=== PATIENT | female | born 1960 | race Caucasian/White ===

== ENCOUNTER 2016-05-23 21:53 | Observation (INO) | payer OTHER ==
[2016-05-23 22:28] LABS: Glucose,Whole Blood 540 mg/dL (75-99)
[2016-05-23 22:44] LABS: Appearance,Urine Clear (Clear); Bilirubin,Urine Negative (Negative); Glucose,Urine (UA) 4+ (Negative); Ketones,Urine Trace (Negative); Leukocyte Esterase,Urine Moderate (Negative); Nitrite,Urine Negative (Negative); Particle Count 2170; Protein,Urine Negative (Negative); RBC,Urine 7 /hpf (0-5); Specific Gravity,Urine 1.026 (1.001-1.035); Squamous Epithelial Cell,Urine 2 /hpf (0-4); UA Billing (MACRO vs. MICRO) MICRO; Urobilinogen,Urine <2.0 mg/dL (<2.0); WBC,Urine 10 /hpf (0-5)
[2016-05-23] MEDS ORDERED: RX INFO: IV CONTRAST WAS GIVEN 1 EACH MISC MISCELLANE PRN (22:46)
[2016-05-23] MEDS ORDERED: PANTOPRAZOLE 40 MG/10 ML VIAL IVP STA (22:46)
[2016-05-23] MEDS ORDERED: SODIUM CHLORIDE 0.9% 1,000 ML IV STA (22:46)
--- NOTE | 2016-05-23 22:54 | ED ---
GI Bleed HPI - General Chief complaint: GI Bleed Stated complaint: Abdominal Pain/Rectal Bleeding Time Seen by Provider: 05/23/16 21:58 Source: patient, RN notes reviewed Mode of arrival: EMS Limitations: no limitations - History of Present Illness Initial comments: This patient is a 56-year-old woman who complains of having melanotic stool since about 5 PM. The patient had a bowel movement at that time and noticed some dark stool which seemed to be leaching blood into the water of the commode. The patient had another bowel movement this evening noticing dark stool and there was an appearance of liver. The patient states she has been having some diffuse abdominal pain that she describes as moderate, constant, "like a hot nail", without any worsening or relieving factors. MD complaint: melena -: hour(s) Quality: other ("Like a hot nail") Consistency: constant Improves with: none Worsens with: none Associated Symptoms: abdominal pain - Related Data Home Medications Medication Instructions Recorded Confirmed Albuterol Inhaler [Ventolin Hfa 1 - 2 puff INHALATION RT-Q6H 08/27/15 10/14/15 Inhaler] Glimepiride [Amaryl] 1 mg PO DAILY 08/27/15 10/14/15 Omeprazole 40 mg PO AC-BRKFST 10/14/15 10/14/15 Previous Rx's Medication Instructions Recorded HYDROcodone/APAP 5-325MG [[place] 1 each PO Q4HR PRN #30 tab 09/02/15 5-325] Vancomycin 1,250 mg IVPB Q12H #42 bag 09/02/15 metFORMIN HCL [Glucophage] 1,000 mg PO BID-W/MEALS #60 tab 09/02/15 Allergies Allergy/AdvReac Type Severity Reaction Status Date / Time feathers Allergy Dyspnea Verified 10/14/15 11:30 Fish Containing Products Allergy Anaphylaxis Verified 10/14/15 11:30 kiwi Allergy Anaphylaxis Verified 10/14/15 11:30 latex Allergy Anaphylaxis Verified 10/14/15 11:30 Sulfa (Sulfonamide Allergy Anaphylaxis Verified 10/14/15 11:30 Antibiotics) codeine AdvReac Nausea & Verified 10/14/15 11:30 Vomiting & Diarrhea tetracycline [Tetracycline] AdvReac Nausea & Verified 10/14/15 11:30 Vomiting & Diarrhea all artificial sweetners Allergy Anaphylaxis Uncoded 10/14/15 11:30 mohawk peanuts Allergy Anaphylaxis Uncoded 10/14/15 11:30 Review of Systems ROS Statement: Those systems with pertinent positive or pertinent negative responses have been documented in the HPI. ROS Other: All systems not noted in ROS Statement are negative. Constitutional: Denies: fever, chills, weakness Respiratory: Denies: cough, dyspnea Cardiovascular: Denies: chest pain, palpitations, edema, syncope Endocrine: Reports: polyuria Gastrointestinal: Reports: as per HPI, abdominal pain, melena. Denies: nausea, vomiting, diarrhea, constipation, hematemesis Genitourinary: Denies: dysuria, frequency, hematuria Musculoskeletal: Denies: back pain Skin: Denies: rash Neurological: Denies: headache, weakness, numbness Psychiatric: Denies: depression Past Medical History Past Medical History: Asthma, Diabetes Mellitus, Hyperlipidemia, Hypertension Additional Past Medical History / Comment(s): heart murmur, kidney stones, nodules on thyroid, arthritis, Degenerative disc disease History of Any Multi-Drug Resistant Organisms: MRSA Date of last positivie culture/infection: 09/01/15, 08/30/15 MDRO Source:: , right, foot, serous fluid Past Surgical History: Section, Cholecystectomy, Orthopedic Surgery Additional Past Surgical History / Comment(s): Right middle finger extensor tendon repair, back injections both it was MRSA in her and by Dr. Bowser Past Anesthesia/Blood Transfusion Reactions: No Reported Reaction Past Psychological History: No Psychological Hx Reported Smoking Status: Never smoker Past Alcohol Use History: Rare Additional Past Alcohol Use History / Comment(s): Patient is a lifelong nonsmoker. She denies any medical marijuana, marijuana, street drug or alcohol use. She lives at home with her boyfriend. There are no pets in the home and no recent travel. She is not currently employed [employer] but previously worked at [employer] in the [facility]. Past Drug Use History: None Reported - Past Family History Mother Family Medical History: Coronary Artery Disease (CAD), Diabetes Mellitus, Renal Disease Brother(s) Family Medical History: Diabetes Mellitus Father Family Medical History: Cancer Additional Family Medical History / Comment(s): LUNG CANCER General Exam Limitations: no limitations General appearance: alert Head exam: Present: atraumatic, normocephalic Eye exam: Present: normal appearance. Absent: scleral icterus, conjunctival injection ENT exam: Present: normal oropharynx Neck exam: Present: normal inspection Respiratory exam: Present: normal lung sounds bilaterally. Absent: respiratory distress, wheezes, rales, rhonchi, stridor Cardiovascular Exam: Present: regular rate, normal rhythm, normal heart sounds. Absent: systolic murmur, diastolic murmur, rubs, gallop GI/Abdominal exam: Present: soft, normal bowel sounds, hernia (Patient has a small umbilical hernia which was easily reduced and is nontender.). Absent: distended, tenderness, guarding, rebound, mass, pulsatile mass Rectal exam: Present: normal inspection, normal rectal tone, other (No stool present). Absent: mass, tenderness Extremities exam: Present: normal inspection, normal capillary refill. Absent: pedal edema, calf tenderness Back exam: Present: normal inspection. Absent: CVA tenderness (R), CVA tenderness (L) Skin exam: Present: warm, dry, intact, normal color. Absent: rash, cyanosis, diaphoretic, erythema, petechiae, pallor, mottled Course Vital Signs 05/23/16 05/23/16 05/24/16 22:11 23:20 02:35 Temperature 98.2 F 98.1 F 98.2 F Pulse Rate 92 82 89 Respiratory 20 20 18 Rate Blood Pressure 207/104 172/90 209/112 O2 Sat by Pulse 98 98 98 Oximetry 05/24/16 05/24/16 04:26 05:58 Temperature Pulse Rate 91 68 Respiratory 16 18 Rate Blood Pressure 136/66 136/66 O2 Sat by Pulse 98 98 Oximetry Medical Decision Making - Lab Data Result diagrams: 05/23/16 23:15 05/23/16 23:15 Lab Results 05/23/16 05/23/16 05/23/16 Range/Units 22:00 22:24 23:15 WBC 6.9 (3.8-10.6) k/uL RBC 5.70 H (3.80-5.40) m/uL Hgb 16.1 H (11.4-16.0) gm/dL Hct 46.3 H (34.0-46.0) % MCV 81.2 (80.0-100.0) fL MCH 28.2 (25.0-35.0) pg MCHC 34.7 (31.0-37.0) g/dL RDW 12.8 (11.5-15.5) % Plt Count 189 (150-450) k/uL Neutrophils % 57 % Lymphocytes % 33 % Monocytes % 4 % Eosinophils % 3 % Basophils % 1 % Neutrophils # 4.0 (1.3-7.7) k/uL Lymphocytes # 2.3 (1.0-4.8) k/uL Monocytes # 0.3 (0-1.0) k/uL Eosinophils # 0.2 (0-0.7) k/uL Basophils # 0.1 (0-0.2) k/uL Sodium (137-145) mmol/L Potassium (3.5-5.1) mmol/L Chloride (98-107) mmol/L Carbon Dioxide (22-30) mmol/L Anion Gap mmol/L BUN (7-17) mg/dL Creatinine (0.52-1.04) mg/dL Est GFR (MDRD) Af Amer (>60 ml/min/1.73 sqM) Est GFR (MDRD) Non-Af (>60 ml/min/1.73 sqM) Glucose (74-99) mg/dL POC Glucose (mg/dL) 540 H (75-99) mg/dL POC Glu Dehydrogenation Operator Head ID Clarice Silva A Plasma Lactic Acid Damien (0.7-2.0) mmol/L Calcium (8.4-10.2) mg/dL Total Bilirubin (0.2-1.3) mg/dL AST (14-36) U/L ALT (9-52) U/L Alkaline Phosphatase (38-126) U/L Troponin I (0.000-0.034) ng/mL Total Protein (6.3-8.2) g/dL Albumin (3.5-5.0) g/dL Urine Color Colorless Urine Appearance Clear (Clear) Urine pH 5.0 (5.0-8.0) Ur Specific [place] 1.026 (1.001-1.035) Urine Protein Negative (Negative) Urine Glucose (UA) 4+ H (Negative) Urine Ketones Trace H (Negative) Urine Blood Negative (Negative) Urine Nitrate Negative (Negative) Urine Bilirubin Negative (Negative) Urine Urobilinogen <2.0 (<2.0) mg/dL Ur Leukocyte Esterase Moderate H (Negative) Urine RBC 7 H (0-5) /hpf Urine WBC 10 H (0-5) /hpf Ur Squamous Epith Cells 2 (0-4) /hpf Stool Occult Blood (Negative) Acetone, Qual (Negative) Blood Type Blood Type Confirm Blood Type Recheck Antibody Screen Spec Expiration Date 05/23/16 05/23/16 05/23/16 Range/Units 23:15 23:15 23:15 WBC (3.8-10.6) k/uL RBC (3.80-5.40) m/uL Hgb (11.4-16.0) gm/dL Hct (34.0-46.0) % MCV (80.0-100.0) fL MCH (25.0-35.0) pg MCHC (31.0-37.0) g/dL RDW (11.5-15.5) % Plt Count (150-450) k/uL Neutrophils % % Lymphocytes % % Monocytes % % Eosinophils % % Basophils % % Neutrophils # (1.3-7.7) k/uL Lymphocytes # (1.0-4.8) k/uL Monocytes # (0-1.0) k/uL Eosinophils # (0-0.7) k/uL Basophils # (0-0.2) k/uL Sodium 137 (137-145) mmol/L Potassium 4.2 (3.5-5.1) mmol/L Chloride 100 (98-107) mmol/L Carbon Dioxide 26 (22-30) mmol/L Anion Gap 11 mmol/L BUN 15 (7-17) mg/dL Creatinine 0.60 (0.52-1.04) mg/dL Est GFR (MDRD) Af Amer >60 (>60 ml/min/1.73 sqM) Est GFR (MDRD) Non-Af >60 (>60 ml/min/1.73 sqM) Glucose 521 H* (74-99) mg/dL POC Glucose (mg/dL) (75-99) mg/dL POC Glu Dehydrogenation Operator Head ID Plasma Lactic Acid Damien 2.3 H* (0.7-2.0) mmol/L Calcium 9.1 (8.4-10.2) mg/dL Total Bilirubin 0.7 (0.2-1.3) mg/dL AST 20 (14-36) U/L ALT 40 (9-52) U/L Alkaline Phosphatase 76 (38-126) U/L Troponin I (0.000-0.034) ng/mL Total Protein 6.5 (6.3-8.2) g/dL Albumin 3.9 (3.5-5.0) g/dL Urine Color Urine Appearance (Clear) Urine pH (5.0-8.0) Ur Specific [place] (1.001-1.035) Urine Protein (Negative) Urine Glucose (UA) (Negative) Urine Ketones (Negative) Urine Blood (Negative) Urine Nitrate (Negative) Urine Bilirubin (Negative) Urine Urobilinogen (<2.0) mg/dL Ur Leukocyte Esterase (Negative) Urine RBC (0-5) /hpf Urine WBC (0-5) /hpf Ur Squamous Epith Cells (0-4) /hpf Stool Occult Blood Negative (Negative) Acetone, Qual (Negative) Blood Type Blood Type Confirm Blood Type Recheck Antibody Screen Spec Expiration Date 05/23/16 05/23/16 05/23/16 Range/Units 23:15 23:15 23:15 WBC (3.8-10.6) k/uL RBC (3.80-5.40) m/uL Hgb (11.4-16.0) gm/dL Hct (34.0-46.0) % MCV (80.0-100.0) fL MCH (25.0-35.0) pg MCHC (31.0-37.0) g/dL RDW (11.5-15.5) % Plt Count (150-450) k/uL Neutrophils % % Lymphocytes % % Monocytes % % Eosinophils % % Basophils % % Neutrophils # (1.3-7.7) k/uL Lymphocytes # (1.0-4.8) k/uL Monocytes # (0-1.0) k/uL Eosinophils # (0-0.7) k/uL Basophils # (0-0.2) k/uL Sodium (137-145) mmol/L Potassium (3.5-5.1) mmol/L Chloride (98-107) mmol/L Carbon Dioxide (22-30) mmol/L Anion Gap mmol/L BUN (7-17) mg/dL Creatinine (0.52-1.04) mg/dL Est GFR (MDRD) Af Amer (>60 ml/min/1.73 sqM) Est GFR (MDRD) Non-Af (>60 ml/min/1.73 sqM) Glucose (74-99) mg/dL POC Glucose (mg/dL) (75-99) mg/dL POC Glu Dehydrogenation Operator Head ID Plasma Lactic Acid Damien (0.7-2.0) mmol/L Calcium (8.4-10.2) mg/dL Total Bilirubin (0.2-1.3) mg/dL AST (14-36) U/L ALT (9-52) U/L Alkaline Phosphatase (38-126) U/L Troponin I <0.012 (0.000-0.034) ng/mL Total Protein (6.3-8.2) g/dL Albumin (3.5-5.0) g/dL Urine Color Urine Appearance (Clear) Urine pH (5.0-8.0) Ur Specific [place] (1.001-1.035) Urine Protein (Negative) Urine Glucose (UA) (Negative) Urine Ketones (Negative) Urine Blood (Negative) Urine Nitrate (Negative) Urine Bilirubin (Negative) Urine Urobilinogen (<2.0) mg/dL Ur Leukocyte Esterase (Negative) Urine RBC (0-5) /hpf Urine WBC (0-5) /hpf Ur Squamous Epith Cells (0-4) /hpf Stool Occult Blood (Negative) Acetone, Qual Negative (Negative) Blood Type A Positive Blood Type Confirm Blood Type Recheck CABO Indicated Antibody Screen NEGATIVE Spec Expiration Date 05/26/2016 - 231405/24/16 05/24/16 Range/Units 00:35 04:06 WBC (3.8-10.6) k/uL RBC (3.80-5.40) m/uL Hgb (11.4-16.0) gm/dL Hct (34.0-46.0) % MCV (80.0-100.0) fL MCH (25.0-35.0) pg MCHC (31.0-37.0) g/dL RDW (11.5-15.5) % Plt Count (150-450) k/uL Neutrophils % % Lymphocytes % % Monocytes % % Eosinophils % % Basophils % % Neutrophils # (1.3-7.7) k/uL Lymphocytes # (1.0-4.8) k/uL Monocytes # (0-1.0) k/uL Eosinophils # (0-0.7) k/uL Basophils # (0-0.2) k/uL Sodium (137-145) mmol/L Potassium (3.5-5.1) mmol/L Chloride (98-107) mmol/L Carbon Dioxide (22-30) mmol/L Anion Gap mmol/L BUN (7-17) mg/dL Creatinine (0.52-1.04) mg/dL Est GFR (MDRD) Af Amer (>60 ml/min/1.73 sqM) Est GFR (MDRD) Non-Af (>60 ml/min/1.73 sqM) Glucose (74-99) mg/dL POC Glucose (mg/dL) 263 H (75-99) mg/dL POC Glu Dehydrogenation Operator Head ID Clarice Silva A Plasma Lactic Acid Damien (0.7-2.0) mmol/L Calcium (8.4-10.2) mg/dL Total Bilirubin (0.2-1.3) mg/dL AST (14-36) U/L ALT (9-52) U/L Alkaline Phosphatase (38-126) U/L Troponin I (0.000-0.034) ng/mL Total Protein (6.3-8.2) g/dL Albumin (3.5-5.0) g/dL Urine Color Urine Appearance (Clear) Urine pH (5.0-8.0) Ur Specific [place] (1.001-1.035) Urine Protein (Negative) Urine Glucose (UA) (Negative) Urine Ketones (Negative) Urine Blood (Negative) Urine Nitrate (Negative) Urine Bilirubin (Negative) Urine Urobilinogen (<2.0) mg/dL Ur Leukocyte Esterase (Negative) Urine RBC (0-5) /hpf Urine WBC (0-5) /hpf Ur Squamous Epith Cells (0-4) /hpf Stool Occult Blood (Negative) Acetone, Qual (Negative) Blood Type Blood Type Confirm A Positive Blood Type Recheck Antibody Screen Spec Expiration Date Disposition Clinical Impression: Diabetes, History of gastrointestinal bleeding, Acidosis, lactic, Hyperglycemia Disposition: ADMITTED IP TO THIS [facility] Condition: Fair
[2016-05-23 23:25] LABS: Basophils # (A) 0.1 k/uL (0-0.2); Basophils % (A) 1 %; CH 29.1; Eosinophils # (A) 0.2 k/uL (0-0.7); Eosinophils % (A) 3 %; HCT 46.3 % (34.0-46.0); HDW 3.13; HGB 16.1 gm/dL (11.4-16.0); Luc % (Auto) 2; Lymphocytes # (A) 2.3 k/uL (1.0-4.8); Lymphocytes % (A) 33 %; MCH 28.2 pg (25.0-35.0); MCHC 34.7 g/dL (31.0-37.0); MCV 81.2 fL (80.0-100.0); Mean Platelet Volume 8.2; Monocytes # (A) 0.3 k/uL (0-1.0); Monocytes % (A) 4 %; Neutrophils % (A) 57 %; RDW 12.8 % (11.5-15.5); WBC 6.9 k/uL (3.8-10.6); WBC (Perox) 6.78
[2016-05-23 23:36] LABS: ALT 40 U/L (9-52); AST 20 U/L (14-36); Alkaline Phosphatase 76 U/L (38-126); Anion Gap 11 mmol/L; Blood Urea Nitrogen 15 mg/dL (7-17); Calcium 9.1 mg/dL (8.4-10.2); Carbon Dioxide 26 mmol/L (22-30); Chloride 100 mmol/L (98-107); Non-African American GFR(MDRD) >60 (>60 ml/min/1.73 sqM); Potassium 4.2 mmol/L (3.5-5.1); Sodium 137 mmol/L (137-145); Total Bilirubin 0.7 mg/dL (0.2-1.3); Total Protein 6.5 g/dL (6.3-8.2)
[2016-05-23 23:43] LABS: Glucose 521 mg/dL (74-99)
[2016-05-23] MEDS ORDERED: INSULIN REGULAR 100 UNIT/ML VIAL IV STA (23:58)
[2016-05-23] MEDS ORDERED: SODIUM CHLORIDE 0.9% 2,000 ML IV ONE (23:58)
[2016-05-24] MEDS ORDERED: methylPREDNISolone SOD SUCCI 125 MG/2 ML VIAL IV STA (02:27)
[2016-05-24] MEDS ORDERED: diphenhydrAMINE 50 MG/ML 1 ML VIAL IVP STA (02:28)
[2016-05-24] MEDS ORDERED: FAMOTIDINE 20 MG/2 ML VIAL IV STA (02:28)
--- NOTE | 2016-05-24 03:30 | CT ---
EXAMINATION TYPE: CT abdomen pelvis w con DATE OF EXAM: 05/24/2016 2:50 AM COMPARISON: 06/17/2014. HISTORY: bilat flank pain/rectal bleeding CT DLP: 855.00 mGycm Automated exposure control for dose reduction was used. TECHNIQUE: Helical acquisition of images was performed from the lung bases through the pelvis. CONTRAST: Performed without Oral Contrast and with IV Contrast, patient injected with 100 mL of Omnipaque 300. FINDINGS: LUNG BASES: No significant abnormality is appreciated. LIVER/GB: Mild to moderate fatty infiltration of liver is noted. Cholecystectomy changes are present. PANCREAS: No significant abnormality is seen. SPLEEN: No significant abnormality is seen. ADRENALS: No significant abnormality is seen. KIDNEYS: No hydronephrosis is noted bilaterally. Tiny nonobstructing stones are noted in the left kid lee. Benign-appearing small cysts are noted in the left kidney. RETROPERITONEAL ADENOPATHY: None visualized REPRODUCTIVE ORGANS: No significant abnormality is seen URINARY BLADDER: No significant abnormality is seen. PELVIC ADENOPATHY: None visualized. OSSEOUS STRUCTURES: Multilevel mild degenerative changes are suggested in the thoracolumbar spine. T here is severe spinal canal stenosis at the level of L4-L5. BOWEL: Mild to moderate gas and fecal distention of colonic bowel loops is noted. Visualized appendi x appears unremarkable in the axial image 65. Mild colonic diverticulosis is noted. Small hiatal hernia is noted. OTHER: Small fat-containing umbilical hernia is noted. IMPRESSION: 1. [id number] GASEOUS AND FECAL MATERIAL IS NOTED IN THE COLON WITHOUT SIGNIFICANT OBSTRUCTION. THERE IS MILD COLONIC DIVERTICULOSIS. 2. CHOLECYSTECTOMY AND FATTY INFILTRATION OF LIVER. 3. SMALL HIATAL HERNIA. 4. Severe spinal canal stenosis at L4-L5.
[2016-05-24 04:09] LABS: Glucose,Whole Blood 263 mg/dL (75-99)
[2016-05-24] MEDS ORDERED: NALOXONE 0.4 MG/ML 1 ML VIAL IV PRN (06:00)
[2016-05-24] MEDS ORDERED: MORPHINE SULFATE 4 MG/ML SYRINGE IV PRN (06:00)
[2016-05-24] MEDS ORDERED: ONDANSETRON 4 MG/2 ML VIAL IVP PRN (06:00)
[2016-05-24] MEDS ORDERED: metFORMIN 500 MG TAB PO SCH (07:30)
[2016-05-24 08:00] LABS: Glucose,Whole Blood 409 mg/dL (75-99)
[2016-05-24] MEDS: INSULIN LISPRO (humaLOG) 300 UNIT/3 ML VIAL SQ SCH ×3 (08:12→17:35)
[2016-05-24] MEDS ORDERED: GLIMEPIRIDE 1 MG TAB PO SCH (09:00)
[2016-05-24 09:16] VITALS: BMI 33.3
[2016-05-24] MEDS: SODIUM CHLORIDE 0.9% 1,000 ML IV SCH ×2 (09:28→19:32)
[2016-05-24 12:22] LABS: Glucose,Whole Blood 314 mg/dL (75-99)
[2016-05-24] MEDS: ALBUTEROL NEBULIZED 2.5 MG/3 ML INHALATION SCH ×3 (12:32→19:06)
[2016-05-24] MEDS: PANTOPRAZOLE 40 MG/10 ML VIAL IV SCH (15:10)
--- NOTE | 2016-05-24 16:10 | HP ---
DATE OF ADMISSION: 05/24/2016 PRESENTING COMPLAINT: Blood in the stool. HISTORY OF PRESENTING COMPLAINT: This is a 56-year-old patient of Dr. Acosta whose chronic stable medical conditions include asthma, hypertension, hypercholesterolemia, osteoarthritis. Patient states she has been having lower abdominal pain for about a month and has a bowel movement that has formed every other day. Has had a colonoscopy that was negative 3 years ago. Also some right lower abdominal pain she has had for 2 or 3 days. Patient noticed about a 1/4 cup of blood in the stool yesterday and dark-colored stools and she was admitted, feeling weak and tired. No nausea, vomiting, no fever. REVIEW OF SYSTEMS: CONSTITUTIONAL: Tired. HEENT: None. RESPIRATORY: None. CARDIOVASCULAR: None. GASTROINTESTINAL: As above. GENITOURINARY: None. MUSCULOSKELETAL: Aches and pains in the joints. DERMATOLOGICAL: None. HEMATOLOGICAL: None. LYMPHATIC: None. PSYCHIATRY: None. NEUROLOGICAL: None. Past history of diabetes mellitus type 2, asthma, hypertension, hypercholesterolemia, osteoarthritis, kidney stones, thyroid nodules, diabetic ulcer on the bottom of the right foot. PAST SURGICAL HISTORY: , cholecystectomy, right middle finger extension, tendon repair, back injection. SOCIAL HISTORY: Lives with her boyfriend, nonsmoker. No pets. Used to work previously at [employer] in the [facility] [employer]. Family history of coronary artery disease, diabetes, kidney disease, lung cancer. HOME MEDICATIONS: 1. Metformin 1000 mg p.o. b.i.d. 2. Amaryl 2 mg p.o. b.i.d. 3. Ventolin 1 to 2 puffs q.6 p.r.n. Allergies to FEATHERS, FISH, KIWI, LATEX, SULFA, CODEINE, MILK, TETRACYCLINE, ARTIFICIAL SWEETENERS, KYRGYZ PEANUTS. On examination, vital signs on presentation: Temperature 98.2, pulse 92, respirations 20, blood pressure 207/104, pulse ox 98% on room air. Repeat blood pressure down to 136/66, pulse ox 98% on room air. GENERAL APPEARANCE: Well built, BMI of 33.3, sitting up, not in distress. EYES: Pupils equal. Conjunctivae normal. HEENT: External appearance of nose and ears normal. Oral cavity normal. NECK: JVD not raised. Mass not palpable. Respiratory effort normal. Lungs are clear. CARDIOVASCULAR: First and second sounds normal. No edema. ABDOMEN: Lower abdominal tenderness. No guarding or rigidity. Liver and spleen not palpable. LYMPHATIC: No lymph node enlargement in neck or axillae. PSYCHIATRY: Alert and oriented x3. Mood and affect normal. NEUROLOGICAL: Pupils equal. Cranial nerves grossly intact. Power and sensation grossly intact. INVESTIGATIONS: White count 6.9, hemoglobin 16.1, potassium 4.2, BUN and creatinine are normal. Sugar on admission, blood glucose was 521, repeat went down her to 263, plasma lactic acid was 2.3. Troponin negative. Fecal for occult stool was negative. Serum acetone was negative. CT scan of the abdomen and pelvis, some fecal material in the colon, some colonic diverticulosis, mild, fatty liver, spinal canal stenosis at L4 and L5. ASSESSMENT: 1. This is a patient who is having lower abdominal pain for about a month, tenderness on examination and bloody stools. Patient may have a low-grade colitis, even though it may not be evident on the CAT scan, clinical history with the same. 2. Severe spinal stenosis at L4, L5. 3. Fatty infiltration of the liver, chronic. 4. Nonketotic hyperosmolar hyperglycemia for diabetes type 2, present on admission. 5. Intermittent asthma, stable. 6. Essential hypertension, uncontrolled on presentation. 7. Hypercholesterolemia. 8. Primary osteoarthritis in multiple joints, including hands and knees. PLAN: Will put the patient on clear liquids, and put the patient on insulin drip. Will also put the patient on IV ceftriaxone, subQ heparin, IV fluids. Care was discussed with the patient. GI consult was placed. Follow electrolytes closely. Also put the patient on NEFTALY inhibitor and Lipitor for being a diabetic.
[2016-05-24] MEDS: INSULIN REGULAR 100 UNIT in SODIUM CHLORIDE 0.9% 100 ML IV SCH ×2 (16:25→23:05)
[2016-05-24 16:38] LABS: Glucose,Whole Blood 291 mg/dL (75-99)
[2016-05-24 17:32] LABS: Glucose,Whole Blood 267 mg/dL (75-99)
[2016-05-24 19:34] LABS: Glucose,Whole Blood 357 mg/dL (75-99)
[2016-05-24] MEDS: LISINOPRIL-HCTZ 10-12.5 MG 1 EACH TAB PO SCH (19:55)
[2016-05-24] MEDS: ATORVASTATIN 20 MG TAB PO SCH (19:56)
[2016-05-24 21:10] LABS: Glucose,Whole Blood 271 mg/dL (75-99)
[2016-05-24 23:14] LABS: Glucose,Whole Blood 177 mg/dL (75-99)
[2016-05-25 01:13] LABS: Glucose,Whole Blood 123 mg/dL (75-99)
[2016-05-25 02:02] LABS: Glucose,Whole Blood 134 mg/dL (75-99)
[2016-05-25] MEDS: ALBUTEROL NEBULIZED 2.5 MG/3 ML INHALATION SCH ×4 (03:10→19:22)
[2016-05-25 03:13] LABS: Glucose,Whole Blood 169 mg/dL (75-99)
[2016-05-25] MEDS: SODIUM CHLORIDE 0.9% 1,000 ML IV SCH ×2 (05:05→18:02)
[2016-05-25 05:09] LABS: Glucose,Whole Blood 145 mg/dL (75-99)
[2016-05-25] MEDS: INSULIN LISPRO (humaLOG) 300 UNIT/3 ML VIAL SQ SCH ×3 (07:52→17:29)
[2016-05-25] MEDS: PANTOPRAZOLE 40 MG/10 ML VIAL IV SCH (07:52)
[2016-05-25] MEDS: LISINOPRIL-HCTZ 10-12.5 MG 1 EACH TAB PO SCH ×2 (08:00→20:33)
[2016-05-25 08:15] LABS: Glucose,Whole Blood 149 mg/dL (75-99)
[2016-05-25 08:27] LABS: Basophils # (A) 0.1 k/uL (0-0.2); Basophils % (A) 1 %; CH 28.9; CHCM 35.3; Eosinophils # (A) 0.1 k/uL (0-0.7); Eosinophils % (A) 1 %; HCT 39.5 % (34.0-46.0); HDW 3.14; HGB 13.5 gm/dL (11.4-16.0); Luc # (Auto) 0.07; Luc % (Auto) 1; Lymphocytes # (A) 2.3 k/uL (1.0-4.8); Lymphocytes % (A) 21 %; MCH 28.2 pg (25.0-35.0); MCHC 34.3 g/dL (31.0-37.0); MCV 82.3 fL (80.0-100.0); Mean Platelet Volume 8.6; Monocytes # (A) 0.4 k/uL (0-1.0); Monocytes % (A) 3 %; Neutrophils % (A) 73 %; RDW 13.1 % (11.5-15.5); WBC 10.9 k/uL (3.8-10.6); WBC (Perox) 11.49
[2016-05-25 08:50] LABS: Anion Gap 9 mmol/L; Blood Urea Nitrogen 8 mg/dL (7-17); Calcium 7.7 mg/dL (8.4-10.2); Carbon Dioxide 23 mmol/L (22-30); Chloride 110 mmol/L (98-107); Cholesterol 168 mg/dL (<200); Glucose 153 mg/dL (74-99); HDL Cholesterol 32 mg/dL (40-60); Non-African American GFR(MDRD) >60 (>60 ml/min/1.73 sqM); Potassium 3.2 mmol/L (3.5-5.1); Sodium 142 mmol/L (137-145); Triglycerides 188 mg/dL (<150)
[2016-05-25 09:34] LABS: Glucose,Whole Blood 259 mg/dL (75-99)
[2016-05-25] MEDS: HYDROcodone/APAP 5-325MG 1 EACH TAB PO PRN (09:40)
[2016-05-25 11:00] LABS: Glucose,Whole Blood 208 mg/dL (75-99)
[2016-05-25 12:23] LABS: Hemoglobin A1C 12.9 % (4.2-6.1)
[2016-05-25 13:26] LABS: Glucose,Whole Blood 187 mg/dL (75-99)
[2016-05-25 15:06] LABS: Glucose,Whole Blood 253 mg/dL (75-99)
[2016-05-25] MEDS: INSULIN REGULAR 100 UNIT in SODIUM CHLORIDE 0.9% 100 ML IV SCH (16:09)
[2016-05-25 17:32] LABS: Glucose,Whole Blood 136 mg/dL (75-99)
[2016-05-25] MEDS: metFORMIN 500 MG TAB PO SCH (17:39)
[2016-05-25] MEDS: GLIMEPIRIDE 2 MG TAB PO SCH (17:39)
[2016-05-25 19:21] LABS: Glucose,Whole Blood 171 mg/dL (75-99)
[2016-05-25] MEDS: ATORVASTATIN 20 MG TAB PO SCH (20:33)
[2016-05-25 20:47] LABS: Glucose,Whole Blood 182 mg/dL (75-99)
--- NOTE | 2016-05-25 22:18 | PN ---
DATE OF SERVICE: 05/25/2016 PRESENTING COMPLAINT: Blood in the stools. INTERVAL HISTORY: This is a patient who is suspected to have low-grade colitis. Abdominal pain is better. Did tolerate some clear liquids. Sugar is running high. She has had no further bowel movement. Keen to advance diet. No nausea or vomiting. Review of systems done for constitutional, cardiovascular, GI, pulmonary; relevant findings as above. Current medications are reviewed, including insulin drip. On examination, temperature 98, pulse 99, respiration 16, blood pressure 123/78, pulse ox 98% on room air. GENERAL APPEARANCE: Sitting up, not in distress. EYES: Pupils equal. Conjunctivae normal. NECK: JVD not raised. Mass not palpable. RESPIRATORY: Effort normal. Lungs are clear. CARDIOVASCULAR: First and second sounds normal. No edema. ABDOMEN: Minimal lower abdominal tenderness. No guarding or rigidity. PSYCHIATRY: Alert and oriented x3. Mood and affect normal. INVESTIGATIONS: White count 10.9, hemoglobin 13.5. BUN and creatinine are normal. ( ) are better. Urine culture negative. ASSESSMENT: 1. Possible low-grade colitis with clinical improvement. 2. Severe spinal stenosis at L4-L5. 3. Fatty infiltration of the liver, chronic. 4. Non-ketotic hyperosmolar hyperglycemia for diabetes mellitus, type 2, present on admission. 5. Intermittent asthma, stable. 6. Essential hypertension, uncontrolled on presentation. 7. Hypercholesterolemia. 8. Primary osteoarthritis of multiple joints, including hands and knees. PLAN: Continue current medication and treatment plan. Advance diet. Care was discussed with the patient.
[2016-05-26] MEDS: SODIUM CHLORIDE 0.9% 1,000 ML IV SCH ×2 (00:39→07:59)
[2016-05-26] MEDS: ALBUTEROL NEBULIZED 2.5 MG/3 ML INHALATION SCH ×2 (01:31→13:38)
[2016-05-26] MEDS: HYDROcodone/APAP 5-325MG 1 EACH TAB PO PRN (03:30)
[2016-05-26 07:29] LABS: Glucose,Whole Blood 267 mg/dL (75-99)
[2016-05-26 07:53] VITALS: RESP 18; TEMP 98.2
[2016-05-26] MEDS: metFORMIN 500 MG TAB PO SCH (07:58)
[2016-05-26] MEDS: LISINOPRIL-HCTZ 10-12.5 MG 1 EACH TAB PO SCH (07:59)
[2016-05-26] MEDS: PANTOPRAZOLE 40 MG/10 ML VIAL IV SCH (07:59)
[2016-05-26] MEDS: GLIMEPIRIDE 2 MG TAB PO SCH (07:59)
[2016-05-26] MEDS: INSULIN LISPRO (humaLOG) 300 UNIT/3 ML VIAL SQ SCH ×3 (08:05→12:48)
[2016-05-26 08:37] LABS: Basophils # (A) 0.1 k/uL (0-0.2); Basophils % (A) 1 %; CH 28.9; Eosinophils # (A) 0.1 k/uL (0-0.7); Eosinophils % (A) 2 %; HCT 41.5 % (34.0-46.0); HDW 3.14; HGB 14.1 gm/dL (11.4-16.0); Luc # (Auto) 0.05; Luc % (Auto) 1; Lymphocytes # (A) 1.7 k/uL (1.0-4.8); Lymphocytes % (A) 28 %; MCH 28.2 pg (25.0-35.0); MCHC 34.1 g/dL (31.0-37.0); MCV 82.9 fL (80.0-100.0); Mean Platelet Volume 8.1; Monocytes # (A) 0.2 k/uL (0-1.0); Monocytes % (A) 4 %; Neutrophils % (A) 65 %; RBC 5.01 m/uL (3.80-5.40); WBC 6.1 k/uL (3.8-10.6); WBC (Perox) 6.36
[2016-05-26 08:55] LABS: Anion Gap 11 mmol/L; Blood Urea Nitrogen 8 mg/dL (7-17); Carbon Dioxide 24 mmol/L (22-30); Chloride 105 mmol/L (98-107); Glucose 250 mg/dL (74-99); Non-African American GFR(MDRD) >60 (>60 ml/min/1.73 sqM); Potassium 3.4 mmol/L (3.5-5.1); Sodium 140 mmol/L (137-145)
[2016-05-26 10:14] VITALS: BP 152/80
[2016-05-26 11:33] LABS: Glucose,Whole Blood 215 mg/dL (75-99)
[2016-05-26 13:41] VITALS: PULSE 76
--- NOTE | 2016-05-27 13:29 | DS ---
DATE OF ADMISSION: 05/24/2016 DATE OF DISCHARGE: 05/26/2016 FINAL DIAGNOSES: 1. Acute low-grade colitis, present on admission. 2. Severe spinal stenosis L4-L5. 3. Fatty infiltration of the liver, chronic. 4. Nonketotic hyperosmolar, hyperglycemia for diabetes mellitus, type 2. 5. Intermittent asthma, stable. 6. Essential hypertension, uncontrolled on presentation. 7. Hypercholesterolemia. 8. Primary osteoarthritis, multiple joints, including hands and knees. CONSULTATIONS: Dr. Sarabia from GI. HOSPITAL COURSE: This patient presented with lower abdominal pain, some blood in the stool. Sugars were running high. It was felt that patient may have colitis, given antibiotics, ( ) resolved. Seen by Dr. Sarabia from GI. I do not have his formal consult dictated currently. Patient keen to go home. Clinically doing better, afebrile. Normal white count. ON EXAMINATION: ABDOMEN: Soft, nontender. DISCHARGE MEDICATIONS: 1. Ventolin 1 to 2 puffs q.6 p.r.n. 2. Glucophage 1000 mg p.o. b.i.d. 3. Amaryl 2 mg p.o. b.i.d. 4. Augmentin 875 one tablet p.o. q.12, fourteen tablets. 5. Lipitor 20 mg q.h.s. 6. Zestoretic 02/11.5 one tablet p.o. b.i.d. Follow up with Dr. Sarabia on 06/08/16. Follow up with Dr. Acosta on 05/28/16. LABS: CBC, BMP in 3 days. DIET: Soft, bland.
== END 2016-05-26 16:15 | disposition home or self-care (01) ==
LOC: EC 21:53 → 5MS5E 05-24 06:01
PROVIDERS: ADMIT Hospitalist; ATTEND Hospitalist
DX: K52.9 Noninfective gastroenteritis and colitis, unspecified (principal); M48.06 Spinal stenosis, lumbar region; K76.0 Fatty (change of) liver, not elsewhere classified; E11.65 Type 2 diabetes mellitus with hyperglycemia; E87.0 Hyperosmolality and hypernatremia; J45.20 Mild intermittent asthma, uncomplicated; I10 Essential (primary) hypertension; E78.00 Pure hypercholesterolemia, unspecified; M19.91 Primary osteoarthritis, unspecified site; E78.5 Hyperlipidemia, unspecified; K42.9 Umbilical hernia without obstruction or gangrene; K57.30 Diverticulosis of large intestine without perforation or abscess without bleeding; K44.9 Diaphragmatic hernia without obstruction or gangrene; Z79.84 Long term (current) use of oral hypoglycemic drugs; Z79.899 Other long term (current) drug therapy; Z91.040 Latex allergy status; Z88.2 Allergy status to sulfonamides; Z86.14 Personal history of Methicillin resistant Staphylococcus aureus infection; Z82.49 Family history of ischemic heart disease and other diseases of the circulatory system; Z83.3 Family history of diabetes mellitus; Z80.1 Family history of malignant neoplasm of trachea, bronchus and lung
CPT/HCPCS: 36415 ×2; 94640 ×4; 86900; 86901; 80061; 80053; 80048 ×2; 83036; 82009; 83605 ×2; 84484; 85025 ×3; 86850; 82272; 81001; 87086; 74177; 99285; 96375 ×4; 96376; 96361 ×16; G0378 ×3; J1200; J2930; J2405; J0696 ×3; Q9967; C9113 ×4; 96365; 96366; 96367; 96368

== ENCOUNTER 2016-06-15 08:08 | Day surgery (SDC) | payer OTHER ==
[2016-06-11 10:37] VITALS: BMI 31.8
[~2016-06-15 08:08] MED LIST: LACTATED RINGERS 1,000 ML IV SCH
[2016-06-15 08:35] VITALS: RESP 16; TEMP 97
[2016-06-15] MEDS ORDERED: LIDOCAINE 1% INJ 10MG/ML (20 ML MDV) ONE (08:38)
[2016-06-15] MEDS ORDERED: PROPOFOL 10 MG/ML 20 ML VIAL IV ONE (08:38)
[2016-06-15 08:40] LABS: Glucose,Whole Blood 272 mg/dL (75-99)
--- NOTE | 2016-06-15 09:02 | P.PCN ---
Date of Procedure: 06/15/16 Procedure(s) Performed: Procedure: Esophagogastroduodenoscopy and biopsy. Preoperative diagnosis: Reflux symptoms and nocturnal regurgitation. Postoperative diagnosis: 1. Sliding hiatal hernia with no definite esophagitis or complicated reflux disease. 2. Mild antral gastritis. 3. Multiple biopsies obtained from the duodenum, antrum and esophagus. Preparation and sedation: Was provided by anesthesia Brief clinical history: The patient is a 56-year-old female who was evaluated in the office for symptoms of heartburn and nocturnal regurgitation that she has been experiencing for the last several weeks. No dysphagia or other alarm symptoms. This evaluation was scheduled to assess for esophagitis, complicated reflux disease or other pathology. Procedure: With the patient on her left lateral decubitus position and after informed consent and adequate sedation, I passed the Olympus-GIF 160 video upper endoscope through the cricopharyngeus down the esophagus. GE junction was around 34 cm from the incisors and there was a small sliding hiatal hernia. The esophagus did not show any definite evidence of esophagitis. No obvious erosions or ulcers. No strictures or Hidalgo's esophagus. The endoscope was then passed into the stomach which was insufflated with air and inspected in detail including the retroflex view in the cardia. There was some mottling and erythema in the antrum consistent with mild gastritis but no ulcers or erosions. Pyloric channel, duodenal bulb, post bulbar area and descending duodenum appeared within normal limits. I obtained multiple biopsies from the duodenum, antrum and esophagus then the endoscope was withdrawn. The patient tolerated the procedure well. Plan: The patient was reassured. Will await biopsy results and make further plans based on his course and biopsy results. Would keep you updated on her progress. She will follow-up with you as planned.
[2016-06-15 09:11] LABS: Glucose,Whole Blood 280 mg/dL (75-99)
[2016-06-15 09:34] VITALS: BP 109/71; PULSE 79
== END 2016-06-15 09:56 | disposition home or self-care (01) ==
LOC: ORWHC2ENDO 08:08
DX: K29.50 Unspecified chronic gastritis without bleeding (principal); K44.9 Diaphragmatic hernia without obstruction or gangrene; K20.9 Esophagitis, unspecified; E11.9 Type 2 diabetes mellitus without complications; I10 Essential (primary) hypertension; J45.909 Unspecified asthma, uncomplicated; E78.5 Hyperlipidemia, unspecified; Z86.73 Personal history of transient ischemic attack (TIA), and cerebral infarction without residual deficits; Z79.84 Long term (current) use of oral hypoglycemic drugs; Z79.899 Other long term (current) drug therapy; Z88.5 Allergy status to narcotic agent; Z88.2 Allergy status to sulfonamides; Z88.1 Allergy status to other antibiotic agents; Z91.040 Latex allergy status
CPT/HCPCS: 88305; 88342; 43239; J2001; J2704; 99153

== ENCOUNTER → 2018-01-20 | Outpatient (CLI) | payer OTHER ==
[2018-01-20 12:15] LABS: Basophils # (A) 0.1 k/uL (0-0.2); Basophils % (A) 1 %; Eosinophils # (A) 0.2 k/uL (0-0.7); Eosinophils % (A) 3 %; HCT 39.9 % (34.0-46.0); Lymphocytes # (A) 1.7 k/uL (1.0-4.8); Lymphocytes % (A) 27 %; MCH 28.6 pg (25.0-35.0); MCHC 32.5 g/dL (31.0-37.0); Mean Platelet Volume 7.4; Monocytes # (A) 0.3 k/uL (0-1.0); Monocytes % (A) 4 %; Neutrophils # (A) 3.9 k/uL (1.3-7.7); Neutrophils % (A) 64 %; Platelet Count 178 k/uL (150-450); RBC 4.54 m/uL (3.80-5.40); RDW 13.4 % (11.5-15.5); WBC 6.1 k/uL (3.8-10.6)
--- NOTE | 2018-01-20 12:19 | US ---
EXAMINATION TYPE: US kidneys/renal and bladder DATE OF EXAM: 01/20/2018 COMPARISON: CT abdomen and pelvis 2017 CLINICAL HISTORY: R94.4 Decreased calculated GFR. EXAM MEASUREMENTS: Right Kidney: 10.8 x 3.9 x 4.1 cm Left Kidney: 10.4 x 4.9 x 4.2 cm Post Void Residual Volume: 0.3 mL Right Kidney: No hydronephrosis or masses seen , hyperechoic foci Left Kidney: No hydronephrosis or masses seen hyperechoic foci Bladder: wnl Bilateral Jets seen: Yes Normal Post Void Residual: Yes There is no evidence for hydronephrosis at this point in time. No masses are identified on images s aved. The urinary bladder is not greatly distended and thus suboptimally evaluated. Bilateral urete ral jets are seen. IMPRESSION: Small nonobstructing calculi on CT less well seen on ultrasound likely correspond to the nonshadowing hyperechoic foci marked by technologist. No hydronephrosis is noted bilaterally.
[2018-01-20 12:34] LABS: Albumin 3.8 g/dL (3.5-5.0); Phosphorus 3.9 mg/dL (2.5-4.5); Potassium 4.1 mmol/L (3.5-5.1); Total Bilirubin 0.7 mg/dL (0.2-1.3); Total Protein 6.3 g/dL (6.3-8.2)
== END ==
LOC: RADUSWWP 11:12
PROVIDERS: ATTEND Family Medicine
DX: N20.0 Calculus of kidney (principal); R94.4 Abnormal results of kidney function studies
CPT/HCPCS: 36415; 76770; 80053; 84100; 85025

== ENCOUNTER 2018-10-01 06:14 | Inpatient (IN) | payer OTHER ==
[2018-10-01 06:47] LABS: Glucose,Whole Blood >600 mg/dL (75-99)
[2018-10-01 06:53] LABS: Basophils % (A) 0 %; Eosinophils # (A) 0.1 k/uL (0-0.7); Eosinophils % (A) 0 %; HCT 37.5 % (34.0-46.0); HGB 12.5 gm/dL (11.4-16.0); Lymphocytes # (A) 1.4 k/uL (1.0-4.8); Lymphocytes % (A) 8 %; MCH 28.5 pg (25.0-35.0); MCHC 33.3 g/dL (31.0-37.0); MCV 85.8 fL (80.0-100.0); Mean Platelet Volume 8.2; Monocytes # (A) 0.8 k/uL (0-1.0); Monocytes % (A) 5 %; Neutrophils # (A) 15.1 k/uL (1.3-7.7); Neutrophils % (A) 86 %; Platelet Count 235 k/uL (150-450); RBC 4.36 m/uL (3.80-5.40); RDW 14.1 % (11.5-15.5); WBC 17.5 k/uL (3.8-10.6)
[2018-10-01] MEDS ORDERED: SODIUM CHLORIDE 0.9% 1,000 ML IV ONE (06:55)
--- NOTE | 2018-10-01 07:01 | ED ---
Syncope HPI - General Chief Complaint: Recheck/Abnormal Lab/Rx Stated Complaint: Sepsis Time Seen by Provider: 10/01/18 06:42 Source: patient, EMS Mode of arrival: EMS Limitations: no limitations - History of Present Illness Initial Comments: This patient is a 58-year-old woman transferred here from [facility] for suspected sepsis. The patient states that she had gone there in the evening after she had 2 episodes of passing out. Patient states that she had been in [place] most of the day and was celebrating a graduation. She states that then she was feeling lightheaded and weak and passed out. After second similar episode she went to the hospital there where they felt she may be septic and transferred her here. From the transfer paperwork, the patient is found to have a leukocytosis of 20,000 without a definite source. She had a lactic acid level of 9.7. when I interview the patient, she states that she has been having a cou gh since the first week of August. She had seen her physician on Mother's Day and had been given a course of azithromycin which she completed without much change. She then was placed on doxycycline for a few days and then this was subsequently stopped due to concerns about possibility of ALLERGY. She states she has known ALLERGY to tetracycline. She states that she does continue to have nonproductive cough. No fever. No urinary symptoms. No change in bowel movements. MD Complaint: loss of consciousness -: hour(s) Prodromal Symptoms: lightheaded Injuries Sustained Associated with Event: None Current Symptoms: back to baseline Context: standing up Treatments Prior to Arrival: IV fluids, other - Related Data Home Medications Medication Instructions Recorded Confirmed Atorvastatin [Lipitor] 20 mg PO DAILY 05/10/18 10/01/18 Cholecalciferol (Vitamin D3) 2,000 unit PO DAILY 05/10/18 10/01/18 [Vitamin D3] Citalopram Hydrobromide [CeleXA] 40 mg PO HS 05/10/18 10/01/18 Gabapentin [Neurontin] 100 mg PO BID 05/10/18 10/01/18 metFORMIN HCL 1,000 mg PO BID 05/10/18 10/01/18 ARIPiprazole [Abilify] 2 mg PO DAILY 10/01/18 10/01/18 Clotrimazole [Clotrimazole AF] 1 applic TOPICAL BID 10/01/18 10/01/18 Magnesium 500mg 500 mg PO TID 10/01/18 10/01/18 Omeprazole 40 mg PO DAILY 10/01/18 10/01/18 traZODone HCL 200 mg PO HS PRN 10/01/18 10/01/18 Previous Rx's Medication Instructions Recorded Insulin Aspart [NovoLOG] 12 units SQ AC-TID #1 ml 10/03/18 Insulin Glargine,Hum.rec.anlog 60 unit SQ DAILY #0 10/03/18 [Basaglar Kwikpen U-100] Allergies Allergy/AdvReac Type Severity Reaction Status Date / Time doxycycline Allergy Anaphylaxis Verified 10/01/18 07:57 Fish Containing Products Allergy Anaphylaxis Verified 10/01/18 07:57 [Fish] latex Allergy Rash/Hives Verified 10/01/18 07:57 rosuvastatin [From Crestor] Allergy Unknown Verified 10/01/18 07:57 Sulfa (Sulfonamide Allergy Unknown Verified 10/01/18 07:57 Antibiotics) aspartame AdvReac Unknown Verified 10/02/18 08:48 [From Konsyl Sugar-Free (aspartame)] codeine AdvReac Unknown Verified 10/01/18 07:57 kiwi AdvReac Nausea & Verified 10/01/18 07:57 Vomiting & Diarrhea psyllium AdvReac Unknown Verified 10/02/18 08:48 [From Konsyl Sugar-Free (aspartame)] Tetracyclines AdvReac Unknown Verified 10/01/18 07:57 Review of Systems ROS Statement: Those systems with pertinent positive or pertinent negative responses have been documented in the HPI. ROS Other: All systems not noted in ROS Statement are negative. Constitutional: Reports: weakness (Generalized). Denies: fever, chills Eyes: Denies: vision change Respiratory: Reports: cough. Denies: dyspnea, wheezes, hemoptysis Cardiovascular: Reports: syncope. Denies: chest pain, palpitations, orthopnea, edema Endocrine: Reports: fatigue, polydipsia, polyuria Gastrointestinal: Denies: abdominal pain, nausea, vomiting, diarrhea Genitourinary: Denies: dysuria, hematuria Musculoskeletal: Denies: back pain Skin: Denies: rash Neurological: Denies: headache, weakness, numbness Past Medical History Past Medical History: Asthma, Diabetes Mellitus, Hypertension History of Any Multi-Drug Resistant Organisms: MRSA Date of last positivie culture/infection: 2015 MDRO Source:: R foot Past Surgical History: Section, Cholecystectomy, Orthopedic Surgery Additional Past Surgical History / Comment(s): R hand sx Past Psychological History: Depression Smoking Status: Former smoker Past Alcohol Use History: Occasional Past Drug Use History: None Reported - Past Family History Mother Family Medical History: Diabetes Mellitus Additional Family Medical History / Comment(s): Triple bipass, from kidney failure General Exam Limitations: no limitations General appearance: alert, in no apparent distress Head exam: Present: atraumatic, normocephalic Eye exam: Present: normal appearance. Absent: scleral icterus, conjunctival injection ENT exam: Present: mucous membranes dry Neck exam: Present: normal inspection, full ROM Respiratory exam: Present: normal lung sounds bilaterally. Absent: respiratory distress, wheezes, rales, rhonchi, stridor Cardiovascular Exam: Present: regular rate, normal rhythm, normal heart sounds. Absent: systolic murmur, diastolic murmur, rubs, gallop GI/Abdominal exam: Present: soft. Absent: distended, tenderness, guarding, rebound, rigid, mass Extremities exam: Present: normal inspection, normal capillary refill. Absent: pedal edema, calf tenderness Back exam: Present: normal inspection. Absent: CVA tenderness (R), CVA tenderness (L) Neurological exam: Present: alert Skin exam: Present: warm, dry, intact, normal color. Absent: rash Course Vital Signs 10/01/18 10/01/18 10/01/18 06:21 07:02 07:58 Temperature 98.5 F 98.1 F Pulse Rate 102 H 90 95 Respiratory 16 15 18 Rate Blood Pressure 146/93 136/79 151/89 O2 Sat by Pulse 100 100 98 Oximetry 10/01/18 11:20 Temperature Pulse Rate 92 Respiratory 16 Rate Blood Pressure 127/73 O2 Sat by Pulse 99 Oximetry EKG Findings - EKG Results: EKG: interpreted by IRWIN WILKINS, sinus rhythm (Rate 95 bpm), normal axis, normal QRS, normal ST/T Medical Decision Making - Lab Data Result diagrams: 10/01/18 06:24 10/03/18 09:15 Lab Results 10/01/18 10/01/18 10/01/18 Range/Units 06:24 06:24 06:24 WBC 17.5 H (3.8-10.6) k/uL RBC 4.36 (3.80-5.40) m/uL Hgb 12.5 (11.4-16.0) gm/dL Hct 37.5 (34.0-46.0) % MCV 85.8 (80.0-100.0) fL MCH 28.5 (25.0-35.0) pg MCHC 33.3 (31.0-37.0) g/dL RDW 14.1 (11.5-15.5) % Plt Count 235 (150-450) k/uL Neutrophils % 86 % Lymphocytes % 8 % Monocytes % 5 % Eosinophils % 0 % Basophils % 0 % Neutrophils # 15.1 H (1.3-7.7) k/uL Lymphocytes # 1.4 (1.0-4.8) k/uL Monocytes # 0.8 (0-1.0) k/uL Eosinophils # 0.1 (0-0.7) k/uL Basophils # 0.0 (0-0.2) k/uL PT (9.0-12.0) sec INR (<1.2) APTT (22.0-30.0) sec Sodium 130 L (137-145) mmol/L Potassium 4.7 (3.5-5.1) mmol/L Chloride 100 (98-107) mmol/L Carbon Dioxide 18 L (22-30) mmol/L Anion Gap 12 mmol/L BUN 23 H (7-17) mg/dL Creatinine 1.24 H (0.52-1.04) mg/dL Est GFR (CKD-EPI)AfAm 55 (>60 ml/min/1.73 sqM) Est GFR (CKD-EPI)NonAf 48 (>60 ml/min/1.73 sqM) Glucose 663 H* (74-99) mg/dL POC Glucose (mg/dL) (75-99) mg/dL POC Glu Fire Tower Keeper ID Plasma Lactic Acid Dmaien (0.7-2.0) mmol/L Calcium 9.5 (8.4-10.2) mg/dL Total Bilirubin 0.5 (0.2-1.3) mg/dL AST 16 (14-36) U/L ALT 23 (9-52) U/L Alkaline Phosphatase 78 (38-126) U/L CK-MB (CK-2) 2.3 (0.0-2.4) ng/mL Troponin I <0.012 (0.000-0.034) ng/mL Total Protein 6.1 L (6.3-8.2) g/dL Albumin 3.7 (3.5-5.0) g/dL 10/01/18 10/01/18 10/01/18 Range/Units 06:24 06:24 06:32 WBC (3.8-10.6) k/uL RBC (3.80-5.40) m/uL Hgb (11.4-16.0) gm/dL Hct (34.0-46.0) % MCV (80.0-100.0) fL MCH (25.0-35.0) pg MCHC (31.0-37.0) g/dL RDW (11.5-15.5) % Plt Count (150-450) k/uL Neutrophils % % Lymphocytes % % Monocytes % % Eosinophils % % Basophils % % Neutrophils # (1.3-7.7) k/uL Lymphocytes # (1.0-4.8) k/uL Monocytes # (0-1.0) k/uL Eosinophils # (0-0.7) k/uL Basophils # (0-0.2) k/uL PT 9.6 (9.0-12.0) sec INR 0.9 (<1.2) APTT 17.8 L (22.0-30.0) sec Sodium (137-145) mmol/L Potassium (3.5-5.1) mmol/L Chloride (98-107) mmol/L Carbon Dioxide (22-30) mmol/L Anion Gap mmol/L BUN (7-17) mg/dL Creatinine (0.52-1.04) mg/dL Est GFR (CKD-EPI)AfAm (>60 ml/min/1.73 sqM) Est GFR (CKD-EPI)NonAf (>60 ml/min/1.73 sqM) Glucose (74-99) mg/dL POC Glucose (mg/dL) >600 H (75-99) mg/dL POC Glu Fire Tower Keeper ID Irish Morgan Plasma Lactic Acid Damien 5.1 H* (0.7-2.0) mmol/L Calcium (8.4-10.2) mg/dL Total Bilirubin (0.2-1.3) mg/dL AST (14-36) U/L ALT (9-52) U/L Alkaline Phosphatase (38-126) U/L CK-MB (CK-2) (0.0-2.4) ng/mL Troponin I (0.000-0.034) ng/mL Total Protein (6.3-8.2) g/dL Albumin (3.5-5.0) g/dL Disposition Clinical Impression: Hyperosmolar syndrome, Lactic acidosis Disposition: ADMITTED IP TO THIS [facility] Condition: Serious Is patient prescribed a controlled substance at d/c from ED?: No
[2018-10-01] MEDS ORDERED: NALOXONE 0.4 MG/ML 1 ML VIAL IV PRN (07:08)
[2018-10-01] MEDS ORDERED: ACETAMINOPHEN TAB 325 MG TAB PO PRN (07:08)
[2018-10-01] MEDS ORDERED: ONDANSETRON ODT 4 MG TAB PO PRN (07:10)
[2018-10-01] MEDS ORDERED: ALBUTEROL NEBULIZED 2.5 MG/3 ML INHALATION PRN (07:10)
[2018-10-01 07:13] LABS: INR 0.9 (<1.2); Prothrombin Time 9.6 sec (9.0-12.0)
[2018-10-01 07:25] LABS: Albumin 3.7 g/dL (3.5-5.0); Calcium 9.5 mg/dL (8.4-10.2); Potassium 4.7 mmol/L (3.5-5.1); Total Bilirubin 0.5 mg/dL (0.2-1.3); Total Protein 6.1 g/dL (6.3-8.2)
[2018-10-01 07:36] LABS: Partial Thromboplastin Time 17.8 sec (22.0-30.0)
[2018-10-01 07:45] LABS: Creatine Kinase MB 2.3 ng/mL (0.0-2.4); Troponin I <0.012 ng/mL (0.000-0.034)
--- NOTE | 2018-10-01 08:07 | XR ---
EXAMINATION TYPE: XR chest 2V DATE OF EXAM: 10/01/2018 HISTORY: cough. REFERENCE: Previous study dated 08/04/2014 and the gas study from 10/01/2018. FINDINGS: The lungs appear clear. Pleural spaces are clear. The heart is not enlarged. IMPRESSION: NO ACTIVE INTRATHORACIC DISEASE.
[2018-10-01] MEDS ORDERED: SYMBICORT 160-4.5 MCG INHALER INHALATION SCH (09:00)
[2018-10-01] MEDS ORDERED: HYDROCHLOROTHIAZIDE 25 MG TAB PO SCH (09:00)
[2018-10-01] MEDS ORDERED: metFORMIN 500 MG TAB PO SCH (09:00)
[2018-10-01] MEDS ORDERED: INSULIN DETEMIR (LEVEMIR) 100 UNIT/ML SYR SQ SCH (09:00)
[2018-10-01] MEDS ORDERED: traZODone HCL 100 MG TAB PO PRN (11:43)
[2018-10-01] MEDS ORDERED: GLIMEPIRIDE 2 MG TAB PO SCH (11:45)
[2018-10-01] MEDS: PIPERACILLIN-TAZOBACTAM 3.375 GM in SODIUM CHLORIDE 0.9% 100 ML IVPB SCH ×2 (12:17→16:18)
[2018-10-01] MEDS: SODIUM CHLORIDE 0.9% 1,000 ML IV SCH ×3 (12:17→20:07)
[2018-10-01] MEDS: GABAPENTIN 100 MG CAP PO SCH (12:28)
[2018-10-01] MEDS: ARIPiprazole 2 MG TAB PO SCH (12:28)
[2018-10-01] MEDS: ATORVASTATIN 20 MG TAB PO SCH (12:28)
[2018-10-01] MEDS: PANTOPRAZOLE 40 MG TABLET PO SCH (12:28)
[2018-10-01] MEDS: MAGNESIUM OXIDE 400 MG TAB PO SCH (12:28)
[2018-10-01 12:34] LABS: Glucose,Whole Blood 423 mg/dL (75-99)
[2018-10-01] MEDS: CLOTRIMAZOLE 1% CREAM 15 GM TUBE TOPICAL SCH (14:01)
[2018-10-01 16:43] LABS: Glucose,Whole Blood 452 mg/dL (75-99)
[2018-10-01 18:33] LABS: Appearance,Urine Clear (Clear); Bilirubin,Urine Negative (Negative); Blood,Urine Negative (Negative); Budding Yeast,Urine Occasional /hpf; Color,Urine Light Yellow; Glucose,Urine (UA) 4+ (Negative); Ketones,Urine Negative (Negative); Leukocyte Esterase,Urine Small (Negative); Mucus,Urine Rare /hpf; Nitrite,Urine Negative (Negative); Protein,Urine Trace (Negative); RBC,Urine 2 /hpf (0-5); Specific Gravity,Urine 1.041 (1.001-1.035); Squamous Epithelial Cell,Urine <1 /hpf (0-4); Urobilinogen,Urine <2.0 mg/dL (<2.0); WBC,Urine 6 /hpf (0-5)
[2018-10-01] MEDS ORDERED: INSULIN REGULAR 100 UNIT in SODIUM CHLORIDE 0.9% 100 ML IV SCH (19:00)
[2018-10-01 19:02] LABS: Glucose,Whole Blood 420 mg/dL (75-99)
[2018-10-01 19:31] LABS: Glucose,Whole Blood 405 mg/dL (75-99)
[2018-10-01 20:31] LABS: Glucose,Whole Blood 354 mg/dL (75-99)
[2018-10-01 21:13] LABS: Glucose,Whole Blood 297 mg/dL (75-99)
[2018-10-01 22:04] LABS: Glucose,Whole Blood 154 mg/dL (75-99)
--- NOTE | 2018-10-01 23:16 | HP ---
HISTORY AND PHYSICAL DATE OF ADMISSION: 10/01/2018. PRESENTING COMPLAINT: Passed out. HISTORY OF PRESENTING COMPLAINT: This is a very pleasant 58-year-old patient of Dr. Mckeon. Chronic stable medical conditions include COPD, hypertension, depression, peripheral neuropathy. The patient was sent to the ER from [facility]. There was a question of sepsis. The patient had 2 episodes of passing out. She had been reported on most of the day celebrating a graduation. She was feeling lightheaded and then passed out. She was sent to [facility] and patient had leukocytosis of 20,000. Also had a lactic acid of 9.7. The patient's blood sugar here was over 600. When she came to the floor sugars were still running around 400. I started the patient on insulin drip. The patient has a slight cough. The patient has had a cough for most of the last month. She was treated with azithromycin and then doxycycline. Does feel tired and run down. REVIEW OF SYSTEMS: CONSTITUTIONAL: Weak and tired. No obvious fever. HEENT: None. RESPIRATORY: Occasional cough. CARDIOVASCULAR: None. GASTROINTESTINAL: None. GENITOURINARY: None. MUSCULOSKELETAL: None. DERMATOLOGICAL, HEMATOLOGIC, LYMPHATIC: None. PSYCHIATRY: None. NEUROLOGIC: No focal weakness. No headache. No change in vision. PAST MEDICAL HISTORY: COPD, diabetes, hypertension, peripheral neuropathy, arthritis. PAST SURGICAL HISTORY: , cholecystectomy, right hand surgery. PSYCH HISTORY: History of depression. SOCIAL HISTORY: Smoked in the past. Alcohol occasionally. FAMILY HISTORY: Coronary artery disease and diabetes. HOME MEDICATIONS: 1. Trazodone 200 mg at bedtime p.r.n. 2. Metformin 1000 mg b.i.d. 3. Omeprazole 40 mg p.o. daily. 4. Magnesium. 5. Lantus 50 units subcu daily. 6. Hydrochlorothiazide 25 mg p.o. daily. 7. Amaryl 2 mg a.c. b.i.d. 8. Neurontin 100 mg p.o. b.i.d. 9. Clotrimazole 1 application topical b.i.d. 10.Celexa 40 mg at bedtime. 11.Lipitor 20 mg p.o. daily. 12.Abilify 2 mg p.o. daily. ALLERGIES: DOXYCYCLINE, FISH, LATEX, CRESTOR, SULFA, CODEINE, KIWI, TETRACYCLINE. PHYSICAL EXAMINATION: Temperature 98.5, pulse 102, respirations 16, blood pressure 146/93, pulse ox 100 percent on room air. GENERAL APPEARANCE: Well built. BMI 32.9. Lying in bed, tired-appearing. EYES: Pupils are equal. Conjunctivae normal. HEENT: External appearance of nose and ears normal. Oral cavity dry. NECK: JVD not raised. Mass not palpable. Respiratory effort normal. LUNGS: Fair air entry. CARDIOVASCULAR: 1st and 2nd sounds. No edema. ABDOMEN: Soft, nontender. Liver and spleen not palpable. LYMPHATIC: No lymph nodes palpable in the neck or axilla. PSYCHIATRY: Alert and oriented x3. Mood and affect tired-appearing. NEUROLOGICAL: Pupils equal. Cranial nerves grossly intact. Power and sensation grossly intact. INVESTIGATIONS: White count 17.5, hemoglobin 12.5, potassium 4.7, sodium 130, BUN 23, creatinine 1.24, blood glucose was 663. Lactic acid was 5.1. ASSESSMENT: 1. Acute nonketotic severe hyperglycemia. The patient's anion gap is normal. 2. Metabolic acidosis. 3. Probably pseudo hyponatremia from hyperglycemia. 4. Probable acute renal failure from severe dehydration. 5. Chronic obstructive pulmonary disease in an ex-smoker. 6. Depression not otherwise specified. 7. Hyperlipidemia. PLAN: Patient is started on insulin drip. The patient empirically was put on Zosyn in the ER. There has been no obvious source of infection. We will hold off antibiotics for right now. The patient will be aggressively hydrated. I do expect patient to turn around by tomorrow. Will give Lovenox for DVT prophylaxis. Care was discussed with the patient. Questions were answered. MMODL / IJN: [id number] /
[2018-10-01 23:52] LABS: Glucose,Whole Blood 128 mg/dL (75-99)
[2018-10-01] MEDS: traZODone HCL 50 MG TAB PO SCH (23:54)
[2018-10-01] MEDS: CITALOPRAM HYDROBROMIDE 20 MG TAB PO SCH (23:54)
[2018-10-02] MEDS: ENOXAPARIN 40 MG/0.4 ML SYRINGE SQ SCH ×2 (00:23→19:35)
[2018-10-02] MEDS: CLOTRIMAZOLE 1% CREAM 15 GM TUBE TOPICAL SCH ×3 (00:23→19:59)
[2018-10-02] MEDS: traZODone HCL 50 MG TAB PO SCH ×2 (00:29→19:35)
[2018-10-02] MEDS: CITALOPRAM HYDROBROMIDE 20 MG TAB PO SCH ×2 (00:29→19:35)
[2018-10-02 01:20] LABS: Glucose,Whole Blood 141 mg/dL (75-99)
[2018-10-02 03:29] LABS: Glucose,Whole Blood 156 mg/dL (75-99)
[2018-10-02 05:02] LABS: Glucose,Whole Blood 143 mg/dL (75-99)
[2018-10-02] MEDS: SODIUM CHLORIDE 0.9% 1,000 ML IV SCH ×4 (05:06→19:39)
[2018-10-02] MEDS: PANTOPRAZOLE 40 MG TABLET PO SCH (06:30)
[2018-10-02 07:06] LABS: Glucose,Whole Blood 150 mg/dL (75-99)
[2018-10-02 07:40] LABS: Calcium 7.4 mg/dL (8.4-10.2); Potassium 3.5 mmol/L (3.5-5.1)
[2018-10-02] MEDS: ATORVASTATIN 20 MG TAB PO SCH (08:34)
[2018-10-02] MEDS: MAGNESIUM OXIDE 400 MG TAB PO SCH (08:34)
[2018-10-02] MEDS: GABAPENTIN 100 MG CAP PO SCH (08:34)
[2018-10-02] MEDS: ARIPiprazole 2 MG TAB PO SCH (08:34)
[2018-10-02] MEDS: INSULIN ASPART (NovoLOG) 100 UNIT/ML VIAL SQ SCH ×3 (08:37→17:42)
[2018-10-02 08:57] LABS: Glucose,Whole Blood 148 mg/dL (75-99)
[2018-10-02] MEDS: INSULIN DETEMIR (LEVEMIR) 100 UNIT/ML SYR SQ SCH (09:39)
[2018-10-02 11:34] LABS: Glucose,Whole Blood 264 mg/dL (75-99)
--- NOTE | 2018-10-02 12:08 | CONS ---
CONSULTATION DATE OF DICTATION: October 02, 2018. REQUESTING PHYSICIAN: Dr. Terry. REASON FOR CONSULTATION: Dysphagia. Patient is a 58-year-old pleasant white female was transferred from [facility] because of syncope at home. She was subsequently noted to have severe hyperglycemia and was transferred from [facility] for further management. The patient complains of dysphagia for the last 2 weeks duration. She feels that she is not able to eat solid food, but no problems with liquids or soft diet. She has been having trouble swallowing, especially with meat and bread, mostly in the midsternal area. She has longstanding history of GERD, has been on Prilosec 20 mg daily and lately has been having worsening heartburn. She reports no nausea, vomiting. No abdominal pain. PAST MEDICAL HISTORY: Significant for diabetes mellitus, hypertension, hyperlipidemia, gastroesophageal reflux disease, anxiety, depression. PAST SURGICAL HISTORY: , cholecystectomy, right hand surgery, EGD about 2 years ago. MEDICATIONS: At home include trazodone, metformin, omeprazole, magnesium, Lantus, hydrochlorothiazide, Amaryl, Neurontin, Celexa, Lipitor and Abilify. ALLERGIES: TO DOXYCYCLINE, LATEX, CRESTOR, SULFA, CODEINE, AND TETRACYCLINE. SOCIAL HISTORY: Chronic smoker. No alcohol use. FAMILY HISTORY: Mom has diabetes mellitus and dad has coronary artery disease. REVIEW OF SYSTEMS: CARDIOPULMONARY: No chest pain, shortness of breath. GENITOURINARY: No hematuria or dysuria. MUSCULOSKELETAL: Unremarkable. SKIN unremarkable. ENDOCRINE unremarkable. PSYCHIATRIC unremarkable. NEUROLOGY unremarkable. ENT vision unremarkable. CONSTITUTIONAL: No recent weight loss. No fever, chills, night sweats. PHYSICAL EXAMINATION: Blood pressure 114/56, pulse rate 76, temperature 96.2. HEENT examination unremarkable. Conjunctivae pink. Sclerae anicteric. Oral cavity no lesions. NECK: No JVD or lymph node enlargement. CHEST: Clear to auscultation. HEART: Regular rate and rhythm. ABDOMEN: Soft. Bowel sounds are positive. No organomegaly. EXTREMITIES: No pedal edema. SKIN no rashes. NEUROLOGIC: Alert and oriented x3. No focal deficits. LABS: From yesterday, WBC 17.5, hemoglobin 12.5, platelets are normal. INR is 0.9. Blood sugars were 663 yesterday, today is 136, BUN 23, creatinine 1.25. Rest of the basic metabolic panel is within normal limits. IMPRESSION: 1. Severe hyperglycemia. 2. Progressive dysphagia to solids for the last 2 weeks duration. 3. Longstanding history of gastroesophageal reflux disease, on Prilosec 20 mg daily. 4. History of diabetes mellitus and hypertension. RECOMMENDATIONS: 1. Continue with Protonix 40 mg daily. 2. We will proceed with an upper endoscopy tomorrow to investigate the dysphagia. I discussed with her the risks, benefits, and complications of the procedure and she is agreeable to it. Thank you for this consultation. MMODL / IJN: [id number] /
[2018-10-02 15:32] VITALS: BMI 33.1
[2018-10-02 16:01] LABS: Glucose,Whole Blood 278 mg/dL (75-99)
[2018-10-02 20:18] LABS: Glucose,Whole Blood 240 mg/dL (75-99)
--- NOTE | 2018-10-02 23:39 | PN ---
PROGRESS NOTE DATE OF SERVICE: October 02, 2018. PRESENTING COMPLAINT: This patient presented with diabetic ketoacidosis, which is now corrected, also has been having dysphagia for solids. GI is planning to do EGD. REVIEW OF SYSTEMS: Done for constitutional, cardiovascular, GI, pulmonary and relevant findings as above. CURRENT MEDICATIONS: Reviewed. PHYSICAL EXAMINATION: VITAL SIGNS: Temperature 98.7, pulse 85, respirations 16, blood pressure 137/60, pulse 97% on room air. GENERAL APPEARANCE: Lying in bed, awake. EYES: Pupils equal. Conjunctivae normal. NECK: JVD not raised. Mass not palpable. RESPIRATORY: Effort normal. LUNGS are clear. CARDIOVASCULAR: First and second sounds normal. No edema. ABDOMEN: Soft, nontender. Liver and spleen not palpable. PSYCHIATRY: Alert and oriented x3. Mood and affect normal. INVESTIGATIONS: Potassium 3.5, BUN 20, creatinine 1.01. Accu-Cheks noted. ASSESSMENT: 1. Acute nonketotic severe hypoglycemia. Sugars are somewhat better. 2. Metabolic acidosis. 3. Pseudohyponatremia from severe hyperglycemia on presentation. 4. Acute renal failure from severe dehydration. 5. Chronic obstructive pulmonary disease in an ex-smoker. 6. Depression, not otherwise specified. 7. Hyperlipidemia. 8. Dysphagia to solids, recent onset. PLAN: Care was discussed with the patient. We will adjust patient's insulin dose based on the sugars in next 24 hours. Patient will be getting an EGD tomorrow. Follow. MMODL / IJN: [id number] /
[2018-10-03] MEDS: SODIUM CHLORIDE 0.9% 1,000 ML IV SCH ×2 (04:31→12:34)
[2018-10-03 07:42] LABS: Glucose,Whole Blood 242 mg/dL (75-99)
[2018-10-03] MEDS: INSULIN ASPART (NovoLOG) 100 UNIT/ML VIAL SQ SCH ×3 (07:44→17:00)
[2018-10-03] MEDS: MAGNESIUM OXIDE 400 MG TAB PO SCH (07:47)
[2018-10-03] MEDS: ATORVASTATIN 20 MG TAB PO SCH (07:47)
[2018-10-03] MEDS: GABAPENTIN 100 MG CAP PO SCH (07:47)
[2018-10-03] MEDS: PANTOPRAZOLE 40 MG TABLET PO SCH (07:47)
[2018-10-03] MEDS: ARIPiprazole 2 MG TAB PO SCH (07:48)
[2018-10-03] MEDS: CLOTRIMAZOLE 1% CREAM 15 GM TUBE TOPICAL SCH (07:50)
[2018-10-03] MEDS: INSULIN DETEMIR (LEVEMIR) 100 UNIT/ML SYR SQ SCH (09:57)
[2018-10-03 10:00] LABS: Calcium 7.9 mg/dL (8.4-10.2); Potassium 4.3 mmol/L (3.5-5.1)
[2018-10-03 11:59] LABS: Glucose,Whole Blood 241 mg/dL (75-99)
[2018-10-03] MEDS ORDERED: PROPOFOL 10 MG/ML 20 ML VIAL IV ONE (13:14)
[2018-10-03] MEDS ORDERED: IV FLUID CONTINUATION 900 ML IV ONE (13:14)
--- NOTE | 2018-10-03 13:30 | P.PCN ---
Date of Procedure: 10/03/18 Procedure(s) Performed: BRIEF HISTORY: Patient is a 58-year-old, pleasant, white female, admitted hospital with hypoglycemia. She has been complaining of dysphagia to solids for the last 2 weeks' duration. Has worsening history of GERD and presently on Prevacid 20 mg daily. Because of the dysphagia she is scheduled for an upper endoscopy with possible dilation.. PROCEDURE PERFORMED: Esophagogastroduodenoscopy with biopsy. PREOPERATIVE DIAGNOSIS: Long segment history of GERD/dysphagia. IV sedation per anesthesia. PROCEDURE: After informed consent was obtained, the patient was brought into the endoscopy unit. IV sedation was administered by Anesthesia under continuous monitoring. Initially the Olympus GIF-140 video endoscope was inserted into the mouth. Esophagus intubated without any difficulty. It was gradually advanced into the stomach and duodenum and carefully examined. The bulb and the second part of the duodenum appeared normal. The scope at this time was withdrawn to the stomach, adequately insufflated with air, and upon careful examination, mucosa of the antrum, body, cardia and the fundus appeared normal. The scope was then withdrawn into the esophagus. The GE junction was located at 35 cm from the incisors. There was early distal esophageal stricture noted in the distal esophagus and there was circumferential erosions or ulcerations consistent with LA grade a reflux esophagitis. Small hiatal hernia noted. Dilation was not performed because of severe reflux ulcerative esophagitis. The rest of the esophagus appeared normal and the patient tolerated the procedure well. IMPRESSION: 1. Early distal esophageal stricture with severe ulcerative esophagitis cons istent with LA grade B reflux esophagitis. 2. Small hiatal hernia. 3. Antral erosive gastritis and small antral ulcer. RECOMMENDATIONS: The findings of this examination were discussed with the danielle ent as well as a family. She will continue with Prilosec 20 mg twice daily half hour before breakfast and dinner and follow antireflux measures. She was advised to follow up in office in 2-3 weeks from discharge from the hospital..
[2018-10-03 14:48] VITALS: BP 113/77; PULSE 85; RESP 16; TEMP 98.3
[2018-10-03 17:12] LABS: Glucose,Whole Blood 318 mg/dL (75-99)
--- NOTE | 2018-10-04 10:14 | DS ---
DISCHARGE SUMMARY DATE OF ADMISSION: 10/01/2018 DATE OF DISCHARGE: 10/03/2018 FINAL DIAGNOSES: 1. Acute nonketotic severe hyperglycemia. 2. Metabolic acidosis. 3. Pseudohyponatremia from severe hyperglycemia. 4. Acute renal failure prerenal from dehydration. 5. Chronic obstructive pulmonary disease in an ex-smoker. 6. Depression, not otherwise specified. 7. Hyperlipidemia. 8. Dysphagia to solids from early distal esophageal stricture. 9. Severe ulcerative esophagitis consistent with LA grade B reflux esophagitis. 10.Antral erosive gastritis and small antral ulcer. HOSPITAL COURSE: This patient presented with diabetic ketoacidosis, responded well to insulin drip, fluids. Also been having trouble swallowing with solid food getting stuck. Did undergo EGD with above findings by Dr. Carlso Rubio. On examination, temperature 98.3 pulse 85, respiration 16, blood pressure 113/77, pulse ox 98% on room air. LUNGS: Are clear. CARDIOVASCULAR: First and second sounds normal. INVESTIGATIONS: BUN 18, creatinine 0.89. DISCHARGE MEDICATIONS: 1. Lipitor 20 mg p.o. daily. 2. Vitamin D3, 2000 units p.o. daily. 3. Celexa 40 mg q.h.s. 4. Neurontin 100 mg b.i.d. 5. Metformin 1000 mg b.i.d. 6. Abilify 2 mg p.o. daily. 7. Clotrimazole application topical b.i.d. 8. Magnesium 500 mg t.i.d. 9. Omeprazole 40 mg daily. 10.Trazodone 200 mg q.h.s. p.r.n. 11.Insulin Lantus 60 units subcu daily. Patient told to take her omeprazole 20 mg twice a day. Follow up with Dr. Mckeon on 10/06/2018. Follow up with Dr. Carlos Rubio on 10/20/2018. MMODL / IJN: [id number] /
--- NOTE | 2018-10-05 12:16 | CDI ---
Documentation Clarification Form Date: 10/05/18 From: Mariana Qiu Phone: If you have a question regarding this query, please contact Marge Davis at [phone] between 8am and 5pm. Admit Date: 10/01/2018 7:08:00 AM Patient Name: Melody Erickson Visit Number: [id number] Discharge Date: 10/03/2018 6:14:00 PM ATTENTION: The Clinical Documentation Specialists (CDI) and [facility] Coding Staff appreciate your assistance in clarifying documentation. Please respond to the clarification below the line at the bottom and electronically sign. The CDI & [facility] Coding staff will review the response and follow-up if needed. Please note: Queries are made part of the Legal Health Record. If you have any questions, please contact the author of this message via ITS. Dr. Antelmo Terry Conflicting documentation has been found in the medical record: In your 10/02 progress note and in the discharge summary, diagnosis #1 states acute nonketotic severe hyperglycemia. In the hospital course, diabetic ketoacidosis is documented. History/Risk Factors: Type II diabetes mellitus, dehydration, metabolic acidosis, pseudohyponatremia, RON Clinical Indicators: Light headed and passed out prior to admission, elevated glucose. Denied nausea, vomiting and diarrhea. No abdominal pain. No urinary symptoms. Lab: Glucose 663, Anion gap 12, Ketones negative, sodium 130, potassium 4.7, creatinine 1.24 Treatment: Insulin drip. In your opinion, what is the most clinically appropriate diagnosis for this patient? Diabetic ketoacidosis Acute nonketotic severe hyperglycemia Other explanation of clinical findings Unable to determine (no explanation for clinical findings) see discharge summary MTDD
== END 2018-10-03 18:14 | disposition home or self-care (01) | DRG 638 ==
LOC: EC 06:14 → MERGE 07:08 → 3SCARD 07:08 → 4MS4W 10-02 16:23
PROVIDERS: ADMIT Hospitalist; ATTEND Hospitalist
PROC: 0DB78ZX Excision of Stomach, Pylorus, Via Natural or Artificial Opening Endoscopic, Diagnostic (ICD-10-PCS; principal; 2018-10-03 07:55)
DX: E11.65 Type 2 diabetes mellitus with hyperglycemia (principal); E87.1 Hypo-osmolality and hyponatremia; N17.9 Acute kidney failure, unspecified; E87.2 Acidosis; K22.2 Esophageal obstruction; E11.42 Type 2 diabetes mellitus with diabetic polyneuropathy; E78.5 Hyperlipidemia, unspecified; E86.0 Dehydration; F17.200 Nicotine dependence, unspecified, uncomplicated; F32.9 Major depressive disorder, single episode, unspecified; I10 Essential (primary) hypertension; J44.9 Chronic obstructive pulmonary disease, unspecified; K21.0 Gastro-esophageal reflux disease with esophagitis; K25.9 Gastric ulcer, unspecified as acute or chronic, without hemorrhage or perforation; K29.60 Other gastritis without bleeding; K44.9 Diaphragmatic hernia without obstruction or gangrene; F41.9 Anxiety disorder, unspecified; M19.90 Unspecified osteoarthritis, unspecified site; Z88.1 Allergy status to other antibiotic agents; Z91.040 Latex allergy status; Z88.5 Allergy status to narcotic agent; Z88.2 Allergy status to sulfonamides; Z88.8 Allergy status to other drugs, medicaments and biological substances; Z91.018 Allergy to other foods; Z90.49 Acquired absence of other specified parts of digestive tract; Z79.4 Long term (current) use of insulin; Z79.899 Other long term (current) drug therapy; Z86.14 Personal history of Methicillin resistant Staphylococcus aureus infection; Z83.3 Family history of diabetes mellitus; Z82.49 Family history of ischemic heart disease and other diseases of the circulatory system
CPT/HCPCS: 36415; 43239; 71046; 80048; 80053; 81001; 82009; 82553; 83605; 84484; 85025; 85610; 85730; 87040; 87086; 88305; 93005; 94760; 96361; 96365; 96366; 99285

== ENCOUNTER 2019-02-10 07:19 | Day surgery (SDC) | payer OTHER ==
[2019-02-09 14:26] VITALS: BMI 34.3
[~2019-02-10 07:19] MED LIST changes: +LIDOCAINE 1% 20 ML VIAL (10MG/ML) FOR IV START INTRADERMA PRN
[2019-02-10 07:38] VITALS: RESP 16; TEMP 97.4
[2019-02-10 07:50] LABS: Glucose,Whole Blood 208 mg/dL (75-99)
[2019-02-10] MEDS ORDERED: PROPOFOL 10 MG/ML 20 ML VIAL IV ONE (07:56)
[2019-02-10] MEDS ORDERED: LIDOCAINE 1% INJ 10MG/ML (20 ML MDV) ONE (07:56)
--- NOTE | 2019-02-10 08:10 | P.PCN ---
Date of Procedure: 02/10/19 Procedure(s) Performed: BRIEF HISTORY: Patient is a 59-year-old, pleasant, white female, scheduled for an upper endoscopy as a part of evaluation of progressive dysphagia to liquids and solids for the last several months duration. She had an upper endoscopy in October 2018 that showed an early distal esophageal stricture but severe reflux esophagitis. Since then has been on omeprazole 40 mg daily. Because of the worsening symptoms in the last few months she is scheduled for repeat upper endoscopy with dilation today.. PROCEDURE PERFORMED: Esophagogastroduodenoscopy with biopsy and dilation. PREOPERATIVE DIAGNOSIS: Progressive dysphagia to liquids and solids of 3 months duration. IV sedation per anesthesia. PROCEDURE: After informed consent was obtained, the patient was brought into the endoscopy unit. IV sedation was administered by Anesthesia under continuous monitoring. Initially the Olympus GIF-140 video endoscope was inserted into the mouth. Esophagus intubated without any difficulty. It was gradually advanced into the stomach and duodenum and carefully examined. The bulb and the second part of the duodenum appeared normal. The scope at this time was withdrawn to the stomach, adequately insufflated with air, and upon careful examination, mucosa of the antrum, body, cardia and the fundus appeared normal. The scope was then withdrawn into the esophagus. The GE junction was located at 35 cm from the incisors. Small sliding type hiatal hernia noted. There was an early distal esophageal stricture identified it was dilated using 15-18 mm balloon in a sequential fashion for 90 seconds. There was a pleasure erythema the GE junction consistent with LA grade a reflux esophagitis. The rest of the esophagus esophagus appeared normal. Biopsies were done from the distal esophagus. There were no erosions or ulcerations seen and the patient tolerated the procedure well. IMPRESSION: 1. Early distal esophageal stricture status post balloon dilation using 15 mm TTS balloon as described above. 2. Small sliding Hiatal hernia 3. Circumferential erythema the GE junction consistent with LA grade a reflux esophagitis. RECOMMENDATIONS: The findings of this examination were discussed with patient as well as a family. She was advised to follow with the biopsy results.. She will continue with omeprazole 40 mg daily for an follow reflux measures. She will be seen in the office in 6 weeks
[2019-02-10 08:39] VITALS: BP 118/76; PULSE 81
== END 2019-02-10 08:50 | disposition home or self-care (01) ==
LOC: ORWHC2ENDO 07:19
PROVIDERS: ATTEND Internal Medicine Gastroenterology
DX: K22.2 Esophageal obstruction (principal); K21.0 Gastro-esophageal reflux disease with esophagitis; K44.9 Diaphragmatic hernia without obstruction or gangrene; I10 Essential (primary) hypertension; J44.9 Chronic obstructive pulmonary disease, unspecified; E11.9 Type 2 diabetes mellitus without complications; F39 Unspecified mood [affective] disorder; Z79.899 Other long term (current) drug therapy; Z79.4 Long term (current) use of insulin; Z88.1 Allergy status to other antibiotic agents; Z91.040 Latex allergy status; Z91.09 Other allergy status, other than to drugs and biological substances; Z88.5 Allergy status to narcotic agent; Z88.2 Allergy status to sulfonamides; Z86.73 Personal history of transient ischemic attack (TIA), and cerebral infarction without residual deficits
CPT/HCPCS: 88305; 43239; 43249; J2001; J2704; C1726; 43266

== ENCOUNTER → 2019-03-10 | Day surgery (SDC) | payer OTHER ==
[2019-03-10 11:09] VITALS: BP 138/77; PULSE 98; RESP 16; TEMP 97.5
== END ==
LOC: ORWHC2ENDO 10:54
PROVIDERS: ATTEND Internal Medicine Gastroenterology
DX: R13.10 Dysphagia, unspecified (principal)
CPT/HCPCS: 91010; 91037

== ENCOUNTER 2019-12-05 23:12 | Observation (INO) | payer OTHER ==
[2019-12-05] MEDS ORDERED: MORPHINE SULFATE 4 MG/ML SYRINGE IM STA (23:28)
--- NOTE | 2019-12-05 23:33 | ED ---
Fall HPI - General Chief Complaint: Fall Stated Complaint: fall Time Seen by Provider: 12/05/19 23:16 Source: patient, EMS Mode of arrival: EMS - History of Present Illness Initial Comments: This patient's 59-year-old woman presenting to be evaluated for left hip pain. She states that sometime between 9 and 9:30 she was walking to her room and then she states that her left hip buckled and she fell to the couch. She experienced sharp left hip pain and then was not able to get any weight on her left hip. When the symptoms did not resolve she called EMS and they brought her here. Patient denies previous injury or surgery to the left hip or leg. MD Complaint: fall Onset/Timin -: hour(s) Fall From: standing When Fall Occurred: 1-[address] [address] Fall Occurred: home Loss of Consciousness: none Prolonged Down Time?: no Symptoms Prior to Fall: none Severity: severe Quality: aching Context: tripped/slipped Associated Symptoms: denies - Related Data Home Medications Medication Instructions Recorded Confirmed Albuterol Inhaler (Mhu) [Ventolin 1 - 2 puff INHALATION RT-QID 08/27/15 12/06/19 Hfa Inhaler (Mhu)] Citalopram Hydrobromide [CeleXA] 40 mg PO HS 05/10/18 12/06/19 Insulin Glargine,Hum.rec.anlog 15 unit SQ BID 02/09/19 12/06/19 [Basaglar Kwikpen U-100] Insulin Lispro [Admelog] See Protocol SQ TID-W/MEALS 02/09/19 12/06/19 ARIPiprazole [Abilify] 10 mg PO HS 12/06/19 12/06/19 Albuterol Nebulized [Ventolin 2.5 mg INHALATION RT-TID 12/06/19 12/06/19 Nebulized] Atorvastatin [Lipitor] 40 mg PO DAILY 12/06/19 12/06/19 Ipratropium-Albuterol Nebulize 3 ml INHALATION RT-TID 12/06/19 12/06/19 [Duoneb 0.5 mg-3 mg/3 ml Soln] Pioglitazone [Actos] 30 mg PO DAILY 12/06/19 12/06/19 metFORMIN HCL [Glucophage] 500 mg PO BID 12/06/19 12/06/19 Allergies Allergy/AdvReac Type Severity Reaction Status Date / Time doxycycline Allergy Anaphylaxis Verified 12/06/19 08:34 feathers Allergy Dyspnea Verified 12/06/19 08:34 Fish Containing Products Allergy Anaphylaxis Verified 12/06/19 08:34 Iodinated Contrast Media Allergy Unknown Verified 12/06/19 08:34 kiwi Allergy Anaphylaxis Verified 12/06/19 08:34 latex Allergy Anaphylaxis Verified 12/06/19 08:34 rosuvastatin [From Crestor] Allergy Unknown Verified 12/06/19 08:34 shellfish derived [Shellfish] Allergy Unknown Verified 12/06/19 08:34 Sulfa (Sulfonamide Allergy Anaphylaxis Verified 12/06/19 08:34 Antibiotics) aspartame AdvReac Unknown Verified 12/06/19 08:34 [From Konsyl Sugar-Free (aspartame)] codeine AdvReac Nausea & Verified 12/06/19 08:34 Vomiting & Diarrhea milk AdvReac Unknown Verified 12/06/19 08:34 psyllium AdvReac Unknown Verified 12/06/19 08:34 [From Konsyl Sugar-Free (aspartame)] tetracycline [Tetracycline] AdvReac Nausea & Verified 12/06/19 08:34 Vomiting & Diarrhea Tetracyclines AdvReac Unknown Verified 12/06/19 08:34 all artificial sweetners Allergy Anaphylaxis Uncoded 02/10/19 07:30 divehi peanuts Allergy Anaphylaxis Uncoded 02/10/19 07:30 Review of Systems ROS Statement: Those systems with pertinent positive or pertinent negative responses have been documented in the HPI. ROS Other: All systems not noted in ROS Statement are negative. 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, heart murmur, kidney stones, nodules on thyroid, Degenerative disc disease, hiatal hernia, past hx of seizure while sleeping last one age 10 History of Any Multi-Drug Resistant Organisms: MRSA Date of last positivie culture/infection: 2015 MDRO Source:: R foot Past Surgical History: Section, Cholecystectomy, Orthopedic Surgery Additional Past Surgical History / Comment(s): R hand sx, EGD, colonoscopy Past Anesthesia/Blood Transfusion Reactions: No Reported Reaction Past Psychological History: Depression Smoking Status: Former smoker Past Alcohol Use History: Rare Past Drug Use History: None Reported - Past Family History Mother Family Medical History: Coronary Artery Disease (CAD), Diabetes Mellitus, Renal Disease Brother(s) Family Medical History: Diabetes Mellitus Father Family Medical History: Cancer General Exam Limitations: no limitations General appearance: alert, in no apparent distress Head exam: Present: atraumatic, normocephalic Neck exam: Present: normal inspection, full ROM. Absent: tenderness Respiratory exam: Present: normal lung sounds bilaterally. Absent: respiratory distress, wheezes, rales, rhonchi, stridor Cardiovascular Exam: Present: regular rate, normal rhythm, normal heart sounds. Absent: systolic murmur, diastolic murmur, rubs, gallop GI/Abdominal exam: Present: soft. Absent: distended, tenderness, guarding, rebound, rigid, mass Extremities exam: Present: tenderness, normal capillary refill. Absent: full ROM, pedal edema Left Hip exam: Present: tenderness. Absent: full ROM, swelling Upper Leg exam: Present: tenderness. Absent: swelling, abrasion, laceration, ecchymosis, deformity, crepitus Knee exam: Present: full ROM. Absent: tenderness, swelling, abrasion, laceration, ecchymosis, deformity Lower Leg exam: Present: normal inspection, full ROM. Absent: tenderness, swelling, abrasion, laceration, ecchymosis, deformity Ankle exam: Present: normal inspection, full ROM. Absent: tenderness, swelling, abrasion, laceration, ecchymosis, deformity Foot/Toe exam: Present: normal inspection, full ROM. Absent: tenderness, swelling, abrasion, laceration, ecchymosis, deformity, dislocation Neurovascular tendon exam: Present: no vascular compromise. Absent: motor deficit, sensory deficit, extremity cold to touch Back exam: Present: normal inspection. Absent: paraspinal tenderness, vertebral tenderness Neurological exam: Present: alert. Absent: motor sensory deficit Skin exam: Present: warm, dry, intact, normal color. Absent: rash Course Vital Signs 12/05/19 12/06/19 12/06/19 23:13 02:48 04:40 Temperature 98.4 F Pulse Rate 90 95 93 Respiratory 17 16 16 Rate Blood Pressure 150/83 114/88 154/74 O2 Sat by Pulse 98 97 95 Oximetry Medical Decision Making - Medical Decision Making This patient's 59-year-old woman presenting with left hip pain after fall. The plain films did not reveal fracture but patient still not able to ambulate so sent for computed tomography scan which also does not reveal fracture. We did attempt to have patient up and ambulating following analgesia and she is not able to bear any weight at all. Given this and the fact that there is no one at home, patient admitted overnight for orthopedic consult and then also for possible rehab placement Disposition Clinical Impression: Fall, Left hip pain, Inability to ambulate due to hip Disposition: ADMITTED IP TO THIS HOSP Condition: Fair
--- NOTE | 2019-12-06 00:06 | XR ---
EXAM: XR Left Hip With Pelvis When Performed, 2 or 3 Views CLINICAL HISTORY: History of fall. Left hip pain. TECHNIQUE: Two or three views of the left hip with pelvis when performed. COMPARISON: None. FINDINGS: Bones/joints: Mild to moderate osteoarthritic changes about the left hip joint. Mild to moderate osteoarthritic changes about the sacroiliac joints. Dextroscoliosis of the lower lumbar spine. No acute fracture. No dislocation. Soft tissues: Unremarkable. Vasculature: Pelvic phlebolith are noted. IMPRESSION: 1. Mild to moderate osteoarthritic changes about the left hip joint. 2. No acute fracture or dislocation. 3. Mild to moderate osteoarthritic changes about the sacroiliac joints.
--- NOTE | 2019-12-06 02:02 | CT ---
EXAM: CT Left Lower Extremity Without Intravenous Contrast, Hip CLINICAL HISTORY: ITS.REASON CT Reason: fall. cannot bear weight TECHNIQUE: Axial computed tomography images of the left hip without intravenous contrast. CTDI is 20.1 mGy and DLP is 631.5 mGy-cm. This CT exam was performed using one or more of the following dose reduction techniques: automated exposure control, adjustment of the mA and/or kV according to patient size, and/or use of iterative reconstruction technique. COMPARISON: Left hip radiograph, 12/05/19 FINDINGS: Bones/joints: The left hip joint is congruent. There is no acute fracture or dislocation. There is very mild osteoarthritis of the left hip joint. The left sacroiliac joint and the pubic symphysis are normally aligned. There is mild enthesopathy at the left greater trochanter. There is no evidence of significant joint effusion or periarticular bursal fluid collection. Soft tissues: No soft tissue swelling. IMPRESSION: No acute osseous findings.
[2019-12-06] MEDS ORDERED: ONDANSETRON ODT 4 MG TAB PO STA (02:44)
[2019-12-06] MEDS ORDERED: NALOXONE 0.4 MG/ML 1 ML VIAL IV PRN (03:29)
[2019-12-06] MEDS ORDERED: ONDANSETRON 4 MG/2 ML VIAL IVP PRN ×2 (03:29→14:23)
[2019-12-06] MEDS ORDERED: HYDROcodone/APAP 5-325MG 1 EACH TAB PO PRN (03:29)
[2019-12-06] MEDS ORDERED: MAG HYDROX/AL HYDROX/SIMETH 30 ML CUP PO PRN (03:29)
[2019-12-06] MEDS ORDERED: MORPHINE SULFATE 4 MG/ML SYRINGE IV PRN (03:29)
[2019-12-06] MEDS: SODIUM CHLORIDE 0.9% 1,000 ML IV SCH (04:55)
[2019-12-06 06:57] LABS: Glucose,Whole Blood 432 mg/dL (75-99)
[2019-12-06] MEDS: ALBUTEROL NEBULIZED 2.5 MG/3 ML INHALATION SCH ×3 (07:33→19:43)
[2019-12-06] MEDS: GABAPENTIN 100 MG CAP PO SCH ×2 (08:09→21:52)
[2019-12-06] MEDS: hydroCHLOROthiazide 12.5 MG CAP PO SCH (08:09)
[2019-12-06] MEDS: ARIPiprazole 5 MG TAB PO SCH (08:09)
[2019-12-06] MEDS: PANTOPRAZOLE 40 MG TABLET PO SCH (08:09)
[2019-12-06] MEDS: metFORMIN 500 MG TAB PO SCH ×2 (08:09→21:52)
[2019-12-06] MEDS: INSULIN DETEMIR (LEVEMIR) 100 UNIT/ML SYR SQ SCH (08:09)
[2019-12-06] MEDS: MAGNESIUM OXIDE 400 MG TAB PO SCH ×2 (08:09→21:52)
[2019-12-06] MEDS: CHOLECALCIFEROL 1,000 UNIT TAB PO SCH (08:22)
[2019-12-06] MEDS ORDERED: DOCUSATE 100 MG CAP PO PRN (09:00)
[2019-12-06] MEDS ORDERED: FAMOTIDINE 20 MG TAB PO SCH (09:00)
[2019-12-06 11:06] LABS: Glucose,Whole Blood 408 mg/dL (75-99)
[2019-12-06] MEDS: PIOGLITAZONE 30 MG TAB PO SCH (12:37)
[2019-12-06] MEDS: INSULIN ASPART (NovoLOG) 100 UNIT/ML VIAL SQ SCH ×3 (12:37→21:52)
[2019-12-06] MEDS: ATORVASTATIN 40 MG TAB PO SCH (12:37)
[2019-12-06] MEDS ORDERED: INSULIN ASPART (NovoLOG) 100 UNIT/ML VIAL SQ ONE (13:15)
[2019-12-06] MEDS ORDERED: INSULIN REGULAR 100 UNIT/ML VIAL SQ ONE (13:15)
[2019-12-06] MEDS ORDERED: MAGNESIUM HYDROXIDE 2,400 MG/10 ML CUP PO PRN (13:18)
[2019-12-06] MEDS ORDERED: ACETAMINOPHEN TAB 325 MG TAB PO PRN (13:18)
[2019-12-06] MEDS ORDERED: MELATONIN 3 MG TABLET PO PRN (13:18)
[2019-12-06] MEDS ORDERED: LACTULOSE 20 GM/30 ML CUP PO PRN (13:18)
[2019-12-06] MEDS ORDERED: NAPROXEN 250 MG TAB PO STA (13:20)
--- NOTE | 2019-12-06 13:47 | P.CNOR ---
History of Present Illness - [facility] Consult date: 12/06/19 Consult reason: joint pain (left hip pain) History of present illness: This patient is a 59-year-old woman presenting to be evaluated for left hip pain. She states that sometime between 9 and 9:30 she was walking to her room and then she states that she tripped and fell landing on her right hip. She states that all of the pain is currently in her left hip. She states that she caught the left foot on the floor causing her to trip and she had sharp pain in her left hip at that time. She was not able to get any weight on her left hip. When the symptoms did not resolve she called EMS and they brought her here. Patient denies previous injury or surgery to the left hip or leg.she denies numbness or tingling to the left lower extremity other than her normal neuropathy. There is no pain in the buttock or groin. She points to the greater trochanter as the main source of pain. 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, heart murmur, kidney stones, nodules on thyroid, Degenerative disc disease, hiatal hernia, past hx of seizure while sleeping last one age 10 History of Any Multi-Drug Resistant Organisms: MRSA Year Discovered:: 2015 MDRO Source:: R foot Past Surgical History: Section, Cholecystectomy, Orthopedic Surgery Additional Past Surgical History / Comment(s): R hand sx, EGD, colonoscopy, picc line, mrsa to left foot from dm ulcer Past Anesthesia/Blood Transfusion Reactions: No Reported Reaction Past Psychological History: Depression Smoking Status: Former smoker Past Alcohol Use History: Rare Past Drug Use History: None Reported - Past Family History Mother Family Medical History: Coronary Artery Disease (CAD), Diabetes Mellitus, Renal Disease Brother(s) Family Medical History: Diabetes Mellitus Father Family Medical History: Cancer Medications and Allergies Home Medications Medication Instructions Recorded Confirmed Type Albuterol Inhaler (Mhu) [Ventolin 1 - 2 puff INHALATION RT-QID 08/26/12/06/19 History Hfa Inhaler (Mhu)] Citalopram Hydrobromide [CeleXA] 40 mg PO HS 05/10/18 12/06/19 History Insulin Glargine,Hum.rec.anlog 15 unit SQ BID 02/09/19 12/06/19 History [Basaglar Kwikpen U-100] Insulin Lispro [Admelog] See Protocol SQ TID-W/MEALS 02/09/19 12/06/19 History ARIPiprazole [Abilify] 10 mg PO HS 12/06/19 12/06/19 History Albuterol Nebulized [Ventolin 2.5 mg INHALATION RT-TID 12/06/19 12/06/19 History Nebulized] Atorvastatin [Lipitor] 40 mg PO DAILY 12/06/19 12/06/19 History Ipratropium-Albuterol Nebulize 3 ml INHALATION RT-TID 12/06/19 12/06/19 History [Duoneb 0.5 mg-3 mg/3 ml Soln] Pioglitazone [Actos] 30 mg PO DAILY 12/06/19 12/06/19 History metFORMIN HCL [Glucophage] 500 mg PO BID 12/06/19 12/06/19 History Allergies Allergy/AdvReac Type Severity Reaction Status Date / Time doxycycline Allergy Anaphylaxis Verified 12/06/19 08:34 feathers Allergy Dyspnea Verified 12/06/19 08:34 Fish Containing Products Allergy Anaphylaxis Verified 12/06/19 08:34 Iodinated Contrast Media Allergy Unknown Verified 12/06/19 08:34 kiwi Allergy Anaphylaxis Verified 12/06/19 08:34 latex Allergy Anaphylaxis Verified 12/06/19 08:34 rosuvastatin [From Crestor] Allergy Unknown Verified 12/06/19 08:34 shellfish derived [Shellfish] Allergy Unknown Verified 12/06/19 08:34 Sulfa (Sulfonamide Allergy Anaphylaxis Verified 12/06/19 08:34 Antibiotics) aspartame AdvReac Unknown Verified 12/06/19 08:34 [From Konsyl Sugar-Free (aspartame)] codeine AdvReac Nausea & Verified 12/06/19 08:34 Vomiting & Diarrhea milk AdvReac Unknown Verified 12/06/19 08:34 psyllium AdvReac Unknown Verified 12/06/19 08:34 [From Konsyl Sugar-Free (aspartame)] tetracycline [Tetracycline] AdvReac Nausea & Verified 12/06/19 08:34 Vomiting & Diarrhea Tetracyclines AdvReac Unknown Verified 12/06/19 08:34 all artificial sweetners Allergy Anaphylaxis Uncoded 02/10/19 07:30 sammarinese peanuts Allergy Anaphylaxis Uncoded 02/10/19 07:30 Physical Examination this is a pleasant 59-year-old female in no acute distress. She is alert and oriented 3. Exam of the pelvis and lower extremities reveals no obvious deformity. There is no shortening or external rotation noted. Exam of the left hip reveals no erythema or ecchymosis. She is distinctly tender directly over the greater trochanter. She is able to lift the leg off the bed independently. She has full flexion and extension of the knee. Full flexion of the hip. There is no pain with external rotation. There is no pain with palpation about the SI joint or the posterior hip. She has full foot and ankle motion bilaterally. Neurovascular status to the lower extremity is intact. Results x-ray and computed tomography scan of the left hip reveal no bony abnormality. There is mild arthritis noted. There is some calcification over the greater trochanter consistent with chronic bursitis/tendinitis. - Labs Labs: Abnormal Lab Results - Last 24 Hours (Table) 12/06/19 12/06/19 Range/Units 06:43 11:01 POC Glucose (mg/dL) 432 H 408 H (75-99) mg/dL Assessment and Plan (1) Contusion of left hip Current Visit: Yes Status: Acute Code(s): S70.02XA - CONTUSION OF LEFT HIP, INITIAL ENCOUNTER SNOMED Code(s): 42255891 (2) Trochanteric bursitis, left hip Current Visit: Yes Status: Acute Code(s): M70.62 - TROCHANTERIC BURSITIS, LEFT HIP SNOMED Code(s): 8064459 (3) Diabetes Current Visit: No Status: Acute Code(s): E11.9 - TYPE 2 DIABETES MELLITUS WITHOUT COMPLICATIONS SNOMED Code(s): 40989562 (4) Hyperglycemia Current Visit: No Status: Acute Code(s): R73.9 - HYPERGLYCEMIA, UNSPECIFIED SNOMED Code(s): 44705859 (5) Unsteady gait Current Visit: No Status: Acute Code(s): R26.81 - UNSTEADINESS ON FEET SNOMED Code(s): 00158350 Plan: The clinical and x-ray findings are discussed with the patient. Treatment option s are discussed including physical therapy, cortisone injections and anti- inflammatory medications. With her hyperglycemia, it is not recommended that she have a cortisone injection at this time. I would recommend oral anti- inflammatories if okay with internal medicine. Recommend ice to the left hip. I will consult physical therapy to evaluate and treat for her left hip pain. She may bear weight as tolerated with walker. She is to follow up in our office in 2 weeks for reevaluation.
[2019-12-06 14:21] LABS: Glucose,Whole Blood 341 mg/dL (75-99)
[2019-12-06] MEDS ORDERED: LACTATED RINGERS 250 ML IV ONE (14:30)
[2019-12-06] MEDS: ENOXAPARIN 40 MG/0.4 ML SYRINGE SQ SCH (15:10)
[2019-12-06] MEDS: ACETAMINOPHEN TAB 325 MG TAB PO SCH ×3 (15:11→23:49)
[2019-12-06] MEDS: LACTATED RINGERS 1,000 ML IV SCH (15:13)
[2019-12-06 17:09] LABS: Glucose,Whole Blood 220 mg/dL (75-99)
[2019-12-06] MEDS: NAPROXEN 250 MG TAB PO SCH (17:42)
[2019-12-06 19:57] LABS: Glucose,Whole Blood 222 mg/dL (75-99)
[2019-12-06] MEDS ORDERED: CITALOPRAM HYDROBROMIDE 20 MG TAB PO SCH (21:00)
[2019-12-06] MEDS ORDERED: ARIPiprazole 10 MG TAB PO SCH (21:00)
--- NOTE | 2019-12-06 21:52 | P.HPIM ---
History of Present Illness H&P Date: 12/06/19 Chief Complaint: Left hip pain History of presenting complaint: This is a pleasant [address] Mckeon. Chronic stable medical conditions include COPD, hypertension, depression, peripheral neuropathy. Patient was at home walking and she tripped with a rocking chair the part of the foot just sticks out and FOLLOWING OF THE GROUND SHE TRIED TO CATCH HERSELF AND FELL ON THE COUCH ON THE LEFT. IN THE PROCESS SHE DID TWIST HER LEFT HIP. SUBSEQUENTLY SHE DOESN'T UP SEVERE PAIN IN THE LEFT HIP. SOME LIMITATION OF MOVEMENT. CHECKS X-RAYS COMPUTED TOMOGRAPHY SCAN OF ER DIDN'T RULE OUT ANY FRACTURE. Often times patient admits insulin at home. For example she didn't take it yesterday morning. Sugar was in 400s this morning. This is somewhat related to her the schedule of her daughters work. Review of systems: GEN.: Tired EYES: None HEENT: None NECK: None RESPIRATORY: Occasional wheezing CARDIOVASCULAR: None GASTROINTESTINAL: None GENITOURINARY: None MUSCULOSKELETAL: Joint pains LYMPHATICS: None HEMATOLOGICAL: None PSYCHIATRY: None NEUROLOGICAL: None Past medical history to include: COPD, depression, diabetes, hyperlipidemia, dysphagia to solids from early distal esophageal stricture, severe ulcerative esophagitis consistent with LA grade B reflux esophagitis, antral erosive gastritis and small antral ulcer. Social history: This smoke in the past. Alcohol occasionally. Physical examination: VITAL SIGNS: 98.4, 90, 17, 150/83, 98% room air upon presentation GENERAL: BMI 34.1, laying in bed, awake. EYES: Pupils equal. Conjunctiva normal. HEENT: External appearance of nose and ears normal, oral cavity grossly normal. NECK: JVD not raised; masses not palpable. HEART: First and second heart sounds are normal; no edema. LUNGS:[ Respiratory rate increased, decreased breath sounds and wheezing. ABDOMEN: Soft, nontender, liver spleen not palpable, no masses palpable. PSYCH: Alert and oriented x3; mood and affect slightly anxiousl. MUSCULAR skeletal: Some tenderness over the left lateral hip. NEUROLOGICAL: Cranial nerves grossly intact; no facial asymmetry, power and sensation grossly intact. LYMPHATICS: No lymph nodes palpable in the axilla and neck INVESTIGATIONS, reviewed in the clinical context: Hip x-ray and computed tomography scan of the hip-no fracture Accu-Cheks 432, 408, 341 Assessment: -This is a patient who tripped and twisted and fell on the so far. Did not fall to the floor. No fracture on x-ray. Most likely patient had a muscle injury or a tendon injury. We'll get orthopedic opinion -COPD in the next smoker -Diabetes mellitus type 2 chronically on insulin -Depression -Hyperlipidemia -Distal a surgical stricture causing dysphagia -Severe ulcerative esophagitis, with reflux esophagitis -Antral erosive gastritis and small antral ulcer Plan: Care was discussed with the patient. Questions answered. Patient started NSAIDs. Was also given ice pack and heating pad. Orthopedic consultation. Home medications and resume. Patient was started on Lantus this morning. Also given extra dose of regular insulin and NovoLog. Hold for sugars to come down by this this evening. 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, heart murmur, kidney stones, nodules on thyroid, Degenerative disc disease, hiatal hernia, past hx of seizure while sleeping last one age 10 History of Any Multi-Drug Resistant Organisms: MRSA Date of last positivie culture/infection: 2015 MDRO Source:: R foot Past Surgical History: Section, Cholecystectomy, Orthopedic Surgery Additional Past Surgical History / Comment(s): R hand sx, EGD, colonoscopy, picc line, mrsa to left foot from dm ulcer Past Anesthesia/Blood Transfusion Reactions: No Reported Reaction Past Psychological History: Depression Smoking Status: Former smoker Past Alcohol Use History: Rare Past Drug Use History: None Reported - Past Family History Mother Family Medical History: Coronary Artery Disease (CAD), Diabetes Mellitus, Renal Disease Brother(s) Family Medical History: Diabetes Mellitus Father Family Medical History: Cancer Medications and Allergies Home Medications Medication Instructions Recorded Confirmed Type Albuterol Inhaler (Mhu) [Ventolin 1 - 2 puff INHALATION RT-QID 08/27/15 12/06/19 History Hfa Inhaler (Mhu)] Citalopram Hydrobromide [CeleXA] 40 mg PO HS 05/10/18 12/06/19 History Insulin Glargine,Hum.rec.anlog 15 unit SQ BID 02/09/19 12/06/19 History [Basaglar Jemmapen U-100] Insulin Lispro [Admelog] See Protocol SQ TID-W/MEALS 02/09/19 12/06/19 History ARIPiprazole [Abilify] 10 mg PO HS 12/06/19 12/06/19 History Albuterol Nebulized [Ventolin 2.5 mg INHALATION RT-TID 12/06/19 12/06/19 History Nebulized] Atorvastatin [Lipitor] 40 mg PO DAILY 12/06/19 12/06/19 History Ipratropium-Albuterol Nebulize 3 ml INHALATION RT-TID 12/06/19 12/06/19 History [Duoneb 0.5 mg-3 mg/3 ml Soln] Pioglitazone [Actos] 30 mg PO DAILY 12/06/19 12/06/19 History metFORMIN HCL [Glucophage] 500 mg PO BID 12/06/19 12/06/19 History Allergies Allergy/AdvReac Type Severity Reaction Status Date / Time doxycycline Allergy Anaphylaxis Verified 12/06/19 08:34 feathers Allergy Dyspnea Verified 12/06/19 08:34 Fish Containing Products Allergy Anaphylaxis Verified 12/06/19 08:34 Iodinated Contrast Media Allergy Unknown Verified 12/06/19 08:34 kiwi Allergy Anaphylaxis Verified 12/06/19 08:34 latex Allergy Anaphylaxis Verified 12/06/19 08:34 rosuvastatin [From Crestor] Allergy Unknown Verified 12/06/19 08:34 shellfish derived [Shellfish] Allergy Unknown Verified 12/06/19 08:34 Sulfa (Sulfonamide Allergy Anaphylaxis Verified 12/06/19 08:34 Antibiotics) aspartame AdvReac Unknown Verified 12/06/19 08:34 [From Konsyl Sugar-Free (aspartame)] codeine AdvReac Nausea & Verified 12/06/19 08:34 Vomiting & Diarrhea milk AdvReac Unknown Verified 12/06/19 08:34 psyllium AdvReac Unknown Verified 12/06/19 08:34 [From Konsyl Sugar-Free (aspartame)] tetracycline [Tetracycline] AdvReac Nausea & Verified 12/06/19 08:34 Vomiting & Diarrhea Tetracyclines AdvReac Unknown Verified 12/06/19 08:34 all artificial sweetners Allergy Anaphylaxis Uncoded 02/10/19 07:30 tunisian peanuts Allergy Anaphylaxis Uncoded 02/10/19 07:30 Physical Exam Vitals: Vital Signs Temp Pulse Pulse Resp BP BP Pulse Ox 12/06/19 07:43 80 12/06/19 07:33 82 12/06/19 05:30 97.9 F 84 18 127/77 98 12/06/19 04:40 93 16 154/74 95 12/06/19 02:48 95 16 114/88 97 12/05/19 23:13 98.4 F 90 17 150/83 98 Intake and Output 12/05/19 12/06/19 12/06/19 22:59 06:59 14:59 Other: Voiding Method Bedside Commode Weight 76.657 kg Results Labs: Abnormal Lab Results - Last 24 Hours (Table) 12/06/19 Range/Units 06:43 POC Glucose (mg/dL) 432 H (75-99) mg/dL Thrombosis Risk Factor Assmnt - Choose All That Apply Any of the Below Risk Factors Present?: Yes Each Factor Represents 1 point: Age 41-60 years, Obesity (BMI >25) Other Risk Factors: No Other congenital or acquired thrombophilia - If yes, enter type in comment: No Thrombosis Risk Factor Assessment Total Risk Factor Score: 2 Thrombosis Risk Factor Assessment Level: Low Risk
[2019-12-07] MEDS: LACTATED RINGERS 1,000 ML IV SCH ×2 (01:09→07:57)
[2019-12-07] MEDS: ALBUTEROL NEBULIZED 2.5 MG/3 ML INHALATION SCH ×3 (02:06→13:31)
[2019-12-07] MEDS: SODIUM CHLORIDE 0.9% 1,000 ML IV SCH (03:43)
[2019-12-07] MEDS: ACETAMINOPHEN TAB 325 MG TAB PO SCH ×2 (05:49→13:11)
[2019-12-07 07:21] LABS: Glucose,Whole Blood 294 mg/dL (75-99)
[2019-12-07] MEDS: INSULIN ASPART (NovoLOG) 100 UNIT/ML VIAL SQ SCH ×2 (07:58→13:12)
[2019-12-07] MEDS: ENOXAPARIN 40 MG/0.4 ML SYRINGE SQ SCH (07:58)
[2019-12-07] MEDS: PIOGLITAZONE 30 MG TAB PO SCH (07:59)
[2019-12-07] MEDS: GABAPENTIN 100 MG CAP PO SCH (07:59)
[2019-12-07] MEDS: metFORMIN 500 MG TAB PO SCH (07:59)
[2019-12-07] MEDS: INSULIN DETEMIR (LEVEMIR) 100 UNIT/ML SYR SQ SCH (07:59)
[2019-12-07] MEDS: ATORVASTATIN 40 MG TAB PO SCH (08:00)
[2019-12-07] MEDS: PANTOPRAZOLE 40 MG TABLET PO SCH (08:00)
[2019-12-07] MEDS: hydroCHLOROthiazide 12.5 MG CAP PO SCH (08:00)
[2019-12-07] MEDS: NAPROXEN 250 MG TAB PO SCH ×2 (08:00→13:10)
[2019-12-07] MEDS: ARIPiprazole 5 MG TAB PO SCH (08:00)
[2019-12-07] MEDS: MAGNESIUM OXIDE 400 MG TAB PO SCH (08:02)
[2019-12-07] MEDS: CHOLECALCIFEROL 1,000 UNIT TAB PO SCH (09:08)
[2019-12-07 11:30] LABS: Glucose,Whole Blood 232 mg/dL (75-99)
[2019-12-07 12:05] VITALS: BP 111/64; RESP 17; TEMP 98.4
[2019-12-07 13:41] VITALS: PULSE 76
--- NOTE | 2019-12-07 20:37 | P.DS ---
Providers Date of admission: 12/06/19 03:29 Expected date of discharge: 12/07/19 Attending physician: Antelmo Terry Consults: 12/06/19 12:09 Consult Physician Routine Consulting Provider: Lawson Mcfarland Consult Reason/Comments: Left hip pain Do you want consulting provider notified?: Yes Primary care physician: [facility] Course: Chief Complaint: Left hip pain History of presenting complaint: This is a pleasant [address] Mckeon. Chronic stable medical conditions include COPD, hypertension, depression, peripheral neuropathy. Patient was at home walking and she tripped with a rocking chair the part of the foot just sticks out and FOLLOWING OF THE GROUND SHE TRIED TO CATCH HERSELF AND FELL ON THE COUCH ON THE LEFT. IN THE PROCESS SHE DID TWIST HER LEFT HIP. SUBSEQUENTLY SHE DOESN'T UP SEVERE PAIN IN THE LEFT HIP. SOME LIMITATION OF MOVEMENT. CHECKS X-RAYS COMPUTED TOMOGRAPHY SCAN OF ER DIDN'T RULE OUT ANY FRACTURE. O ften times patient admits insulin at home. For example she didn't take it yesterday morning. Sugar was in 400s this morning. This is somewhat related to her the schedule of her daughters work. Admitted with acute left hip bursitis again to fall causing difficulty walking. Responded well to NSAIDs and local heat treatment. Doing better but the time of discharge. Using a walker. Sugars were uncontrolled and 400s. Doing better with her diet discharge. Care was discussed with the patient. Consultation: Dr. Mcfarland from orthopedics Physical examination: VITAL SIGNS: 98.4, 87, 17, 111/64, 95% room air GENERAL: Sitting up in bed, comfortable EYES: Pupils equal. Conjunctiva normal. HEENT: External appearance of nose and ears normal, oral cavity grossly normal. NECK: JVD not raised; masses not palpable. HEART: First and second heart sounds are normal; no edema. LUNGS:[ Respiratory rate increased, decreased breath sounds and wheezing. ABDOMEN: Soft, nontender, liver spleen not palpable, no masses palpable. PSYCH: Alert and oriented x3; mood and affect slightly anxiousl. MUSCULAR skeletal: Some point tenderness over the left lateral hip. INVESTIGATIONS, reviewed in the clinical context: Accu-Cheks 294, 232 Previous testing Hip x-ray and computed tomography scan of the hip-no fracture Accu-Cheks 432, 408, 341 Assessment: -Acute left hip bursitis tendinitis secondary to fall. -COPD in the next smoker -Diabetes mellitus type 2 chronically on insulin -Depression -Hyperlipidemia -Distal a surgical stricture causing dysphagia -Severe ulcerative esophagitis, with reflux esophagitis -Antral erosive gastritis and small antral ulcer Disposition: Home Patient Condition at Discharge: Stable Plan - Discharge Summary New Discharge Prescriptions: New ARIPiprazole [Abilify] 5 mg PO DAILY tab Naproxen [Naprosyn] 250 mg PO TID-W/MEALS #15 tab Cholecalciferol [Vitamin D3 (25 Mcg = 1000 Iu)] 2,000 unit PO DAILY tab Continue Albuterol Inhaler (Mhu) [Ventolin Hfa Inhaler (Mhu)] 1 - 2 puff INHALATION RT-QID Citalopram Hydrobromide [CeleXA] 40 mg PO HS Insulin Glargine,Hum.rec.anlog [Basaglar Kwikpen U-100] 15 unit SQ BID Insulin Lispro [Admelog] 12 unit SQ TID-W/MEALS metFORMIN HCL [Glucophage] 500 mg PO BID Atorvastatin [Lipitor] 40 mg PO DAILY ARIPiprazole [Abilify] 10 mg PO HS Ipratropium-Albuterol Nebulize [Duoneb 0.5 mg-3 mg/3 ml Soln] 3 ml INHALATION RT-TID Albuterol Nebulized [Ventolin Nebulized] 2.5 mg INHALATION RT-TID Pioglitazone [Actos] 30 mg PO DAILY Discharge Medication List Albuterol Inhaler (Mhu) [Ventolin Hfa Inhaler (Mhu)] 1 - 2 puff INHALATION RT- QID 08/27/15 [History] Citalopram Hydrobromide [CeleXA] 40 mg PO HS 05/10/18 [History] Insulin Glargine,Hum.rec.anlog [Basaglar Kwikpen U-100] 15 unit SQ BID 02/09/19 [History] Insulin Lispro [Admelog] 12 unit SQ TID-W/MEALS 02/09/19 [History] ARIPiprazole [Abilify] 10 mg PO HS 12/06/19 [History] Albuterol Nebulized [Ventolin Nebulized] 2.5 mg INHALATION RT-TID 12/06/19 [History] Atorvastatin [Lipitor] 40 mg PO DAILY 12/06/19 [History] Ipratropium-Albuterol Nebulize [Duoneb 0.5 mg-3 mg/3 ml Soln] 3 ml INHALATION RT-TID 12/06/19 [History] Pioglitazone [Actos] 30 mg PO DAILY 12/06/19 [History] metFORMIN HCL [Glucophage] 500 mg PO BID 12/06/19 [History] ARIPiprazole [Abilify] 5 mg PO DAILY tab 12/07/19 [Rx] Cholecalciferol [Vitamin D3 (25 Mcg = 1000 Iu)] 2,000 unit PO DAILY tab 12/07/19 [Rx] Naproxen [Naprosyn] 250 mg PO TID-W/MEALS #15 tab 12/07/19 [Rx] Follow up Appointment(s)/Referral(s): Radu Mckeon MD [Primary Care Provider] - 12/11/19 7:30 am Ravin Vazquez MD [STAFF PHYSICIAN] - 12/22/19 10:00 am Ambulatory/Diagnostic Orders: Stu [DME.AMB1] Location: None Selected Patient Instructions/Handouts: Naproxen (By mouth), Hip Bursitis (GEN) Discharge Disposition: HOME SELF-CARE
[2019-12-08] MEDS ORDERED: INSULIN DETEMIR (LEVEMIR) 100 UNIT/ML SYR SQ SCH (07:00)
== END 2019-12-07 16:15 | disposition home or self-care (01) ==
LOC: EC 23:12 → 5NMEDONC 12-06 03:29
PROVIDERS: ADMIT Hospitalist; ATTEND Hospitalist
DX: M70.72 Other bursitis of hip, left hip (principal); M77.9 Enthesopathy, unspecified; W01.0XXA Fall on same level from slipping, tripping and stumbling without subsequent striking against object, initial encounter; Y93.01 Activity, walking, marching and hiking; J45.909 Unspecified asthma, uncomplicated; K21.9 Gastro-esophageal reflux disease without esophagitis; I10 Essential (primary) hypertension; M19.90 Unspecified osteoarthritis, unspecified site; G40.909 Epilepsy, unspecified, not intractable, without status epilepticus; F32.9 Major depressive disorder, single episode, unspecified; R01.1 Cardiac murmur, unspecified; E04.1 Nontoxic single thyroid nodule; J44.9 Chronic obstructive pulmonary disease, unspecified; E11.42 Type 2 diabetes mellitus with diabetic polyneuropathy; Y92.009 Unspecified place in unspecified non-institutional (private) residence as the place of occurrence of the external cause; E78.5 Hyperlipidemia, unspecified; K21.0 Gastro-esophageal reflux disease with esophagitis; K29.60 Other gastritis without bleeding; K25.9 Gastric ulcer, unspecified as acute or chronic, without hemorrhage or perforation; K22.10 Ulcer of esophagus without bleeding; E66.9 Obesity, unspecified; Z68.34 Body mass index [BMI] 34.0-34.9, adult; M70.62 Trochanteric bursitis, left hip; S70.02XA Contusion of left hip, initial encounter; E11.65 Type 2 diabetes mellitus with hyperglycemia; E11.622 Type 2 diabetes mellitus with other skin ulcer; G62.9 Polyneuropathy, unspecified; Z11.59 Encounter for screening for other viral diseases; Z79.899 Other long term (current) drug therapy; Z79.4 Long term (current) use of insulin; Z88.1 Allergy status to other antibiotic agents; Z91.041 Radiographic dye allergy status; Z91.040 Latex allergy status; Z91.011 Allergy to milk products; Z88.5 Allergy status to narcotic agent; Z91.010 Allergy to peanuts; Z91.013 Allergy to seafood; Z88.2 Allergy status to sulfonamides; Z88.8 Allergy status to other drugs, medicaments and biological substances; Z91.018 Allergy to other foods; Z91.048 Other nonmedicinal substance allergy status; Z86.73 Personal history of transient ischemic attack (TIA), and cerebral infarction without residual deficits; Z90.49 Acquired absence of other specified parts of digestive tract; Z87.891 Personal history of nicotine dependence; Z87.442 Personal history of urinary calculi; Z86.14 Personal history of Methicillin resistant Staphylococcus aureus infection; Z83.3 Family history of diabetes mellitus; Z82.49 Family history of ischemic heart disease and other diseases of the circulatory system; Z80.9 Family history of malignant neoplasm, unspecified; Z84.1 Family history of disorders of kidney and ureter
CPT/HCPCS: 96372 ×3; 96374; 99285; 94640 ×4; 93005; 97162; 73502; 73700; G0378 ×2; U0003; J2270; J2405; J1650 ×2

== ENCOUNTER → 2020-01-18 | Outpatient (CLI) | payer OTHER ==
--- NOTE | 2020-01-19 01:02 | MR ---
EXAMINATION TYPE: MR hip LT wo/w con DATE OF EXAM: 01/18/2020 COMPARISON: None HISTORY: Palpable mass left lateral/anterior hip. CONTRAST: Standard multiplanar, multisequence MRI departmental protocol utilizing 7 mL intravenous Gadavist david olinium contrast. The proximal femurs have normal signal pattern. There is no evidence of avascular necrosis. The aceta bula appear intact. There is no free fluid in the pelvis. There is no evidence of a pelvic mass. Bony pelvis is intact. There is mild subcutaneous edema around the lateral aspect of both hip joints. I s ee no bony destructive process. There is no evidence of a soft tissue mass. On the STIR images there is evidence of increased fluid signal around the greater trochanter of the left femur extending super iorly. This measures up to 1 cm in thickness. There is no fracture line. The contrast images show azael e linear soft tissue enhancement around the greater trochanter of the left femur. IMPRESSION: Soft tissue enhancement around the greater trochanter of the left femur that is most likely related t o trochanteric bursitis. No fracture. I do not suspect a neoplastic process.
== END | disposition home or self-care (01) ==
LOC: RADMRIMAIN 12:44
PROVIDERS: ATTEND Orthopaedic Surgery
DX: M79.89 Other specified soft tissue disorders (principal)
CPT/HCPCS: 73723; A9585

== ENCOUNTER → 2021-08-14 | Outpatient (CLI) | payer OTHER ==
--- NOTE | 2021-08-14 14:18 | CT ---
EXAMINATION TYPE: CT angio chest DATE OF EXAM: 08/14/2021 COMPARISON: CT dated 09/30/2018 HISTORY: SOB and chest tightness. Elevated d-dimer CT DLP: 270.20 mGy.cm. Automated Exposure Control for Dose Reduction was Utilized. TECHNIQUE AND CONTRAST: CTA scan of the thorax is performed with IV Contrast, patient injected with 61ml mL of Isovue 370, pu lmonary angiogram protocol. MIP Images are created on an independent workstation and reviewed. FINDINGS: No definite filling defect within the pulmonary trunk, main pulmonary arteries, lobar, segmental and proximal subsegmental branches to suggest pulmonary embolism. Distal subsegmental branches are subopt imally assessed. The pulmonary trunk measures 2.5 cm. Left ventricular hypertrophy and coronary and a rterial atherosclerotic calcifications. No pericardial effusion. No pathologically enlarged lymph nod es in the chest. Stable 3 mm nodule in the left lung base. Diffuse bronchial thickening, nonspecific. Grossly unremark able lungs otherwise. Patent central airways. No pleural effusion. Previous cholecystectomy. Enlarged liver with suspected hepatic steatosis. Bulky spleen. Sizable hiatal hernia containing the gastric f undus. Degenerative changes of the thoracic spine. Osteopenia. IMPRESSION: No evidence of pulmonary embolism. No definite acute pulmonary abnormality identified. Incidental fin dings as described above.
== END | disposition home or self-care (01) ==
LOC: RADCTMAIN 12:22
PROVIDERS: ATTEND Family Medicine
DX: R79.89 Other specified abnormal findings of blood chemistry (principal); R07.89 Other chest pain; R06.02 Shortness of breath
CPT/HCPCS: 71275; Q9967

== ENCOUNTER 2023-06-28 20:02 | Observation (INO) | payer OTHER ==
[2023-06-28 20:54] LABS: Glucose,Whole Blood 166 mg/dL (70-110)
--- NOTE | 2023-06-28 21:11 | ED ---
General Adult HPI - General Chief complaint: Neuro Symptoms/Deficit Stated complaint: Neck Pain,Slurred Speech Time Seen by Provider: 06/28/23 21:00 Source: patient, RN notes reviewed, old records reviewed Limitations: no limitations - History of Present Illness Initial comments: 63-year-old female presenting with an episode of slurred speech which began at approximately 1130 this morning. She denied facial droop. Denied headache but states she had some neck pain at this time. Symptoms had resolved throughout the day. She states that at 1 point she did have a slight headache but this is also resolved. She denies any limb weakness. She states she has a previous history of TIA and CVA. She denies current blood thinners. No chest pain. - Related Data Home Medications Medication Instructions Recorded Confirmed Albuterol Inhaler [Ventolin Hfa 1 - 2 puff INHALATION RT-QID 08/27/15 12/06/19 Inhaler] Citalopram Hydrobromide [CeleXA] 40 mg PO HS 05/10/18 12/06/19 Insulin Glargine,Hum.rec.anlog 15 unit SQ BID 02/09/19 12/06/19 [Basaglar Kwikpen U-100] Insulin Lispro [Admelog] 12 unit SQ TID-W/MEALS 02/09/19 12/07/19 ARIPiprazole [Abilify] 10 mg PO HS 12/06/19 12/06/19 Albuterol Nebulized [Ventolin 2.5 mg INHALATION RT-TID 12/06/19 12/06/19 Nebulized] Atorvastatin [Lipitor] 40 mg PO DAILY 12/06/19 12/06/19 Ipratropium-Albuterol Nebulize 3 ml INHALATION RT-TID 12/06/19 12/06/19 [Duoneb 0.5 mg-3 mg/3 ml Soln] Pioglitazone [Actos] 30 mg PO DAILY 12/06/19 12/06/19 metFORMIN HCL [Glucophage] 500 mg PO BID 12/06/19 12/06/19 Previous Rx's Medication Instructions Recorded ARIPiprazole [Abilify] 5 mg PO DAILY tab 12/07/19 Cholecalciferol [Vitamin D3 (25 2,000 unit PO DAILY tab 12/07/19 Mcg = 1000 Iu)] Naproxen [Naprosyn] 250 mg PO TID-W/MEALS #15 tab 12/07/19 Allergies Allergy/AdvReac Type Severity Reaction Status Date / Time doxycycline Allergy Anaphylaxis Verified 12/06/19 08:34 feathers Allergy Dyspnea Verified 12/06/19 08:34 Fish Containing Products Allergy Anaphylaxis Verified 12/06/19 08:34 Iodinated Contrast Media Allergy Unknown Verified 12/06/19 08:34 kiwi Allergy Anaphylaxis Verified 12/06/19 08:34 latex Allergy Anaphylaxis Verified 12/06/19 08:34 rosuvastatin [From Crestor] Allergy Unknown Verified 12/06/19 08:34 shellfish derived [Shellfish] Allergy Unknown Verified 12/06/19 08:34 Sulfa (Sulfonamide Allergy Anaphylaxis Verified 12/06/19 08:34 Antibiotics) aspartame AdvReac Unknown Verified 12/06/19 08:34 [From Konsyl Sugar-Free (aspartame)] codeine AdvReac Nausea & Verified 12/06/19 08:34 Vomiting & Diarrhea milk AdvReac Unknown Verified 12/06/19 08:34 psyllium AdvReac Unknown Verified 12/06/19 08:34 [From Konsyl Sugar-Free (aspartame)] tetracycline [Tetracycline] AdvReac Nausea & Verified 12/06/19 08:34 Vomiting & Diarrhea Tetracyclines AdvReac Unknown Verified 12/06/19 08:34 all artificial sweetners Allergy Anaphylaxis Uncoded 02/10/19 07:30 syriac peanuts Allergy Anaphylaxis Uncoded 02/10/19 07:30 Review of Systems ROS Statement: Those systems with pertinent positive or pertinent negative responses have been documented in the HPI. ROS Other: All systems not noted in ROS Statement are negative. 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, heart murmur, kidney stones, nodules on thyroid, Degenerative disc disease, hiatal hernia, past hx of seizure while sleeping last one age 10 History of Any Multi-Drug Resistant Organisms: MRSA Date of last positivie culture/infection: 2015 MDRO Source:: R foot Past Surgical History: Section, Cholecystectomy, Orthopedic Surgery Additional Past Surgical History / Comment(s): R hand sx, EGD, colonoscopy Past Anesthesia/Blood Transfusion Reactions: No Reported Reaction Past Psychological History: Depression Smoking Status: Former smoker Past Alcohol Use History: Rare Past Drug Use History: None Reported - Past Family History Mother Family Medical History: Coronary Artery Disease (CAD), Diabetes Mellitus, Renal Disease Brother(s) Family Medical History: Diabetes Mellitus Father Family Medical History: Cancer General Exam Limitations: no limitations General appearance: alert, in no apparent distress Head exam: Present: atraumatic, normocephalic Eye exam: Present: normal appearance, PERRL ENT exam: Present: normal exam Neck exam: Present: normal inspection. Absent: tenderness, meningismus Respiratory exam: Present: normal lung sounds bilaterally. Absent: respiratory distress, wheezes Cardiovascular Exam: Present: regular rate, normal rhythm, systolic murmur GI/Abdominal exam: Present: soft. Absent: distended, tenderness, guarding Extremities exam: Present: normal inspection, normal capillary refill Neurological exam: Present: alert, oriented X3, CN II-XII intact, other (Speech is clear, no focal numbness or weakness. NIH is 0). Absent: motor sensory deficit Skin exam: Present: warm, dry, intact Course Vital Signs 06/28/23 06/28/23 06/28/23 20:04 21:18 21:33 Temperature 98.3 F Pulse Rate 89 70 78 Respiratory 18 18 14 Rate Blood Pressure 211/123 193/103 189/92 O2 Sat by Pulse 99 97 98 Oximetry Medical Decision Making - Medical Decision Making Was pt. sent in by a medical professional or institution (, PA, HARDWARE MANAGER, urgent care, hospital, or detention...) When possible be specific @ -No Did you speak to anyone other than the patient for history (EMS, parent, family, police, friend...)? What history was obtained from this source @ -No Did you review nursing and triage notes (agree or disagree)? Why? @ -I reviewed and agree with nursing and triage notes Were old charts reviewed (outside hosp., previous admission, EMS record, old EKG, old radiological studies, urgent care reports/EKG's, detention records)? Report findings @ -No old charts were reviewed Differential Diagnosis (chest pain, altered mental status, abdominal pain women, abdominal pain men, vaginal bleeding, weakness, fever, dyspnea, syncope, headache, dizziness, GI bleed, back pain, seizure, CVA, palpatations, mental health, musculoskeletal)? @Differential CVA Ischemic stroke, hemorrhagic stroke, brain tumor, atypical migraine, Wernicke's encephalopathy, seizure, multiple sclerosis, meningitis, encephalitis, hypoglycemia, Guillain-Cline, electrolytes disturbance, myasthenia gravis.... This is not meant to be an all-inclusive list EKG interpreted by me (3pts min.). @ -Sinus rhythm rate of 75, NM interval 136, QRS duration 100, QTc [address] segment elevation. X-rays interpreted by me (1pt min.). @ -Chest x-ray negative for acute cardiopulmonary findings CT interpreted by me (1pt min.). @ -CT brain negative for intracranial hemorrhage, shows remote lacunar infarct. U/S interpreted by me (1pt. min.). @ -None done What testing was considered but not performed or refused? (CT, X-rays, U/S, labs)? Why? @ -None What meds were considered but not given or refused? Why? @ -None Did you discuss the management of the patient with other professionals (professionals i.e. , PA, HARDWARE MANAGER, lab, RT, psych nurse, social media marketing manager, card clothier, teacher, grants officer, case operator)? Give summary @ -[facility] Was smoking cessation discussed for >3mins.? @ -No Was critical care preformed (if so, how long)? @ -No Were there social determinants of health that impacted care today? How? (Homelessness, low income, unemployed, alcoholism, drug addiction, transportation, low edu. Level, literacy, decrease access to med. care, senior care, rehab)? @ -No Was there de-escalation of care discussed even if they declined (Discuss DNR or withdrawal of care, Hospice)? DNR status @ -No What co-morbidities impacted this encounter? (DM, HTN, Smoking, COPD, CAD, Cancer, CVA, ARF, Chemo, Hep., AIDS, mental health diagnosis, sleep apnea, morbid obesity)? @ -[Hypertension, COPD Was patient admitted / discharged? Hospital course, mention meds given and route, prescriptions, significant lab abnormalities, going to OR and other pertinent info. @63-year-old female presenting with an episode of slurred speech which occurred at approximately 11:30 AM and is resolved at the time of arrival. She has an NIH of 0. No limb weakness, no facial asymmetry. She is hypertensive upon arrival. She is taken for CT brain without contrast which is negative for intracranial hemorrhage, showing remote lacunar infarct. She is in sinus rhythm. She has normal CBC, CMP showing hyperglycemia with no other acute abnormalities. Patient will benefit from TIA evaluation and neurology consultation. Admitted to internal medicine. Undiagnosed new problem with uncertain prognosis? @ -No Drug Therapy requiring intensive monitoring for toxicity (Heparin, Nitro, Insulin, Cardizem)? @ -No Were any procedures done? @ -No Diagnosis/symptom? @ -[TIA Acute, or Chronic, or Acute on Chronic? @ -Acute Uncomplicated (without systemic symptoms) or Complicated (systemic symptoms)? @ -Default Side effects of treatment? @ -No Exacerbation, Progression, or Severe Exacerbation? @ -No Poses a threat to life or bodily function? How? (Chest pain, [place], [place], pneumonia, PE, COPD, DKA, ARF, appy, cholecystitis, CVA, Diverticulitis, Homicidal, Suicidal, threat to staff... and all critical care pts) @Yes, CVA - Lab Data Result diagrams: 06/28/23 21:06 06/28/23 21:06 Lab Results 06/28/23 06/28/23 06/28/23 Range/Units 20:53 21:06 21:06 WBC 8.7 (3.8-10.6) k/uL RBC 5.80 H (3.80-5.40) m/uL Hgb 16.1 H (11.4-16.0) gm/dL Hct 48.1 H (34.0-46.0) % MCV 82.8 (80.0-100.0) fL MCH 27.7 (25.0-35.0) pg MCHC 33.5 (31.0-37.0) g/dL RDW 13.2 (11.5-15.5) % Plt Count 209 (150-450) k/uL MPV 8.3 Neutrophils % 64 % Lymphocytes % 28 % Monocytes % 4 % Eosinophils % 2 % Basophils % 1 % Neutrophils # 5.5 (1.3-7.7) k/uL Lymphocytes # 2.4 (1.0-4.8) k/uL Monocytes # 0.3 (0-1.0) k/uL Eosinophils # 0.2 (0-0.7) k/uL Basophils # 0.1 (0-0.2) k/uL PT 10.2 (10.0-12.5) sec INR 0.9 (<1.2) APTT 27.7 (22.0-30.0) sec Sodium (137-145) mmol/L Potassium (3.5-5.1) mmol/L Chloride (98-107) mmol/L Carbon Dioxide (22-30) mmol/L Anion Gap mmol/L BUN (7-17) mg/dL Creatinine (0.52-1.04) mg/dL Est GFR (CKD-EPI)AfAm (>60 ml/min/1.73 sqM) Est GFR (CKD-EPI)NonAf (>60 ml/min/1.73 sqM) Glucose (74-99) mg/dL POC Glucose (mg/dL) 166 H (70-110) mg/dL POC Glu Casting Wheel Operator ID Nahid, Eun Calcium (8.4-10.2) mg/dL Total Bilirubin (0.2-1.3) mg/dL AST (14-36) U/L ALT (4-34) U/L Alkaline Phosphatase (38-126) U/L Creatine Kinase (30-135) U/L Troponin I (0.000-0.034) ng/mL Total Protein (6.3-8.2) g/dL Albumin (3.5-5.0) g/dL 06/28/23 06/28/23 Range/Units 21:06 21:06 WBC (3.8-10.6) k/uL RBC (3.80-5.40) m/uL Hgb (11.4-16.0) gm/dL Hct (34.0-46.0) % MCV (80.0-100.0) fL MCH (25.0-35.0) pg MCHC (31.0-37.0) g/dL RDW (11.5-15.5) % Plt Count (150-450) k/uL MPV Neutrophils % % Lymphocytes % % Monocytes % % Eosinophils % % Basophils % % Neutrophils # (1.3-7.7) k/uL Lymphocytes # (1.0-4.8) k/uL Monocytes # (0-1.0) k/uL Eosinophils # (0-0.7) k/uL Basophils # (0-0.2) k/uL PT (10.0-12.5) sec INR (<1.2) APTT (22.0-30.0) sec Sodium 139 (137-145) mmol/L Potassium 4.2 (3.5-5.1) mmol/L Chloride 105 (98-107) mmol/L Carbon Dioxide 26 (22-30) mmol/L Anion Gap 8 mmol/L BUN 26 H (7-17) mg/dL Creatinine 1.16 H (0.52-1.04) mg/dL Est GFR (CKD-EPI)AfAm 58 (>60 ml/min/1.73 sqM) Est GFR (CKD-EPI)NonAf 50 (>60 ml/min/1.73 sqM) Glucose 183 H (74-99) mg/dL POC Glucose (mg/dL) (70-110) mg/dL POC Glu Casting Wheel Operator ID Calcium 9.6 (8.4-10.2) mg/dL Total Bilirubin 0.7 (0.2-1.3) mg/dL AST 22 (14-36) U/L ALT 17 (4-34) U/L Alkaline Phosphatase 70 (38-126) U/L Creatine Kinase 101 (30-135) U/L Troponin I <0.012 (0.000-0.034) ng/mL Total Protein 6.8 (6.3-8.2) g/dL Albumin 4.0 (3.5-5.0) g/dL Disposition Clinical Impression: Transient cerebral ischemia, Diabetes Disposition: ADMITTED IP TO THIS HOSP Condition: Stable Is patient prescribed a controlled substance at d/c from ED?: No Referrals: Radu Mckeon MD [Primary Care Provider] - 1-2 days Time of Disposition: 22:11
[2023-06-28 21:21] LABS: Basophils # (A) 0.1 k/uL (0-0.2); Basophils % (A) 1 %; Eosinophils # (A) 0.2 k/uL (0-0.7); Eosinophils % (A) 2 %; HCT 48.1 % (34.0-46.0); HGB 16.1 gm/dL (11.4-16.0); Lymphocytes # (A) 2.4 k/uL (1.0-4.8); Lymphocytes % (A) 28 %; MCH 27.7 pg (25.0-35.0); MCHC 33.5 g/dL (31.0-37.0); MCV 82.8 fL (80.0-100.0); Mean Platelet Volume 8.3; Monocytes # (A) 0.3 k/uL (0-1.0); Monocytes % (A) 4 %; Neutrophils # (A) 5.5 k/uL (1.3-7.7); Neutrophils % (A) 64 %; Platelet Count 209 k/uL (150-450); RDW 13.2 % (11.5-15.5); WBC 8.7 k/uL (3.8-10.6)
[2023-06-28 21:28] LABS: INR 0.9 (<1.2); Partial Thromboplastin Time 27.7 sec (22.0-30.0); Prothrombin Time 10.2 sec (10.0-12.5)
[2023-06-28 21:33] LABS: ALT 17 U/L (4-34); AST 22 U/L (14-36); African American GFR (CKD) 58 (>60 ml/min/1.73 sqM); Alkaline Phosphatase 70 U/L (38-126); Anion Gap 8 mmol/L; Blood Urea Nitrogen 26 mg/dL (7-17); Calcium 9.6 mg/dL (8.4-10.2); Carbon Dioxide 26 mmol/L (22-30); Chloride 105 mmol/L (98-107); Creatine Kinase 101 U/L (30-135); Glucose 183 mg/dL (74-99); Non-African American GFR(CKD) 50 (>60 ml/min/1.73 sqM); Potassium 4.2 mmol/L (3.5-5.1); Sodium 139 mmol/L (137-145); Total Bilirubin 0.7 mg/dL (0.2-1.3); Total Protein 6.8 g/dL (6.3-8.2)
--- NOTE | 2023-06-28 21:39 | XR ---
EXAMINATION TYPE: XR chest 2V DATE OF EXAM: 06/28/2023 COMPARISON: 10/01/2018 HISTORY: Slurred speech TECHNIQUE: Frontal and lateral views of the chest are obtained. FINDINGS: There is no focal air space opacity, pleural effusion, or pneumothorax seen. The cardiac silhouette size is within normal limits. The osseous structures are intact. IMPRESSION: No acute cardiopulmonary process.
--- NOTE | 2023-06-28 22:02 | CT ---
EXAMINATION TYPE: CT brain wo con DATE OF EXAM: 06/28/2023 COMPARISON: None HISTORY: Slurred speech. Hx of stroke. CT DLP: 1050.4 mGycm Automated exposure control for dose reduction was used. FINDINGS: The ventricles, basal cisterns and sulci over convexities are within normal limits mass effect or jai ft of midline structures. 7 mm focal area of decreased density in the right parietal-occipital white matter consistent with rem ote lacunar white matter infarct. There is no mass effect or shift of midline structures. There is no acute intra or extra-axial hemorrhage. Posterior fossa is grossly normal. Intraorbital contents appear normal symmetric. There is mild chronic inflammatory change left maxillary sinus. IMPRESSION: 1. SMALL REMOTE LACUNAR WHITE MATTER INFARCT IN THE RIGHT CEREBRAL HEMISPHERE DESCRIBED ABOVE. 2. NO ACUTE BLEED OR MASS EFFECT.
[2023-06-28] MEDS: ASPIRIN 325 MG TAB PO STA (22:39)
[2023-06-28] MEDS: SODIUM CHLORIDE 0.9% 1,000 ML IV SCH (22:40)
[2023-06-28] MEDS: amLODIPine 5 MG TAB PO STA (23:55)
--- NOTE | 2023-06-29 05:48 | US ---
EXAMINATION TYPE: US carotid duplex BILAT DATE OF EXAM: 06/28/2023 COMPARISON: NONE CLINICAL INDICATION: Female, 63 years old with history of Stenosis; slurred speech today. Pt states s he had a stroke in her early 20s. Dizziness. TECHNIQUE: Carotid duplex ultrasound examination. Indirect Doppler criteria was utilized. FINDINGS: EXAM MEASUREMENTS: RIGHT: Peak Systolic Velocity (PSV) cm/sec ----- Right CCA: 68.2 ----- Right ICA: 73.5 ----- Right ECA: 83.4 ICA/CCA ratio: 1.1 RIGHT: End Diastole cm/sec ----- Right CCA: 20.2 ----- Right ICA: 15.3 ----- Right ECA: 9.8 LEFT: Peak Systolic Velocity (PSV) cm/sec ----- Left CCA: 82.0 ----- Left ICA: 55.5 ----- Left ECA: 57.2 ICA/CCA ratio: 0.7 LEFT: End Diastole cm/sec ----- Left CCA: 20.4 ----- Left ICA: 15.4 ----- Left ECA: 5.8 VERTEBRALS (direction of flow): Right Vertebral: Antegrade Left Vertebral: Antegrade Rhythm: Normal CYCLE CONSULTANT NOTES: Mild plaque seen in bilat bulbs. No elevated velocities seen IMPRESSION: No hemodynamically significant stenosis either internal carotid artery. Criteria for Assigning % of Stenosis / Diameter reduction (Estimation based on the indirect measurements of the internal carotid artery velocities (ICA PSV). 1. Normal (no stenosis)=ICA PSV < 125 cm/s: ratio < 2.0: ICA EDV<40 cm/s. 2. Less than 50% stenosis=ICA PSV < 125 cm/s: ratio < 2.0: ICA EDV<40 cm/s. 3. 50 to 69% stenosis=ICA PSV of 125 to 230 cm/s: ration 2.0 ? 4.0: ICA EDV 40-100 cm/s. 4. Greater than 70% stenosis to near occlusion= ICA PSV > 230 cm/s: ratio > 4.0: ICA EDV > 100 cm/s. 5. Near occlusion= ICA PSV velocities may be low or undetectable: variable ratio and ICA EDV. 6. Total occlusion=unable to detect flow.
[2023-06-29] MEDS ORDERED: ALBUTEROL NEBULIZED 2.5 MG/3 ML INHALATION PRN (06:48)
[2023-06-29] MEDS ORDERED: DEXTROSE 50% SYRINGE 50 ML IVP PRN ×2 (06:49)
[2023-06-29 07:48] LABS: Glucose,Whole Blood 128 mg/dL (70-110)
[2023-06-29] MEDS: INSULIN ASPART (NovoLOG) 100 UNIT/ML VIAL SQ SCH (07:49)
[2023-06-29] MEDS: SYMBICORT 160-4.5 MCG INHALER INHALATION SCH (08:22)
[2023-06-29] MEDS: FLUoxetine HCL 20 MG CAP PO SCH (08:32)
[2023-06-29] MEDS: ASPIRIN 325 MG TAB PO SCH (08:32)
[2023-06-29] MEDS: INSULIN DETEMIR (LEVEMIR) 100 UNIT/ML SYR SQ SCH (08:33)
[2023-06-29 09:05] LABS: Chol/HDL Ratio 7.58 Ratio; LDL Cholesterol,Calculated 191.2 mg/dL (0.0-131.0)
[2023-06-29 11:32] LABS: Glucose,Whole Blood 181 mg/dL (70-110)
[2023-06-29] MEDS ORDERED: NALOXONE 0.4 MG/ML 1 ML VIAL IV PRN (12:11)
[2023-06-29] MEDS ORDERED: MELATONIN 3 MG TABLET PO PRN (12:11)
[2023-06-29] MEDS ORDERED: ALPRAZolam 0.25 MG TAB PO PRN (12:11)
[2023-06-29] MEDS ORDERED: CALCIUM CARBONATE 500 MG CHEWABLE PO PRN (12:11)
[2023-06-29] MEDS ORDERED: ACETAMINOPHEN TAB 325 MG TAB PO PRN (12:11)
[2023-06-29] MEDS ORDERED: ONDANSETRON 4 MG/2 ML VIAL IVP PRN (12:11)
[2023-06-29] MEDS ORDERED: LACTULOSE 20 GM/30 ML CUP PO PRN (12:11)
[2023-06-29 12:51] LABS: Appearance,Urine Clear (Clear); Bilirubin,Urine Negative (Negative); Blood,Urine Negative (Negative); Color,Urine Light Yellow; Glucose,Urine (UA) 1+ (Negative); Ketones,Urine Negative (Negative); Leukocyte Esterase,Urine Negative (Negative); Nitrite,Urine Negative (Negative); Protein,Urine Trace (Negative); Urobilinogen,Urine <2.0 mg/dL (<2.0)
--- NOTE | 2023-06-29 12:58 | CA ---
Transthoracic Echo Report Name: Melody Erickson Age: 63 Gender: F : 1960 Exam Date: 06/29/2023 08:50 Exam Location: [facility] Ht (in): 61 Wt (lb): 147 Ordering Physician: Han Rothman MD Attending/Referring Phys: [id number], Stephan Centrifugal Extractor Operator Chris Ivey RDCS Procedure CPT: Indications: Thrombus Cardiac Hx: Technical Quality: Contrast 1: Total Dose (mL): Contrast 2: Total Dose (mL): MEASUREMENTS (Male / Female) Normal Values 2D ECHO LV Diastolic Diameter PLAX 4.6 cm 4.2 - 5.9 / 3.9 - 5.3 cm LV Systolic Diameter PLAX 2.8 cm IVS Diastolic Thickness 1.2 cm 0.6 - 1.0 / 0.6 - 0.9 cm LVPW Diastolic Thickness 1.0 cm 0.6 - 1.0 / 0.6 - 0.9 cm LV Relative Wall Thickness 0.5 LVOT Diameter 2.1 cm Aortic Root Diameter 3.3 cm LA Systolic Diameter LX 3.6 cm 3.0 - 4.0 / 2.7 - 3.8 cm DOPPLER AV Peak Velocity 219.9 cm/s AV Peak Gradient 19.3 mmHg AI Peak Velocity 411.6 cm/s AI Peak Gradient 67.8 mmHg AI Pressure Half Time 399.9 ms LVOT Peak Velocity 99.0 cm/s LVOT Peak Gradient 3.9 mmHg LVOT Velocity Time Integral 68.9 cm LVOT Stroke Volume 239.3 cm??? LVOT Stroke Volume Index 144.4 ml/m??? LVOT Cardiac Index 25767.6 cm???/min???m??? AV Area Cont Eq pk 1.6 cm??? Mitral E Point Velocity 90.7 cm/s Mitral A Point Velocity 115.0 cm/s Mitral E to A Ratio 0.8 MV Deceleration Time 277.1 ms PV Peak Velocity 102.9 cm/s PV Peak Gradient 4.2 mmHg FINDINGS Left Ventricle Left ventricular ejection fraction is estimated at 55-60 %. Mildly increased left ventricular wall thickness. Mild concentric left ventricular hypertrophy. Right Ventricle Normal right ventricular size. Right Atrium Normal right atrial size. Left Atrium Normal left atrial size. Mitral Valve Mitral valve thickened. Trace mitral regurgitation. Aortic Valve [id number] aortic regurgitation. Mild aortic stenosis with a peak gradient of 23.25 mmHg and a mean gradient of 15.63 mmHg. Tricuspid Valve Trace tricuspid regurgitation. Pulmonic Valve No pulmonic regurgitation. Pericardium No pericardial effusion. Aorta Normal size aortic root. CONCLUSIONS Normal LV systolic function Mild to moderate aortic regurgitation Mild aortic stenosis with a peak gradient of 22 mm and the mean gradient of 15 mm across the valve Previewed by: Dr. Samuel Rubio MD (Electronically Signed) Final Date: 29 June 2023 12:57
--- NOTE | 2023-06-29 13:30 | P.CNNES ---
History of Present Illness Consult date: 06/29/23 Requesting physician: Han Rothman Reason for Consult: TIA History of Present Illness: This is a 63-year-old woman who presented emergency department cause of slurring the speech and neck pain. She stated that her symptoms began yesterday at 11:20 AM. She was having slurring the speech and the it did not resolve sterile midnight yesterday. She felt the next day was and the posterior base of the neck in the middle region and the she felt was readings just slightly down into the shoulder minimally. She denies any focal weakness, numbness, visual disturbance. She feels back to baseline. She stated that she had history of TIAs at the age of 16 and 19 years old and she is not on any antiplatelet. She denies of any A. fib. Some of the workup during his hospital visit consisted of: Initial serum glucose is 183, sodium is 139 Lipid panel is a triglyceride of 255, cholesterol 279, LDLs 191 and HDL is 36.CT of the head is reported as small remote lacunar white matter infarct in the right cerebral hemisphere described above. No acute bleed or mass effect. In the body report it is reported as 7 mm focal area of decreased density in the right parieto-occipital white matter consistent with remote lacunar infarct. I personally reviewed the CT and I agree with the report. Carotid duplex was reported as no hemodynamically significant stenosis in either internal carotid artery. 2D echo was reported as normal left ventricle systolic function. Mild to moderate aortic regurgitation. Mild aortic stenosis with peak gradient of 22 mm and the mean gradient of 15 mm across the valve. EKG is reported as sinus rhythm. Septal myocardial infarction of indeterminate the age. Review of Systems Review of system: The 12 point system was reviewed and apparent positive and negative per HPI. 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, heart murmur, kidney stones, nodules on thyroid, Degenerative disc disease, hiatal hernia, past hx of seizure while sleeping last one age 10 History of Any Multi-Drug Resistant Organisms: MRSA Date of last positivie culture/infection: 2015 MDRO Source:: R foot Past Surgical History: Section, Cholecystectomy, Orthopedic Surgery Additional Past Surgical History / Comment(s): R hand sx, EGD, colonoscopy Past Anesthesia/Blood Transfusion Reactions: No Reported Reaction Past Psychological History: Depression Smoking Status: Former smoker Past Alcohol Use History: Rare Past Drug Use History: None Reported - Past Family History Mother Family Medical History: Coronary Artery Disease (CAD), Diabetes Mellitus, Renal Disease Brother(s) Family Medical History: Diabetes Mellitus Father Family Medical History: Cancer Medications and Allergies Home Medications Medication Instructions Recorded Confirmed Type Albuterol Inhaler [Ventolin Hfa 1 - 2 puff INHALATION RT-QID PRN 08/27/15 06/28/23 History Inhaler] metFORMIN HCL [Glucophage] 500 mg PO BID 12/06/19 06/28/23 History Budesonide/Formoterol Fumarate 2 puff INHALATION RT-BID 06/28/23 06/28/23 History [Symbicort 160-4.5 Mcg Inhaler] Dulaglutide [Trulicity] 3 mg SQ FR 06/28/23 06/28/23 History FLUoxetine HCL 40 mg PO DAILY 06/28/23 06/28/23 History Insulin Glargine,Hum.rec.anlog 40 units SQ DAILY 06/28/23 06/28/23 History [Lantus Solostar Pen] Insulin Lispro [humaLOG Kwikpen] 8 unit SQ HS 06/28/23 06/28/23 History Allergies Allergy/AdvReac Type Severity Reaction Status Date / Time doxycycline Allergy Anaphylaxis Verified 06/28/23 22:41 feathers Allergy Dyspnea Verified 06/28/23 22:41 Fish Containing Products Allergy Anaphylaxis Verified 06/28/23 22:41 Iodinated Contrast Media Allergy Unknown Verified 06/28/23 22:41 kiwi Allergy Anaphylaxis Verified 06/28/23 22:41 latex Allergy Anaphylaxis Verified 06/28/23 22:41 rosuvastatin [From Crestor] Allergy Unknown Verified 06/28/23 22:41 shellfish derived [Shellfish] Allergy Unknown Verified 06/28/23 22:41 Sulfa (Sulfonamide Allergy Anaphylaxis Verified 06/28/23 22:41 Antibiotics) aspartame AdvReac Unknown Verified 06/28/23 22:41 [From Konsyl Sugar-Free (aspartame)] codeine AdvReac Nausea & Verified 06/28/23 22:41 Vomiting & Diarrhea milk AdvReac Unknown Verified 06/28/23 22:41 psyllium AdvReac Unknown Verified 06/28/23 22:41 [From Konsyl Sugar-Free (aspartame)] tetracycline [Tetracycline] AdvReac Nausea & Verified 06/28/23 22:41 Vomiting & Diarrhea Tetracyclines AdvReac Unknown Verified 06/28/23 22:41 all artificial sweetners Allergy Anaphylaxis Uncoded 02/10/19 07:30 romansh peanuts Allergy Anaphylaxis Uncoded 02/10/19 07:30 Physical Examination - Vital Signs Vital Signs: Vital Signs Temp Pulse Pulse Resp BP BP Pulse Ox 06/29/23 12:00 72 15 154/98 97 06/29/23 08:40 154/104 06/29/23 08:06 76 15 140/77 98 06/29/23 06:00 82 147/87 06/29/23 05:00 73 12 145/77 98 06/29/23 04:12 71 12 160/85 98 06/29/23 04:00 97.7 F 74 12 142/79 98 06/29/23 01:25 97.9 F 78 14 185/95 98 06/29/23 01:04 170/98 06/29/23 00:30 75 13 170/92 99 06/29/23 00:00 76 12 193/100 97 06/28/23 23:54 76 19 193/100 99 06/28/23 23:43 79 12 192/100 98 06/28/23 23:30 78 12 185/103 95 06/28/23 23:00 76 12 181/86 95 06/28/23 22:48 75 16 174/92 96 06/28/23 22:30 78 16 178/96 99 06/28/23 22:15 80 14 177/92 98 06/28/23 22:00 74 12 170/96 98 06/28/23 21:45 81 14 189/92 06/28/23 21:33 78 14 189/92 98 06/28/23 21:30 75 16 193/103 06/28/23 21:18 86 12 193/103 99 06/28/23 20:04 98.3 F 89 18 211/123 99 Intake and Output 06/28/23 06/29/23 06/29/23 22:59 06:59 14:59 Other: # Voids 0 Weight 66.678 kg GENERAL: The patient is lying in bed and is not in acute distress. NEUROLOGICAL: Higher mental function: The patient is awake, alert, oriented to self, place and time. Patient is following commands. No aphasia and no neglect. Cranial nerves: The pupils are round, equal and reactive to light and accommodation. Visual gill are full to confrontation throughout. Extraocular movement is intact no nystagmus is noted. Facial sensation is normal to touch throughout. The facial strength is normal throughout. Hearing is mildly decreased bilaterally to hand rub. Tongue is midline and moved [id number] without any difficulty. No dysarthria is noted. Shoulder shrug is normal bilaterally. Motor: The strength is 5 over 5 throughout. Normal tone and bulk. Cerebellum: Normal finger to nose bilaterally. Sensation: Sensation is normal to touch throughout. Reflexes (right/left): 2+ throughout. Plantars are mute bilaterally. Results - Laboratory Findings CBC and BMP: 06/28/23 21:06 06/28/23 21:06 Abnormal Lab Findings: Abnormal Labs 06/28/23 06/28/23 06/28/23 20:53 21:06 21:06 RBC 5.80 H Hgb 16.1 H Hct 48.1 H BUN 26 H Creatinine 1.16 H Glucose 183 H POC Glucose (mg/dL) 166 H Triglycerides Cholesterol LDL Cholesterol, Calc VLDL Cholesterol, Calc HDL Cholesterol Urine Protein Urine Glucose (UA) 06/28/23 06/29/23 06/29/23 21:06 07:46 10:19 RBC Hgb Hct BUN Creatinine Glucose POC Glucose (mg/dL) 128 H Triglycerides 255.00 H Cholesterol 279.00 H LDL Cholesterol, Calc 191.2 H VLDL Cholesterol, Calc 51.00 H HDL Cholesterol 36.80 L Urine Protein Trace H Urine Glucose (UA) 1+ H 06/29/23 11:29 RBC Hgb Hct BUN Creatinine Glucose POC Glucose (mg/dL) 181 H Triglycerides Cholesterol LDL Cholesterol, Calc VLDL Cholesterol, Calc HDL Cholesterol Urine Protein Urine Glucose (UA) Assessment and Plan Assessment: This is a 63-year-old woman with a history of strokes who presented emergency department because of dysarthria and neck pain that started around 11:20 AM and resolved by midnight yesterday. She feels back to baseline. Transient dysarthria likely due to a transient ischemic attack Dyslipidemia History of strokes at the age of 16 and 19 years old according to patient and the patient is not on any antiplatelet. Plan: In the ED the patient was given aspirin 325mg once then started on daily dose. I also started the patient on Plavix 75 mg daily. The patient was on any antiplatelet. I will hold off on statin since has allery to prior satin and will defer management to primary team. MRI the brain with and without is ordered by the primary team is pending I ordered CT cervical especially with her neck pain I ordered urine drug screen and alcohol level Continue neuro checks Cardiac monitoring Consulted PT, OT and SERVICE ADMINISTRATOR Defer the rest of the medical management to primary team For DVT prophylaxis I saw the patient on does appear happened 5000 units every 12 hours Thank you for consultation Time with Patient: Greater than 30
--- NOTE | 2023-06-29 15:27 | P.HPIM ---
History of Present Illness H&P Date: 06/29/23 Chief Complaint: Slurred speech This is a pleasant [address] Mckeon. Chronic stable medical conditions include COPD, hypertension, depression, peripheral neuropathy. Around 11:30 AM patient found herself to having slurred speech. Symptoms lasted close to last night. Patient has chronic neck pain. From arthritis. Denies any change in speech headache or change in vision or any new focal weakness. Symptoms this morning better. Patient presented to the ER last night. CT scan at the ER showed a small remote lacunar white matter infarct. Patient had prior to strokes. 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 Review of systems: GEN.: Tired EYES: None HEENT: None NECK: None RESPIRATORY: None CARDIOVASCULAR: None GASTROINTESTINAL: None GENITOURINARY: None MUSCULOSKELETAL: Joint pains LYMPHATICS: None HEMATOLOGICAL: None PSYCHIATRY: None NEUROLOGICAL: As above Social history: Lives alone Physical examination: VITAL SIGNS: Afebrile, 76, 15, 140/77, 98% room air GENERAL: BMI 29.7, reclining bed awake tired EYES: Pupils equal. Conjunctiva normal. HEENT: External appearance of nose and ears normal, oral cavity grossly normal. NECK: JVD not raised; masses not palpable. HEART: First and second heart sounds are normal; no edema. LUNGS:[ Respiratory rate normal decreased breath sounds ABDOMEN: Soft, nontender, liver spleen not palpable, no masses palpable. PSYCH: Alert and oriented x3; mood and affect slightly anxiousl. MUSCULAR skeletal: Some tenderness over the left lateral hip. NEUROLOGICAL: Cranial nerves grossly intact; no facial asymmetry, power and sensation grossly intact. LYMPHATICS: No lymph nodes palpable in the axilla and neck INVESTIGATIONS, reviewed in the clinical context: June 28: White count 8.7 hemoglobin 16.1 platelets 209 sodium 139 potassium 4.2 BUN 26 creatinine 1.16 LDL 191.2 EKG tracing personally reviewed by me-normal sinus rhythm. Poor R wave progression. Nonspecific T wave changes. Chest x-ray film personally reviewed by me-unremarkable CT brain without contrast: Small remote lacunar and white matter infarct in the right cerebral hemisphere. Carotid Doppler: Unremarkable 2D echo: EF 55 to 60%. Mild to moderate aortic regurgitation. Assessment and plan: -Probable acute TIA. Dysarthria lasting several hours. Speech better this morning. Initial CT scan showing remote infarct. History of 2 prior strokes. Aspirin. Plavix. Lipitor Brain MRI with and without contrast ordered. Premedicate with iodine allergy protocol -COPD in the next smoker -Diabetes mellitus type 2 chronically on insulin Trulicity. Follow Accu-Cheks -Depression Prozac -COPD and a prior smoker Symbicort -Mild to moderate arctic regurgitation -Hyperlipidemia Allergy to statins -Diabetes mellitus type 2, chronically on insulin Lantus. Sliding scale insulin. With coverage -Chronic esophageal stricture with history of dysphagia Neurology consulted. MRI brain. Discussed with patient. 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, heart murmur, kidney stones, nodules on thyroid, Degenerative disc disease, hiatal hernia, past hx of seizure while sleeping last one age 10 History of Any Multi-Drug Resistant Organisms: MRSA Date of last positivie culture/infection: 2015 MDRO Source:: R foot Past Surgical History: Section, Cholecystectomy, Orthopedic Surgery Additional Past Surgical History / Comment(s): R hand sx, EGD, colonoscopy Past Anesthesia/Blood Transfusion Reactions: No Reported Reaction Past Psychological History: Depression Smoking Status: Former smoker Past Alcohol Use History: Rare Past Drug Use History: None Reported - Past Family History Mother Family Medical History: Coronary Artery Disease (CAD), Diabetes Mellitus, Renal Disease Brother(s) Family Medical History: Diabetes Mellitus Father Family Medical History: Cancer Medications and Allergies Home Medications Medication Instructions Recorded Confirmed Type Albuterol Inhaler [Ventolin Hfa 1 - 2 puff INHALATION RT-QID PRN 08/27/15 06/28/23 History Inhaler] metFORMIN HCL [Glucophage] 500 mg PO BID 12/06/19 06/28/23 History Budesonide/Formoterol Fumarate 2 puff INHALATION RT-BID 06/28/23 06/28/23 History [Symbicort 160-4.5 Mcg Inhaler] Dulaglutide [Trulicity] 3 mg SQ FR 06/28/23 06/28/23 History FLUoxetine HCL 40 mg PO DAILY 06/28/23 06/28/23 History Insulin Glargine,Hum.rec.anlog 40 units SQ DAILY 06/28/23 06/28/23 History [Lantus Solostar Pen] Insulin Lispro [humaLOG Kwikpen] 8 unit SQ HS 06/28/23 06/28/23 History Allergies Allergy/AdvReac Type Severity Reaction Status Date / Time doxycycline Allergy Anaphylaxis Verified 06/28/23 22:41 feathers Allergy Dyspnea Verified 06/28/23 22:41 Fish Containing Products Allergy Anaphylaxis Verified 06/28/23 22:41 Iodinated Contrast Media Allergy Unknown Verified 06/28/23 22:41 kiwi Allergy Anaphylaxis Verified 06/28/23 22:41 latex Allergy Anaphylaxis Verified 06/28/23 22:41 rosuvastatin [From Crestor] Allergy Unknown Verified 06/28/23 22:41 shellfish derived [Shellfish] Allergy Unknown Verified 06/28/23 22:41 Sulfa (Sulfonamide Allergy Anaphylaxis Verified 06/28/23 22:41 Antibiotics) aspartame AdvReac Unknown Verified 06/28/23 22:41 [From Konsyl Sugar-Free (aspartame)] codeine AdvReac Nausea & Verified 06/28/23 22:41 Vomiting & Diarrhea milk AdvReac Unknown Verified 06/28/23 22:41 psyllium AdvReac Unknown Verified 06/28/23 22:41 [From Konsyl Sugar-Free (aspartame)] tetracycline [Tetracycline] AdvReac Nausea & Verified 06/28/23 22:41 Vomiting & Diarrhea Tetracyclines AdvReac Unknown Verified 06/28/23 22:41 all artificial sweetners Allergy Anaphylaxis Uncoded 02/10/19 07:30 turkmen peanuts Allergy Anaphylaxis Uncoded 02/10/19 07:30 Physical Exam Vitals: Vital Signs Temp Pulse Pulse Resp BP BP Pulse Ox 06/29/23 08:40 154/104 06/29/23 08:06 76 15 140/77 98 06/29/23 06:00 82 147/87 06/29/23 05:00 73 12 145/77 98 06/29/23 04:12 71 12 160/85 98 06/29/23 04:00 97.7 F 74 12 142/79 98 06/29/23 01:25 97.9 F 78 14 185/95 98 06/29/23 01:04 170/98 06/29/23 00:30 75 13 170/92 99 06/29/23 00:00 76 12 193/100 97 06/28/23 23:54 76 19 193/100 99 06/28/23 23:43 79 12 192/100 98 06/28/23 23:30 78 12 185/103 95 06/28/23 23:00 76 12 181/86 95 06/28/23 22:48 75 16 174/92 96 06/28/23 22:30 78 16 178/96 99 06/28/23 22:15 80 14 177/92 98 06/28/23 22:00 74 12 170/96 98 06/28/23 21:45 81 14 189/92 06/28/23 21:33 78 14 189/92 98 06/28/23 21:30 75 16 193/103 06/28/23 21:18 86 12 193/103 99 06/28/23 20:04 98.3 F 89 18 211/123 99 Intake and Output 06/28/23 06/29/23 06/29/23 22:59 06:59 14:59 Other: # Voids 0 Weight 66.678 kg Results CBC & Chem 7: 06/28/23 21:06 06/28/23 21:06 Labs: Abnormal Lab Results - Last 24 Hours (Table) 06/28/23 06/28/23 06/28/23 Range/Units 20:53 21:06 21:06 RBC 5.80 H (3.80-5.40) m/uL Hgb 16.1 H (11.4-16.0) gm/dL Hct 48.1 H (34.0-46.0) % BUN 26 H (7-17) mg/dL Creatinine 1.16 H (0.52-1.04) mg/dL Glucose 183 H (74-99) mg/dL POC Glucose (mg/dL) 166 H (70-110) mg/dL Triglycerides (0.00-149.00) mg/dL Cholesterol (0.00-200.00) mg/dL LDL Cholesterol, Calc (0.0-131.0) mg/dL VLDL Cholesterol, Calc (5.00-40.00) mg/dL HDL Cholesterol (40.00-60.00) mg/dL 06/28/23 06/29/23 Range/Units 21:06 07:46 RBC (3.80-5.40) m/uL Hgb (11.4-16.0) gm/dL Hct (34.0-46.0) % BUN (7-17) mg/dL Creatinine (0.52-1.04) mg/dL Glucose (74-99) mg/dL POC Glucose (mg/dL) 128 H (70-110) mg/dL Triglycerides 255.00 H (0.00-149.00) mg/dL Cholesterol 279.00 H (0.00-200.00) mg/dL LDL Cholesterol, Calc 191.2 H (0.0-131.0) mg/dL VLDL Cholesterol, Calc 51.00 H (5.00-40.00) mg/dL HDL Cholesterol 36.80 L (40.00-60.00) mg/dL
[2023-06-29] MEDS: CLOPIDOGREL 75 MG TAB PO SCH (15:38)
--- NOTE | 2023-06-29 16:10 | CT ---
EXAMINATION TYPE: CT cervical spine wo con DATE OF EXAM: 06/29/2023 COMPARISON: None HISTORY: Neck pain, hx DDD CT DLP: 312.5 mGycm CONTRAST: None CT of the cervical spine is performed in the axial plane at 2 mm thick sections. Reconstructed image s in the coronal, and sagittal plane are reviewed on the computer. No acute fractures are evident. Vertebral body alignment is normal. There is loss of disc height C5-6 C6-7. Some minimal vacuum disc phenomenon is present C5-6. Vertebral body heights are preserved. Endplate spurring is present posteriorly at C5 and C6 superior endplate C7. Facet hypertrophy is present at C4-5 bilaterally. Uncovertebral joint hypertrophy is present at C4-5 mild bilateral foraminal stenosis. Uncovertebral j oint hypertrophy is present C5-6 with moderate to severe bilateral foraminal stenosis. No AP spinal c anal stenosis. Uncovertebral joint hypertrophy at C6-7 has moderate to severe left and moderate right foraminal narrowing. No AP spinal canal stenosis is present. IMPRESSION: 1. Degenerative disc change and uncovertebral joint hypertrophy greatest C5-6 C6-7 with bilateral f oraminal stenosis.
[2023-06-29 16:26] LABS: Glucose,Whole Blood 200 mg/dL (70-110)
[2023-06-29 16:30] LABS: Amphetamine Screen,Urine Not Detected (NotDetected); Barbiturate Screen,Urine Not Detected (NotDetected); Benzodiazepines Screen,Urine Not Detected (NotDetected); Cocaine Screen,Urine Not Detected (NotDetected); Methadone Screen, Urine Not Detected (NotDetected); Opiate Screen,Urine Not Detected (NotDetected); Oxycodone Screen, Urine Not Detected (NotDetected); Phencyclidine Screen,Urine Not Detected (NotDetected); Tricyclic Antidepressant,Urine Not Detected (NotDetected); Urn Cannabinoid Scrn Not Detected (NotDetected)
[2023-06-29 20:05] LABS: Glucose,Whole Blood 279 mg/dL (70-110)
[2023-06-29] MEDS ORDERED: NON FORMULARY DRUG (Insulin Lispro [Humalog Kwikpen] 100 UNIT/ML Insuln.Pen) SQ SCH (21:00)
[2023-06-29] MEDS: LOSARTAN 50 MG TAB PO SCH (21:23)
[2023-06-29] MEDS: HEPARIN SODIUM,PORCINE 5,000 UNIT/ML 1 ML VIAL SQ SCH (21:24)
[2023-06-30 05:53] LABS: Glucose,Whole Blood 150 mg/dL (70-110)
--- NOTE | 2023-06-30 11:20 | MR ---
EXAMINATION TYPE: MR brain wo/w con DATE OF EXAM: 06/30/2023 10:55 AM CLINICAL INDICATION:Female, 63 years old with history of slurred speech; PHH, Slurred speech COMPARISON: 06/28/2023 TECHNIQUE: Multi planar, multi sequence imaging was performed through the brain including: T1, T2, In version recovery, susceptibility weighted imaging and gradient echo imaging and Diffusion weighted im aging. The patient was then given intravenous contrast and multi planar, T1 fat-saturation images wer e obtained. IV Contrast: 6.5 cc Gadavist FINDINGS: Focus of restricted diffusion within the left frontal lobe as well as in the left centrum s emiovale. Matter changes with remote injury to the right parietal and right occipital lobe. Mild cere bral atrophy with proportional dilation of ventricular system. Intracranial arterial flow voids are maintained. Midline structures show no abnormality. Scattered foci of high T2 signal intensity are se en within the periventricular white matter. The susceptibility weighted images do not reveal any evid ence for micro-hemorrhage. After administration of gadolinium, no abnormal enhancement is seen. The bone marrow signal is within normal limits. Paranasal sinuses and mastoid air cells: No significant paranasal sinus disease. Visualized orbits: Bilateral aphakia IMPRESSION: 1. Acute/subacute CVA involving the left frontal lobe cortex and centrum semiovale of the left fronta l lobe. 2. Remote injuries to the right parietal and right occipital lobe. 3. No abnormal postcontrast enhancement. Nonspecific white matter changes, likely related to small ve ssel ischemic disease.
[2023-06-30 11:35] VITALS: RESP 20
[2023-06-30 11:53] LABS: Glucose,Whole Blood 175 mg/dL (70-110)
--- NOTE | 2023-06-30 14:30 | P.PN ---
Subjective Progress Note Date: 06/30/23 I am following-up with patient and denies of any new neurological issues. She states she has history of venous malformation and was following-up with Dr. Strickland (neurologist) and was notified about this about 15 years ago. Currently denies new focal deficits. Denies of headache. Objective - Vital Signs Vital signs: Vital Signs Temp 98.3 F 06/30/23 11:46 Pulse 87 06/30/23 11:46 Resp 20 06/30/23 11:46 BP 156/78 06/30/23 11:46 Pulse Ox 97 06/30/23 11:46 FiO2 Intake & Output 06/29/23 06/30/23 06/30/23 18:59 06:59 18:59 Intake Total 110 360 Balance 110 360 Weight 66.678 kg Intake: Oral 110 360 Other: Voiding Method Toilet Toilet - Exam Some of the workup during his hospital visit consisted of: Lipid panel is a triglyceride of 255, cholesterol 279, LDLs 191 and HDL is 36. CT of the head is reported as small remote lacunar white matter infarct in the right cerebral hemisphere described above. No acute bleed or mass effect. In the body report it is reported as 7 mm focal area of decreased density in the right parieto-occipital white matter consistent with remote lacunar infarct. I personally reviewed the CT and I agree with the report. UDS: is negative Alcohol <10. Carotid duplex was reported as no hemodynamically significant stenosis in either internal carotid artery. 2D echo was reported as normal left ventricle systolic function. Mild to moderate aortic regurgitation. Mild aortic stenosis with peak gradient of 22 mm and the mean gradient of 15 mm across the valve. EKG is reported as sinus rhythm. Septal myocardial infarction of indeterminate the age. CT cervical spine: Reported as degenerative disc change and uncovertebral joint hypertrophy greatest C5-C6 C6-C7 with bilateral foraminal stenosis. MRI Brain: is reported as acute/subacute CVA involving the frontal lobe cortex and centrum semiovalve of the left frontal lobe. Remote injuries to the right parietal and right occipial lobe. No abnormal postcontrast enhancement. Nonspecific white matter changes, likely related to small vessel ischemic disease. - Labs CBC & Chem 7: 06/28/23 21:06 06/28/23 21:06 Labs: Abnormal Lab Results - Last 24 Hours (Table) 06/29/23 06/29/23 06/30/23 Range/Units 16:25 20:03 05:51 POC Glucose (mg/dL) 200 H 279 H 150 H (70-110) mg/dL 06/30/23 Range/Units 11:52 POC Glucose (mg/dL) 175 H (70-110) mg/dL Assessment and Plan Assessment: This is a 63-year-old woman with a history of strokes who presented emergency department because of dysarthria and neck pain that started around 11:20 AM and resolved by midnight yesterday. She feels back to baseline. Acute/subacute ischemic stroke (left frontal lobe cortex and centrum semiovalve on MRI). Patient had transient dyarthria. No IV TNK since symptoms resolved and risk outweigh benefit. Dyslipidemia History of strokes at the age of 16 and 19 years old according to patient and the patient is not on any antiplatelet. On MRI has old right parietal/occipital injury. Plan: She is on aspirin 325mg daily and Plavix 75 mg daily. The patient was on any antiplatelet. Recommend dual antiplatelets for 21 days and after 21 days, stop Plavix but continue ASA indefinitely. I will hold off on statin since has allery to prior satin and will defer management to primary team. Recommend event monitor for 30 day. If patient continues to have neck, recommend to follow-up with Orthopedic team as outpatient. Patient has known history of venous malformation according to her about 15 years ago and followed-up with Dr. Strickland. Recommend continuing to following and continuing surviellance. Continue neuro checks Cardiac monitoring Consulted PT, OT and ELECTRODYNAMICIST Defer the rest of the medical management to primary team For DVT prophylaxis: On subq heparin 5000 units every 12 hours The plan is discussed with patient and her primary attending. Time with Patient: Less than 30
[2023-06-30] MEDS: FAMOTIDINE 20 MG/2 ML VIAL IV ONE (16:42)
[2023-06-30] MEDS: diphenhydrAMINE 50 MG/ML 1 ML VIAL IVP ONE (16:42)
[2023-06-30] MEDS: methylPREDNISolone SOD SUCCI 125 MG/2 ML VIAL IV ONE (16:42)
[2023-06-30 16:55] VITALS: PULSE 73; TEMP 98.1
[2023-06-30 17:11] LABS: Glucose,Whole Blood 128 mg/dL (70-110)
--- NOTE | 2023-06-30 17:12 | P.DS ---
Providers Date of admission: 06/28/23 22:08 Expected date of discharge: 06/30/23 Attending physician: Antelmo Terry Consults: 06/28/23 22:07 Consult Physician Routine Consulting Provider: Earle Ferrell Consult Reason/Comments: TIA Do you want consulting provider notified?: Yes Primary care physician: [facility] Course: Chief Complaint: Slurred speech This is a pleasant [address] Mckeon. Chronic stable medical conditions include COPD, hypertension, depression, peripheral neuropathy. Around 11:30 AM patient found herself to having slurred speech. Symptoms lasted close to last night. Patient has chronic neck pain. From arthritis. Denies any change in speech headache or change in vision or any new focal weakness. Symptoms this morning better. Patient presented to the ER last night. CT scan at the ER showed a small remote lacunar white matter infarct. Patient had prior to strokes. 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 June 30: Feeling well. Remains back to baseline since yesterday morning. MRI brain did show an acute/subacute CVA involving the left frontal lobe cortex and centrum semiovale on the left frontal lobe. Discussed with Dr. FERRELL from neurology. Patient to be discharged on aspirin and Plavix. Patient to follow- up with neurologist Dr. Rohit West. Discussed with the patient. Patient does get some leg cramps with statins we will try a smaller dose and she can discontinue if there is a problem. Discussion and discharge planning more than 35 minutes Social history: Lives alone Physical examination: VITAL SIGNS: 98.1, 73, 20, 156 x 78, 97% room air GENERAL: BMI 29.7, reclining bed awake comfortable EYES: Pupils equal. Conjunctiva normal. HEENT: External appearance of nose and ears normal, oral cavity grossly normal. NECK: JVD not raised; masses not palpable. HEART: First and second heart sounds are normal; no edema. LUNGS:[ Respiratory rate normal decreased breath sounds ABDOMEN: Soft, nontender, liver spleen not palpable, no masses palpable. PSYCH: Alert and oriented x3; mood and affect slightly anxiousl. MUSCULAR skeletal: Some tenderness over the left lateral hip. NEUROLOGICAL: Cranial nerves grossly intact; no facial asymmetry, power and sensation grossly intact. INVESTIGATIONS, reviewed in the clinical context: Brain MRI: Acute/subacute CVA involving the left frontal lobe cortex and centrum semiovale on the left side. Cervical spine CT: DJD changes. Including at C5-C6, C6-C7 with bilateral foraminal stenosis June 28: White count 8.7 hemoglobin 16.1 platelets 209 sodium 139 potassium 4.2 BUN 26 creatinine 1.16 LDL 191.2 EKG tracing personally reviewed by me-normal sinus rhythm. Poor R wave progression. Nonspecific T wave changes. Chest x-ray film personally reviewed by me-unremarkable CT brain without contrast: Small remote lacunar and white matter infarct in the right cerebral hemisphere. Carotid Doppler: Unremarkable 2D echo: EF 55 to 60%. Mild to moderate aortic regurgitation. Assessment and plan: -Acute stroke in the left frontal lobe cortex and centrum semiovale presenting as dysarthria. Resolved Initial CT scan showing remote infarct. History of 2 prior strokes. Aspirin. Plavix for 21 days. Lipitor Brain MRI as above. -COPD in the next smoker -Diabetes mellitus type 2 chronically on insulin Trulicity. Follow Accu-Cheks -Depression Prozac -COPD and a prior smoker Symbicort -Mild to moderate arctic regurgitation -Hyperlipidemia Allergy to statins -Diabetes mellitus type 2, chronically on insulin Lantus. Sliding scale insulin. With coverage -Chronic esophageal stricture with history of dysphagia Disposition: Home 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, heart murmur, kidney stones, nodules on thyroid, Degenerative disc disease, hiatal hernia, past hx of seizure while sleeping last one age 10 History of Any Multi-Drug Resistant Organisms: MRSA Date of last positivie culture/infection: 2015 MDRO Source:: R foot Past Surgical History: Section, Cholecystectomy, Orthopedic Surgery Additional Past Surgical History / Comment(s): R hand sx, EGD, colonoscopy Past Anesthesia/Blood Transfusion Reactions: No Reported Reaction Past Psychological History: Depression Smoking Status: Former smoker Past Alcohol Use History: Rare Past Drug Use History: None Reported Plan - Discharge Summary Discharge Rx Participant: Yes New Discharge Prescriptions: New Aspirin 81 mg PO DAILY #1 tab Losartan [Cozaar] 50 mg PO HS #30 tab Atorvastatin Calcium [Lipitor] 40 mg PO HS #30 tab Clopidogrel [Plavix] 75 mg PO DAILY #30 tab Continue Albuterol Inhaler [Ventolin Hfa Inhaler] 1 - 2 puff INHALATION RT-QID PRN PRN Reason: Shortness Of Breath metFORMIN HCL [Glucophage] 500 mg PO BID Insulin Glargine,Hum.rec.anlog [Lantus Solostar Pen] 40 units SQ DAILY FLUoxetine HCL 40 mg PO DAILY Budesonide/Formoterol Fumarate [Symbicort 160-4.5 Mcg Inhaler] 2 puff INHALATION RT-BID Insulin Lispro [humaLOG Kwikpen] 8 unit SQ HS Dulaglutide [Trulicity] 3 mg SQ FR Discharge Medication List Albuterol Inhaler [Ventolin Hfa Inhaler] 1 - 2 puff INHALATION RT-QID PRN 08/27/15 [History] metFORMIN HCL [Glucophage] 500 mg PO BID 12/06/19 [History] Budesonide/Formoterol Fumarate [Symbicort 160-4.5 Mcg Inhaler] 2 puff INHALATION RT-BID 06/28/23 [History] Dulaglutide [Trulicity] 3 mg SQ FR 06/28/23 [History] FLUoxetine HCL 40 mg PO DAILY 06/28/23 [History] Insulin Glargine,Hum.rec.anlog [Lantus Solostar Pen] 40 units SQ DAILY 06/28/23 [History] Insulin Lispro [humaLOG Kwikpen] 8 unit SQ HS 06/28/23 [History] Aspirin 81 mg PO DAILY #1 tab 06/30/23 [Rx] Atorvastatin Calcium [Lipitor] 40 mg PO HS #30 tab 06/30/23 [Rx] Clopidogrel [Plavix] 75 mg PO DAILY #30 tab 06/30/23 [Rx] Losartan [Cozaar] 50 mg PO HS #30 tab 06/30/23 [Rx] Follow up Appointment(s)/Referral(s): Radu Mckeon MD [Primary Care Provider] - 07/05/23 11:00 am (WITH TY) Evon Abbott MD [REFERRING] - 1 Week (OFFICE WILL CALL WITH APPOINTMENT FOLLOW UP DATE AND TIME) Patient Instructions/Handouts: Transient Ischemic Attack (DC)
[2023-06-30 19:48] VITALS: BP 170/92
[2023-07-02] MEDS ORDERED: PATIENT'S OWN (Dulaglutide [Trulicity] 3 MG/0.5 ML Each) SQ SCH (09:00)
== END 2023-06-30 19:42 | disposition home or self-care (01) ==
LOC: EC 20:02 → 3SCARD 22:08
PROVIDERS: ADMIT Hospitalist; ATTEND Hospitalist
DX: I63.9 Cerebral infarction, unspecified (principal); J44.9 Chronic obstructive pulmonary disease, unspecified; E11.9 Type 2 diabetes mellitus without complications; R47.81 Slurred speech; F32.A Depression, unspecified; I35.1 Nonrheumatic aortic (valve) insufficiency; E78.5 Hyperlipidemia, unspecified; K22.2 Esophageal obstruction; Z79.899 Other long term (current) drug therapy; Z79.4 Long term (current) use of insulin; Z79.84 Long term (current) use of oral hypoglycemic drugs; Z88.1 Allergy status to other antibiotic agents; Z88.8 Allergy status to other drugs, medicaments and biological substances; Z88.2 Allergy status to sulfonamides; Z88.5 Allergy status to narcotic agent; Z87.891 Personal history of nicotine dependence; Z86.73 Personal history of transient ischemic attack (TIA), and cerebral infarction without residual deficits
CPT/HCPCS: 96372 ×2; 99285; 36415; 94640 ×3; 93005; 93306; 92522; 80061; 80053; 82550; 84484; 85025; 85610; 85730; 81003; 80306; 83036; 71046; 93880; 72125; 70450; 70553; G0378 ×3; G0480; J1644 ×2; A9585; 80320

== ENCOUNTER → 2023-07-21 | Day surgery (SDC) | payer OTHER ==
[2023-07-20 11:56] VITALS: BMI 29.9
[~2023-07-21] MED LIST changes: -LACTATED RINGERS 1,000 ML IV SCH; -LIDOCAINE 1% 20 ML VIAL (10MG/ML) FOR IV START INTRADERMA PRN; +LIDOCAINE 1% INJ 10MG/ML (20 ML MDV) ONE; +PROPOFOL 10 MG/ML 20 ML VIAL IV ONE
[2023-07-21] MEDS: LACTATED RINGERS 1,000 ML IV ONE (08:34)
[2023-07-21 08:35] LABS: Glucose,Whole Blood 81 mg/dL (70-110)
[2023-07-21] MEDS: DEXTROSE 50% SYRINGE 50 ML IVP ONE (08:45)
[2023-07-21 08:55] LABS: Glucose,Whole Blood 169 mg/dL (70-110)
[2023-07-21 08:59] VITALS: RESP 16; TEMP 97.4
--- NOTE | 2023-07-21 09:21 | P.PCN ---
Date of Procedure: 07/21/23 Procedure(s) Performed: Brief history: Patient is a pleasant 63-year-old white female scheduled for an elective upper endoscopy as well as colonoscopy as a part of evaluation of History of GERD and Intermittent Dysphagia to Solids for the Last 3 Months Duration. She Is Scheduled for a Colonoscopy As a Part of Screening for Colorectal Neoplasia Procedure performed: Esophagogastroduodenoscopy with biopsy Colonoscopy with snare polypectomy Preoperative diagnosis: Anesthesia: [facility] Procedure: After informed consent was obtained from the patient was brought into the endoscopy unit and IV sedation was administered by anesthesia under continuous monitoring. Initially upper endoscopy was done. The Olympus GF 160 video endoscope was inserted inserted into the mouth and esophagus intubated without any difficulty and was gradually advanced into the stomach and duodenum and carefully examined. The bulb and second part of the duodenum appeared normal. The scope was then withdrawn into the stomach adequately insufflated with air and upon careful examination the antrum had mild antral gastritis and biopsies were done from this area. Mucosa of the body, cardia and fundus appeared normal. The scope was then withdrawn into the esophagus. Small to moderate size hiatal hernia noted. The GE junction was located at 35 cm to the incisors. It appeared regular circumferential erythema and erosions consistent with LA grade B reflux esophagitis. Rest of the esophagus appeared normal. Patient t olerated the procedure well. At this time the patient continued to remain sedation. Initial digital rectal examination was normal. Olympus CF 160 video colonoscope was then inserted into the rectum and gradually advanced to the cecum without any difficulty. Careful examination was performed as the scope was gradually being withdrawn. The prep was excellent. The cecum, ascending colon, transverse colon, descending colon, sigmoid colon and rectum appeared normal. In the rectum; a 20 cm from the anal was there was a 7 mm polyp that was removed by cold snare polypectomy. Retroflexion was performed in the rectum and no lesions were noted. Patient tolerated the procedure well. Impression: 1. Upper endoscopy revealed small hiatal hernia, LA grade B reflux esophagitis and mild antral gastritis 2. Colonoscopy revealed 7 mm rectosigmoid polyp status post polypectomy Recommendations: Findings of this examination were discussed with the patient as well as her family. She was advised to follow with the biopsy results. In the meantime recommended that she increase omeprazole 20 mg twice daily and follow antireflux measures. If the biopsy result adenoma she can have a repeat colonoscopy in 5 years.
[2023-07-21 09:34] LABS: Glucose,Whole Blood 138 mg/dL (70-110)
[2023-07-21 09:41] VITALS: BP 120/71; PULSE 85
== END ==
LOC: ORWHC2ENDO 08:05
PROVIDERS: ATTEND Internal Medicine Gastroenterology
DX: Z12.11 Encounter for screening for malignant neoplasm of colon (principal); K21.00 Gastro-esophageal reflux disease with esophagitis, without bleeding; K29.50 Unspecified chronic gastritis without bleeding; K44.9 Diaphragmatic hernia without obstruction or gangrene; D12.7 Benign neoplasm of rectosigmoid junction; I10 Essential (primary) hypertension; J45.909 Unspecified asthma, uncomplicated; E11.9 Type 2 diabetes mellitus without complications; E07.9 Disorder of thyroid, unspecified; G40.909 Epilepsy, unspecified, not intractable, without status epilepticus; K21.9 Gastro-esophageal reflux disease without esophagitis; M19.90 Unspecified osteoarthritis, unspecified site; F32.A Depression, unspecified; Z86.73 Personal history of transient ischemic attack (TIA), and cerebral infarction without residual deficits; Z79.02 Long term (current) use of antithrombotics/antiplatelets; Z79.85 Long-term (current) use of injectable non-insulin antidiabetic drugs; Z79.84 Long term (current) use of oral hypoglycemic drugs; Z79.4 Long term (current) use of insulin; Z79.899 Other long term (current) drug therapy; Z90.49 Acquired absence of other specified parts of digestive tract; Z91.040 Latex allergy status; Z88.2 Allergy status to sulfonamides; Z88.1 Allergy status to other antibiotic agents; Z88.8 Allergy status to other drugs, medicaments and biological substances
CPT/HCPCS: 88305; 45385; 43239; J2001; J2704

== ENCOUNTER 2023-09-11 10:31 | Inpatient (IN) | payer OTHER ==
[2023-09-11 11:08] LABS: Basophils % (A) 0 %; Eosinophils # (A) 0.1 k/uL (0-0.7); Eosinophils % (A) 0 %; HCT 39.8 % (34.0-46.0); HGB 13.7 gm/dL (11.4-16.0); Lymphocytes # (A) 0.4 k/uL (1.0-4.8); Lymphocytes % (A) 3 %; MCH 28.4 pg (25.0-35.0); MCHC 34.4 g/dL (31.0-37.0); MCV 82.5 fL (80.0-100.0); Mean Platelet Volume 8.6; Monocytes # (A) 0.3 k/uL (0-1.0); Monocytes % (A) 2 %; Neutrophils # (A) 14.3 k/uL (1.3-7.7); Neutrophils % (A) 94 %; Platelet Count 159 k/uL (150-450); RBC 4.82 m/uL (3.80-5.40); RDW 13.4 % (11.5-15.5); WBC 15.1 k/uL (3.8-10.6)
--- NOTE | 2023-09-11 11:12 | ED ---
General Adult HPI - General Chief complaint: Shortness of Breath Stated complaint: MANNY Time Seen by Provider: 09/11/23 10:31 Source: patient, EMS, RN notes reviewed, old records reviewed Mode of arrival: EMS - History of Present Illness Initial comments: This is a 63-year-old female who presents to the emergency department from [facility] the patient was noted to have an elevated troponin and elevated D-dimer the patient initially come in for difficulty breathing. They did not want to do the CAT scan there because she has an allergy to shellfish. Patient states she has been able to get CT scans with contrast in the past as long as they pretreat her with Benadryl and Solu-Medrol. Patient currently has no complaints. Patient according to the other facility was in sinus rhythm with an occasional elevation of heart rate to 140. - Related Data Home Medications Medication Instructions Recorded Confirmed Albuterol Inhaler [Ventolin Hfa 2 puff INHALATION RT-QID PRN 08/27/15 09/11/23 Inhaler] Budesonide/Formoterol Fumarate 2 puff INHALATION RT-BID 06/28/23 09/11/23 [Symbicort 160-4.5 Mcg Inhaler] Dulaglutide [Trulicity] 3 mg SQ GOODMAN 06/28/23 09/11/23 Insulin Glargine,Hum.rec.anlog 40 units SQ HS 06/28/23 09/11/23 [Lantus Solostar Pen] Insulin Lispro [humaLOG Kwikpen] 8 unit SQ AC-TID 06/28/23 09/11/23 Atorvastatin Calcium [Lipitor] 80 mg PO DIRECTED 09/11/23 09/11/23 Cholecalciferol [Vitamin D3 (25 25 mcg PO DIRECTED 09/11/23 09/11/23 Mcg = 1000 Iu)] Cyclobenzaprine [Flexeril] 5 mg PO BID PRN 09/11/23 09/11/23 Insulin Lispro [humaLOG Kwikpen] See Protocol SQ AC-TID 09/11/23 09/11/23 Losartan Potassium [Cozaar] 100 mg PO HS 09/11/23 09/11/23 guaiFENesin-DM 100-10MG/5ML 10 ml PO Q6H PRN 09/11/23 09/11/23 [Robitussin DM] Previous Rx's Medication Instructions Recorded Aspirin 81 mg PO DAILY #1 tab 06/30/23 Allergies Allergy/AdvReac Type Severity Reaction Status Date / Time doxycycline Allergy Anaphylaxis Verified 09/11/23 12:49 feathers Allergy Dyspnea Verified 09/11/23 12:49 Fish Containing Products Allergy Anaphylaxis Verified 09/11/23 12:49 Iodinated Contrast Media Allergy Anaphylaxis Verified 09/11/23 12:49 kiwi Allergy Anaphylaxis Verified 09/11/23 12:49 latex Allergy Anaphylaxis Verified 09/11/23 12:49 rosuvastatin [From Crestor] Allergy LEG CRAMPS Verified 09/11/23 12:49 shellfish derived [Shellfish] Allergy Anaphylaxis Verified 09/11/23 12:49 Sulfa (Sulfonamide Allergy Anaphylaxis Verified 09/11/23 12:49 Antibiotics) aspartame AdvReac MIGRAINES Verified 09/11/23 12:49 [From Konsyl Sugar-Free (aspartame)] codeine AdvReac Nausea & Verified 09/11/23 12:49 Vomiting & Diarrhea milk AdvReac MAKES PT Verified 09/11/23 12:49 SCHIZOPHRENIC psyllium AdvReac Unknown Verified 09/11/23 12:49 [From Konsyl Sugar-Free (aspartame)] tetracycline [Tetracycline] AdvReac Nausea & Verified 09/11/23 12:49 Vomiting & Diarrhea Tetracyclines AdvReac Anaphylaxis Verified 09/11/23 12:49 all artificial sweetners Allergy Anaphylaxis Uncoded 09/11/23 12:49 mohawk peanuts Allergy Anaphylaxis Uncoded 09/11/23 12:49 Review of Systems ROS Statement: Those systems with pertinent positive or pertinent negative responses have been documented in the HPI. ROS Other: All systems not noted in ROS Statement are negative. 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, heart murmur, kidney stones, nodules on thyroid, Degenerative disc disease, hiatal hernia, past hx of seizure while sleeping last one age 10, RECENT INPT FOR TIA 06/28/23-06/30/23 History of Any Multi-Drug Resistant Organisms: MRSA Date of last positivie culture/infection: 2016 MDRO Source:: R foot Past Surgical History: Section, Cholecystectomy, Orthopedic Surgery Additional Past Surgical History / Comment(s): R hand sx, EGD, colonoscopy Past Anesthesia/Blood Transfusion Reactions: No Reported Reaction Past Psychological History: Depression Smoking Status: Former smoker - Past Family History Mother Family Medical History: Coronary Artery Disease (CAD), Diabetes Mellitus, Renal Disease Brother(s) Family Medical History: Diabetes Mellitus Father Family Medical History: Cancer General Exam - General Exam Comments Initial Comments: GENERAL: Patient is well-developed and well-nourished. Patient is nontoxic and well- hydrated and is in no acute distress. ENT: Neck is soft and supple. No significant lymphadenopathy is noted. Oropharynx is clear. Moist mucous membranes. Neck has full range of motion without el iciting any pain. EYES: The sclera were anicteric and conjunctiva were pink and moist. Extraocular movements were intact and pupils were equal round and reactive to light. Eyelids were unremarkable. PULMONARY: Unlabored respirations. Good breath sounds bilaterally. No audible rales rhonchi or wheezing was noted. CARDIOVASCULAR: There is a regular rate and rhythm without any murmurs gallops or rubs. ABDOMEN: Soft and nontender with normal bowel sounds. SKIN: Skin is clear with no lesions or rashes and otherwise unremarkable. NEUROLOGIC: Patient is alert and oriented x3. Cranial nerves II through XII are grossly intact. Motor and sensory are also intact. Normal speech, volume and content. Symmetrical smile. MUSCULOSKELETAL: Normal extremities with adequate strength and full range of motion. LYMPHATICS: No significant lymphadenopathy is noted PSYCHIATRIC: Normal psychiatric evaluation. Course Vital Signs 09/11/23 09/11/23 09/11/23 10:34 11:00 11:13 Pulse Rate 97 95 Respiratory 18 18 20 Rate Blood Pressure 142/80 145/83 O2 Sat by Pulse 96 95 Oximetry 09/11/23 09/11/23 12:31 14:00 Pulse Rate 97 93 Respiratory 18 16 Rate Blood Pressure 162/95 165/91 O2 Sat by Pulse 95 94 L Oximetry Medical Decision Making - Medical Decision Making EKG is interpreted by myself but EKG shows a sinus rhythm at 93 bpm parables 148 QRS is 102 QT interval 391 QTc is 442. Patient's EKG shows no ST segment elevation or depression. Was pt. sent in by a medical professional or institution ([facility], [employer]RI[employer]ION [employer], urgent care, hospital, or senior living...) When possible be specific @ -Patient was sent to us from [facility] Did you speak to anyone other than the patient for history (EMS, parent, family, police, friend...)? What history was obtained from this source @ -I spoke with the ER doc prior to the patient's arrival about the patient's condition and the test that were ordered there Did you review nursing and triage notes (agree or disagree)? Why? @ -I reviewed and agree with nursing and triage notes Were old charts reviewed (outside hosp., previous admission, EMS record, old EKG, old radiological studies, urgent care reports/EKG's, senior living records)? Report findings @ -I reviewed the chart from [facility] I reviewed the x-ray results as well as reviewed the x-ray myself. I also reviewed all the lab work the lab work indicated elevated troponin and elevated D-dimer Differential Diagnosis (chest pain, altered mental status, abdominal pain women, abdominal pain men, vaginal bleeding, weakness, fever, dyspnea, syncope, headache, dizziness, GI bleed, back pain, seizure, CVA, palpatations, mental health, musculoskeletal)? @ -Differential Chest Pain: Stable Angina, Unstable Angina, STEMI, NSTEMI Aortic Dissection, Pneumothorax, Musculoskeletal, Esophageal Spasm GERD, Cholecystitis, Pancreatitis, Zoster, this is not meant to be an all-inclusive list. EKG interpreted by me (3pts min.). @ -As above X-rays interpreted by me (1pt min.). @ -None done CT interpreted by me (1pt min.). @ -CT of the chest showed bilateral pneumonia without any pulmonary embolism U/S interpreted by me (1pt. min.). @ -None done What testing was considered but not performed or refused? (CT, X-rays, U/S, labs)? Why? @ -None What meds were considered but not given or refused? Why? @ -None Did you discuss the management of the patient with other professionals (professionals i.e. [facility], [employer]RI[employer]ION LE[employer], lab, RT, psych nurse, social sciences department chair, tool crib attendant, teacher, banking officer, outsole caser)? Give summary @ -I spoke with Dr. Terry agreed to admit the patient admit the patient wrote admitting orders Was smoking cessation discussed for >3mins.? @ -No Was critical care preformed (if so, how long)? @ -No Were there social determinants of health that impacted care today? How? (Homelessness, low income, unemployed, alcoholism, drug addiction, transportation, low edu. Level, literacy, decrease access to med. care, care home, rehab)? @ -No Was there de-escalation of care discussed even if they declined (Discuss DNR or withdrawal of care, Hospice)? DNR status @ -No What co-morbidities impacted this encounter? (DM, HTN, Smoking, COPD, CAD, Cancer, CVA, ARF, Chemo, Hep., AIDS, mental health diagnosis, sleep apnea, morbid obesity)? @ -None Was patient admitted / discharged? Hospital course, mention meds given and route, prescriptions, significant lab abnormalities, going to OR and other pertinent info. @ -Patient had pneumonia so the patient Rocephin and Zithromax. Patient will be admitted to Dr. Terry. Patient will be admitted to admitted to a monitored bed and cardiology be consulted because of the elevated troponin. Undiagnosed new problem with uncertain prognosis? @ -No Drug Therapy requiring intensive monitoring for toxicity (Heparin, Nitro, Insulin, Cardizem)? @ -No Were any procedures done? @ -No Diagnosis/symptom? @ -Elevated troponin Acute, or Chronic, or Acute on Chronic? @ -Acute Uncomplicated (without systemic symptoms) or Complicated (systemic symptoms)? @ -Comp Side effects of treatment? @ -No Exacerbation, Progression, or Severe Exacerbation? @ -No Poses a threat to life or bodily function? How? (Chest pain, USA, DE, pneumonia, PE, COPD, DKA, ARF, appy, cholecystitis, CVA, Diverticulitis, Homicidal, Suicidal, threat to staff... and all critical care pts) @ -Yes this could lead to an DE and endorgan dysfunction Diagnosis/symptom? @ -Pneumonia Acute, or Chronic, or Acute on Chronic? @ -Acute Uncomplicated (without systemic symptoms) or Complicated (systemic symptoms)? @ -Complicated Side effects of treatment? @ -None Exacerbation, Progression, or Severe Exacerbation] @ -No Poses a threat to life or bodily function? @ -Yes this can lead to sepsis and endorgan dysfunction - Lab Data Result diagrams: 09/11/23 11:00 09/11/23 11:00 Lab Results 09/11/23 09/11/23 09/11/23 Range/Units 11:00 11:00 11:00 WBC 15.1 H (3.8-10.6) k/uL RBC 4.82 (3.80-5.40) m/uL Hgb 13.7 (11.4-16.0) gm/dL Hct 39.8 (34.0-46.0) % MCV 82.5 (80.0-100.0) fL MCH 28.4 (25.0-35.0) pg MCHC 34.4 (31.0-37.0) g/dL RDW 13.4 (11.5-15.5) % Plt Count 159 (150-450) k/uL MPV 8.6 Neutrophils % 94 % Lymphocytes % 3 % Monocytes % 2 % Eosinophils % 0 % Basophils % 0 % Neutrophils # 14.3 H (1.3-7.7) k/uL Lymphocytes # 0.4 L (1.0-4.8) k/uL Monocytes # 0.3 (0-1.0) k/uL Eosinophils # 0.1 (0-0.7) k/uL Basophils # 0.0 (0-0.2) k/uL Sodium 137 (137-145) mmol/L Potassium 3.8 (3.5-5.1) mmol/L Chloride 106 (98-107) mmol/L Carbon Dioxide 23 (22-30) mmol/L Anion Gap 8 mmol/L BUN 21 H (7-17) mg/dL Creatinine 0.82 (0.52-1.04) mg/dL Est GFR (CKD-EPI)AfAm 88 (>60 ml/min/1.73 sqM) Est GFR (CKD-EPI)NonAf 77 (>60 ml/min/1.73 sqM) Glucose 287 H (74-99) mg/dL Calcium 8.7 (8.4-10.2) mg/dL Total Bilirubin 1.0 (0.2-1.3) mg/dL AST 17 (14-36) U/L ALT 17 (4-34) U/L Alkaline Phosphatase 69 (38-126) U/L Troponin I 0.102 H* (0.000-0.034) ng/mL Total Protein 6.3 (6.3-8.2) g/dL Albumin 3.6 (3.5-5.0) g/dL Disposition Clinical Impression: Pneumonia, Elevated troponin Disposition: ADMITTED IP TO THIS HOSP Referrals: Radu Mckeon MD [Primary Care Provider] - 1-2 days Time of Disposition: 14:30
[2023-09-11 11:19] LABS: ALT 17 U/L (4-34); AST 17 U/L (14-36); African American GFR (CKD) 88 (>60 ml/min/1.73 sqM); Albumin 3.6 g/dL (3.5-5.0); Alkaline Phosphatase 69 U/L (38-126); Anion Gap 8 mmol/L; Blood Urea Nitrogen 21 mg/dL (7-17); Calcium 8.7 mg/dL (8.4-10.2); Carbon Dioxide 23 mmol/L (22-30); Chloride 106 mmol/L (98-107); Glucose 287 mg/dL (74-99); Non-African American GFR(CKD) 77 (>60 ml/min/1.73 sqM); Potassium 3.8 mmol/L (3.5-5.1); Sodium 137 mmol/L (137-145); Total Protein 6.3 g/dL (6.3-8.2)
[2023-09-11] MEDS: methylPREDNISolone SOD SUCCI 125 MG/2 ML VIAL IV STA (12:24)
[2023-09-11] MEDS: diphenhydrAMINE 50 MG/ML 1 ML VIAL IVP STA (12:25)
[2023-09-11] MEDS: FAMOTIDINE 20 MG/2 ML VIAL IV STA (12:25)
--- NOTE | 2023-09-11 13:38 | CT ---
EXAMINATION TYPE: CT chest angio for PE CT DLP: 222.1 mGycm, Automated exposure control for dose reduction was used. DATE OF EXAM: 09/11/2023 1:13 PM COMPARISON: 08/14/2021. CLINICAL INDICATION:Female, 63 years old with history of Difficulty breathing and elevated D-dimer; D IB, elevated d-dimer TECHNIQUE/CONTRAST: CTA scan of the thorax is performed with IV Contrast, patient injected with 100 mL of Isovue 370, MIP images are created and reviewed these are created on a separate workstation.. FINDINGS: Pulmonary Artery: There is no evidence for a filling defect within the pulmonary vasculature to sugge st acute pulmonary embolism. The pulmonary artery is of normal size. Lungs/Pleura: Bibasilar posterior airspace opacities. No evidence of focal consolidation, pleural eff usion or pneumothorax. Airway: Large airways are patent. Heart: Heart is within normal limits for size. Coronary artery calcifications. Aortic valve leaflet c alcifications. Vasculature: No evidence of aortic aneurysm. Mediastinum: No gross evidence of adenopathy. Moderate hiatal hernia. Musculoskeletal: Mild degenerative disc disease changes are present throughout the thoracolumbar spin e. Soft Tissues: Unremarkable. Lower neck: No significant findings. Upper Abdomen: No significant findings. IMPRESSION: 1. No evidence of pulmonary embolism. 2. Bibasilar posterior airspace opacities correlate for pneumonia. 3. Moderate hiatal hernia. 4. Mild cardiomegaly. 5. Mild aortic valve leaflet calcifications. 6. Mild coronary artery cusp patient's. 7. Follow up recommendations for incidental pulmonary nodules, if there are any, are per [employer]ischner?s [employer] or [employer]. https://radiopaedia.org/articles/cyfgpawoze-aqxaepf-hsjwyuvxp-emuoga-wvhzlynncfzuljx-9?lang=us
[2023-09-11] MEDS ORDERED: PNEUMONIA PROTOCOL UTILIZED 1 EACH MISC PO PRN (14:32)
[2023-09-11] MEDS: AZITHROMYCIN 500 MG in SODIUM CHLORIDE 0.9% 250 ML IVPB STA (15:17)
[2023-09-11] MEDS ORDERED: NALOXONE 0.4 MG/ML 1 ML VIAL IV PRN (17:10)
[2023-09-11] MEDS ORDERED: ACETAMINOPHEN TAB 325 MG TAB PO PRN (17:10)
[2023-09-11] MEDS ORDERED: LACTULOSE 20 GM/30 ML CUP PO PRN (17:10)
[2023-09-11] MEDS ORDERED: TEMAZEPAM 15 MG CAP PO PRN (17:10)
[2023-09-11] MEDS ORDERED: ONDANSETRON 4 MG/2 ML VIAL IVP PRN (17:10)
[2023-09-11] MEDS ORDERED: CALCIUM CARBONATE 500 MG CHEWABLE PO PRN (17:10)
[2023-09-11] MEDS ORDERED: CYCLOBENZAPRINE 5 MG TAB PO PRN (17:13)
[2023-09-11] MEDS ORDERED: DEXTROSE 50% SYRINGE 50 ML IVP PRN ×2 (17:14)
--- NOTE | 2023-09-11 17:16 | P.HPIM ---
History of Present Illness H&P Date: 09/11/23 Chief Complaint: Short of breath congested This is a pleasant [address] Mckeon. Chronic medical conditions include COPD, hypertension, depression, peripheral neuropathy. Stroke June 2023-no residual Patient was transferred here from [facility]. She presented there for shortness of breath congestion cough/sputum for last 3 to 4 days. No fever no chills. Feeling cold. 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 She was given bronchodilators then transferred here. They are unable to do there a CT scan because of shellfish allergy close patient has some elevated troponin and elevated D-dimer. Patient respiratory symptoms are better after presenting here. Appetite had gone down. Review of systems: GEN.: Tired EYES: None HEENT: None NECK: None RESPIRATORY: As above CARDIOVASCULAR: None GASTROINTESTINAL: None GENITOURINARY: None MUSCULOSKELETAL: Joint pains LYMPHATICS: None HEMATOLOGICAL: None PSYCHIATRY: None NEUROLOGICAL: As above Social history: Lives alone. Recovered from alcoholism. Non-smoker. Physical examination: VITAL SIGNS: 98.1, 95, 16, 156/91, 97% room air GENERAL: BMI 29.9, reclining tired EYES: Pupils equal. Conjunctiva normal. HEENT: External appearance of nose and ears normal, oral cavity grossly normal. NECK: JVD not raised; masses not palpable. HEART: First and second heart sounds are normal; no edema. LUNGS:[ Respiratory rate increased decreased breath sounds, wheezing ABDOMEN: Soft, nontender, liver spleen not palpable, no masses palpable. PSYCH: Alert and oriented x3; mood and affect slightly anxiousl. MUSCULAR skeletal: None NEUROLOGICAL: Cranial nerves grossly intact; no facial asymmetry, power and sensation grossly intact. LYMPHATICS: No lymph nodes palpable in the axilla and neck INVESTIGATIONS, reviewed in the clinical context: September 11, 2023: White count 15.1 hemoglobin 13.7 platelets 159 neutrophils 40.3 sodium 137 potassium 3.8 BUN 21 creatinine 0.82 Troponin I 0.102, 0.074 EKG tracing personally reviewed by me-normal sinus rhythm. Poor R wave progression anterior leads. Nonspecific ST-T wave changes inferolateral leads CT chest angio for PE: Negative for PE. Bibasilar posterior airspace opacities. Moderate hiatal hernia June 2023 Brain MRI: Acute/subacute CVA involving the left frontal lobe cortex and centrum semiovale on the left side. Cervical spine CT: DJD changes. Including at C5-C6, C6-C7 with bilateral foraminal stenosis LDL 191.2 CT brain without contrast: Small remote lacunar and white matter infarct in the right cerebral hemisphere. Carotid Doppler: Unremarkable 2D echo: EF 55 to 60%. Mild to moderate aortic regurgitation. Assessment and plan: -Pneumonia suspect gram-negative organism IV ceftriaxone. Zithromax. -Acute COPD exacerbation possibly precipitated by pneumonia Inequity. Nebulized Pulmicort. -June 2023: Stroke in the left frontal lobe cortex and centrum semiovale presenting as dysarthria. Resolved Initial CT scan showing remote infarct. History of 2 prior strokes. Aspirin. Lipitor -Diabetes mellitus type 2 chronically on insulin Trulicity. Levemir follow Accu-Cheks -Mild to moderate arctic regurgitation -Hyperlipidemia Better -Diabetes mellitus type 2, chronically on insulin Lantus. Accu-Cheks sliding scale insulin. With coverage -Chronic esophageal stricture with history of dysphagia -Full code Care was discussed with the patient. 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, heart murmur, kidney stones, nodules on thyroid, Degenerative disc disease, hiatal hernia, past hx of seizure while sleeping last one age 10, RECENT INPT FOR TIA 06/28/23-06/30/23 History of Any Multi-Drug Resistant Organisms: MRSA Date of last positivie culture/infection: 2015 MDRO Source:: R foot Past Surgical History: Section, Cholecystectomy, Orthopedic Surgery Additional Past Surgical History / Comment(s): R hand sx, EGD, colonoscopy Past Anesthesia/Blood Transfusion Reactions: No Reported Reaction Past Psychological History: Depression Smoking Status: Former smoker - Past Family History Mother Family Medical History: Coronary Artery Disease (CAD), Diabetes Mellitus, Renal Disease Brother(s) Family Medical History: Diabetes Mellitus Father Family Medical History: Cancer Medications and Allergies Home Medications Medication Instructions Recorded Confirmed Type Albuterol Inhaler [Ventolin Hfa 2 puff INHALATION RT-QID PRN 08/27/15 09/11/23 History Inhaler] Budesonide/Formoterol Fumarate 2 puff INHALATION RT-BID 06/28/23 09/11/23 History [Symbicort 160-4.5 Mcg Inhaler] Dulaglutide [Trulicity] 3 mg SQ GOODMAN 06/28/23 09/11/23 History Insulin Glargine,Hum.rec.anlog 40 units SQ HS 06/28/23 09/11/23 History [Lantus Solostar Pen] Insulin Lispro [humaLOG Kwikpen] 8 unit SQ AC-TID 06/28/23 09/11/23 History Aspirin 81 mg PO DAILY #1 tab 06/30/23 09/11/23 Rx Atorvastatin Calcium [Lipitor] 80 mg PO DIRECTED 09/11/23 09/11/23 History Cholecalciferol [Vitamin D3 (25 25 mcg PO DIRECTED 09/11/23 09/11/23 History Mcg = 1000 Iu)] Cyclobenzaprine [Flexeril] 5 mg PO BID PRN 09/11/23 09/11/23 History Insulin Lispro [humaLOG Kwikpen] See Protocol SQ AC-TID 09/11/23 09/11/23 History Losartan Potassium [Cozaar] 100 mg PO HS 09/11/23 09/11/23 History guaiFENesin-DM 100-10MG/5ML 10 ml PO Q6H PRN 09/11/23 09/11/23 History [Robitussin DM] Allergies Allergy/AdvReac Type Severity Reaction Status Date / Time doxycycline Allergy Anaphylaxis Verified 09/11/23 12:49 feathers Allergy Dyspnea Verified 09/11/23 12:49 Fish Containing Products Allergy Anaphylaxis Verified 09/11/23 12:49 Iodinated Contrast Media Allergy Anaphylaxis Verified 09/11/23 12:49 kiwi Allergy Anaphylaxis Verified 09/11/23 12:49 latex Allergy Anaphylaxis Verified 09/11/23 12:49 rosuvastatin [From Crestor] Allergy LEG CRAMPS Verified 09/11/23 12:49 shellfish derived [Shellfish] Allergy Anaphylaxis Verified 09/11/23 12:49 Sulfa (Sulfonamide Allergy Anaphylaxis Verified 09/11/23 12:49 Antibiotics) aspartame AdvReac MIGRAINES Verified 09/11/23 12:49 [From Konsyl Sugar-Free (aspartame)] codeine AdvReac Nausea & Verified 09/11/23 12:49 Vomiting & Diarrhea milk AdvReac MAKES PT Verified 09/11/23 12:49 SCHIZOPHRENIC psyllium AdvReac Unknown Verified 09/11/23 12:49 [From Konsyl Sugar-Free (aspartame)] tetracycline [Tetracycline] AdvReac Nausea & Verified 09/11/23 12:49 Vomiting & Diarrhea Tetracyclines AdvReac Anaphylaxis Verified 09/11/23 12:49 all artificial sweetners Allergy Anaphylaxis Uncoded 09/11/23 12:49 syrian peanuts Allergy Anaphylaxis Uncoded 09/11/23 12:49 Physical Exam Vitals: Vital Signs Temp Pulse Resp BP Pulse Ox 09/11/23 16:59 98.1 F 95 16 156/91 97 09/11/23 16:00 89 16 146/87 95 09/11/23 15:21 89 16 132/69 95 09/11/23 14:00 93 16 165/91 94 L 09/11/23 12:31 97 18 162/95 95 09/11/23 11:13 20 09/11/23 11:00 95 18 145/83 95 09/11/23 10:34 97 18 142/80 96 Intake and Output 09/11/23 09/11/23 09/11/23 06:59 14:59 22:59 Other: Weight 67.222 kg Results CBC & Chem 7: 09/11/23 11:00 09/11/23 11:00 Labs: Abnormal Lab Results - Last 24 Hours (Table) 09/11/23 09/11/23 09/11/23 Range/Units 11:00 11:00 11:00 WBC 15.1 H (3.8-10.6) k/uL Neutrophils # 14.3 H (1.3-7.7) k/uL Lymphocytes # 0.4 L (1.0-4.8) k/uL BUN 21 H (7-17) mg/dL Glucose 287 H (74-99) mg/dL Troponin I 0.102 H* (0.000-0.034) ng/mL 09/11/23 Range/Units 15:16 WBC (3.8-10.6) k/uL Neutrophils # (1.3-7.7) k/uL Lymphocytes # (1.0-4.8) k/uL BUN (7-17) mg/dL Glucose (74-99) mg/dL Troponin I 0.074 H* (0.000-0.034) ng/mL
[2023-09-11] MEDS: ENOXAPARIN 40 MG/0.4 ML SYRINGE SQ SCH (18:36)
[2023-09-11] MEDS: methylPREDNISolone SOD SUCCI 40 MG/ML 1 ML VIAL IV SCH (18:37)
[2023-09-11 18:49] LABS: Glucose,Whole Blood 333 mg/dL (70-110)
[2023-09-11] MEDS: INSULIN ASPART (NovoLOG) 100 UNIT/ML VIAL SQ SCH (18:50)
[2023-09-11] MEDS: NON FORMULARY DRUG (Insulin Lispro [Humalog Kwikpen] 100 UNIT/ML Insuln.Pen) SQ SCH (19:39)
[2023-09-11] MEDS: BUDESONIDE 1 MG/2 ML NEBU INHALATION SCH (20:45)
[2023-09-11] MEDS: IPRATROPIUM-ALBUTEROL 3 ML NEB INHALATION SCH (20:45)
[2023-09-11] MEDS: LOSARTAN 50 MG TAB PO SCH (21:02)
[2023-09-11] MEDS: INSULIN DETEMIR (LEVEMIR) 100 UNIT/ML SYR SQ SCH (21:51)
[2023-09-12 05:56] LABS: Glucose,Whole Blood 321 mg/dL (70-110)
[2023-09-12] MEDS: INSULIN ASPART (NovoLOG) 100 UNIT/ML VIAL SQ SCH (06:31)
--- NOTE | 2023-09-12 07:39 | XR ---
EXAMINATION TYPE: XR chest 2V DATE OF EXAM: 09/12/2023 COMPARISON: 09/11/2023 HISTORY: 63-year-old female pneumonia TECHNIQUE: PA and lateral views FINDINGS: Heart normal size. Aorta and pulmonary vasculature within normal limits. No progressive consolidation is seen. The groundglass infiltrate at the posterior lung bases seen on CT yesterday are not well de monstrated radiographically. Patient moderate size hiatal hernia is also not well demonstrated radiog raphically. IMPRESSION: 1. Patient's bibasilar groundglass infiltrates identified on yesterday's CT is not well seen radiogra phically. No progressive airspace disease identified. 2. The patient's known moderate-sized hilar hernia is also not well demonstrated radiographically.
[2023-09-12] MEDS: ASPIRIN 81 MG PO SCH (08:31)
[2023-09-12] MEDS: AZITHROMYCIN 500 MG TAB PO SCH (08:31)
[2023-09-12] MEDS ORDERED: NITROGLYCERIN SL TABS 0.4 MG TAB SUBLINGUAL PRN (10:59)
[2023-09-12] MEDS ORDERED: ALPRAZolam 0.5 MG TAB PO PRN (10:59)
--- NOTE | 2023-09-12 11:04 | P.CRDCN ---
History of Present Illness Consult date: 09/12/23 Reason for Consult (text): Elevated troponin History of present illness: History of present illness: This is a 63-year-old male with past medical history of diabetes mellitus type 2, hyperlipidemia, hypertension, COPD, peripheral neuropathy, acute ischemic stroke in t June 2023. Patient initially presented to [facility] for shortness of breath, congestion, cough and sputum production for 3 to 4 days along with feeling cold. She has been exposed to children that have bronchitis- like symptoms. Patient was found to have elevated troponin and elevated D- dimer. BNP was 349. She apparently had elevated heart rate of 140. Patient states that [place] was unable to do CT of the chest due to her dye allergy and she was transferred to [facility]. She states she has chest pain with deep breathing but that is better now. She also had episode of nausea which has resolved. She denies smoking and no alcohol use. She states there is strong family history of CAD on her mother's side. Patient has been started on IV antibiotics and IV steroids. Regarding allergy to statins. Patient was taken off Crestor because she was having cramping in her legs but she has tolerated a atorvastatin in the past. EKG sinus rhythm [address] changes CT a of the chest: No evidence of pulmonary embolism. Bibasilar posterior airspace opacities correlate for pneumonia. Moderate hiatal hernia. Laboratory studies: WBC 15.1. Hemoglobin 13.7. Electrolytes normal. BUN 21 creatinine 0.82. Glucose 287. Troponins 0.102, 0.072, 0.062 Home cardiac medications: Aspirin 81 mg daily, atorvastatin 80 mg-has not started but has prescription, losartan 100 mg at bedtime Echocardiogram performed 06/28/2023 revealed EF of 55-60. Mild to moderate aortic regurgitation. Mild aortic stenosis with peak gradient of 22 and mean gradient of 15. Review Of Systems: At the time of my exam: CONSTITUTIONAL: Denies fever + chills. HEENT: Denies blurred vision, vision changes, or eye pain. Denies hemoptysis CARDIOVASCULAR: Denies chest pain. Denies orthopnea. Denies PND. Denies palpitations RESPIRATORY: + shortness of breath. GASTROINTESTINAL: Denies abdominal pain. Denies nausea or vomiting. HEMATOLOGIC: Denies bleeding disorders. GENITOURINARY: Denies any blood in urine. SKIN: Denies pruitis. Denies rash. Physical examination: Gen: This is a 63-year-old female in no acute distress VS: reviewed, blood pressure 151/76, heart rate 89, pulse ox 96% on room air. HEENT: Head is atraumatic, normocephalic. Pupils equal, round. Sclerae is anicteric. NECK: Supple. No JVD. LUNGS: Clear to auscultation. No wheezes or rhonchi. No intercostal retractions. HEART: Regular rate and rhythm. + systolic murmur. ABDOMEN: Soft No tenderness. EXTREMITIES: No pedal edema. No calf tenderness. NEUROLOGICAL: Patient is awake, alert and oriented x3. Assessment: Elevated troponin, possible non-ST elevated NJ, possible type II NJ due to COPD exacerbation and pneumonia Pneumonia Acute COPD exacerbation Hiatal hernia Hypertension Hyperlipidemia Diabetes mellitus type 2 Mild aortic stenosis, mild to moderate aortic regurgitation Plan: Resume patient's home cardiac medications Start patient on very low-dose of atorvastatin 10 mg at bedtime due to previous intolerance to Crestor Obtain 2-D echocardiogram and Doppler study to assess cardiac structure and function Schedule patient for cardiac catheterization for tomorrow afternoon with Dr. Cohen. Patient may have light breakfast and n.p.o. following that. Further recommendations to follow based upon clinical course Thank you kindly for this consultation. Nurse practitioner note has been reviewed, I agree with documented findings and plan of care. Patient was seen and examined. 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, heart murmur, kidney stones, nodules on thyroid, Degenerative disc disease, hiatal hernia, past hx of seizure while sleeping last one age 10, RECENT INPT FOR TIA 06/28/23-06/30/23 History of Any Multi-Drug Resistant Organisms: MRSA Date of last positivie culture/infection: 2015 MDRO Source:: R foot Past Surgical History: Section, Cholecystectomy, Orthopedic Surgery Additional Past Surgical History / Comment(s): R hand sx, EGD, colonoscopy Past Anesthesia/Blood Transfusion Reactions: No Reported Reaction Past Psychological History: Depression Smoking Status: Former smoker Past Alcohol Use History: Rare Additional Past Alcohol Use History / Comment(s): QUIT SMOKING AGE 19-ONLY SMOKED FOR 1 YEAR. RECOVERED ALCOHOLIC Past Drug Use History: None Reported - Past Family History Mother Family Medical History: Coronary Artery Disease (CAD), Diabetes Mellitus, Renal Disease Brother(s) Family Medical History: Diabetes Mellitus Father Family Medical History: Cancer Medications and Allergies Home Medications Medication Instructions Recorded Confirmed Type Albuterol Inhaler [Ventolin Hfa 2 puff INHALATION RT-QID PRN 08/27/15 09/11/23 History Inhaler] Budesonide/Formoterol Fumarate 2 puff INHALATION RT-BID 06/28/23 09/11/23 History [Symbicort 160-4.5 Mcg Inhaler] Dulaglutide [Trulicity] 3 mg SQ GOODMAN 06/28/23 09/11/23 History Insulin Glargine,Hum.rec.anlog 40 units SQ HS 06/28/23 09/11/23 History [Lantus Solostar Pen] Insulin Lispro [humaLOG Kwikpen] 8 unit SQ AC-TID 06/28/23 09/11/23 History Aspirin 81 mg PO DAILY #1 tab 06/30/23 09/11/23 Rx Atorvastatin Calcium [Lipitor] 80 mg PO DIRECTED 09/11/23 09/11/23 History Cholecalciferol [Vitamin D3 (25 25 mcg PO DIRECTED 09/11/23 09/11/23 History Mcg = 1000 Iu)] Cyclobenzaprine [Flexeril] 5 mg PO BID PRN 09/11/23 09/11/23 History Insulin Lispro [humaLOG Kwikpen] See Protocol SQ AC-TID 09/11/23 09/11/23 History Losartan Potassium [Cozaar] 100 mg PO HS 09/11/23 09/11/23 History guaiFENesin-DM 100-10MG/5ML 10 ml PO Q6H PRN 09/11/23 09/11/23 History [Robitussin DM] Allergies Allergy/AdvReac Type Severity Reaction Status Date / Time doxycycline Allergy Anaphylaxis Verified 09/11/23 12:49 feathers Allergy Dyspnea Verified 09/11/23 12:49 Fish Containing Products Allergy Anaphylaxis Verified 09/11/23 12:49 Iodinated Contrast Media Allergy Anaphylaxis Verified 09/11/23 12:49 kiwi Allergy Anaphylaxis Verified 09/11/23 12:49 latex Allergy Anaphylaxis Verified 09/11/23 12:49 rosuvastatin [From Crestor] Allergy LEG CRAMPS Verified 09/11/23 12:49 shellfish derived [Shellfish] Allergy Anaphylaxis Verified 09/11/23 12:49 Sulfa (Sulfonamide Allergy Anaphylaxis Verified 09/11/23 12:49 Antibiotics) aspartame AdvReac MIGRAINES Verified 09/11/23 12:49 [From Konsyl Sugar-Free (aspartame)] codeine AdvReac Nausea & Verified 09/11/23 12:49 Vomiting & Diarrhea milk AdvReac MAKES PT Verified 09/11/23 12:49 SCHIZOPHRENIC psyllium AdvReac Unknown Verified 09/11/23 12:49 [From Konsyl Sugar-Free (aspartame)] tetracycline [Tetracycline] AdvReac Nausea & Verified 09/11/23 12:49 Vomiting & Diarrhea Tetracyclines AdvReac Anaphylaxis Verified 09/11/23 12:49 all artificial sweetners Allergy Anaphylaxis Uncoded 09/11/23 12:49 ghanaian peanuts Allergy Anaphylaxis Uncoded 09/11/23 12:49 Physical Exam Vitals: Vital Signs Temp Pulse Pulse Resp BP BP Pulse Ox 09/12/23 04:00 98.0 F 89 19 151/76 96 09/12/23 02:00 85 20 09/11/23 23:36 97.9 F 85 20 147/72 96 09/11/23 22:30 97.8 F 87 14 140/92 93 L 09/11/23 21:03 91 18 128/79 95 09/11/23 20:55 86 09/11/23 20:48 87 09/11/23 19:42 98.7 F 87 18 149/80 95 09/11/23 18:26 96 16 140/91 93 L 09/11/23 16:59 98.1 F 95 16 156/91 97 09/11/23 16:00 89 16 146/87 95 09/11/23 15:21 89 16 132/69 95 09/11/23 14:00 93 16 165/91 94 L 09/11/23 12:31 97 18 162/95 95 09/11/23 11:13 20 09/11/23 11:00 95 18 145/83 95 09/11/23 10:34 97 18 142/80 96 Intake and Output 09/11/23 09/12/23 09/12/23 22:59 06:59 14:59 Other: Voiding Method Toilet Weight 66.6 kg Results 09/11/23 11:00 09/11/23 11:00 Cardiac Enzymes 09/11/23 09/11/23 09/11/23 Range/Units 11:00 11:00 15:16 AST 17 (14-36) U/L Troponin I 0.102 H* 0.074 H* (0.000-0.034) ng/mL 09/11/23 Range/Units 21:02 AST (14-36) U/L Troponin I 0.062 H* (0.000-0.034) ng/mL CBC 09/11/23 Range/Units 11:00 WBC 15.1 H (3.8-10.6) k/uL RBC 4.82 (3.80-5.40) m/uL Hgb 13.7 (11.4-16.0) gm/dL Hct 39.8 (34.0-46.0) % Plt Count 159 (150-450) k/uL Comprehensive Metabolic Panel 09/11/23 Range/Units 11:00 Sodium 137 (137-145) mmol/L Potassium 3.8 (3.5-5.1) mmol/L Chloride 106 (98-107) mmol/L Carbon Dioxide 23 (22-30) mmol/L BUN 21 H (7-17) mg/dL Creatinine 0.82 (0.52-1.04) mg/dL Glucose 287 H (74-99) mg/dL Calcium 8.7 (8.4-10.2) mg/dL AST 17 (14-36) U/L ALT 17 (4-34) U/L Alkaline Phosphatase 69 (38-126) U/L Total Protein 6.3 (6.3-8.2) g/dL Albumin 3.6 (3.5-5.0) g/dL Current Medications Generic Name Dose Route Start Last Admin Trade Name Freq PRN Reason Stop Dose Admin Acetaminophen 650 mg 09/11/23 17:10 Acetaminophen Tab 325 Mg Tab PO Q6HR PRN Mild Pain or Fever > 100.5 Albuterol/Ipratropium 3 ml 09/11/23 20:00 09/11/23 20:45 Ipratropium-Albuterol 3 Ml Neb INHALATION 3 ml RT-QID BUTCH Administration Alprazolam 0.25 mg 09/11/23 17:10 Alprazolam 0.25 Mg Tab PO Q6HR PRN Anxiety Aspirin 81 mg 09/12/23 09:00 Aspirin 81 Mg PO DAILY BUTCH Azithromycin 500 mg 09/12/23 09:00 Azithromycin 500 Mg Tab PO 09/13/23 09:01 DAILY [facility] Protocol Budesonide 1 mg 09/11/23 20:00 09/11/23 20:45 Budesonide 1 Mg/2 Ml Nebu INHALATION 1 mg RT-BID BUTCH Administration Calcium Carbonate/Glycine 1,000 mg 09/11/23 17:10 Calcium Carbonate 500 Mg Chewable PO Q4HR PRN Dyspepsia Cyclobenzaprine HCl 5 mg 09/11/23 17:13 Cyclobenzaprine 5 Mg Tab PO BID PRN Muscle Spasm Dextrose/Water 25 ml 09/11/23 17:14 Dextrose 50% Syringe 50 Ml IVP PER PROTOCOL PRN Hypoglycemia Protocol Dextrose/Water 50 ml 09/11/23 17:14 Dextrose 50% Syringe 50 Ml IVP PER PROTOCOL PRN Hypoglycemia Protocol Enoxaparin Sodium 40 mg 09/11/23 17:15 09/11/23 18:36 Enoxaparin 40 Mg/0.4 Ml Syringe SQ 40 mg DAILY BUTCH Administration Ceftriaxone Sodium 2 gm/ 50 mls @ 100 mls/hr 09/12/23 09:00 Sodium Chloride IVPB 09/15/23 09:29 Q24HR [facility] Protocol Insulin Aspart 0 unit 09/11/23 17:30 09/12/23 06:34 Insulin Aspart (Novolog) 100 Unit/Ml Vial SQ 4 unit AC-TID BUTCH Administration Protocol Insulin Aspart 8 unit 09/11/23 18:41 09/12/23 06:31 Insulin Aspart (Novolog) 100 Unit/Ml Vial SQ Not Given AC-TID BUTCH Insulin Detemir 40 unit 09/11/23 21:00 09/11/23 21:51 Insulin Detemir (Levemir) 100 Unit/Ml Syr SQ 40 unit HS BUTCH Administration Lactulose 20 gm 09/11/23 17:10 Lactulose 20 Gm/30 Ml Cup PO DAILY PRN Constipation Losartan Potassium 100 mg 09/11/23 21:00 09/11/23 21:02 Losartan 50 Mg Tab PO 100 mg HS BUTCH Administration Methylprednisolone Sodium Succinate 40 mg 09/11/23 17:15 09/11/23 23:59 Methylprednisolone Sod Succi 40 Mg/Ml 1 Ml Vial IV 40 mg Q8HR BUTCH Administration Miscellaneous Information 1 each 09/11/23 14:32 Pneumonia Protocol Utilized 1 Each Misc PO ONCE PRN Per Protocol Naloxone HCl 0.2 mg 09/11/23 17:10 Naloxone 0.4 Mg/Ml 1 Ml Vial IV Q2M PRN Opioid Reversal Non-Formulary Medication 3 mg 09/12/23 17:13 Dulaglutide [Trulicity] SQ GOODMAN BUTCH Ondansetron HCl 4 mg 09/11/23 17:10 Ondansetron 4 Mg/2 Ml Vial IVP Q8HR PRN Nausea And Vomiting Temazepam 15 mg 09/11/23 17:10 Temazepam 15 Mg Cap PO HS PRN Insomnia Intake and Output 09/11/23 09/12/23 09/12/23 22:59 06:59 14:59 Other: Voiding Method Toilet Weight 66.6 kg 09/11/23 11:00 09/11/23 11:00
[2023-09-12 11:46] LABS: Glucose,Whole Blood 378 mg/dL (70-110)
--- NOTE | 2023-09-12 15:30 | P.PN ---
Progress Note - Text Progress Note Date: 09/12/23 Chief Complaint: Short of breath congested This is a pleasant [address] Mckeon. Chronic medical conditions include COPD, hypertension, depression, peripheral neuropathy. Stroke June 2023-no residual Patient was transferred here from [facility], [place]. She presented there for shortness of breath congestion cough/sputum for last 3 to 4 days. No fever no chills. Feeling cold. 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 She was given bronchodilators then transferred here. They are unable to do there a CT scan because of shellfish allergy close patient has some elevated troponin and elevated D-dimer. Patient respiratory symptoms are better after presenting here. Appetite had gone down. [Patient's home nebulizer medications have been for 2 years]. September 11: Patient respiratory symptoms much better. Duration much improved wheezing. Patient seen by cardiology. For acute non-Q wave OK plan for cardiac catheterization tomorrow. Changed to oral prednisone from IV Solu-Medrol. Will switch to Augmentin from tomorrow in place of ceftriaxone Active Medications Acetaminophen (Acetaminophen Tab 325 Mg Tab) 650 mg PO Q6HR PRN PRN Reason: Mild Pain or Fever > 100.5 Albuterol/Ipratropium (Ipratropium-Albuterol 3 Ml Neb) 3 ml INHALATION RT-QID [facility] Last Admin: 09/12/23 15:10 Dose: 3 ml Alprazolam (Alprazolam 0.25 Mg Tab) 0.25 mg PO Q6HR PRN PRN Reason: Anxiety Alprazolam (Alprazolam 0.25 Mg Tab) 0.25 mg PO Q6HR PRN PRN Reason: Mild Anxiety Alprazolam (Alprazolam 0.5 Mg Tab) 0.5 mg PO Q6HR PRN PRN Reason: Moderate Anxiety Aspirin (Aspirin 81 Mg) 81 mg PO DAILY [facility] Last Admin: 09/12/23 08:31 Dose: 81 mg Aspirin (Aspirin 325 Mg Tab) 325 mg PO ONCE ONE Stop: 09/13/23 08:01 Atorvastatin Calcium (Atorvastatin 10 Mg Tab) 10 mg PO [facility] Azithromycin (Azithromycin 500 Mg Tab) 500 mg PO DAILY [facility]; Protocol Stop: 09/13/23 09:01 Last Admin: 09/12/23 08:31 Dose: 500 mg Budesonide (Budesonide 1 Mg/2 Ml Nebu) 1 mg INHALATION RT-BID [facility] Last Admin: 09/12/23 07:59 Dose: 1 mg Calcium Carbonate/Glycine (Calcium Carbonate 500 Mg Chewable) 1,000 mg PO Q4HR PRN PRN Reason: Dyspepsia Cyclobenzaprine HCl (Cyclobenzaprine 5 Mg Tab) 5 mg PO BID PRN PRN Reason: Muscle Spasm Dextrose/Water (Dextrose 50% Syringe 50 Ml) 25 ml IVP PER PROTOCOL PRN; Protocol PRN Reason: Hypoglycemia Dextrose/Water (Dextrose 50% Syringe 50 Ml) 50 ml IVP PER PROTOCOL PRN; Protocol PRN Reason: Hypoglycemia Ceftriaxone Sodium 2 gm/ (Sodium Chloride) 50 mls @ 100 mls/hr IVPB Q24HR [facility]; Protocol Stop: 09/15/23 09:29 Last Admin: 09/12/23 08:32 Dose: 100 mls/hr Heparin Sodium (Porcine) 10, (000 unit/ Sodium Chloride) 1,001 mls @ 999 mls/hr IRRIGATION ONCE PRN PRN Reason: INTRA-OP Stop: 09/13/23 23:00 Heparin Sodium (Porcine) 2,500 (unit/ Sodium Chloride) 250.5 mls @ 250 mls/hr IRRIGATION ONCE PRN PRN Reason: INTRA-OP Stop: 09/13/23 23:00 Sodium Chloride (Saline 0.9%) 1,000 mls @ 75 mls/hr IV .[id number] [facility] Insulin Aspart (Insulin Aspart (Novolog) 100 Unit/Ml Vial) 0 unit SQ AC-TID [facility]; Protocol Last Admin: 09/12/23 12:19 Dose: 5 unit Insulin Aspart (Insulin Aspart (Novolog) 100 Unit/Ml Vial) 8 unit SQ AC-TID [facility] Last Admin: 09/12/23 12:19 Dose: 8 unit Insulin Detemir (Insulin Detemir (Levemir) 100 Unit/Ml Syr) 40 unit SQ HS [facility] Last Admin: 09/11/23 21:51 Dose: 40 unit Lactulose (Lactulose 20 Gm/30 Ml Cup) 20 gm PO DAILY PRN PRN Reason: Constipation Losartan Potassium (Losartan 50 Mg Tab) 100 mg PO HS [facility] Last Admin: 09/11/23 21:02 Dose: 100 mg Miscellaneous Information (Pneumonia Protocol Utilized 1 Each Misc) 1 each PO ONCE PRN PRN Reason: Per Protocol Naloxone HCl (Naloxone 0.4 Mg/Ml 1 Ml Vial) 0.2 mg IV Q2M PRN PRN Reason: Opioid Reversal Nitroglycerin (Nitroglycerin Sl Tabs 0.4 Mg Tab) 0.4 mg SUBLINGUAL Q5M PRN PRN Reason: Chest Pain Non-Formulary Medication (Dulaglutide [Trulicity]) 3 mg SQ [facility] Ondansetron HCl (Ondansetron 4 Mg/2 Ml Vial) 4 mg IVP Q8HR PRN PRN Reason: Nausea And Vomiting Prednisone (Prednisone 20 Mg Tab) 40 mg PO DAILY [facility] Temazepam (Temazepam 15 Mg Cap) 15 mg PO HS PRN PRN Reason: Insomnia Social history: Lives alone. Recovered from alcoholism. Non-smoker. Physical examination: VITAL SIGNS: 97.5, 95, 18, 1 4586, 98% room air GENERAL: BMI 29.9, reclining tired EYES: Pupils equal. Conjunctiva normal. HEENT: External appearance of nose and ears normal, oral cavity grossly normal. NECK: JVD not raised; masses not palpable. HEART: First and second heart sounds are normal; no edema. Systolic murmur in the aortic area LUNGS:[ Respiratory rate increased decreased breath sounds, wheezing ABDOMEN: Soft, nontender, liver spleen not palpable, no masses palpable. PSYCH: Alert and oriented x3; mood and affect slightly anxiousl. MUSCULAR skeletal: None INVESTIGATIONS, reviewed in the clinical context: Procalcitonin 0.16 HbA1c 8.5 September 11, 2023: White count 15.1 hemoglobin 13.7 platelets 159 neutrophils 40.3 sodium 137 potassium 3.8 BUN 21 creatinine 0.82 Troponin I 0.102, 0.074, 0.062 EKG tracing personally reviewed by me-normal sinus rhythm. Poor R wave progression anterior leads. Nonspecific ST-T wave changes inferolateral leads CT chest angio for PE: Negative for PE. Bibasilar posterior airspace opacities. Moderate hiatal hernia June 2023 Brain MRI: Acute/subacute CVA involving the left frontal lobe cortex and centrum semiovale on the left side. Cervical spine CT: DJD changes. Including at C5-C6, C6-C7 with bilateral foraminal stenosis LDL 191.2 CT brain without contrast: Small remote lacunar and white matter infarct in the right cerebral hemisphere. Carotid Doppler: Unremarkable 2D echo: EF 55 to 60%. Mild to moderate aortic regurgitation. Assessment and plan: -Pneumonia suspect gram-negative organism: Improving IV ceftriaxone. Zithromax. Changed to Augmentin from tomorrow -Acute COPD exacerbation possibly precipitated by pneumonia: Better DuoNeb. Nebulized Pulmicort. IV Solu-Medrol Change IV Solu-Medrol to oral prednisone. -Acute non-Q wave OK.: New diagnosis Seen by cardiology. For cardiac catheterization tomorrow. -June 2023: Stroke in the left frontal lobe cortex and centrum semiovale presenting as dysarthria. Resolved Initial CT scan showing remote infarct. History of 2 prior strokes. Aspirin. Lipitor -Probable arctic stenosis. Systolic murmur in the aortic area. 2D echo pending. -Diabetes mellitus type 2 chronically on insulin: Uncontrolled with hyperglycemia secondary to steroids Trulicity. Levemir follow Accu-Cheks -Mild to moderate arctic regurgitation -Hyperlipidemia Better -Chronic esophageal stricture with history of dysphagia -Full code Changed from IV Solu-Medrol to oral prednisone. For cardiac catheterization tomorrow. 2D echo pending. Discussed with patient. 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
[2023-09-12 16:15] LABS: Glucose,Whole Blood 352 mg/dL (70-110)
[2023-09-12] MEDS: predniSONE 20 MG TAB PO SCH (16:23)
[2023-09-12] MEDS: NON FORMULARY DRUG (Dulaglutide [Trulicity] 3 MG/0.5 ML Each) SQ SCH (16:30)
[2023-09-12 20:17] LABS: Glucose,Whole Blood 333 mg/dL (70-110)
[2023-09-12] MEDS: ATORVASTATIN 10 MG TAB PO SCH (23:50)
[2023-09-12] MEDS: ALPRAZolam 0.25 MG TAB PO PRN (23:50)
[2023-09-13] MEDS: SODIUM CHLORIDE 0.9% 1,000 ML IV SCH (00:01)
[2023-09-13 06:13] LABS: Glucose,Whole Blood 321 mg/dL (70-110)
[2023-09-13] MEDS: AMOXIC-POT CLAV 875-125MG 1 EACH TAB PO SCH (07:00)
[2023-09-13] MEDS ORDERED: HEPARIN SODIUM,PORCINE (1 ML) 2,500 UNIT in SODIUM CHLORIDE 0.9% 250 ML IRRIGATION PRN (07:00)
[2023-09-13] MEDS ORDERED: HEPARIN SODIUM,PORCINE 10,000 UNIT in SODIUM CHLORIDE 0.9% 1,000 ML IRRIGATION PRN (07:00)
[2023-09-13] MEDS: ASPIRIN 325 MG TAB PO ONE (09:17)
[2023-09-13 11:48] LABS: Glucose,Whole Blood 216 mg/dL (70-110)
[2023-09-13] MEDS: diphenhydrAMINE 50 MG/ML 1 ML VIAL IVP STA (12:12)
[2023-09-13] MEDS: FAMOTIDINE 20 MG/2 ML VIAL IV STA (12:12)
[2023-09-13] MEDS: methylPREDNISolone SOD SUCCI 125 MG/2 ML VIAL IV STA (12:12)
--- NOTE | 2023-09-13 12:53 | P.PN ---
Subjective HISTORY OF PRESENT ILLNESS: This is a 63-year-old male with past medical history of diabetes mellitus type 2, hyperlipidemia, hypertension, COPD, peripheral neuropathy, acute ischemic stroke in t June 2023. Patient initially presented to [facility], [place] for shortness of breath, congestion, cough and sputum production for 3 to 4 days along with feeling cold. She has been exposed to children that have bronchitis- like symptoms. Patient was found to have elevated troponin and elevated D- dimer. BNP was 349. She apparently had elevated heart rate of 140. Patient states that [place] [facility] was unable to do CT of the chest due to her dye allergy and she was transferred to [facility]. She states she has chest pain with deep breathing but that is better now. She also had episode of nausea which has resolved. She denies smoking and no alcohol use. She states there is strong family history of CAD on her mother's side. Patient has been started on IV antibiotics and IV steroids. Regarding allergy to statins. Patient was taken off Crestor because she was having cramping in her legs but she has tolerated a atorvastatin in the past. EKG sinus rhythm [address] CT a of the chest: No evidence of pulmonary embolism. Bibasilar posterior airspace opacities correlate for pneumonia. Moderate hiatal hernia. Laboratory studies: WBC 15.1. Hemoglobin 13.7. Electrolytes normal. BUN 21 creatinine 0.82. Glucose 287. Troponins 0.102, 0.072, 0.062 Home cardiac medications: Aspirin 81 mg daily, atorvastatin 80 mg-has not started but has prescription, losartan 100 mg at bedtime Echocardiogram performed 06/28/2023 revealed EF of 55-60. Mild to moderate aortic regurgitation. Mild aortic stenosis with peak gradient of 22 and mean gradient of 15. 09/13/2023 Patient examined this morning at the bedside. Patient currently denies chest pain or pressure. She denies shortness of breath. Vital signs are stable. Cedric trotter is scheduled to undergo cardiac catheterization today with Dr. Cohen PHYSICAL EXAM: VITAL SIGNS: Reviewed. GENERAL: Well-developed in no acute distress. NECK: Supple. No JVD or thyromegaly LUNGS: Respirations even and unlabored. Lungs essentially clear to auscultation bilaterally. HEART: Regular rate and rhythm. S1 and S2 heard. + systolic murmur EXTREMITIES: Normal range of motion. No clubbing or cyanosis. Peripheral pulses intact. No lower extremity edema ASSESSMENT: Elevated troponin, possible non-ST elevated TN, possible type II TN due to COPD exacerbation and pneumonia Pneumonia Acute COPD exacerbation Hiatal hernia Hypertension Hyperlipidemia Diabetes mellitus type 2 Mild aortic stenosis, mild to moderate aortic regurgitation PLAN: Continue current cardiac medications Patient is scheduled for cardiac catheterization today with Dr. Cohen Further recommendations pending patient course Nurse practitioner note has been reviewed by physician. Signing provider agrees with the documented findings, assessment, and plan of care documented by COOK FROZEN DESSERT as a scribe. Objective - Vital Signs Vital signs: Vital Signs Temp 98.2 F 09/13/23 11:50 Pulse 88 09/13/23 12:27 Resp 20 09/13/23 11:50 BP 154/85 09/13/23 11:50 Pulse Ox 97 09/13/23 11:50 FiO2 Intake & Output 09/12/23 09/13/23 09/13/23 18:59 06:59 18:59 Intake Total 476 Balance 476 Weight 67.4 kg Intake: Oral 476 Other: Voiding Method Toilet Toilet # Voids 3 - Labs CBC & Chem 7: 09/11/23 11:00 09/11/23 11:00 Labs: Abnormal Lab Results - Last 24 Hours (Table) 09/12/23 09/12/23 09/12/23 Range/Units 08:59 08:59 16:09 POC Glucose (mg/dL) 352 H (70-110) mg/dL Hemoglobin A1c 8.5 H (<=6.0) % Procalcitonin 0.16 H (0.02-0.09) ng/mL 09/12/23 09/13/23 09/13/23 Range/Units 20:16 06:11 11:43 POC Glucose (mg/dL) 333 H 321 H 216 H (70-110) mg/dL Hemoglobin A1c (<=6.0) % Procalcitonin (0.02-0.09) ng/mL Microbiology - Last 24 Hours (Table) 09/11/23 14:15 Blood Culture - Preliminary Blood 09/11/23 14:30 Blood Culture - Preliminary Blood
[2023-09-13] MEDS ORDERED: LIDOCAINE 1% INJ 10MG/ML (20 ML MDV) ONE (13:46)
[2023-09-13] MEDS ORDERED: VERAPAMIL 2.5 MG/ML 2 ML AMP ONE (13:46)
[2023-09-13] MEDS ORDERED: fentaNYL (PF) 50 MCG/ML 2 ML AMP ONE (13:52)
[2023-09-13] MEDS ORDERED: HEPARIN SODIUM 1,000 UN/ML (10ML VL) ONE (13:52)
[2023-09-13] MEDS: SODIUM CHLORIDE 0.9% 1,000 ML IV ONE (14:01)
[2023-09-13] MEDS: LIDOCAINE 1% INJ 10MG/ML (20 ML MDV) SQ ONE (14:05)
[2023-09-13] MEDS: VERAPAMIL SYRINGE (5 MG/10 ML) INTRAARTER ONE (14:05)
[2023-09-13] MEDS: fentaNYL (PF) 50 MCG/ML 2 ML AMP IVP ONE (14:05)
[2023-09-13] MEDS: MIDAZOLAM 2 MG/2 ML VIAL IVP ONE (14:05)
[2023-09-13] MEDS: HEPARIN SODIUM 1,000 UN/ML (10ML VL) IVP ONE (14:15)
[2023-09-13] MEDS: IOPAMIDOL-370 100ML BTL INJ ONE (14:43)
--- NOTE | 2023-09-13 16:00 | P.PN ---
Progress Note - Text Progress Note Date: 09/13/23 Chief Complaint: Short of breath congested This is a pleasant [address] Mckeon. Chronic medical conditions include COPD, hypertension, depression, peripheral neuropathy. Stroke June 2023-no residual Patient was transferred here from [facility]. She presented there for shortness of breath congestion cough/sputum for last 3 to 4 days. No fever no chills. Feeling cold. 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 She was given bronchodilators then transferred here. They are unable to do there a CT scan because of shellfish allergy close patient has some elevated troponin and elevated D-dimer. Patient respiratory symptoms are better after presenting here. Appetite had gone down. [Patient's home nebulizer medications have been for 2 years]. September 11: Patient respiratory symptoms much better. Duration much improved wheezing. Patient seen by cardiology. For acute non-Q wave MT plan for cardiac catheterization tomorrow. Changed to oral prednisone from IV Solu-Medrol. Will switch to Augmentin from tomorrow in place of ceftriaxone September 13, 2023: Breathing much better. Some cough is Risperdal. Seen by cardiology. Pending cardiac catheterization later this afternoon. Chest pain At that Active Medications Acetaminophen (Acetaminophen Tab 325 Mg Tab) 650 mg PO Q6HR PRN PRN Reason: Mild Pain or Fever > 100.5 Albuterol/Ipratropium (Ipratropium-Albuterol 3 Ml Neb) 3 ml INHALATION RT-QID [facility] Last Admin: 09/13/23 15:22 Dose: 3 ml Alprazolam (Alprazolam 0.25 Mg Tab) 0.25 mg PO Q6HR PRN PRN Reason: Mild Anxiety Alprazolam (Alprazolam 0.5 Mg Tab) 0.5 mg PO Q6HR PRN PRN Reason: Moderate Anxiety Amoxicillin/Clavulanate Potassium (Amoxic-Pot Clav 875-125mg 1 Each Tab) 1 each PO Q12HR [facility]; Protocol Stop: 09/15/23 09:01 Last Admin: 09/13/23 09:17 Dose: 1 each Aspirin (Aspirin 81 Mg) 81 mg PO DAILY [facility] Last Admin: 09/13/23 05:59 Dose: Not Given Atorvastatin Calcium (Atorvastatin 10 Mg Tab) 10 mg PO HS [facility] Last Admin: 09/12/23 23:50 Dose: 10 mg Budesonide (Budesonide 1 Mg/2 Ml Nebu) 1 mg INHALATION RT-BID [facility] Last Admin: 09/13/23 08:17 Dose: 1 mg Calcium Carbonate/Glycine (Calcium Carbonate 500 Mg Chewable) 1,000 mg PO Q4HR PRN PRN Reason: Dyspepsia Cyclobenzaprine HCl (Cyclobenzaprine 5 Mg Tab) 5 mg PO BID PRN PRN Reason: Muscle Spasm Dextrose/Water (Dextrose 50% Syringe 50 Ml) 25 ml IVP PER PROTOCOL PRN; Protocol PRN Reason: Hypoglycemia Dextrose/Water (Dextrose 50% Syringe 50 Ml) 50 ml IVP PER PROTOCOL PRN; Protocol PRN Reason: Hypoglycemia Heparin Sodium (Porcine) 10, (000 unit/ Sodium Chloride) 1,001 mls @ 999 mls/hr IRRIGATION ONCE PRN PRN Reason: INTRA-OP Stop: 09/13/23 23:00 Heparin Sodium (Porcine) 2,500 (unit/ Sodium Chloride) 250.5 mls @ 250 mls/hr IRRIGATION ONCE PRN PRN Reason: INTRA-OP Stop: 09/13/23 23:00 Sodium Chloride (Saline 0.9%) 1,000 mls @ 75 mls/hr IV .[id number] [facility] Last Admin: 09/13/23 00:01 Dose: 75 mls/hr Insulin Aspart (Insulin Aspart (Novolog) 100 Unit/Ml Vial) 0 unit SQ AC-TID [facility]; Protocol Last Admin: 09/13/23 12:16 Dose: 2 unit Insulin Aspart (Insulin Aspart (Novolog) 100 Unit/Ml Vial) 8 unit SQ AC-TID [facility] Last Admin: 09/13/23 12:17 Dose: Not Given Insulin Detemir (Insulin Detemir (Levemir) 100 Unit/Ml Syr) 40 unit SQ [facility] Last Admin: 09/13/23 00:01 Dose: 40 unit Lactulose (Lactulose 20 Gm/30 Ml Cup) 20 gm PO DAILY PRN PRN Reason: Constipation Losartan Potassium (Losartan 50 Mg Tab) 100 mg PO HS [facility] Last Admin: 09/12/23 23:50 Dose: 100 mg Miscellaneous Information (Pneumonia Protocol Utilized 1 Each Misc) 1 each PO ONCE PRN PRN Reason: Per Protocol Naloxone HCl (Naloxone 0.4 Mg/Ml 1 Ml Vial) 0.2 mg IV Q2M PRN PRN Reason: Opioid Reversal Nitroglycerin (Nitroglycerin Sl Tabs 0.4 Mg Tab) 0.4 mg SUBLINGUAL Q5M PRN PRN Reason: Chest Pain Non-Formulary Medication (Dulaglutide [Trulicity]) 3 mg SQ [facility] Last Admin: 09/12/23 16:30 Dose: Not Given Ondansetron HCl (Ondansetron 4 Mg/2 Ml Vial) 4 mg IVP Q8HR PRN PRN Reason: Nausea And Vomiting Prednisone (Prednisone 20 Mg Tab) 40 mg PO DAILY [facility] Last Admin: 09/13/23 09:17 Dose: 40 mg Temazepam (Temazepam 15 Mg Cap) 15 mg PO HS PRN PRN Reason: Insomnia Social history: Lives alone. Recovered from alcoholism. Non-smoker. Physical examination: VITAL SIGNS: 98.2, 91, 20, 154/85, 97% room air GENERAL: Comfortable EYES: Pupils equal. Conjunctiva normal. HEENT: External appearance of nose and ears normal, oral cavity grossly normal. NECK: JVD not raised; masses not palpable. HEART: First and second heart sounds are normal; no edema. Systolic murmur in the aortic area LUNGS:[ Respiratory rate increased decreased breath sounds, no wheezing ABDOMEN: Soft, nontender, liver spleen not palpable, no masses palpable. PSYCH: Alert and oriented x3; mood and affect slightly anxiousl. MUSCULAR skeletal: None INVESTIGATIONS, reviewed in the clinical context: Procalcitonin 0.16 HbA1c 8.5 September 11, 2023: White count 15.1 hemoglobin 13.7 platelets 159 neutrophils 40.3 sodium 137 potassium 3.8 BUN 21 creatinine 0.82 Troponin I 0.102, 0.074, 0.062 EKG tracing personally reviewed by me-normal sinus rhythm. Poor R wave p rogression anterior leads. Nonspecific ST-T wave changes inferolateral leads CT chest angio for PE: Negative for PE. Bibasilar posterior airspace opacities. Moderate hiatal hernia June 2023 Brain MRI: Acute/subacute CVA involving the left frontal lobe cortex and centrum semiovale on the left side. Cervical spine CT: DJD changes. Including at C5-C6, C6-C7 with bilateral foraminal stenosis LDL 191.2 CT brain without contrast: Small remote lacunar and white matter infarct in the right cerebral hemisphere. Carotid Doppler: Unremarkable 2D echo: EF 55 to 60%. Mild to moderate aortic regurgitation. Assessment and plan: -Pneumonia suspect gram-negative organism: Improving IV ceftriaxone. Zithromax. Started Augmentin today -Acute COPD exacerbation possibly precipitated by pneumonia: Better DuoNeb. Nebulized Pulmicort. IV Solu-Medrol Prednisone 40 mg today. From tomorrow 30 mg -Acute non-Q wave MT.: New diagnosis Seen by cardiology. For cardiac catheterization this afternoon -June 2023: Stroke in the left frontal lobe cortex and centrum semiovale presenting as dysarthria. Resolved Initial CT scan showing remote infarct. History of 2 prior strokes. Aspirin. Lipitor -Probable arctic stenosis. Systolic murmur in the aortic area. 2D echo pending. -Diabetes mellitus type 2 chronically on insulin: Uncontrolled with hyperglycemia secondary to steroids Trulicity. Levemir follow Accu-Cheks -Mild to moderate arctic regurgitation -Hyperlipidemia Better -Chronic esophageal stricture with history of dysphagia -Full code Switched over to Augmentin today. Pending cardiac catheterization. Cut back prednisone to 30 mg tomorrow. Discussed with patient. 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, heart murmur, kidney stones, nodules on thyroid, Degenerative disc disease, hiatal hernia, past hx of seizure while sleeping last one age 10, RECENT INPT FOR TIA 06/28/23-06/30/23 History of Any Multi-Drug Resistant Organisms: MRSA Date of last positivie culture/infection: 2015 MDRO Source:: R foot Past Surgical History: Section, Cholecystectomy, Orthopedic Surgery Additional Past Surgical History / Comment(s): R hand sx, EGD, colonoscopy Past Anesthesia/Blood Transfusion Reactions: No Reported Reaction Past Psychological History: Depression Smoking Status: Former smoker
--- NOTE | 2023-09-13 16:03 | P.CARDCATH ---
Description of Procedure: PROCEDURES PERFORMED: Left heart catheterization, bilateral coronary angiography, ultrasound guided arterial access, iFR LAD, iFR Circumflex INDICATION: NSTEMI CONSENT:I have discussed the risks, benefits and alternative therapies for the above-mentioned procedure and for both sedation/analgesia as well as necessary blood product administration, if indicated, as they pertain to this patient. The patient has indicated understanding and acceptance of the risks and procedures discussed. PROCEDURE: After the risks, benefits and alternatives of the above mentioned procedure explained in detail with the patient, informed consent was obtained. Patient was taken to the catheterization lab and prepped and draped in usual fashion. Ultrasound guidance was used to assess for arterial access. 1% lidocaine was used to anesthetize the right ulnar artery as the ulnar artery appeared modestly bigger than the radial. A 6-[place] sheath was placed in the right ulnar artery using modified Seldinger technique and ultrasound guidance. Left coronary angiography was performed with a 5-[place] JL 3.5 catheter and right coronary angiography was performed with a 5-[place] FR5 catheter in various views. A 5-[place] FR5 catheter was inserted into the left ventricle and pressure measurements were obtained. The decision was made to perform I have far of the LAD and circumflex. Heparin was given. A 6-[place] CLS 3.0 guide catheter was used to engage the left main. There was brief ventricularization noted however this improved with r emanipulation. A 0.014 pressure wire was advanced in the proximal left main and normalize. It was then advanced 1 cm distal to the circumflex lesion and then repositioned in placed 1 secondary distal to the LAD mid lesion. iFR was performed and was normal at 0.99 and 0.94 respectively. In the LAD there was initial some drift however after repositioning this was normal at 0.94. The right ulnar sheath was removed and a TR band was placed with hemostasis achieved. The patient tolerated the procedure well. Patient was transported back to the post catheterization holding area in stable condition. Conscious Sedation: Patient was monitored under the direct supervision of myself for conscious sedation using Versed and fentanyl for a total duration of 46 minutes HEMODYNAMICS: Aortic: 148/82 LV: 151/5, LVEDP 18, mean gradient 15mmHg across the valve SELECTIVE CORONARY ARTERIOGRAPHY: LEFT MAIN: The left main is a large caliber vessel which bifurcates into the LAD and circumflex and is short. There is no significant stenosis. LEFT ANTERIOR DESCENDING CORONARY ARTERY: LAD is a moderate caliber vessel which wraps around to the apex. There is a proximal LAD 30% followed by an mid LAD 40-50% stenosis. Diagonal 1 is small caliber with a 50-60% proximal stenosis.. LEFT CIRCUMFLEX CORONARY ARTERY: Left circumflex is a moderate to large caliber vessel Which gives off a small caliber OM1 branch and a moderate caliber onto branch. The mid to distal circumflex leading to OM 2 and has a 50-60% stenosis. Otherwise there are mild luminal irregularities. OM1 has a mid 50% stenosis. RIGHT CORONARY ARTERY: The right coronary artery is a large caliber vessel which gives off a PDA and PLV branch and is the dominant vessel. There is a proximal 40-50% stenosis and otherwise mild luminal irregularities FINAL IMPRESSION: 1. CAD as described above including 40-50% proximal RCA stenosis,Mid LAD 40- 50%, diagonal 1 50-60%, mid circumflex 50-60%, OM1 50% stenosis. 2. iFR LAD and circumflex normal 3. Mildly elevated left sided filling pressures 4. Mild aortic stenosis with mean gradient 15mmHg with pullback PLAN: 1. Aggressive risk factor modification per most recent ACC/AHA guidelines. 2. Continue medical therapy
[2023-09-13 16:36] LABS: Glucose,Whole Blood 378 mg/dL (70-110)
[2023-09-13] MEDS: EZETIMIBE 10 MG TAB PO SCH (17:10)
[2023-09-13 20:31] LABS: Glucose,Whole Blood 471 mg/dL (70-110)
[2023-09-14] MEDS: ATORVASTATIN 40 MG TAB PO SCH (01:05)
[2023-09-14] MEDS: ALPRAZolam 0.25 MG TAB PO PRN (03:17)
[2023-09-14 03:23] LABS: Chol/HDL Ratio 4.78 Ratio; LDL Cholesterol,Calculated 115.7 mg/dL (0.0-131.0)
[2023-09-14 03:26] LABS: Glucose,Whole Blood 441 mg/dL (70-110)
[2023-09-14 06:08] LABS: Glucose,Whole Blood 380 mg/dL (70-110)
[2023-09-14] MEDS: predniSONE 10 MG TAB PO SCH (09:29)
[2023-09-14 10:17] VITALS: TEMP 98.2
--- NOTE | 2023-09-14 11:06 | CA ---
Transthoracic Echo Report Name: Melody Erickson Age: 63 Gender: F : 1960 Exam Date: 09/13/2023 11:18 Exam Location: [facility] Ht (in): 59 Wt (lb): 146 Ordering Physician: Edith Kerr Attending/Referring Phys: [id number], Cirilo Bending Machine Operator Lora Funez, ANSHU Procedure CPT: Indications: LVF Cardiac Hx: Limited ECHO for LVF and AV Technical Quality: Fair Contrast 1: Total Dose (mL): Contrast 2: Total Dose (mL): MEASUREMENTS (Male / Female) Normal Values 2D ECHO LV Diastolic Diameter PLAX 4.3 cm 4.2 - 5.9 / 3.9 - 5.3 cm LV Systolic Diameter PLAX 2.6 cm IVS Diastolic Thickness 1.3 cm 0.6 - 1.0 / 0.6 - 0.9 cm LVPW Diastolic Thickness 1.3 cm 0.6 - 1.0 / 0.6 - 0.9 cm LV Relative Wall Thickness 0.6 RV Internal Dim ED PLAX 1.7 cm LVOT Diameter 1.9 cm LA Systolic Diameter LX 3.7 cm 3.0 - 4.0 / 2.7 - 3.8 cm LV Diastolic Volume MOD BP 57.4 cm??? 67 - 155 / 56 - 104 cm??? LV Systolic Volume MOD BP 16.7 cm??? 22 - 58 / 19 - 49 cm??? LV Ejection Fraction MOD BP 70.9 % >= 55 % LV Cardiac Index MOD BP 2295.1 cm???/min???m??? LV Diastolic Volume MOD 4C 52.9 cm??? LV Systolic Volume MOD 4C 14.6 cm??? LV Ejection Fraction MOD 4C 72.3 % LV Cardiac Index MOD 4C 2156.2 cm???/min???m??? LV Diastolic Length 4C 7.0 cm LV Systolic Length 4C 4.9 cm LV Diastolic Volume MOD 2C 61.3 cm??? LV Systolic Volume MOD 2C 17.4 cm??? LV Ejection Fraction MOD 2C 71.7 % LV Cardiac Index MOD 2C 2474.7 cm???/min???m??? LV Diastolic Length 2C 6.9 cm LV Systolic Length 2C 5.8 cm M-MODE Aortic Root Diameter MM 3.2 cm LA Systolic Diameter MM 3.7 cm LA Ao Ratio MM 1.2 AV Cusp Separation MM 0.7 cm DOPPLER AV Peak Velocity 269.7 cm/s AV Peak Gradient 29.1 mmHg AV Mean Velocity 213.3 cm/s AV Mean Gradient 19.7 mmHg AV Velocity Time Integral 64.9 cm AI Peak Velocity 380.0 cm/s AI Peak Gradient 57.8 mmHg AI Pressure Half Time 814.3 ms LVOT Peak Velocity 107.2 cm/s LVOT Peak Gradient 4.6 mmHg LVOT Velocity Time Integral 24.6 cm LVOT Stroke Volume 71.7 cm??? LVOT Stroke Volume Index 44.4 ml/m??? LVOT Cardiac Index 4039.2 cm???/min???m??? AV Area Cont Eq vti 1.1 cm??? AV Area Cont Eq pk 1.2 cm??? FINDINGS Left Ventricle Left ventricular ejection fraction is estimated at 55-60 %. Mildly increased left ventricular wall thickness. . Normal left ventricular systolic function with no obvious regional wall motion abnormalities. Right Ventricle Right Atrium Left Atrium Mitral Valve Aortic Valve [id number] aortic stenosis with a peak gradient of 29mmHg and a mean gradient of 20mmHg. Mild aortic regurgitation. Thickened aortic valve. Tricuspid Valve Pulmonic Valve Pericardium Aorta CONCLUSIONS Limited echo. Normal ventricle size and systolic function Mild to moderate aortic stenosis with a mean gradient of 20 mmHg Mild aortic regurgitation Previewed by: Dr. Pop Tran MD (Electronically Signed) Final Date: 14 Sep 2023 11:05
[2023-09-14 11:54] LABS: Glucose,Whole Blood 170 mg/dL (70-110)
[2023-09-14 12:10] VITALS: BP 154/77; RESP 17
--- NOTE | 2023-09-14 13:45 | P.DS ---
Providers Date of admission: 09/11/23 14:33 Expected date of discharge: 09/14/23 Attending physician: Antelmo Terry Consults: 09/11/23 14:32 Consult Physician Routine Consulting Provider: [facility] Consult Reason/Comments: Elevated troponin Do you want consulting provider notified?: Yes Primary care physician: Radu Mckeon [facility] Course: Chief Complaint: Short of breath congested This is a pleasant [address] Mckeon. Chronic medical conditions include COPD, hypertension, depression, peripheral neuropathy. Stroke June 2023-no residual Patient was transferred here from [facility]. She presented there for shortness of breath congestion cough/sputum for last 3 to 4 days. No fever no chills. Feeling cold. 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 She was given bronchodilators then transferred here. They are unable to do there a CT scan because of shellfish allergy close patient has some elevated troponin and elevated D-dimer. Patient respiratory symptoms are better after presenting here. Appetite had gone down. [Patient's home nebulizer medications have been for 2 years]. September 11: Patient respiratory symptoms much better. Duration much improved wheezing. Patient seen by cardiology. For acute non-Q wave NH plan for cardiac catheterization tomorrow. Changed to oral prednisone from IV Solu-Medrol. Will switch to Augmentin from tomorrow in place of ceftriaxone September 13, 2023: Breathing much better. Some cough is Risperdal. Seen by cardiology. Pending cardiac catheterization later this afternoon. Chest pain September 14, 2023: Doing well. Cardiac catheterization showed nonobstructive disease. Medical management. No chest pain. Prednisone discontinued. Discussed with patient. Discussion and discharge planning more than 35 minutes Social history: Lives alone. Recovered from alcoholism. Non-smoker. Physical examination: VITAL SIGNS: 98.2, 84, 17, 154 x 77, 97% room air GENERAL: Comfortable EYES: Pupils equal. Conjunctiva normal. HEENT: External appearance of nose and ears normal, oral cavity grossly normal. NECK: JVD not raised; masses not palpable. HEART: First and second heart sounds are normal; no edema. Systolic murmur in the aortic area LUNGS:[ Respiratory rate increased decreased breath sounds, no wheezing ABDOMEN: Soft, nontender, liver spleen not palpable, no masses palpable. PSYCH: Alert and oriented x3; mood and affect slightly anxiousl. MUSCULAR skeletal: None INVESTIGATIONS, reviewed in the clinical context: LDL 115 Procalcitonin 0.16 HbA1c 8.5 September 11, 2023: White count 15.1 hemoglobin 13.7 platelets 159 neutrophils 40.3 sodium 137 potassium 3.8 BUN 21 creatinine 0.82 Troponin I 0.102, 0.074, 0.062 EKG tracing personally reviewed by me-normal sinus rhythm. Poor R wave progression anterior leads. Nonspecific ST-T wave changes inferolateral leads CT chest angio for PE: Negative for PE. Bibasilar posterior airspace opacities. Moderate hiatal hernia June 2023 Brain MRI: Acute/subacute CVA involving the left frontal lobe cortex and centrum semiovale on the left side. Cervical spine CT: DJD changes. Including at C5-C6, C6-C7 with bilateral foraminal stenosis LDL 191.2 CT brain without contrast: Small remote lacunar and white matter infarct in the right cerebral hemisphere. Carotid Doppler: Unremarkable 2D echo: EF 55 to 60%. Mild to moderate aortic regurgitation. Assessment and plan: -Pneumonia suspect gram-negative organism: Improving IV ceftriaxone. Zithromax. Complete 3 more doses of Augmentin. -Acute COPD exacerbation possibly precipitated by pneumonia: Better DuoNeb. Nebulized Pulmicort. IV Solu-Medrol Prednisone discontinued -Acute non-Q wave NH.: New diagnosis Seen by cardiology. For cardiac catheterization this afternoon .-CAD including 40-50% proximal RCA stenosis,Mid LAD 40-50%, diagonal 1 50-60%, mid circumflex 50-60%, OM1 50% stenosis. 2. iFR LAD and circumflex normal 3. Mildly elevated left sided filling pressures 4. Mild aortic stenosis with mean gradient 15mmHg with pullback For medical management -June 2023: Stroke in the left frontal lobe cortex and centrum semiovale presenting as dysarthria. Resolved Initial CT scan showing remote infarct. History of 2 prior strokes. Aspirin. Lipitor -Probable arctic stenosis. Systolic murmur in the aortic area. 2D echo pending. -Diabetes mellitus type 2 chronically on insulin: Uncontrolled with hyperglycemia secondary to steroids Trulicity. 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, heart murmur, kidney stones, nodules on thyroid, Degenerative disc disease, hiatal hernia, past hx of seizure while sleeping last one age 10, RECENT INPT FOR TIA 06/28/23-06/30/23 History of Any Multi-Drug Resistant Organisms: MRSA Date of last positivie culture/infection: 2015 MDRO Source:: R foot Past Surgical History: Section, Cholecystectomy, Orthopedic Surgery Additional Past Surgical History / Comment(s): R hand sx, EGD, colonoscopy Past Anesthesia/Blood Transfusion Reactions: No Reported Reaction Past Psychological History: Depression Smoking Status: Former smoker Plan - Discharge Summary Discharge Rx Participant: Yes New Discharge Prescriptions: New Amoxic-Pot Clav 875-125Mg [Augmentin 875-125] 1 each PO Q12HR #3 tab Ezetimibe [Zetia] 10 mg PO DAILY #30 tab Atorvastatin [Lipitor] 40 mg PO HS #30 tab Continue Albuterol Inhaler [Ventolin Hfa Inhaler] 2 puff INHALATION RT-QID PRN PRN Reason: Shortness Of Breath Insulin Glargine,Hum.rec.anlog [Lantus Solostar Pen] 40 units SQ HS Budesonide/Formoterol Fumarate [Symbicort 160-4.5 Mcg Inhaler] 2 puff INHALATION RT-BID Aspirin 81 mg PO DAILY #1 tab Losartan Potassium [Cozaar] 100 mg PO HS guaiFENesin-DM 100-10MG/5ML [Robitussin DM] 10 ml PO Q6H PRN PRN Reason: Cough Insulin Lispro [humaLOG Kwikpen] 8 unit SQ AC-TID Dulaglutide [Trulicity] 3 mg SQ GOODMAN Cholecalciferol [Vitamin D3 (25 Mcg = 1000 Iu)] 25 mcg PO DIRECTED Insulin Lispro [humaLOG Kwikpen] See Protocol SQ AC-TID Cyclobenzaprine [Flexeril] 5 mg PO BID PRN PRN Reason: Muscle Spasm Discontinued Atorvastatin Calcium [Lipitor] 80 mg PO DIRECTED Discharge Medication List Albuterol Inhaler [Ventolin Hfa Inhaler] 2 puff INHALATION RT-QID PRN 08/27/15 [History] Budesonide/Formoterol Fumarate [Symbicort 160-4.5 Mcg Inhaler] 2 puff INHALATION RT-BID 06/28/23 [History] Dulaglutide [Trulicity] 3 mg SQ GOODMAN 06/28/23 [History] Insulin Glargine,Hum.rec.anlog [Lantus Solostar Pen] 40 units SQ HS 06/28/23 [History] Insulin Lispro [humaLOG Kwikpen] 8 unit SQ AC-TID 06/28/23 [History] Aspirin 81 mg PO DAILY #1 tab 06/30/23 [Rx] Cholecalciferol [Vitamin D3 (25 Mcg = 1000 Iu)] 25 mcg PO DIRECTED 09/11/23 [History] Cyclobenzaprine [Flexeril] 5 mg PO BID PRN 09/11/23 [History] Insulin Lispro [humaLOG Kwikpen] See Protocol SQ AC-TID 09/11/23 [History] Losartan Potassium [Cozaar] 100 mg PO HS 09/11/23 [History] guaiFENesin-DM 100-10MG/5ML [Robitussin DM] 10 ml PO Q6H PRN 09/11/23 [History] Amoxic-Pot Clav 875-125Mg [Augmentin 875-125] 1 each PO Q12HR #3 tab 09/14/23 [Rx] Atorvastatin [Lipitor] 40 mg PO HS #30 tab 09/14/23 [Rx] Ezetimibe [Zetia] 10 mg PO DAILY #30 tab 09/14/23 [Rx] Follow up Appointment(s)/Referral(s): Eric Cohen DO [STAFF PHYSICIAN] - 1 Week (Please call to schedule hospital follow up. ) Radu Mckeon MD [Primary Care Provider] - 1-2 days (Please call to schedule hospital follow up. ) Patient Instructions/Handouts: *Surgery [facility] - After Heart Catheterization - Mediation Commissioner Instructions
--- NOTE | 2023-09-14 14:07 | P.PN ---
Subjective HISTORY OF PRESENT ILLNESS: This is a 63-year-old male with past medical history of diabetes mellitus type 2, hyperlipidemia, hypertension, COPD, peripheral neuropathy, acute ischemic stroke in t June 2023. Patient initially presented to [facility] for shortness of breath, congestion, cough and sputum production for 3 to 4 days along with feeling cold. She has been exposed to children that have bronchitis- like symptoms. Patient was found to have elevated troponin and elevated D- dimer. BNP was 349. She apparently had elevated heart rate of 140. Patient states that [place] was unable to do CT of the chest due to her dye allergy and she was transferred to [facility]. She states she has chest pain with deep breathing but that is better now. She also had episode of nausea which has resolved. She denies smoking and no alcohol use. She states there is strong family history of CAD on her mother's side. Patient has been started on IV antibiotics and IV steroids. Regarding allergy to statins. Patient was taken off Crestor because she was having cramping in her legs but she has tolerated a atorvastatin in the past. EKG sinus rhythm [address] CT a of the chest: No evidence of pulmonary embolism. Bibasilar posterior airspace opacities correlate for pneumonia. Moderate hiatal hernia. Laboratory studies: WBC 15.1. Hemoglobin 13.7. Electrolytes normal. BUN 21 creatinine 0.82. Glucose 287. Troponins 0.102, 0.072, 0.062 Home cardiac medications: Aspirin 81 mg daily, atorvastatin 80 mg-has not started but has prescription, losartan 100 mg at bedtime Echocardiogram performed 06/28/2023 revealed EF of 55-60. Mild to moderate aortic regurgitation. Mild aortic stenosis with peak gradient of 22 and mean gradient of 15. 09/13/2023 Patient examined this morning at the bedside. Patient currently denies chest pain or pressure. She denies shortness of breath. Vital signs are stable. Cedric sergo is scheduled to undergo cardiac catheterization today with Dr. Cohen 09/14/2023 Patient is status postcardiac catheterization with Dr. Cohen yesterday revealing 40 to 50% proximal RCA stenosis, mid LAD 40 to 50% stenosis, diagonal 1 50 to 60% stenosis, mid circumflex 50 to 60%, OM1 50% stenosis. iFR LAD and circumflex normal. Mildly elevated left-sided filling pressures. Mild aortic stenosis with mean gradient of 15 mmHg. Patient examined this morning at the bedside. Currently denies chest pain or pressure. She denies shortness of breath. Right radial cath site is soft with no hematoma noted. Pulse present. PHYSICAL EXAM: VITAL SIGNS: Reviewed. GENERAL: Well-developed in no acute distress. NECK: Supple. No JVD or thyromegaly LUNGS: Respirations even and unlabored. Lungs essentially clear to auscultation bilaterally. HEART: Regular rate and rhythm. S1 and S2 heard. + systolic murmur EXTREMITIES: Normal range of motion. No clubbing or cyanosis. Peripheral pulses intact. No lower extremity edema ASSESSMENT: Elevated troponin, type II LA, secondary to oxygen supply demand mismatch Status post cardiac catheterization revealing coronary artery disease as above Pneumonia Acute COPD exacerbation Hiatal hernia Hypertension Hyperlipidemia Diabetes mellitus type 2 Mild aortic stenosis, mild to moderate aortic regurgitation PLAN: Continue current cardiac medications Patient is stable for discharge home today from a cardiac standpoint Further recommendations pending patient course Nurse practitioner note has been reviewed by physician. Signing provider agrees with the documented findings, assessment, and plan of care documented by POWER CHISEL OPERATOR as a scribe. Objective - Vital Signs Vital signs: Vital Signs Temp 98.2 F 09/14/23 09:26 Pulse 96 09/14/23 09:26 Resp 16 09/14/23 09:26 BP 145/78 09/14/23 09:26 Pulse Ox 97 09/14/23 09:26 FiO2 Intake & Output 09/13/23 09/14/23 09/14/23 18:59 06:59 18:59 Intake Total 1000 118 Balance 1000 118 Intake: IV 100 Intake, IV Titration 900 Amount Sodium Chloride 0.9% 1, 900 000 ml @ 75 mls/hr IV . [id number] [facility] Rx#:[id number] Oral 118 Other: # Voids 1 1 - Labs CBC & Chem 7: 09/11/23 11:00 09/11/23 11:00 Labs: Abnormal Lab Results - Last 24 Hours (Table) 09/13/23 09/13/23 09/13/23 Range/Units 11:43 16:35 16:56 POC Glucose (mg/dL) 216 H 378 H (70-110) mg/dL HDL Cholesterol 38.50 L (40.00-60.00) mg/dL 09/13/23 09/14/2324 Range/Units 20:29 03:24 06:06 POC Glucose (mg/dL) 471 H 441 H 380 H (70-110) mg/dL HDL Cholesterol (40.00-60.00) mg/dL Microbiology - Last 24 Hours (Table) 09/11/23 14:15 Blood Culture - Preliminary Blood 09/11/23 14:30 Blood Culture - Preliminary Blood
[2023-09-14 15:49] VITALS: PULSE 92
== END 2023-09-14 15:59 | disposition home health service (06) | DRG 137 ==
LOC: EC 10:31 → 3SCARD 14:33
PROVIDERS: ADMIT Hospitalist; ATTEND Hospitalist
PROC: B2111ZZ Fluoroscopy of Multiple Coronary Arteries using Low Osmolar Contrast (ICD-10-PCS; principal; 2023-09-11)
PROC: 4A023N7 Measurement of Cardiac Sampling and Pressure, Left Heart, Percutaneous Approach (ICD-10-PCS; principal; 2023-09-11)
PROC: 4A033BC Measurement of Arterial Pressure, Coronary, Percutaneous Approach (ICD-10-PCS; principal; 2023-09-11)
DX: J15.69 Pneumonia due to other Gram-negative bacteria (principal); J44.0 Chronic obstructive pulmonary disease with (acute) lower respiratory infection; J44.1 Chronic obstructive pulmonary disease with (acute) exacerbation; E11.42 Type 2 diabetes mellitus with diabetic polyneuropathy; F10.21 Alcohol dependence, in remission; F32.A Depression, unspecified; G40.909 Epilepsy, unspecified, not intractable, without status epilepticus; E11.65 Type 2 diabetes mellitus with hyperglycemia; I10 Essential (primary) hypertension; I21.A1 Myocardial infarction type 2; I35.2 Nonrheumatic aortic (valve) stenosis with insufficiency; I25.10 Atherosclerotic heart disease of native coronary artery without angina pectoris; K22.2 Esophageal obstruction; I69.398 Other sequelae of cerebral infarction; I69.322 Dysarthria following cerebral infarction; E04.2 Nontoxic multinodular goiter; K22.4 Dyskinesia of esophagus; Z87.891 Personal history of nicotine dependence; E78.5 Hyperlipidemia, unspecified; F41.9 Anxiety disorder, unspecified; G47.00 Insomnia, unspecified; K59.00 Constipation, unspecified; T38.0X5A Adverse effect of glucocorticoids and synthetic analogues, initial encounter; Z79.4 Long term (current) use of insulin; Z79.85 Long-term (current) use of injectable non-insulin antidiabetic drugs; K44.9 Diaphragmatic hernia without obstruction or gangrene; K21.9 Gastro-esophageal reflux disease without esophagitis; R79.1 Abnormal coagulation profile; H53.8 Other visual disturbances; R13.10 Dysphagia, unspecified; Z79.899 Other long term (current) drug therapy; Z79.82 Long term (current) use of aspirin; Z28.310 Unvaccinated for COVID-19; Z60.2 Problems related to living alone; Z86.14 Personal history of Methicillin resistant Staphylococcus aureus infection; Z88.2 Allergy status to sulfonamides; Z88.8 Allergy status to other drugs, medicaments and biological substances; Z28.21 Immunization not carried out because of patient refusal; Z88.1 Allergy status to other antibiotic agents; Z91.041 Radiographic dye allergy status; Z91.040 Latex allergy status; Z88.5 Allergy status to narcotic agent; Z91.013 Allergy to seafood
CPT/HCPCS: 36415; 71046; 71275; 76937; 80053; 80061; 83036; 83605; 84145; 84484; 85025; 87040; 87449; 93005; 93306; 93458; 93799; 94640; 96365; 96366; 96372; 96375; 96376; 99285

== ENCOUNTER 2023-09-15 05:26 | Emergency (ER) | payer OTHER ==
--- NOTE | 2023-09-15 06:18 | ED ---
Abdominal Pain HPI - General Chief Complaint: Abdominal Pain Stated Complaint: nausea Time Seen by Provider: 09/15/23 05:44 Source: patient, EMS, RN notes reviewed Mode of arrival: EMS Limitations: no limitations - History of Present Illness Initial Comments: 63-year-old female presents emergency department chief complaint of nausea vomiting. Patient states she was recently hospitalized and discharged yesterday on Augmentin for pneumonia. Patient states she also had cardiac catheterization while she was inpatient. She states she had no stents placed patient states that she did receive some Zofran by EMS but did not help. She states she has some epigastric discomfort that started after her emesis. She denies any significant change in bowel habits no hematemesis cough or emesis denies chest pain denies back pain no flank pain. - Related Data Home Medications Medication Instructions Recorded Confirmed Albuterol Inhaler [Ventolin Hfa 2 puff INHALATION RT-QID PRN 08/27/15 09/11/23 Inhaler] Budesonide/Formoterol Fumarate 2 puff INHALATION RT-BID 06/28/23 09/11/23 [Symbicort 160-4.5 Mcg Inhaler] Dulaglutide [Trulicity] 3 mg SQ GOODMAN 06/28/23 09/11/23 Insulin Glargine,Hum.rec.anlog 40 units SQ HS 06/28/23 09/11/23 [Lantus Solostar Pen] Insulin Lispro [humaLOG Kwikpen] 8 unit SQ AC-TID 06/28/23 09/11/23 Cholecalciferol [Vitamin D3 (25 25 mcg PO DIRECTED 09/11/23 09/11/23 Mcg = 1000 Iu)] Cyclobenzaprine [Flexeril] 5 mg PO BID PRN 09/11/23 09/11/23 Insulin Lispro [humaLOG Kwikpen] See Protocol SQ AC-TID 09/11/23 09/11/23 Losartan Potassium [Cozaar] 100 mg PO HS 09/11/23 09/11/23 guaiFENesin-DM 100-10MG/5ML 10 ml PO Q6H PRN 09/11/23 09/11/23 [Robitussin DM] Previous Rx's Medication Instructions Recorded Aspirin 81 mg PO DAILY #1 tab 06/30/23 Amoxic-Pot Clav 875-125Mg 1 each PO Q12HR #3 tab 09/14/23 [Augmentin 875-125] Atorvastatin [Lipitor] 40 mg PO HS #30 tab 09/14/23 Ezetimibe [Zetia] 10 mg PO DAILY #30 tab 09/14/23 Azithromycin [Zithromax Z Pack] 0 tab PO DIRECTED #6 tab 09/15/23 Ondansetron Odt [Zofran Odt] 4 mg PO Q8HR PRN #10 tab 09/15/23 Allergies Allergy/AdvReac Type Severity Reaction Status Date / Time doxycycline Allergy Anaphylaxis Verified 09/15/23 05:40 feathers Allergy Dyspnea Verified 09/15/23 05:40 Fish Containing Products Allergy Anaphylaxis Verified 09/15/23 05:40 Iodinated Contrast Media Allergy Anaphylaxis Verified 09/15/23 05:40 kiwi Allergy Anaphylaxis Verified 09/15/23 05:40 latex Allergy Anaphylaxis Verified 09/15/23 05:40 rosuvastatin [From Crestor] Allergy LEG CRAMPS Verified 09/15/23 05:40 shellfish derived [Shellfish] Allergy Anaphylaxis Verified 09/15/23 05:40 Sulfa (Sulfonamide Allergy Anaphylaxis Verified 09/15/23 05:40 Antibiotics) aspartame AdvReac MIGRAINES Verified 09/15/23 05:40 [From Konsyl Sugar-Free (aspartame)] codeine AdvReac Nausea & Verified 09/15/23 05:40 Vomiting & Diarrhea milk AdvReac MAKES PT Verified 09/15/23 05:40 SCHIZOPHRENIC psyllium AdvReac Unknown Verified 09/15/23 05:40 [From Konsyl Sugar-Free (aspartame)] tetracycline [Tetracycline] AdvReac Nausea & Verified 09/15/23 05:40 Vomiting & Diarrhea Tetracyclines AdvReac Anaphylaxis Verified 09/15/23 05:40 all artificial sweetners Allergy Anaphylaxis Uncoded 09/15/23 05:40 divehi peanuts Allergy Anaphylaxis Uncoded 09/15/23 05:40 Review of Systems ROS Statement: Those systems with pertinent positive or pertinent negative responses have been documented in the HPI. ROS Other: All systems not noted in ROS Statement are negative. 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, heart murmur, kidney stones, nodules on thyroid, Degenerative disc disease, hiatal hernia, past hx of seizure while sleeping last one age 10, RECENT INPT FOR TIA 06/28/23-06/30/23 History of Any Multi-Drug Resistant Organisms: MRSA Date of last positivie culture/infection: 2015 MDRO Source:: R foot Past Surgical History: Section, Cholecystectomy, Orthopedic Surgery Additional Past Surgical History / Comment(s): R hand sx, EGD, colonoscopy Past Anesthesia/Blood Transfusion Reactions: No Reported Reaction Past Psychological History: Depression Smoking Status: Former smoker Past Alcohol Use History: Rare Past Drug Use History: None Reported - Past Family History Mother Family Medical History: Coronary Artery Disease (CAD), Diabetes Mellitus, Renal Disease Brother(s) Family Medical History: Diabetes Mellitus Father Family Medical History: Cancer General Exam Limitations: no limitations General appearance: alert, in no apparent distress Head exam: Present: atraumatic, normocephalic, normal inspection Eye exam: Present: normal appearance, PERRL, EOMI. Absent: scleral icterus, conjunctival injection, periorbital swelling ENT exam: Present: normal exam, mucous membranes moist Neck exam: Present: normal inspection, full ROM. Absent: tenderness, meningismus, lymphadenopathy Respiratory exam: Present: normal lung sounds bilaterally. Absent: respiratory distress, wheezes, rales, rhonchi, stridor Cardiovascular Exam: Present: regular rate, normal rhythm, normal heart sounds. Absent: systolic murmur, diastolic murmur, rubs, gallop, clicks GI/Abdominal exam: Present: soft, tenderness (Minimal epigastric), normal bowel sounds. Absent: distended, guarding, rebound, rigid Course Vital Signs 09/15/23 09/15/23 09/15/23 05:28 06:00 08:38 Temperature 98.9 F Pulse Rate 83 81 85 Respiratory 22 20 18 Rate Blood Pressure 196/131 198/115 137/71 O2 Sat by Pulse 97 97 97 Oximetry 09/15/23 09:13 Temperature 98.1 F Pulse Rate 72 Respiratory 18 Rate Blood Pressure 129/81 O2 Sat by Pulse 97 Oximetry Medical Decision Making - Medical Decision Making Was pt. sent in by a medical professional or institution (Dr., PA, PIN CHASER, urgent care, hospital, or jail...) When possible be specific @ -No Did you speak to anyone other than the patient for history (EMS, parent, family, police, friend...)? What history was obtained from this source @ -No Did you review nursing and triage notes (agree or disagree)? Why? @ -I reviewed and agree with nursing and triage notes Were old charts reviewed (outside hosp., previous admission, EMS record, old EKG, old radiological studies, urgent care reports/EKG's, jail records)? Report findings @ -Inpatient records including labs CBC comp cardiology evaluation, cardiac cath Differential Diagnosis (chest pain, altered mental status, abdominal pain women, abdominal pain men, vaginal bleeding, weakness, fever, dyspnea, syncope, headache, dizziness, GI bleed, back pain, seizure, CVA, palpatations, mental health, musculoskeletal)? @ -Differential Abdominal Pain Women: Appendicitis, Cholecystitis, diverticulosis, ischemic bowel, pancreatitis, h epatitis, UTI, gastroenteritis, AAA, incarcerated hernia, bowel obstruction, constipation, inflammatory bowel, hepatitis, peptic ulcer disease, splenic infarction, perforated viscus, vulvitis, ovarian torsion, PID, kidney stone, placenta abruption, this is not meant to be an all-inclusive list EKG interpreted by me (3pts min.). @ -As above X-rays interpreted by me (1pt min.). @ -None done CT interpreted by me (1pt min.). @ -CT abdomen pelvis showing no acute intra-abdominal process U/S interpreted by me (1pt. min.). @ -None done What testing was considered but not performed or refused? (CT, X-rays, U/S, labs)? Why? @ -None What meds were considered but not given or refused? Why? @ -None Did you discuss the management of the patient with other professionals (professionals i.e. VAL Dumont, PIN CH[facility]ER, lab, RT, psych nurse, social media marketing manager, industrial relations representative, teacher, logistics supply officer, wrapper caser)? Give summary @ -No Was smoking cessation discussed for >3mins.? @ -No Was critical care preformed (if so, how long)? @ -No Were there social determinants of health that impacted care today? How? (Homelessness, low income, unemployed, alcoholism, drug addiction, transportation, low edu. Level, literacy, decrease access to med. care, penitentiary, rehab)? @ -No Was there de-escalation of care discussed even if they declined (Discuss DNR or withdrawal of care, Hospice)? DNR status @ -No What co-morbidities impacted this encounter? (DM, HTN, Smoking, COPD, CAD, Cancer, CVA, ARF, Chemo, Hep., AIDS, mental health diagnosis, sleep apnea, morbid obesity)? @ -None Was patient admitted / discharged? Hospital course, mention meds given and route, prescriptions, significant lab abnormalities, going to OR and other pertinent info. @ -Discharge patient felt greatly improved with IV fluids and antiemetics patient given results no acute findings may related to antibiotics she is requesting antibiotic change. Undiagnosed new problem with uncertain prognosis? @ -No Drug Therapy requiring intensive monitoring for toxicity (Heparin, Nitro, Insulin, Cardizem)? @ -No Were any procedures done? @ -No Diagnosis/symptom? @ -Nausea vomiting, abdominal pain Acute, or Chronic, or Acute on Chronic? @ -Acute Uncomplicated (without systemic symptoms) or Complicated (systemic symptoms)? @ -Uncomplicated Side effects of treatment? @ -No Exacerbation, Progression, or Severe Exacerbation? @ -No Poses a threat to life or bodily function? How? (Chest pain, [place], [place], pneumonia, PE, COPD, DKA, ARF, appy, cholecystitis, CVA, Diverticulitis, Homicidal, Suicidal, threat to staff... and all critical care pts) @ -No - Lab Data Result diagrams: 09/15/23 06:08 09/15/23 06:08 Lab Results 09/15/23 09/15/23 09/15/23 Range/Units 06:08 06:08 06:08 WBC 17.3 H (3.8-10.6) k/uL RBC 4.99 (3.80-5.40) m/uL Hgb 13.5 (11.4-16.0) gm/dL Hct 42.0 (34.0-46.0) % MCV 84.1 (80.0-100.0) fL MCH 27.1 (25.0-35.0) pg MCHC 32.3 (31.0-37.0) g/dL RDW 13.3 (11.5-15.5) % Plt Count 220 (150-450) k/uL MPV 8.5 Neutrophils % 78 % Lymphocytes % 14 % Monocytes % 7 % Eosinophils % 0 % Basophils % 0 % Neutrophils # 13.5 H (1.3-7.7) k/uL Lymphocytes # 2.4 (1.0-4.8) k/uL Monocytes # 1.2 H (0-1.0) k/uL Eosinophils # 0.0 (0-0.7) k/uL Basophils # 0.1 (0-0.2) k/uL Sodium 137 (137-145) mmol/L Potassium 4.0 (3.5-5.1) mmol/L Chloride 106 (98-107) mmol/L Carbon Dioxide 27 (22-30) mmol/L Anion Gap 4 mmol/L BUN 31 H (7-17) mg/dL Creatinine 0.81 (0.52-1.04) mg/dL Est GFR (CKD-EPI)AfAm >90 (>60 ml/min/1.73 sqM) Est GFR (CKD-EPI)NonAf 78 (>60 ml/min/1.73 sqM) Glucose 158 H (74-99) mg/dL Plasma Lactic Acid Damien 1.9 (0.7-2.0) mmol/L Calcium 8.5 (8.4-10.2) mg/dL Total Bilirubin 0.6 (0.2-1.3) mg/dL AST 19 (14-36) U/L ALT 16 (4-34) U/L Alkaline Phosphatase 63 (38-126) U/L Total Protein 6.2 L (6.3-8.2) g/dL Albumin 3.5 (3.5-5.0) g/dL Lipase 595 H (23-300) U/L Disposition Clinical Impression: Abdominal pain, Nausea & vomiting Disposition: HOME SELF-CARE Condition: Stable Instructions (If sedation given, give patient instructions): Abdominal Pain (ED) Additional Instructions: Please return to the Emergency Department if symptoms worsen or any other concerns. Prescriptions: Azithromycin [Zithromax Z Pack] 0 tab PO DIRECTED #6 tab Ondansetron Odt [Zofran Odt] 4 mg PO Q8HR PRN #10 tab PRN Reason: Nausea Is patient prescribed a controlled substance at d/c from ED?: No Referrals: Mike,Radu, MD [Primary Care Provider] - 1-2 days Time of Disposition: 08:59
[2023-09-15 06:31] LABS: Basophils # (A) 0.1 k/uL (0-0.2); Basophils % (A) 0 %; Eosinophils % (A) 0 %; HGB 13.5 gm/dL (11.4-16.0); Lymphocytes # (A) 2.4 k/uL (1.0-4.8); Lymphocytes % (A) 14 %; MCH 27.1 pg (25.0-35.0); MCHC 32.3 g/dL (31.0-37.0); MCV 84.1 fL (80.0-100.0); Mean Platelet Volume 8.5; Monocytes # (A) 1.2 k/uL (0-1.0); Monocytes % (A) 7 %; Neutrophils # (A) 13.5 k/uL (1.3-7.7); Neutrophils % (A) 78 %; Platelet Count 220 k/uL (150-450); RBC 4.99 m/uL (3.80-5.40); RDW 13.3 % (11.5-15.5); WBC 17.3 k/uL (3.8-10.6)
[2023-09-15] MEDS: FAMOTIDINE 20 MG/2 ML VIAL IV STA (06:44)
[2023-09-15] MEDS: hydrALAZINE HCL 20 MG/ML 1 ML VIAL IVP STA (06:44)
[2023-09-15] MEDS: diphenhydrAMINE 50 MG/ML 1 ML VIAL IVP STA (06:44)
[2023-09-15] MEDS: METOCLOPRAMIDE 5 MG/ML 2 ML VIAL IVP STA (06:45)
[2023-09-15 06:46] LABS: ALT 16 U/L (4-34); AST 19 U/L (14-36); African American GFR (CKD) >90 (>60 ml/min/1.73 sqM); Albumin 3.5 g/dL (3.5-5.0); Alkaline Phosphatase 63 U/L (38-126); Anion Gap 4 mmol/L; Blood Urea Nitrogen 31 mg/dL (7-17); Calcium 8.5 mg/dL (8.4-10.2); Carbon Dioxide 27 mmol/L (22-30); Chloride 106 mmol/L (98-107); Glucose 158 mg/dL (74-99); Lipase 595 U/L (23-300); Non-African American GFR(CKD) 78 (>60 ml/min/1.73 sqM); Sodium 137 mmol/L (137-145); Total Bilirubin 0.6 mg/dL (0.2-1.3); Total Protein 6.2 g/dL (6.3-8.2)
[2023-09-15] MEDS: LORazepam 2 MG/ML INJ IV STA (07:29)
[2023-09-15] MEDS: SODIUM CHLORIDE 0.9% 1,000 ML IV ONE (07:31)
--- NOTE | 2023-09-15 08:44 | CT ---
EXAMINATION TYPE: CT abdomen pelvis wo con CT DLP: 538.5 mGycm, Automated exposure control for dose reduction was used. DATE OF EXAM: 09/15/2023 8:11 AM COMPARISON: CT 09/11/2023 CLINICAL INDICATION:Female, 63 years old with history of pain; Abdominal pain TECHNIQUE: Axial CT abdomen pelvis wo con;Sagittal and coronal reformats were created on a separate workstation. Contrast used: mL of , (none if empty) Oral contrast used: without Oral Contrast (none if empty) FINDINGS: LOWER CHEST: Heart is enlarged for size. There is coronary artery calcifications aortic valve leaflet calcifications mitral valve annular cusp patient's. Moderate hiatal hernia.. ABDOMEN LIVER: Unremarkable GALLBLADDER AND BILE DUCTS: The gallbladder is surgically absent. PANCREAS: Unremarkable. SPLEEN: Unremarkable. ADRENAL GLANDS: Unremarkable. KIDNEYS AND URETERS: Nonobstructing right 3 mm renal calculus. No left renal calculi. No hydronephros is. PELVIS BLADDER: Unremarkable REPRODUCTIVE: Unremarkable. ABDOMEN & PELVIS STOMACH AND BOWEL: No evidence of bowel obstruction. PERITONEUM/RETROPERITONEUM: No evidence of pneumoperitoneum or free fluid. VASCULATURE: No evidence of aortic aneurysm. MUSCULOSKELETAL: No acute osseous abnormalities LYMPH NODES: No gross evidence for lymphadenopathy. SOFT TISSUE/ABDOMINAL WALL: Fat-containing umbilical hernia. IMPRESSION: 1. No evidence for acute abdominal process. 2. Moderate hiatal hernia. 3. Nonobstructing right renal calculus.
[2023-09-15 08:58] VITALS: RESP 18
[2023-09-15 09:54] VITALS: BP 129/81; PULSE 72; TEMP 98.1
== END 2023-09-15 09:24 | disposition home or self-care (01) ==
LOC: EC 05:26
DX: N20.0 Calculus of kidney (principal); K44.9 Diaphragmatic hernia without obstruction or gangrene; Z87.891 Personal history of nicotine dependence; Z88.5 Allergy status to narcotic agent; Z91.011 Allergy to milk products; Z91.018 Allergy to other foods; Z91.041 Radiographic dye allergy status; Z91.040 Latex allergy status; Z88.1 Allergy status to other antibiotic agents; Z88.2 Allergy status to sulfonamides; Z88.8 Allergy status to other drugs, medicaments and biological substances; Z91.013 Allergy to seafood
CPT/HCPCS: 36415; 80053; 83605; 83690; 85025; 74176; 99284; 96374; 96375 ×4; 96361 ×2; J2060; J0360; J1200; J2765; J3490

== ENCOUNTER 2023-10-22 18:26 | Inpatient (IN) | payer OTHER ==
--- NOTE | 2023-10-22 18:41 | ED ---
General Adult HPI - General Stated complaint: Syncope Time Seen by Provider: 10/22/23 18:27 Source: patient, EMS, RN notes reviewed Mode of arrival: EMS Limitations: no limitations - History of Present Illness Initial comments: Patient is a pleasant 63-year-old female present to the emergency department with nausea vomiting diarrhea and syncope. Onset of symptoms was today. P atient has had about 3 episodes of vomiting and diarrhea. Patient also had approximately 3 episodes of syncope following emesis each time. No chest pain. No dyspnea. Patient does have history of stroke and [place] this year. - Related Data Home Medications Medication Instructions Recorded Confirmed Albuterol Inhaler [Ventolin Hfa 2 puff INHALATION RT-QID PRN 08/27/15 09/11/23 Inhaler] Budesonide/Formoterol Fumarate 2 puff INHALATION RT-BID 06/28/23 09/11/23 [Symbicort 160-4.5 Mcg Inhaler] Dulaglutide [Trulicity] 3 mg SQ GOODMAN 06/28/23 09/11/23 Insulin Glargine,Hum.rec.anlog 40 units SQ HS 06/28/23 09/11/23 [Lantus Solostar Pen] Insulin Lispro [humaLOG Kwikpen] 8 unit SQ AC-TID 06/28/23 09/11/23 Cholecalciferol [Vitamin D3 (25 25 mcg PO DIRECTED 09/11/23 09/11/23 Mcg = 1000 Iu)] Cyclobenzaprine [Flexeril] 5 mg PO BID PRN 09/11/23 09/11/23 Insulin Lispro [humaLOG Kwikpen] See Protocol SQ AC-TID 09/11/23 09/11/23 Losartan Potassium [Cozaar] 100 mg PO HS 09/11/23 09/11/23 guaiFENesin-DM 100-10MG/5ML 10 ml PO Q6H PRN 09/11/23 09/11/23 [Robitussin DM] Previous Rx's Medication Instructions Recorded Aspirin 81 mg PO DAILY #1 tab 06/30/23 Amoxic-Pot Clav 875-125Mg 1 each PO Q12HR #3 tab 09/14/23 [Augmentin 875-125] Atorvastatin [Lipitor] 40 mg PO HS #30 tab 09/14/23 Ezetimibe [Zetia] 10 mg PO DAILY #30 tab 09/14/23 Azithromycin [Zithromax Z Pack] 0 tab PO DIRECTED #6 tab 09/15/23 Ondansetron Odt [Zofran Odt] 4 mg PO Q8HR PRN #10 tab 09/15/23 Allergies Allergy/AdvReac Type Severity Reaction Status Date / Time doxycycline Allergy Anaphylaxis Verified 10/22/23 18:41 feathers Allergy Dyspnea Verified 10/22/23 18:41 Fish Containing Products Allergy Anaphylaxis Verified 10/22/23 18:41 Iodinated Contrast Media Allergy Anaphylaxis Verified 10/22/23 18:41 kiwi Allergy Anaphylaxis Verified 10/22/23 18:41 latex Allergy Anaphylaxis Verified 10/22/23 18:41 rosuvastatin [From Crestor] Allergy LEG CRAMPS Verified 10/22/23 18:41 shellfish derived [Shellfish] Allergy Anaphylaxis Verified 10/22/23 18:41 Sulfa (Sulfonamide Allergy Anaphylaxis Verified 10/22/23 18:41 Antibiotics) aspartame AdvReac MIGRAINES Verified 10/22/23 18:41 [From Konsyl Sugar-Free (aspartame)] codeine AdvReac Nausea & Verified 10/22/23 18:41 Vomiting & Diarrhea milk AdvReac MAKES PT Verified 10/22/23 18:41 SCHIZOPHRENIC psyllium AdvReac Unknown Verified 10/22/23 18:41 [From Konsyl Sugar-Free (aspartame)] tetracycline [Tetracycline] AdvReac Nausea & Verified 10/22/23 18:41 Vomiting & Diarrhea Tetracyclines AdvReac Anaphylaxis Verified 10/22/23 18:41 all artificial sweetners Allergy Anaphylaxis Uncoded 10/22/23 18:41 welsh peanuts Allergy Anaphylaxis Uncoded 10/22/23 18:41 Review of Systems ROS Statement: Those systems with pertinent positive or pertinent negative responses have been documented in the HPI. ROS Other: All systems not noted in ROS Statement are negative. 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, heart murmur, kidney stones, nodules on thyroid, Degenerative disc disease, hiatal hernia, past hx of seizure while sleeping last one age 10, RECENT INPT FOR TIA 06/28/23-06/30/23 History of Any Multi-Drug Resistant Organisms: MRSA Date of last positivie culture/infection: 2015 MDRO Source:: R foot Past Surgical History: Section, Cholecystectomy, Orthopedic Surgery Additional Past Surgical History / Comment(s): R hand sx, EGD, colonoscopy Past Anesthesia/Blood Transfusion Reactions: No Reported Reaction Past Psychological History: Depression Smoking Status: Former smoker Past Alcohol Use History: Rare Past Drug Use History: None Reported - Past Family History Mother Family Medical History: Coronary Artery Disease (CAD), Diabetes Mellitus, Renal Disease Brother(s) Family Medical History: Diabetes Mellitus Father Family Medical History: Cancer General Exam Limitations: no limitations General appearance: alert, in no apparent distress Head exam: Present: normocephalic Eye exam: Present: normal appearance ENT exam: Present: normal oropharynx Neck exam: Present: normal inspection. Absent: tenderness, meningismus Respiratory exam: Present: normal lung sounds bilaterally Cardiovascular Exam: Present: regular rate, normal rhythm, systolic murmur GI/Abdominal exam: Present: soft, tenderness (Mild to moderate diffuse tenderness), hyperactive bowel sounds. Absent: distended, guarding, rebound, rigid, pulsatile mass Extremities exam: Present: normal inspection. Absent: calf tenderness Neurological exam: Present: alert, oriented X3, CN II-XII intact. Absent: motor sensory deficit Expanded Neurological exam: Present: protecting the airway Speech: Present: fluid speech Cranial nerves: EOM's Intact: Normal Motor strength exam: RUE: 5, LUE: 5, RLE: 5, LLE: 5 Eye Response: (4) open spontaneously Motor Response: (6) obeys commands Verbal Response: (5) oriented Psychiatric exam: Present: normal affect, normal mood Skin exam: Present: normal color Course Vital Signs 10/22/23 18:30 Temperature 97.2 F L Pulse Rate 92 Respiratory 16 Rate Blood Pressure 172/99 O2 Sat by Pulse 96 Oximetry EKG Findings - EKG Results: EKG: interpreted by ERMD (Septal Q waves), sinus rhythm, normal axis, normal ST/T Medical Decision Making - Medical Decision Making Was pt. sent in by a medical professional or institution ([facility], [facility], urgent care, hospital, or penitentiary...) When possible be specific @ -No Did you speak to anyone other than the patient for history (EMS, parent, family, police, friend...)? What history was obtained from this source @ -No Did you review nursing and triage notes (agree or disagree)? Why? @ -I reviewed and agree with nursing and triage notes Were old charts reviewed (outside hosp., previous admission, EMS record, old EKG, old radiological studies, urgent care reports/EKG's, penitentiary records)? Report findings @ -Previous admissions reviewed Differential Diagnosis (chest pain, altered mental status, abdominal pain women, abdominal pain men, vaginal bleeding, weakness, fever, dyspnea, syncope, headache, dizziness, GI bleed, back pain, seizure, CVA, palpatations, mental health, musculoskeletal)? @ -Differential Abdominal Pain Women: Appendicitis, Cholecystitis, diverticulosis, ischemic bowel, pancreatitis, hepatitis, UTI, gastroenteritis, AAA, incarcerated hernia, bowel obstruction, constipation, inflammatory bowel, hepatitis, peptic ulcer disease, splenic infarction, perforated viscus, vulvitis, ovarian torsion, PID, kidney stone, placenta abruption, this is not meant to be an all-inclusive list EKG interpreted by me (3pts min.). @ -As above X-rays interpreted by me (1pt min.). @ -Chest x-ray shows no acute process CT interpreted by me (1pt min.). @ -CT scan abdomen and pelvis shows hiatal hernia. U/S interpreted by me (1pt. min.). @ -None done What testing was considered but not performed or refused? (CT, X-rays, U/S, labs)? Why? @ -None What meds were considered but not given or refused? Why? @ -None Did you discuss the management of the patient with other professionals (professionals i.e. [facility], [facility], lab, RT, psych nurse, social contact worker, army manager, teacher, police officer crime prevention, casework manager)? Give summary @ -Case was discussed with Dr. Terry, who will admit covering Dr. Mckeon Was smoking cessation discussed for >3mins.? @ -No Was critical care preformed (if so, how long)? @ -31 minutes critical care Were there social determinants of health that impacted care today? How? (Homelessness, low income, unemployed, alcoholism, drug addiction, transportation, low edu. Level, literacy, decrease access to med. care, senior care, rehab)? @ -No Was there de-escalation of care discussed even if they declined (Discuss DNR or withdrawal of care, Hospice)? DNR status @ -No What co-morbidities impacted this encounter? (DM, HTN, Smoking, COPD, CAD, Cancer, CVA, ARF, Chemo, Hep., AIDS, mental health diagnosis, sleep apnea, morbid obesity)? @ -Coronary artery disease history Was patient admitted / discharged? Hospital course, mention meds given and route, prescriptions, significant lab abnormalities, going to OR and other pertinent info. @ -Patient presents with nausea vomiting and diarrhea however patient has had associated syncopal episodes. On evaluation troponin is elevated. Patient will be admitted with cardiac consult. Admission orders written Undiagnosed new problem with uncertain prognosis? @ -No Drug Therapy requiring intensive monitoring for toxicity (Heparin, Nitro, Insulin, Cardizem)? @ -No Were any procedures done? @ -No Diagnosis/symptom? @ -Syncope, non-ST elevation MN Acute, or Chronic, or Acute on Chronic? @ -Acute, acute Uncomplicated (without systemic symptoms) or Complicated (systemic symptoms)? @ -Default Side effects of treatment? @ -No Exacerbation, Progression, or Severe Exacerbation? @ -No Poses a threat to life or bodily function? How? (Chest pain, [place], [place], pneumonia, PE, COPD, DKA, ARF, appy, cholecystitis, CVA, Diverticulitis, Homicidal, Suicidal, threat to staff... and all critical care pts) @ -To cardiac function - Lab Data Result diagrams: 10/22/23 19:28 10/22/23 19:15 Lab Results 10/22/23 10/22/23 10/22/23 Range/Units 19:15 19:15 19:15 WBC (3.8-10.6) k/uL RBC (3.80-5.40) m/uL Hgb (11.4-16.0) gm/dL Hct (34.0-46.0) % MCV (80.0-100.0) fL MCH (25.0-35.0) pg MCHC (31.0-37.0) g/dL RDW (11.5-15.5) % Plt Count (150-450) k/uL MPV Neutrophils % % Lymphocytes % % Monocytes % % Eosinophils % % Basophils % % Neutrophils # (1.3-7.7) k/uL Lymphocytes # (1.0-4.8) k/uL Monocytes # (0-1.0) k/uL Eosinophils # (0-0.7) k/uL Basophils # (0-0.2) k/uL PT 10.6 (10.0-12.5) sec INR 1.0 (<1.2) APTT 26.2 (22.0-30.0) sec Sodium 141 (137-145) mmol/L Potassium 4.3 (3.5-5.1) mmol/L Chloride 108 H (98-107) mmol/L Carbon Dioxide 25 (22-30) mmol/L Anion Gap 8 mmol/L BUN 26 H (7-17) mg/dL Creatinine 1.02 (0.52-1.04) mg/dL Est GFR (CKD-EPI)AfAm 68 (>60 ml/min/1.73 sqM) Est GFR (CKD-EPI)NonAf 59 (>60 ml/min/1.73 sqM) Glucose 219 H (74-99) mg/dL Calcium 9.2 (8.4-10.2) mg/dL Magnesium 1.3 L (1.6-2.3) mg/dL Total Bilirubin 1.5 H (0.2-1.3) mg/dL AST 24 (14-36) U/L ALT 19 (4-34) U/L Alkaline Phosphatase 68 (38-126) U/L Troponin I 0.131 H* (0.000-0.034) ng/mL Total Protein 6.6 (6.3-8.2) g/dL Albumin 4.2 (3.5-5.0) g/dL 10/22/23 Range/Units 19:28 WBC 10.6 (3.8-10.6) k/uL RBC 5.12 (3.80-5.40) m/uL Hgb 14.6 (11.4-16.0) gm/dL Hct 43.9 (34.0-46.0) % MCV 85.8 (80.0-100.0) fL MCH 28.5 (25.0-35.0) pg MCHC 33.2 (31.0-37.0) g/dL RDW 13.8 (11.5-15.5) % Plt Count 164 (150-450) k/uL MPV 8.1 Neutrophils % 92 % Lymphocytes % 2 % Monocytes % 3 % Eosinophils % 2 % Basophils % 0 % Neutrophils # 9.8 H (1.3-7.7) k/uL Lymphocytes # 0.3 L (1.0-4.8) k/uL Monocytes # 0.3 (0-1.0) k/uL Eosinophils # 0.2 (0-0.7) k/uL Basophils # 0.0 (0-0.2) k/uL PT (10.0-12.5) sec INR (<1.2) APTT (22.0-30.0) sec Sodium (137-145) mmol/L Potassium (3.5-5.1) mmol/L Chloride (98-107) mmol/L Carbon Dioxide (22-30) mmol/L Anion Gap mmol/L BUN (7-17) mg/dL Creatinine (0.52-1.04) mg/dL Est GFR (CKD-EPI)AfAm (>60 ml/min/1.73 sqM) Est GFR (CKD-EPI)NonAf (>60 ml/min/1.73 sqM) Glucose (74-99) mg/dL Calcium (8.4-10.2) mg/dL Magnesium (1.6-2.3) mg/dL Total Bilirubin (0.2-1.3) mg/dL AST (14-36) U/L ALT (4-34) U/L Alkaline Phosphatase (38-126) U/L Troponin I (0.000-0.034) ng/mL Total Protein (6.3-8.2) g/dL Albumin (3.5-5.0) g/dL Disposition Clinical Impression: Syncope, NSTEMI (non-ST elevated myocardial infarction) Disposition: ADMITTED IP TO THIS HOSP Condition: Serious Is patient prescribed a controlled substance at d/c from ED?: No Referrals: Radu Mckeon MD [Primary Care Provider] - 1-2 days Time of Disposition: 20:50
[2023-10-22] MEDS: FAMOTIDINE 20 MG/2 ML VIAL IV STA (19:16)
[2023-10-22] MEDS: ONDANSETRON 4 MG/2 ML VIAL IVP STA (19:18)
[2023-10-22] MEDS: HYDROmorphone 0.5 MG/0.5 ML SYRINGE IVP STA (19:19)
[2023-10-22] MEDS: SODIUM CHLORIDE 0.9% 1,000 ML IV STA (19:21)
[2023-10-22 19:37] LABS: Partial Thromboplastin Time 26.2 sec (22.0-30.0); Prothrombin Time 10.6 sec (10.0-12.5)
[2023-10-22 19:41] LABS: Basophils % (A) 0 %; Eosinophils # (A) 0.2 k/uL (0-0.7); Eosinophils % (A) 2 %; HCT 43.9 % (34.0-46.0); HGB 14.6 gm/dL (11.4-16.0); Lymphocytes # (A) 0.3 k/uL (1.0-4.8); Lymphocytes % (A) 2 %; MCH 28.5 pg (25.0-35.0); MCHC 33.2 g/dL (31.0-37.0); MCV 85.8 fL (80.0-100.0); Mean Platelet Volume 8.1; Monocytes # (A) 0.3 k/uL (0-1.0); Monocytes % (A) 3 %; Neutrophils # (A) 9.8 k/uL (1.3-7.7); Neutrophils % (A) 92 %; Platelet Count 164 k/uL (150-450); RBC 5.12 m/uL (3.80-5.40); RDW 13.8 % (11.5-15.5); WBC 10.6 k/uL (3.8-10.6)
[2023-10-22 19:41] LABS: ALT 19 U/L (4-34); AST 24 U/L (14-36); African American GFR (CKD) 68 (>60 ml/min/1.73 sqM); Albumin 4.2 g/dL (3.5-5.0); Alkaline Phosphatase 68 U/L (38-126); Anion Gap 8 mmol/L; Blood Urea Nitrogen 26 mg/dL (7-17); Calcium 9.2 mg/dL (8.4-10.2); Carbon Dioxide 25 mmol/L (22-30); Chloride 108 mmol/L (98-107); Glucose 219 mg/dL (74-99); Magnesium 1.3 mg/dL (1.6-2.3); Non-African American GFR(CKD) 59 (>60 ml/min/1.73 sqM); Potassium 4.3 mmol/L (3.5-5.1); Sodium 141 mmol/L (137-145); Total Bilirubin 1.5 mg/dL (0.2-1.3); Total Protein 6.6 g/dL (6.3-8.2)
--- NOTE | 2023-10-22 19:53 | XR ---
EXAMINATION TYPE: XR chest 2V DATE OF EXAM: 10/22/2023 COMPARISON: 09/12/2023 HISTORY: Syncope TECHNIQUE: Frontal and lateral views of the chest are obtained. FINDINGS: There is no focal air space opacity, pleural effusion, or pneumothorax seen. The cardiac silhouette size is within normal limits. The osseous structures are intact. IMPRESSION: No acute cardiopulmonary process.
--- NOTE | 2023-10-22 20:25 | CT ---
EXAMINATION TYPE: CT abdomen pelvis wo con DATE OF EXAM: 10/22/2023 COMPARISON: 09/15/2023 HISTORY: Abdominal pain, N/V. Syncope. CT DLP: 488.2 mGycm Automated exposure control for dose reduction was used. TECHNIQUE: Helical acquisition of images was performed from the lung bases through the pelvis. FINDINGS: The lungs are clear. There is a large hiatal hernia There is surgical absence of the gallbladder. There is no biliary ductal dilatation. There is no organomegaly of the liver, pancreas, spleen or adrenal glands. There is a 3 mm nonobstructing calcification within the right kidney. There is no hydronephrosis. The caliber of the abdominal aorta is normal and there is no retroperitoneal adenopathy or hemorrhage . The bowel loops are normal in caliber is no evidence of obstruction. No inflammatory changes are iden tified in the mesentery and there is no free intraperitoneal air or fluid. There is no pelvic mass, free fluid, abscess or adenopathy. There is a small ventral hernia containing only fat. No focal osseous lesions are seen. IMPRESSION: 1. Moderate hiatal hernia. 2. Few millimeter nonobstructing calcification within the right kidney. 3. Small fat-containing ventral hernia. 4. No interval change.
[2023-10-22] MEDS ORDERED: NITROGLYCERIN SL TABS 0.4 MG TAB SUBLINGUAL PRN (20:52)
[2023-10-22] MEDS ORDERED: FAMOTIDINE 20 MG/2 ML VIAL IV SCH (21:00)
[2023-10-22] MEDS: ASPIRIN 81 MG PO STA (21:42)
[2023-10-22] MEDS: ONDANSETRON 4 MG/2 ML VIAL IVP PRN (21:43)
[2023-10-22] MEDS: MAGNESIUM SULFATE-D5W PMX 1 GM in DEXTROSE/WATER 1 100ML.BAG IVPB ONE (21:43)
[2023-10-22] MEDS: HEPARIN SODIUM 1,000 UN/ML (10ML VL) IV ONE (23:38)
[2023-10-22] MEDS: HEPARIN SOD,PORK IN 0.45% NACL 25,000 UNIT in 0.45% NACL 1 250ML.BAG IV SCH (23:42)
[2023-10-23 05:21] LABS: Mean Platelet Volume 8.5; Platelet Count 140 k/uL (150-450)
[2023-10-23] MEDS: FAMOTIDINE 20 MG/2 ML VIAL IV SCH (09:55)
[2023-10-23] MEDS: carvediloL 6.25 MG TAB PO SCH (09:56)
[2023-10-23] MEDS: ASPIRIN 81 MG PO SCH (09:56)
[2023-10-23] MEDS: ASPIRIN 325 MG TAB PO SCH (10:00)
--- NOTE | 2023-10-23 10:09 | P.CRDCN ---
History of Present Illness History of present illness: HISTORY OF PRESENT ILLNESS: This is a 63-year-old female with a past medical history significant for coronary artery disease, hypertension, hyperlipidemia, COPD, peripheral neuropathy, and CVA. Patient follows in the office with Dr. Cohen. We have been asked to see the patient in consultation for elevated troponins. Patient examined at the bedside in the emergency room. Patient states yesterday she began having significant nausea and vomiting along with diarrhea. She is unsure if this was related to the heat yesterday or if she caught a bug that her neighbor had. She states that yesterday she passed out 4-5 times. She states that she did lose consciousness when this happened. She states 1 episode she was sitting in the chair and when she came to she was on the floor. She states that a friend came over after that incident and apparently the patient did not recognize who she was. The patient does report having pain in the abdomen this morning. She denies any chest pain or pressure. She denies any shortness of breath. She reports some mild dizziness this morning. Patient's blood pressures have been significantly elevated during hospitalization. She states s he is been compliant with her medications. It is noted that the patient had an event monitor placed last month and did have an episode of nonsustained ventricular tachycardia. DIAGNOSTICS: - EKG reveals sinus mechanism with no signs of acute ischemia. - Laboratory data: WBC 10.6. Hemoglobin 14.6. Platelet count 164. Sodium 141. Potassium 4.3. BUN 26. Creatinine 1.02. Troponin 0.131. 0.112. 0.105. - Current home cardiac medications include aspirin 81 mg daily, Lipitor 40 mg at night, Zetia 10 mg daily, losartan 50 mg at night. - Most recent echocardiogram obtained in September 2023 revealed ejection fraction 55 to 60%, mild to moderate aortic stenosis - Cardiac catheterization history: September 2023 revealing 40 to 50% proximal RCA stenosis, mid LAD 40 to 50% stenosis, diagonal 150 to 60% stenosis, mid circumflex 50 to 60% stenosis, OM1 50% stenosis. iFR of the LAD and circumflex was normal. Medical management was recommended. REVIEW OF SYSTEMS: At the time of my exam: CONSTITUTIONAL: Denies fever or chills. HEENT: Denies blurred vision, vision changes, or eye pain. Denies hemoptysis CARDIOVASCULAR: Denies chest pain. Denies orthopnea. Denies PND. Denies palpitations RESPIRATORY: Denies shortness of breath. GASTROINTESTINAL: Denies abdominal pain. Denies nausea or vomiting. HEMATOLOGIC: Denies bleeding disorders. GENITOURINARY: Denies any blood in urine. SKIN: Denies pruitis. Denies rash. PHYSICAL EXAM: VITAL SIGNS: Reviewed. GENERAL: Well-developed in no acute distress. HEENT: Head is normocephalic. Pupils are equal, round. Sclerae anicteric. Mucous membranes of the mouth are moist. Neck supple. No JVD or thyromegaly LUNGS: Respirations even and unlabored. Lungs essentially clear to auscultation bilaterally. HEART: Regular rate and rhythm. S1 and S2 heard. 3/6 systolic murmur radiating to the neck ABDOMEN: Soft. Nondistended. Nontender. EXTREMITIES: Normal range of motion. No clubbing or cyanosis. Peripheral pulses intact. No lower extremity edema NEUROLOGIC: Awake and alert. Oriented x 3. ASSESSMENT: Nausea, vomiting, diarrhea Elevated troponins, likely type II DE secondary to nausea, vomiting, diarrhea, and uncontrolled hypertension Hypertension, uncontrolled Syncope, etiology unclear Mild to moderate coronary artery disease with recent catheterization in September 2023 as above Hypertension Hyperlipidemia COPD Peripheral neuropathy Nonsustained ventricular tachycardia, noted on outpatient event monitor History of multiple CVA, last in June 2023 per patient Mild to moderate aortic stenosis Diabetes PLAN: An acute coronary event has been ruled out Discontinue IV heparin Resume home cardiac medications Add carvedilol 6.25 mg twice a day due to elevated blood pressure and nonsustained VT noted on recent event monitor Continue to monitor blood pressure If patient continues to have uncontrolled hypertension, add hydrochlorothiazide Further recommendations pending patient course Nurse practitioner note has been reviewed by physician. Signing provider agrees with the documented findings, assessment, and plan of care documented by PROPOSAL MANAGER as a scribe. 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, heart murmur, kidney stones, nodules on thyroid, Degenerative disc disease, hiatal hernia, past hx of seizure while sleeping last one age 10, RECENT INPT FOR TIA 06/28/23-06/30/23 History of Any Multi-Drug Resistant Organisms: MRSA Date of last positivie culture/infection: 2015 MDRO Source:: R foot Past Surgical History: Section, Cholecystectomy, Orthopedic Surgery Additional Past Surgical History / Comment(s): R hand sx, EGD, colonoscopy Past Anesthesia/Blood Transfusion Reactions: No Reported Reaction Past Psychological History: Depression Smoking Status: Former smoker Past Alcohol Use History: Rare Past Drug Use History: None Reported - Past Family History Mother Family Medical History: Coronary Artery Disease (CAD), Diabetes Mellitus, Renal Disease Brother(s) Family Medical History: Diabetes Mellitus Father Family Medical History: Cancer Medications and Allergies Home Medications Medication Instructions Recorded Confirmed Type Albuterol Inhaler [Ventolin Hfa 2 puff INHALATION RT-QID PRN 08/27/15 10/23/23 History Inhaler] Budesonide/Formoterol Fumarate 2 puff INHALATION RT-BID 06/28/23 10/23/23 History [Symbicort 160-4.5 Mcg Inhaler] Dulaglutide [Trulicity] 3 mg SQ GOODMAN 06/28/23 10/23/23 History Insulin Glargine,Hum.rec.anlog 40 units SQ HS 06/28/23 10/23/23 History [Lantus Solostar Pen] Insulin Lispro [humaLOG Kwikpen] 8 unit SQ AC-TID 06/28/23 10/23/23 History Aspirin 81 mg PO DAILY #1 tab 06/30/23 10/23/23 Rx Cholecalciferol [Vitamin D3 (25 25 mcg PO DAILY 09/11/23 10/23/23 History Mcg = 1000 Iu)] Cyclobenzaprine [Flexeril] 5 mg PO BID PRN 09/11/23 10/23/23 History Insulin Lispro [humaLOG Kwikpen] See Protocol SQ AC-TID 09/11/23 10/23/23 History Atorvastatin [Lipitor] 40 mg PO HS #30 tab 09/14/23 10/23/23 Rx Ezetimibe [Zetia] 10 mg PO DAILY #30 tab 09/14/23 10/23/23 Rx Losartan Potassium 50 mg PO HS 10/23/23 10/23/23 History Allergies Allergy/AdvReac Type Severity Reaction Status Date / Time doxycycline Allergy Anaphylaxis Verified 10/23/23 08:44 feathers Allergy Dyspnea Verified 10/23/23 08:44 Fish Containing Products Allergy Anaphylaxis Verified 10/23/23 08:44 Iodinated Contrast Media Allergy Anaphylaxis Verified 10/23/23 08:44 kiwi Allergy Anaphylaxis Verified 10/23/23 08:44 latex Allergy Anaphylaxis Verified 10/23/23 08:44 rosuvastatin [From Crestor] Allergy LEG CRAMPS Verified 10/23/23 08:44 shellfish derived [Shellfish] Allergy Anaphylaxis Verified 10/23/23 08:44 Sulfa (Sulfonamide Allergy Anaphylaxis Verified 10/23/23 08:44 Antibiotics) aspartame AdvReac MIGRAINES Verified 10/23/23 08:44 [From Konsyl Sugar-Free (aspartame)] codeine AdvReac Nausea & Verified 10/23/23 08:44 Vomiting & Diarrhea milk AdvReac MAKES PT Verified 10/23/23 08:44 SCHIZOPHRENIC psyllium AdvReac Unknown Verified 10/23/23 08:44 [From Konsyl Sugar-Free (aspartame)] tetracycline [Tetracycline] AdvReac Nausea & Verified 10/23/23 08:44 Vomiting & Diarrhea Tetracyclines AdvReac Anaphylaxis Verified 10/23/23 08:44 all artificial sweetners Allergy Anaphylaxis Uncoded 10/22/23 18:41 wolof peanuts Allergy Anaphylaxis Uncoded 10/22/23 18:41 Physical Exam Vitals: Vital Signs Temp Pulse Resp BP Pulse Ox 10/23/23 07:00 85 16 160/91 94 L 10/23/23 05:26 92 16 156/87 96 10/23/23 02:10 90 16 182/109 97 10/23/23 00:01 170/98 10/23/23 00:00 96 168/93 97 10/22/23 22:00 98.0 F 98 18 168/93 97 10/22/23 21:00 96 17 165/89 10/22/23 20:00 98.0 F 95 20 160/58 98 10/22/23 19:00 97.6 F 90 16 172/99 97 10/22/23 18:30 97.2 F L 92 16 172/99 96 Intake and Output 10/22/23 10/23/23 10/23/23 22:59 06:59 14:59 Intake Total 54.304 Balance 54.304 Intake: Intake, IV Titration 54.304 Amount Heparin Sod,Pork in 0.45% 54.304 NaCl 25,000 unit In 0.45 % NaCl 1 250ml.bag @ 12 UNITS/KG/HR 7.947 mls/hr IV .Q24H [facility] Rx#: [id number] Other: Weight 66.224 kg Results 10/23/23 04:17 10/22/23 19:15 Cardiac Enzymes 10/22/23 10/22/23 10/22/23 Range/Units 19:15 19:15 21:33 AST 24 (14-36) U/L Troponin I 0.131 H* 0.112 H* (0.000-0.034) ng/mL 10/23/23 Range/Units 04:17 AST (14-36) U/L Troponin I 0.105 H* (0.000-0.034) ng/mL Coagulation 10/22/23 10/22/23 10/23/23 Range/Units 19:15 21:33 04:17 PT 10.6 (10.0-12.5) sec APTT 26.2 25.9 67.5 H (22.0-30.0) sec CBC 10/22/23 10/23/23 Range/Units 19:28 04:17 WBC 10.6 (3.8-10.6) k/uL RBC 5.12 (3.80-5.40) m/uL Hgb 14.6 (11.4-16.0) gm/dL Hct 43.9 (34.0-46.0) % Plt Count 164 140 L (150-450) k/uL Comprehensive Metabolic Panel 10/22/23 Range/Units 19:15 Sodium 141 (137-145) mmol/L Potassium 4.3 (3.5-5.1) mmol/L Chloride 108 H (98-107) mmol/L Carbon Dioxide 25 (22-30) mmol/L BUN 26 H (7-17) mg/dL Creatinine 1.02 (0.52-1.04) mg/dL Glucose 219 H (74-99) mg/dL Calcium 9.2 (8.4-10.2) mg/dL AST 24 (14-36) U/L ALT 19 (4-34) U/L Alkaline Phosphatase 68 (38-126) U/L Total Protein 6.6 (6.3-8.2) g/dL Albumin 4.2 (3.5-5.0) g/dL Current Medications Generic Name Dose Route Start Last Admin Trade Name Lionq PRN Reason Stop Dose Admin Aspirin 325 mg 10/23/23 09:00 Aspirin 325 Mg Tab PO DAILY [facility] Famotidine 20 mg 10/23/23 09:00 Famotidine 20 Mg/2 Ml Vial IV DAILY [facility] Heparin Sodium/Sodium Chloride 250 mls @ 7.947 mls/hr 10/22/23 21:00 10/23/23 06:32 25,000 unit/ Sodium Chloride IV 10 units/kg/hr .Q24H [facility] 6.622 mls/hr Titration Protocol 12 UNITS/KG/HR Nitroglycerin 0.4 mg 10/22/23 20:52 Nitroglycerin Sl Tabs 0.4 Mg Tab SUBLINGUAL Q5M PRN Chest Pain Ondansetron HCl 4 mg 10/22/23 20:54 10/22/23 21:43 Ondansetron 4 Mg/2 Ml Vial IVP 4 mg Q6HR PRN Administration Nausea And Vomiting Intake and Output 10/22/23 10/23/23 10/23/23 22:59 06:59 14:59 Intake Total 54.304 Balance 54.304 Intake: Intake, IV Titration 54.304 Amount Heparin Sod,Pork in 0.45% 54.304 NaCl 25,000 unit In 0.45 % NaCl 1 250ml.bag @ 12 UNITS/KG/HR 7.947 mls/hr IV .Q24H [facility] Rx#: [id number] Other: Weight 66.224 kg 10/23/23 04:17 10/22/23 19:15
[2023-10-23] MEDS ORDERED: ALBUTEROL NEBULIZED 2.5 MG/3 ML INHALATION PRN (11:06)
[2023-10-23] MEDS ORDERED: CYCLOBENZAPRINE 5 MG TAB PO PRN (11:06)
[2023-10-23] MEDS ORDERED: DEXTROSE 50% SYRINGE 50 ML IVP PRN ×2 (11:07)
[2023-10-23] MEDS: SYMBICORT 160-4.5 MCG INHALER INHALATION SCH (12:10)
[2023-10-23 12:29] LABS: Glucose,Whole Blood 230 mg/dL (70-110)
[2023-10-23] MEDS: EZETIMIBE 10 MG TAB PO SCH (12:44)
[2023-10-23] MEDS: ENOXAPARIN 40 MG/0.4 ML SYRINGE SQ SCH (12:44)
[2023-10-23] MEDS: INSULIN ASPART (NovoLOG) 100 UNIT/ML VIAL SQ SCH ×2 (12:44→12:45)
[2023-10-23 12:55] LABS: Anion Gap 4 mmol/L; Blood Urea Nitrogen 20 mg/dL (7-17); Carbon Dioxide 24 mmol/L (22-30); Chloride 110 mmol/L (98-107); Glucose 138 mg/dL (74-99); Potassium 3.4 mmol/L (3.5-5.1); Sodium 138 mmol/L (137-145)
[2023-10-23 12:56] LABS: African American GFR (CKD) 79 (>60 ml/min/1.73 sqM); Calcium 7.7 mg/dL (8.4-10.2); Magnesium 1.4 mg/dL (1.6-2.3); Non-African American GFR(CKD) 69 (>60 ml/min/1.73 sqM)
[2023-10-23] MEDS ORDERED: Magnesium Replacement Protocol 1 EACH MISC MISCELLANE PRN (13:30)
[2023-10-23] MEDS ORDERED: Potassium Replacement Protocol 1 EACH MISC MISCELLANE PRN (13:31)
--- NOTE | 2023-10-23 14:27 | P.HPIM ---
History of Present Illness H&P Date: 10/23/23 Chief Complaint: Vomiting diarrhea This is a pleasant [address] Mckeon. Chronic medical conditions include COPD, hypertension, depression, peripheral neuropathy. Stroke June 2023-no residual. September 19 cardiac catheterization showed nonobstructive disease. Patient around 4:30 PM yesterday started vomiting. Vomiting twice at home and twice in the ER. Also admit abdominal pain. Also with 2 bouts of large diarrhea yesterday. Patient ate and some frozen ham from the freezer. No dizziness no lightheadedness today. No nausea or diarrhea vomiting today. Patient has some troponin leak. Cardiology was consulted. No anterior chest wall pain. Review of systems: GEN.: Tired EYES: None HEENT: None NECK: None RESPIRATORY: As above CARDIOVASCULAR: None GASTROINTESTINAL: As above GENITOURINARY: None MUSCULOSKELETAL: Joint pains LYMPHATICS: None HEMATOLOGICAL: None PSYCHIATRY: None NEUROLOGICAL: As above Social history: Lives alone. Recovered from alcoholism. Non-smoker. Physical examination: VITAL SIGNS: 97.2, 92, 16, 132.99, 96% room air upon presentation GENERAL: Lying in bed, tired EYES: Pupils equal. Conjunctiva normal. HEENT: External appearance of nose and ears normal, oral cavity grossly normal. NECK: JVD not raised; masses not palpable. HEART: First and second heart sounds are normal; no edema. Systolic murmur in the aortic area LUNGS:[ Respiratory rate increased decreased breath sounds, no wheezing ABDOMEN: Soft, nontender, liver spleen not palpable, no masses palpable. PSYCH: Alert and oriented x3; mood and affect slightly anxiousl. MUSCULAR skeletal: None NEUROLOGICAL: Cranial nerves grossly intact; no facial asymmetry, power and sensation grossly intact. LYMPHATICS: No lymph nodes palpable in the axilla and neck INVESTIGATIONS, reviewed in the clinical context: October 22: Sodium 138 potassium 3.4 BUN 20 creatinine 0.9 magnesium 1.4 October 21: White count 10.6 hemoglobin 14.6 platelets 164 sodium 141 potassium 4.3 creatinine 1.02 Troponin I 0.131, 0.112, 0.105 EKG tracing normal sinus rhythm. Poor R wave progression. Chest x-ray film personally reviewed by me-borderline cardiomegaly CT scan abdomen pelvis: Moderate hiatal hernia. Nonobstructive calcification right kidney. Assessment and plan: -Acute food poisoning. Patient had ham in the freezer present for last few months. Could be the possible culprit. No nausea vomiting diarrhea. This morning. Will try a diet -COPD Ventolin as needed. Symbicort .-Nonobstructive CAD including 40-50% proximal RCA stenosis,Mid LAD 40-50%, diagonal 1 50-60%, mid circumflex 50-60%, OM1 50% stenosis. -June 2023: Stroke in the left frontal lobe cortex and centrum semiovale presenting as dysarthria. Resolved Initial CT scan showing remote infarct. History of 2 prior strokes. Aspirin. Lipitor -Diabetes mellitus type 2 chronically on insulin: Uncontrolled with hyperglycemia secondary to steroids Trulicity. Levemir follow Accu-Cheks -Troponin leak from hemodynamic perspective. Probably type II CT. Cardiology consulted -Mild to moderate arctic regurgitation -Hyperlipidemia Better -Chronic esophageal stricture with history of dysphagia -Full code Discussed with patient. Will try diet. Home medication resumed. 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, heart murmur, kidney stones, nodules on thyroid, Degenerative disc disease, hiatal hernia, past hx of seizure while sleeping last one age 10, RECENT INPT FOR TIA 06/28/23-06/30/23 History of Any Multi-Drug Resistant Organisms: MRSA Date of last positivie culture/infection: 2015 MDRO Source:: R foot Past Surgical History: Section, Cholecystectomy, Orthopedic Surgery Additional Past Surgical History / Comment(s): R hand sx, EGD, colonoscopy Past Anesthesia/Blood Transfusion Reactions: No Reported Reaction Past Psychological History: Depression Smoking Status: Former smoker Past Alcohol Use History: Rare Past Drug Use History: None Reported - Past Family History Mother Family Medical History: Coronary Artery Disease (CAD), Diabetes Mellitus, Renal Disease Brother(s) Family Medical History: Diabetes Mellitus Father Family Medical History: Cancer Medications and Allergies Home Medications Medication Instructions Recorded Confirmed Type Albuterol Inhaler [Ventolin Hfa 2 puff INHALATION RT-QID PRN 08/26/10/23/23 History Inhaler] Budesonide/Formoterol Fumarate 2 puff INHALATION RT-BID 06/28/23 10/23/23 History [Symbicort 160-4.5 Mcg Inhaler] Dulaglutide [Trulicity] 3 mg SQ GOODMAN 06/28/23 10/23/23 History Insulin Glargine,Hum.rec.anlog 40 units SQ HS 06/28/23 10/23/23 History [Lantus Solostar Pen] Insulin Lispro [humaLOG Kwikpen] 8 unit SQ AC-TID 06/28/23 10/23/23 History Aspirin 81 mg PO DAILY #1 tab 06/30/23 10/23/23 Rx Cholecalciferol [Vitamin D3 (25 25 mcg PO DAILY 09/11/23 10/23/23 History Mcg = 1000 Iu)] Cyclobenzaprine [Flexeril] 5 mg PO BID PRN 09/11/23 10/23/23 History Insulin Lispro [humaLOG Kwikpen] See Protocol SQ AC-TID 09/11/23 10/23/23 History Atorvastatin [Lipitor] 40 mg PO HS #30 tab 09/14/23 10/23/23 Rx Ezetimibe [Zetia] 10 mg PO DAILY #30 tab 09/14/23 10/23/23 Rx Losartan Potassium 50 mg PO HS 10/23/23 10/23/23 History Allergies Allergy/AdvReac Type Severity Reaction Status Date / Time doxycycline Allergy Anaphylaxis Verified 10/23/23 08:44 feathers Allergy Dyspnea Verified 10/23/23 08:44 Fish Containing Products Allergy Anaphylaxis Verified 10/23/23 08:44 Iodinated Contrast Media Allergy Anaphylaxis Verified 10/23/23 08:44 kiwi Allergy Anaphylaxis Verified 10/23/23 08:44 latex Allergy Anaphylaxis Verified 10/23/23 08:44 rosuvastatin [From Crestor] Allergy LEG CRAMPS Verified 10/23/23 08:44 shellfish derived [Shellfish] Allergy Anaphylaxis Verified 10/23/23 08:44 Sulfa (Sulfonamide Allergy Anaphylaxis Verified 10/23/23 08:44 Antibiotics) aspartame AdvReac MIGRAINES Verified 10/23/23 08:44 [From Konsyl Sugar-Free (aspartame)] codeine AdvReac Nausea & Verified 10/23/23 08:44 Vomiting & Diarrhea milk AdvReac MAKES PT Verified 10/23/23 08:44 SCHIZOPHRENIC psyllium AdvReac Unknown Verified 10/23/23 08:44 [From Konsyl Sugar-Free (aspartame)] tetracycline [Tetracycline] AdvReac Nausea & Verified 10/23/23 08:44 Vomiting & Diarrhea Tetracyclines AdvReac Anaphylaxis Verified 10/23/23 08:44 all artificial sweetners Allergy Anaphylaxis Uncoded 10/22/23 18:41 [place] peanuts Allergy Anaphylaxis Uncoded 10/22/23 18:41 Physical Exam Vitals: Vital Signs Temp Pulse Resp BP Pulse Ox 10/23/23 07:00 85 16 160/91 94 L 10/23/23 05:26 92 16 156/87 96 10/23/23 02:10 90 16 182/109 97 10/23/23 00:01 170/98 10/23/23 00:00 96 168/93 97 10/22/23 22:00 98.0 F 98 18 168/93 97 10/22/23 21:00 96 17 165/89 10/22/23 20:00 98.0 F 95 20 160/58 98 10/22/23 19:00 97.6 F 90 16 172/99 97 10/22/23 18:30 97.2 F L 92 16 172/99 96 Intake and Output 10/22/23 10/23/23 10/23/23 22:59 06:59 14:59 Intake Total 54.304 Balance 54.304 Intake: Intake, IV Titration 54.304 Amount Heparin Sod,Pork in 0.45% 54.304 NaCl 25,000 unit In 0.45 % NaCl 1 250ml.bag @ 12 UNITS/KG/HR 7.947 mls/hr IV .Q24H [facility] Rx#: [id number] Other: Weight 66.224 kg Results CBC & Chem 7: 10/23/23 04:17 10/23/23 09:45 Labs: Abnormal Lab Results - Last 24 Hours (Table) 10/22/23 10/22/23 10/22/23 Range/Units 19:15 19:15 19:28 Plt Count (150-450) k/uL Neutrophils # 9.8 H (1.3-7.7) k/uL Lymphocytes # 0.3 L (1.0-4.8) k/uL APTT (22.0-30.0) sec Chloride 108 H (98-107) mmol/L BUN 26 H (7-17) mg/dL Glucose 219 H (74-99) mg/dL Magnesium 1.3 L (1.6-2.3) mg/dL Total Bilirubin 1.5 H (0.2-1.3) mg/dL Troponin I 0.131 H* (0.000-0.034) ng/mL 10/22/23 10/23/23 10/23/23 Range/Units 21:33 04:17 04:17 Plt Count (150-450) k/uL Neutrophils # (1.3-7.7) k/uL Lymphocytes # (1.0-4.8) k/uL APTT 67.5 H (22.0-30.0) sec Chloride (98-107) mmol/L BUN (7-17) mg/dL Glucose (74-99) mg/dL Magnesium (1.6-2.3) mg/dL Total Bilirubin (0.2-1.3) mg/dL Troponin I 0.112 H* 0.105 H* (0.000-0.034) ng/mL 10/23/23 10/23/23 Range/Units 04:17 09:45 Plt Count 140 L (150-450) k/uL Neutrophils # (1.3-7.7) k/uL Lymphocytes # (1.0-4.8) k/uL APTT 40.8 H (22.0-30.0) sec Chloride (98-107) mmol/L BUN (7-17) mg/dL Glucose (74-99) mg/dL Magnesium (1.6-2.3) mg/dL Total Bilirubin (0.2-1.3) mg/dL Troponin I (0.000-0.034) ng/mL
[2023-10-23] MEDS: MAGNESIUM SULFATE-D5W PMX 1 GM in DEXTROSE/WATER 1 100ML.BAG IVPB SCH (14:51)
[2023-10-23] MEDS: POTASSIUM CHLORIDE ER 20 MEQ TAB.ER PO SCH (14:52)
[2023-10-23 16:26] LABS: Glucose,Whole Blood 52 mg/dL (70-110)
[2023-10-23] MEDS: POTASSIUM BICARBONATE/CIT AC 20 MEQ TABLET.EFF PO ONE (16:39)
[2023-10-23 16:44] LABS: Glucose,Whole Blood 63 mg/dL (70-110)
[2023-10-23] MEDS: ACETAMINOPHEN TAB 325 MG TAB PO PRN (17:06)
[2023-10-23 17:07] LABS: Glucose,Whole Blood 85 mg/dL (70-110)
[2023-10-23 20:09] LABS: Glucose,Whole Blood 189 mg/dL (70-110)
[2023-10-23] MEDS: LOSARTAN 50 MG TAB PO SCH (20:35)
[2023-10-23] MEDS: ATORVASTATIN 40 MG TAB PO SCH (20:36)
[2023-10-23] MEDS: INSULIN DETEMIR (LEVEMIR) 100 UNIT/ML SYR SQ SCH (20:36)
[2023-10-24 05:58] LABS: Glucose,Whole Blood 71 mg/dL (70-110)
[2023-10-24 06:54] LABS: Mean Platelet Volume 8.6; Platelet Count 150 k/uL (150-450)
[2023-10-24] MEDS: CHOLECALCIFEROL 25 MCG (1000 IU) TABLET PO SCH (09:02)
[2023-10-24] MEDS: NON FORMULARY DRUG (Dulaglutide [Trulicity] 3 MG/0.5 ML Each) SQ SCH (09:08)
[2023-10-24 09:13] VITALS: TEMP 97.9
--- NOTE | 2023-10-24 10:23 | P.PN ---
Subjective HISTORY OF PRESENT ILLNESS: This is a 63-year-old female with a past medical history significant for coronary artery disease, hypertension, hyperlipidemia, COPD, peripheral neuropathy, and CVA. Patient follows in the office with Dr. Cohen. We have been asked to see the patient in consultation for elevated troponins. Patient examined at the bedside in the emergency room. Patient states yesterday she began having significant nausea and vomiting along with diarrhea. She is unsure if this was related to the heat yesterday or if she caught a bug that her neighbor had. She states that yesterday she passed out 4-5 times. She states that she did lose consciousness when this happened. She states 1 episode she was sitting in the chair and when she came to she was on the floor. She states that a friend came over after that incident and apparently the patient did not recognize who she was. The patient does report having pain in the abdomen this morning. She denies any chest pain or pressure. She denies any shortness of breath. She reports some mild dizziness this morning. Patient's blood pressures have been significantly elevated during hospitalization. She states she is been compliant with her medications. It is noted that the patient had an event monitor placed last month and did have an episode of nonsustained ventri cular tachycardia. DIAGNOSTICS: - EKG reveals sinus mechanism with no signs of acute ischemia. - Laboratory data: WBC 10.6. Hemoglobin 14.6. Platelet count 164. Sodium 141. Potassium 4.3. BUN 26. Creatinine 1.02. Troponin 0.131. 0.112. 0.105. - Current home cardiac medications include aspirin 81 mg daily, Lipitor 40 mg at night, Zetia 10 mg daily, losartan 50 mg at night. - Most recent echocardiogram obtained in September 2023 revealed ejection fraction 55 to 60%, mild to moderate aortic stenosis - Cardiac catheterization history: September 2023 revealing 40 to 50% proximal RCA stenosis, mid LAD 40 to 50% stenosis, diagonal 150 to 60% stenosis, mid circumflex 50 to 60% stenosis, OM1 50% stenosis. iFR of the LAD and circumflex was normal. Medical management was recommended. 10/24/2023 Patient examined this morning at the bedside. Patient currently denies chest pain or pressure. She denies shortness of breath. Blood pressure stable with a systolic in the [id number]. She denies any further episodes of nausea or vomiting. She is tolerating oral intake. PHYSICAL EXAM: VITAL SIGNS: Reviewed. GENERAL: Well-developed in no acute distress. HEENT: Head is normocephalic. Pupils are equal, round. Sclerae anicteric. Mucous membranes of the mouth are moist. Neck supple. No JVD or thyromegaly LUNGS: Respirations even and unlabored. Lungs essentially clear to auscultation bilaterally. HEART: Regular rate and rhythm. S1 and S2 heard. 3/6 systolic murmur radiating to the neck ABDOMEN: Soft. Nondistended. Nontender. EXTREMITIES: Normal range of motion. No clubbing or cyanosis. Peripheral pulses intact. No lower extremity edema NEUROLOGIC: Awake and alert. Oriented x 3. ASSESSMENT: Nausea, vomiting, diarrhea Elevated troponins, likely type II PR secondary to nausea, vomiting, diarrhea, and uncontrolled hypertension Hypertension, uncontrolled Syncope, etiology unclear Mild to moderate coronary artery disease with recent catheterization in September 2023 as above Hypertension Hyperlipidemia COPD Peripheral neuropathy Nonsustained ventricular tachycardia, noted on outpatient event monitor History of multiple CVA, last in June 2023 per patient Mild to moderate aortic stenosis Diabetes PLAN: Continue current cardiac medications Patient is stable for discharge home today from a cardiac standpoint She is to follow-up postdischarge with Dr. Cohen Nurse practitioner note has been reviewed by physician. Signing provider agrees with the documented findings, assessment, and plan of care documented by PLANT [employer] SUPERVISOR as a scribe. Objective - Vital Signs Vital signs: Vital Signs Temp 97.9 F 10/24/23 08:45 Pulse 75 10/24/23 08:45 Resp 16 10/24/23 08:45 BP 158/80 10/24/23 08:45 Pulse Ox 98 10/24/23 08:45 FiO2 Intake & Output 10/23/23 10/24/23 10/24/23 18:59 06:59 18:59 Intake Total 20 360 Balance 20 360 Weight 66.224 kg Intake: IV 20 Invasive Line 1 20 Oral 360 Other: Voiding Method Toilet Toilet # Voids 1 1 # Bowel Movements 1 - Labs CBC & Chem 7: 10/24/23 06:33 10/23/23 09:45 Labs: Abnormal Lab Results - Last 24 Hours (Table) 10/23/23 10/23/23 10/23/23 Range/Units 09:45 09:45 12:28 APTT 40.8 H (22.0-30.0) sec Potassium 3.4 L (3.5-5.1) mmol/L Chloride 110 H (98-107) mmol/L BUN 20 H (7-17) mg/dL Glucose 138 H (74-99) mg/dL POC Glucose (mg/dL) 230 H (70-110) mg/dL Calcium 7.7 L (8.4-10.2) mg/dL Magnesium 1.4 L (1.6-2.3) mg/dL 10/23/23 10/23/23 10/23/23 Range/Units 16:22 16:40 20:07 APTT (22.0-30.0) sec Potassium (3.5-5.1) mmol/L Chloride (98-107) mmol/L BUN (7-17) mg/dL Glucose (74-99) mg/dL POC Glucose (mg/dL) 52 L 63 L 189 H (70-110) mg/dL Calcium (8.4-10.2) mg/dL Magnesium (1.6-2.3) mg/dL
[2023-10-24 11:35] LABS: Glucose,Whole Blood 139 mg/dL (70-110)
[2023-10-24 12:12] VITALS: BP 132/74; PULSE 72; RESP 18
--- NOTE | 2023-10-24 18:46 | P.DS ---
Providers Date of admission: 10/22/23 20:54 Expected date of discharge: 10/24/23 Attending physician: Antelmo Terry Consults: 10/22/23 20:52 Consult Physician Urgent Consulting Provider: Pop Tran Consult Reason/Comments: nstemi,syncope Do you want consulting provider notified?: Yes Primary care physician: [facility] Course: Chief Complaint: Vomiting diarrhea This is a pleasant [address] Mckeon. Chronic medical conditions include COPD, hypertension, depression, peripheral neuropathy. Stroke June 2023-no residual. September 19 cardiac catheterization showed nonobstructive disease. Patient around 4:30 PM yesterday started vomiting. Vomiting twice at home and twice in the ER. Also admit abdominal pain. Also with 2 bouts of large diarrhea yesterday. Patient ate and some frozen ham from the freezer. No dizziness no lightheadedness today. No nausea or diarrhea vomiting today. Patient has some troponin leak. Cardiology was consulted. No anterior chest wall pain. October 23: Doing well. Tolerating diet. No nausea vomiting. No diarrhea. [place] of acute gastroenteritis. Discussed. Keen to go home. Social history: Lives alone. Recovered from alcoholism. Non-smoker. Physical examination: VITAL SIGNS: 97.9, 72, 18, 132 x 74, 97% room air GENERAL: L sitting up in bed comfortable EYES: Pupils equal. Conjunctiva normal. HEENT: External appearance of nose and ears normal, oral cavity grossly normal. NECK: JVD not raised; masses not palpable. HEART: First and second heart sounds are normal; no edema. Systolic murmur in the aortic area LUNGS:[ Respiratory rate increased decreased breath sounds, no wheezing ABDOMEN: Soft, nontender, liver spleen not palpable, no masses palpable. PSYCH: Alert and oriented x3; mood and affect slightly anxiousl. MUSCULAR skeletal: None INVESTIGATIONS, reviewed in the clinical context: October 23: Platelets 150 magnesium 2 October 22: Sodium 138 potassium 3.4 BUN 20 creatinine 0.9 magnesium 1.4 October 21: White count 10.6 hemoglobin 14.6 platelets 164 sodium 141 potassium 4.3 creatinine 1.02 Troponin I 0.131, 0.112, 0.105 EKG tracing normal sinus rhythm. Poor R wave progression. Chest x-ray film personally reviewed by me-borderline cardiomegaly CT scan abdomen pelvis: Moderate hiatal hernia. Nonobstructive calcification right kidney. Assessment and plan: -Acute food poisoning. Patient had ham in the freezer present for last few months. Could be the possible culprit.: Resolved Tolerating diet -COPD Ventolin as needed. Symbicort .-Nonobstructive CAD including 40-50% proximal RCA stenosis,Mid LAD 40-50%, diagonal 1 50-60%, mid circumflex 50-60%, OM1 50% stenosis. -June 2023: Stroke in the left frontal lobe cortex and centrum semiovale presenting as dysarthria. Resolved Initial CT scan showing remote infarct. History of 2 prior strokes. Aspirin. Lipitor -Diabetes mellitus type 2 chronically on insulin: Uncontrolled with hype rglycemia secondary to steroids Trulicity. Levemir follow Accu-Cheks -Troponin leak from hemodynamic perspective. Probably type II [place]. 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, heart murmur, kidney stones, nodules on thyroid, Degenerative disc disease, hiatal hernia, past hx of seizure while sleeping last one age 10, RECENT INPT FOR TIA 06/28/23-06/30/23 History of Any Multi-Drug Resistant Organisms: MRSA Date of last positivie culture/infection: 2015 MDRO Source:: R foot Past Surgical History: Section, Cholecystectomy, Orthopedic Surgery Additional Past Surgical History / Comment(s): R hand sx, EGD, colonoscopy Past Anesthesia/Blood Transfusion Reactions: No Reported Reaction Past Psychological History: Depression Smoking Status: Former smoker Past Alcohol Use History: Rare Past Drug Use History: None Reported Plan - Discharge Summary Discharge Rx Participant: No New Discharge Prescriptions: New carvediloL [Coreg] 6.25 mg PO BID-W/MEALS #60 tab Continue Albuterol Inhaler [Ventolin Hfa Inhaler] 2 puff INHALATION RT-QID PRN PRN Reason: Shortness Of Breath Insulin Glargine,Hum.rec.anlog [Lantus Solostar Pen] 40 units SQ HS Budesonide/Formoterol Fumarate [Symbicort 160-4.5 Mcg Inhaler] 2 puff INHALATION RT-BID Aspirin 81 mg PO DAILY #1 tab Ezetimibe [Zetia] 10 mg PO DAILY #30 tab Losartan Potassium 50 mg PO HS Insulin Lispro [humaLOG Kwikpen] 8 unit SQ AC-TID Dulaglutide [Trulicity] 3 mg SQ GOODMAN Cholecalciferol [Vitamin D3 (25 Mcg = 1000 Iu)] 25 mcg PO DAILY Insulin Lispro [humaLOG Kwikpen] See Protocol SQ AC-TID Cyclobenzaprine [Flexeril] 5 mg PO BID PRN PRN Reason: Muscle Spasm Atorvastatin [Lipitor] 40 mg PO HS #30 tab Discharge Medication List Albuterol Inhaler [Ventolin Hfa Inhaler] 2 puff INHALATION RT-QID PRN 08/27/15 [History] Budesonide/Formoterol Fumarate [Symbicort 160-4.5 Mcg Inhaler] 2 puff INHALATION RT-BID 06/28/23 [History] Dulaglutide [Trulicity] 3 mg SQ GOODMAN 06/28/23 [History] Insulin Glargine,Hum.rec.anlog [Lantus Solostar Pen] 40 units SQ HS 06/28/23 [History] Insulin Lispro [humaLOG Kwikpen] 8 unit SQ AC-TID 06/28/23 [History] Aspirin 81 mg PO DAILY #1 tab 06/30/23 [Rx] Cholecalciferol [Vitamin D3 (25 Mcg = 1000 Iu)] 25 mcg PO DAILY 09/11/23 [History] Cyclobenzaprine [Flexeril] 5 mg PO BID PRN 09/11/23 [History] Insulin Lispro [humaLOG Kwikpen] See Protocol SQ AC-TID 09/11/23 [History] Atorvastatin [Lipitor] 40 mg PO HS #30 tab 09/14/23 [Rx] Ezetimibe [Zetia] 10 mg PO DAILY #30 tab 09/14/23 [Rx] Losartan Potassium 50 mg PO HS 10/23/23 [History] carvediloL [Coreg] 6.25 mg PO BID-W/MEALS #60 tab 10/24/23 [Rx] Follow up Appointment(s)/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
[2023-10-25 00:11] LABS: Chol/HDL Ratio 3.12 Ratio; LDL Cholesterol,Calculated 53.3 mg/dL (0.0-131.0)
== END 2023-10-24 13:42 | disposition home or self-care (01) | DRG 816 ==
LOC: EC 18:26 → 3SCARD 20:54
PROVIDERS: ADMIT Hospitalist; ATTEND Hospitalist
DX: T62.8X1A Toxic effect of other specified noxious substances eaten as food, accidental (unintentional), initial encounter (principal); I21.A1 Myocardial infarction type 2; E11.40 Type 2 diabetes mellitus with diabetic neuropathy, unspecified; E11.65 Type 2 diabetes mellitus with hyperglycemia; Z79.4 Long term (current) use of insulin; E78.5 Hyperlipidemia, unspecified; F10.21 Alcohol dependence, in remission; F32.A Depression, unspecified; G40.909 Epilepsy, unspecified, not intractable, without status epilepticus; I10 Essential (primary) hypertension; I25.10 Atherosclerotic heart disease of native coronary artery without angina pectoris; I35.0 Nonrheumatic aortic (valve) stenosis; I47.20 Ventricular tachycardia, unspecified; J44.9 Chronic obstructive pulmonary disease, unspecified; I69.398 Other sequelae of cerebral infarction; T38.0X5A Adverse effect of glucocorticoids and synthetic analogues, initial encounter; K22.2 Esophageal obstruction; M19.90 Unspecified osteoarthritis, unspecified site; K21.9 Gastro-esophageal reflux disease without esophagitis; R13.10 Dysphagia, unspecified; I25.2 Old myocardial infarction; Z88.1 Allergy status to other antibiotic agents; H54.3 Unqualified visual loss, both eyes; K44.9 Diaphragmatic hernia without obstruction or gangrene; Z91.010 Allergy to peanuts; Z79.85 Long-term (current) use of injectable non-insulin antidiabetic drugs; Z87.891 Personal history of nicotine dependence; Z91.041 Radiographic dye allergy status; Z60.2 Problems related to living alone; Z91.040 Latex allergy status; Z88.5 Allergy status to narcotic agent; Z79.51 Long term (current) use of inhaled steroids; Z88.2 Allergy status to sulfonamides; Z79.82 Long term (current) use of aspirin; Z79.899 Other long term (current) drug therapy; Z87.442 Personal history of urinary calculi; Z86.14 Personal history of Methicillin resistant Staphylococcus aureus infection; Z28.310 Unvaccinated for COVID-19; Z28.21 Immunization not carried out because of patient refusal
CPT/HCPCS: 36415; 71046; 74176; 80048; 80053; 80061; 83735; 84484; 85025; 85049; 85610; 85730; 93005; 96361; 96365; 96366; 96367; 96372; 96375; 96376; 99291

== ENCOUNTER 2023-11-29 11:44 | Day surgery (SDC) | payer OTHER ==
[2023-11-29] MEDS: SODIUM CHLORIDE 0.9% 500 ML 500 ML IV SCH (12:11)
[2023-11-29 12:24] LABS: Glucose,Whole Blood 258 mg/dL (70-110)
[2023-11-29 12:27] VITALS: TEMP 97.7
[2023-11-29] MEDS: IV FLUID CONTINUATION 1,000 ML IV ONE (12:27)
[2023-11-29] MEDS: INSULIN ASPART (NovoLOG) 100 UNIT/ML VIAL SQ SCH (12:40)
[2023-11-29] MEDS ORDERED: fentaNYL (PF) 50 MCG/ML 2 ML AMP ONE (12:57)
[2023-11-29] MEDS: BENZOCAINE SPRAY 1 CAN TOPICAL ONE (13:04)
[2023-11-29] MEDS: MIDAZOLAM 2 MG/2 ML VIAL IVP ONE ×2 (13:06→13:08)
[2023-11-29] MEDS: fentaNYL (PF) 50 MCG/ML 2 ML AMP IVP ONE (13:06)
--- NOTE | 2023-11-29 13:44 | P.TEE ---
Description of Procedure(s): Procedure performed: Transesophageal Echocardiogram with color flow doppler, pulsed wave doppler and continuous wave doppler, moderate conscious sedation Moderate conscious sedation: Moderate conscious sedation was supplied with direct supervision of myself using Versed and Fentanyl. Complications: none Indications: stroke PROCEDURE: After the risks, benefits and alternatives of the above mentioned procedure was explained in detail with the patient, informed consent was obtained. Patient was brought to the lab in a fasting state. Patient was given IV Versed and Fentanyl for sedation. The throat was sprayed with Hurricane to anesthetize the throat. A lubricated Omni probe was then introduced into the esophagus and stomach and multiple views were obtained. 2D echo with color flow doppler, pulsed wave doppler and continuous wave doppler was utilized. Agitated saline bubbles were injected to assess for any intra-atrial shunt. The probe was then removed. Patient tolerated the procedure well. Patient was transferred to the post procedure area in stable and satisfactory condition. FINDINGS: 1. The aortic valve is tricuspid with moderate to severe aortic stenosis with aortic valve area 0.8 cm by planimetry however maximum velocity 2.6 m/s by Doppler. 2. The mitral valve appears be normal with mild regurgitation. 3. Tricuspid valve appears to be normal. 4. There is a positive bubble study with small amount of bubbles crossing appears consistent with PFO. Some late shunting after 3 beats however mostly shunting with Valsalva. 5. Left atrial appendage is free of clot. 6. Left ventricular EF 55%
[2023-11-29 14:33] VITALS: BP 150/77; PULSE 86; RESP 16
== END 2023-11-29 15:11 | disposition home or self-care (01) ==
LOC: CATHCVL 11:44
PROVIDERS: ATTEND Internal Medicine
DX: I08.0 Rheumatic disorders of both mitral and aortic valves (principal); I25.10 Atherosclerotic heart disease of native coronary artery without angina pectoris; E11.42 Type 2 diabetes mellitus with diabetic polyneuropathy; E78.5 Hyperlipidemia, unspecified; I10 Essential (primary) hypertension; J44.9 Chronic obstructive pulmonary disease, unspecified; Z86.73 Personal history of transient ischemic attack (TIA), and cerebral infarction without residual deficits; Z88.1 Allergy status to other antibiotic agents; Z91.013 Allergy to seafood; Z88.5 Allergy status to narcotic agent; Z88.8 Allergy status to other drugs, medicaments and biological substances; Z79.82 Long term (current) use of aspirin; Z79.85 Long-term (current) use of injectable non-insulin antidiabetic drugs; Z79.4 Long term (current) use of insulin; Z79.51 Long term (current) use of inhaled steroids
CPT/HCPCS: 93312; 93320; 93325; 99152; J2250; J3010

== ENCOUNTER 2024-02-24 12:32 | Emergency (ER) | payer OTHER ==
[2024-02-24 12:48] LABS: Glucose,Whole Blood 215 mg/dL (70-110)
[2024-02-24 12:52] VITALS: RESP 18
[2024-02-24 13:32] LABS: Basophils % (A) 0 %; Eosinophils # (A) 0.1 k/uL (0-0.7); Eosinophils % (A) 1 %; HCT 43.5 % (34.0-46.0); HGB 14.9 gm/dL (11.4-16.0); Lymphocytes # (A) 0.9 k/uL (1.0-4.8); Lymphocytes % (A) 7 %; MCH 28.1 pg (25.0-35.0); MCHC 34.3 g/dL (31.0-37.0); Mean Platelet Volume 8.2; Monocytes # (A) 0.5 k/uL (0-1.0); Monocytes % (A) 4 %; Neutrophils # (A) 11.4 k/uL (1.3-7.7); Neutrophils % (A) 88 %; Platelet Count 248 k/uL (150-450); RDW 13.5 % (11.5-15.5)
[2024-02-24] MEDS: SODIUM CHLORIDE 0.9% 1,000 ML IV STA (13:34)
[2024-02-24 13:46] LABS: ALT 24 U/L (4-34); AST 25 U/L (14-36); African American GFR (CKD) 68 (>60 ml/min/1.73 sqM); Albumin 4.2 g/dL (3.5-5.0); Alkaline Phosphatase 67 U/L (38-126); Anion Gap 8 mmol/L; Blood Urea Nitrogen 26 mg/dL (7-17); Calcium 9.5 mg/dL (8.4-10.2); Carbon Dioxide 25 mmol/L (22-30); Chloride 107 mmol/L (98-107); Glucose 208 mg/dL (74-99); Lipase 232 U/L (23-300); Non-African American GFR(CKD) 59 (>60 ml/min/1.73 sqM); Potassium 4.1 mmol/L (3.5-5.1); Sodium 140 mmol/L (137-145); Total Bilirubin 0.8 mg/dL (0.2-1.3); Total Protein 6.8 g/dL (6.3-8.2)
--- NOTE | 2024-02-24 15:13 | ED ---
General Adult HPI - General Chief complaint: Nausea/Vomiting/Diarrhea Stated complaint: NV Time Seen by Provider: 02/24/24 12:40 Source: EMS Mode of arrival: EMS Limitations: no limitations - History of Present Illness Initial comments: 64-year-old female with past medical history of hiatal hernia, CVA who presents to the emergency department reporting nausea and vomiting. States that she was over at the neurology office awaiting to get an MRI. She had sudden onset of nausea and vomiting. States that this will occasionally happen to her as she has a large hiatal hernia. She has been evaluated by a surgeon at [facility] and is expected to get surgery on the hernia in May. She does have Zofran available to use at home for her nausea but did not have any with there. She denies fevers, chills or cough. No abdominal pain. No urinary complaints. No black or bloody stools. She was given Zofran by EMS. No other alleviating, precipitating or modifying factors - Related Data Home Medications Medication Instructions Recorded Confirmed Albuterol Inhaler [Ventolin Hfa 2 puff INHALATION RT-QID PRN 08/27/15 02/24/24 Inhaler] Budesonide/Formoterol Fumarate 2 puff INHALATION RT-BID 06/28/23 02/24/24 [Symbicort 160-4.5 Mcg Inhaler] Dulaglutide [Trulicity] 3 mg SQ TH 06/28/23 02/24/24 Insulin Glargine,Hum.rec.anlog 30 units SQ DAILY 06/28/23 02/24/24 [Lantus Solostar Pen] Cholecalciferol [Vitamin D3 (25 25 mcg PO DAILY 09/11/23 02/24/24 Mcg = 1000 Iu)] Atorvastatin [Lipitor] 80 mg PO HS 02/24/24 02/24/24 Clopidogrel [Plavix] 75 mg PO DAILY 02/24/24 02/24/24 Empagliflozin [Jardiance] 10 mg PO DIRECTED 02/24/24 02/24/24 Losartan Potassium 100 mg PO DAILY 02/24/24 02/24/24 Magnesium Oxide [Magnesium] 500 mg PO BID 02/24/24 02/24/24 Omeprazole 20 mg PO DAILY 02/24/24 02/24/24 Ondansetron [Zofran] 4 mg PO Q8H PRN 02/24/24 02/24/24 Allergies Allergy/AdvReac Type Severity Reaction Status Date / Time doxycycline Allergy Anaphylaxis Verified 02/24/24 14:44 feathers Allergy Dyspnea Verified 02/24/24 14:44 Fish Containing Products Allergy Anaphylaxis Verified 02/24/24 14:44 Iodinated Contrast Media Allergy Anaphylaxis Verified 02/24/24 14:44 kiwi Allergy Anaphylaxis Verified 02/24/24 14:44 latex Allergy Anaphylaxis Verified 02/24/24 14:44 rosuvastatin [From Crestor] Allergy LEG CRAMPS Verified 02/24/24 14:44 shellfish derived [Shellfish] Allergy Anaphylaxis Verified 02/24/24 14:44 Sulfa (Sulfonamide Allergy Anaphylaxis Verified 02/24/24 14:44 Antibiotics) aspartame AdvReac MIGRAINES Verified 02/24/24 14:44 [From Konsyl Sugar-Free (aspartame)] codeine AdvReac Nausea & Verified 02/24/24 14:44 Vomiting & Diarrhea milk AdvReac MAKES PT Verified 02/24/24 14:44 SCHIZOPHRENIC psyllium AdvReac Unknown Verified 02/24/24 14:44 [From Konsyl Sugar-Free (aspartame)] tetracycline [Tetracycline] AdvReac Nausea & Verified 02/24/24 14:44 Vomiting & Diarrhea Tetracyclines AdvReac Anaphylaxis Verified 02/24/24 14:44 all artificial sweetners Allergy Anaphylaxis Uncoded 11/25/23 11:55 maltese peanuts Allergy Anaphylaxis Uncoded 11/25/23 11:55 Review of Systems ROS Statement: Those systems with pertinent positive or pertinent negative responses have been documented in the HPI. ROS Other: All systems not noted in ROS Statement are negative. 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, heart murmur, kidney stones, nodules on thyroid, Degenerative disc disease, hiatal hernia, past hx of seizure while sleeping last one age 10, eczema, pneumonia September 2023, no CPAP History of Any Multi-Drug Resistant Organisms: MRSA Date of last positivie culture/infection: 2015 MDRO Source:: R foot Past Surgical History: Section, Cholecystectomy, Heart Catheterization, Orthopedic Surgery Additional Past Surgical History / Comment(s): R hand sx, EGD, colonoscopy Past Anesthesia/Blood Transfusion Reactions: No Reported Reaction, Family History of Problems w/ Anesthesia Additional Past Anesthesia/Blood Transfusion Reaction / Comment(s): mom- PONV Past Psychological History: Depression Smoking Status: Former smoker - Past Family History Mother Family Medical History: Coronary Artery Disease (CAD), Diabetes Mellitus, Renal Disease Brother(s) Family Medical History: Diabetes Mellitus Father Family Medical History: Cancer General Exam Limitations: no limitations General appearance: alert, in no apparent distress Head exam: Present: atraumatic, normocephalic, normal inspection Eye exam: Present: normal appearance, PERRL, EOMI. Absent: scleral icterus, conjunctival injection, periorbital swelling ENT exam: Present: normal exam, mucous membranes moist Neck exam: Present: normal inspection. Absent: tenderness, meningismus, lymphadenopathy Respiratory exam: Present: normal lung sounds bilaterally. Absent: respiratory distress, wheezes, rales, rhonchi, stridor Cardiovascular Exam: Present: regular rate, normal rhythm, normal heart sounds. Absent: systolic murmur, diastolic murmur, rubs, gallop, clicks GI/Abdominal exam: Present: soft, normal bowel sounds. Absent: distended, tenderness, guarding, rebound, rigid Extremities exam: Present: normal inspection, full ROM, normal capillary refill. Absent: tenderness, pedal edema, joint swelling, calf tenderness Back exam: Present: normal inspection Neurological exam: Present: alert, oriented X3, CN II-XII intact Psychiatric exam: Present: normal affect, normal mood Skin exam: Present: warm, dry, intact, normal color. Absent: rash Course Vital Signs 02/24/24 02/24/24 02/24/24 12:34 13:37 15:14 Temperature 98.4 F 98.6 F Pulse Rate 86 84 89 Respiratory 18 18 18 Rate Blood Pressure 155/93 157/88 165/89 O2 Sat by Pulse 100 99 97 Oximetry Medical Decision Making - Medical Decision Making Was pt. sent in by a medical professional or institution (, PA, LANDSCAPE DRAFTER, urgent care, hospital, or penitentiary...) When possible be specific @ -Patient was sent in from the neurology office Did you speak to anyone other than the patient for history (EMS, parent, family, police, friend...)? What history was obtained from this source @ -Spoke with EMS for history Did you review nursing and triage notes (agree or disagree)? Why? @ -I reviewed and agree with nursing and triage notes Were old charts reviewed (outside hosp., previous admission, EMS record, old EKG, old radiological studies, urgent care reports/EKG's, penitentiary records)? Report findings @ -No old charts were reviewed Differential Diagnosis (chest pain, altered mental status, abdominal pain women, abdominal pain men, vaginal bleeding, weakness, fever, dyspnea, syncope, headache, dizziness, GI bleed, back pain, seizure, CVA, palpatations, mental health, musculoskeletal)? @ -Differential Abdominal Pain Women: Appendicitis, Cholecystitis, diverticulosis, ischemic bowel, pancreatitis, hepatitis, UTI, gastroenteritis, AAA, incarcerated hernia, bowel obstruction, constipation, inflammatory bowel, hepatitis, peptic ulcer disease, splenic infarction, perforated viscus, vulvitis, ovarian torsion, PID, kidney stone, placenta abruption, this is not meant to be an all-inclusive list EKG interpreted by me (3pts min.). @ -Not done X-rays interpreted by me (1pt min.). @ -None done CT interpreted by me (1pt min.). @ -None done U/S interpreted by me (1pt. min.). @ -None done What testing was considered but not performed or refused? (CT, X-rays, U/S, labs)? Why? @ -None What meds were considered but not given or refused? Why? @ -None Did you discuss the management of the patient with other professionals (professionals i.e. , PA, LANDSCAPE DRAFTER, lab, RT, psych nurse, social work therapist, crib attendant, teacher, occupational medicine officer, case reviewer)? Give summary @ -No Was smoking cessation discussed for >3mins.? @ -No Was critical care preformed (if so, how long)? @ -No Were there social determinants of health that impacted care today? How? (Home lessness, low income, unemployed, alcoholism, drug addiction, transportation, low edu. Level, literacy, decrease access to med. care, group home, rehab)? @ -No Was there de-escalation of care discussed even if they declined (Discuss DNR or withdrawal of care, Hospice)? DNR status @ -No What co-morbidities impacted this encounter? (DM, HTN, Smoking, COPD, CAD, Cancer, CVA, ARF, Chemo, Hep., AIDS, mental health diagnosis, sleep apnea, morbid obesity)? @ -Hiatal hernia, CVA Was patient admitted / discharged? Hospital course, mention meds given and route, prescriptions, significant lab abnormalities, going to OR and other pertinent info. @ -Upon arrival patient seen and evaluated in hallway 26. Thorough history and physical exam was performed. Patient was given Zofran from EMS. I did offer additional nausea medications however the patient states that she usually does well with the Zofran. She was given IV fluids. Laboratory studies are conducted. Patient is reevaluated and has not thrown up anymore. She feels improved at this time enough to go home. Patient be discharged home. Recommend that she follow-up with a surgeon at [facility] for continued evaluation and possible surgical repair of her hernia. Return for any new or worsening symptoms. Patient agreeable plan was discharged in stable condition Undiagnosed new problem with uncertain prognosis? @ -No Drug Therapy requiring intensive monitoring for toxicity (Heparin, Nitro, Insulin, Cardizem)? @ -No Were any procedures done? @ -No Diagnosis/symptom? @ -Acute nausea vomiting, history of hiatal hernia Acute, or Chronic, or Acute on Chronic? @ -Acute on chronic Uncomplicated (without systemic symptoms) or Complicated (systemic symptoms)? @ -Complicated Side effects of treatment? @ -No Exacerbation, Progression, or Severe Exacerbation? @ -No Poses a threat to life or bodily function? How? (Chest pain, USA, PR, pneumonia, PE, COPD, DKA, ARF, appy, cholecystitis, CVA, Diverticulitis, Homicidal, Suicidal, threat to staff... and all critical care pts) @ -No - Lab Data Result diagrams: 02/24/24 13:10 02/24/24 13:12 Lab Results 02/24/24 02/24/24 02/24/24 Range/Units 12:47 13:10 13:12 WBC 13.0 H (3.8-10.6) k/uL RBC 5.30 (3.80-5.40) m/uL Hgb 14.9 (11.4-16.0) gm/dL Hct 43.5 (34.0-46.0) % MCV 82.0 (80.0-100.0) fL MCH 28.1 (25.0-35.0) pg MCHC 34.3 (31.0-37.0) g/dL RDW 13.5 (11.5-15.5) % Plt Count 248 (150-450) k/uL MPV 8.2 Neutrophils % 88 % Lymphocytes % 7 % Monocytes % 4 % Eosinophils % 1 % Basophils % 0 % Neutrophils # 11.4 H (1.3-7.7) k/uL Lymphocytes # 0.9 L (1.0-4.8) k/uL Monocytes # 0.5 (0-1.0) k/uL Eosinophils # 0.1 (0-0.7) k/uL Basophils # 0.0 (0-0.2) k/uL Sodium 140 (137-145) mmol/L Potassium 4.1 (3.5-5.1) mmol/L Chloride 107 (98-107) mmol/L Carbon Dioxide 25 (22-30) mmol/L Anion Gap 8 mmol/L BUN 26 H (7-17) mg/dL Creatinine 1.01 (0.52-1.04) mg/dL Est GFR (CKD-EPI)AfAm 68 (>60 ml/min/1.73 sqM) Est GFR (CKD-EPI)NonAf 59 (>60 ml/min/1.73 sqM) Glucose 208 H (74-99) mg/dL POC Glucose (mg/dL) 215 H (70-110) mg/dL POC Glu Licensed [employer] And [employer] Agent ID Rosana Lowe Calcium 9.5 (8.4-10.2) mg/dL Total Bilirubin 0.8 (0.2-1.3) mg/dL AST 25 (14-36) U/L ALT 24 (4-34) U/L Alkaline Phosphatase 67 (38-126) U/L Total Protein 6.8 (6.3-8.2) g/dL Albumin 4.2 (3.5-5.0) g/dL Lipase 232 (23-300) U/L Disposition Clinical Impression: Nausea and vomiting Disposition: HOME SELF-CARE Condition: Stable Instructions (If sedation given, give patient instructions): Acute Nausea and Vomiting (ED) Additional Instructions: Please follow-up with your surgeon for continued evaluation of your hiatal hernia. Return for any new or worsening symptoms Is patient prescribed a controlled substance at d/c from ED?: No Referrals: Radu Mckeon MD [Primary Care Provider] - 1-2 days Time of Disposition: 15:12
[2024-02-24 15:15] VITALS: BP 165/89; PULSE 89; TEMP 98.6
== END 2024-02-24 15:20 | disposition home or self-care (01) ==
LOC: EC 12:32
CPT/HCPCS: 36415; 80053; 83690; 85025; 96360; 96361; 99284

== ENCOUNTER 2024-05-29 09:06 | Observation (INO) | payer OTHER ==
--- NOTE | 2024-05-29 09:42 | ED ---
General Adult HPI - General Chief complaint: Nausea/Vomiting/Diarrhea Stated complaint: Chest pain,N/V Time Seen by Provider: 05/29/24 09:11 Source: patient, EMS Mode of arrival: EMS Limitations: no limitations - History of Present Illness Initial comments: Dictation was produced using [employer] dictation software. please excuse any grammatical, word or spelling errors. Chief Complaint: 64-year-old female presents to the emergency department with several hours of chest pain History of Present Illness: Patient 64-year-old female presents to the emergency department with several hours of chest pain states that it is a dull ache to her substernal area nonradiating. She states that it is associated nausea. No diaphoresis. Not sure if it is right her hernia. States that hurts more when she takes a deep breath. No history of blood clots. States that she has strong family history of coronary artery disease but states that her mother had a CABG in her 50s. Brought in by EMS. No fever, chills or night sweats. No cough. Not short of breath The ROS documented in this emergency department record has been reviewed and confirmed by me. Those systems with pertinent positive or negative responses have been documented in the HPI. All other systems are other negative and/or noncontributory. - Related Data Home Medications Medication Instructions Recorded Confirmed Albuterol Inhaler [Ventolin Hfa 2 puff INHALATION RT-QID PRN 08/27/15 02/24/24 Inhaler] Budesonide/Formoterol Fumarate 2 puff INHALATION RT-BID 06/28/23 02/24/24 [Symbicort 160-4.5 Mcg Inhaler] Dulaglutide [Trulicity] 3 mg SQ TH 06/28/23 02/24/24 Insulin Glargine,Hum.rec.anlog 30 units SQ DAILY 06/28/23 02/24/24 [Lantus Solostar Pen] Cholecalciferol [Vitamin D3 (25 25 mcg PO DAILY 09/11/23 02/24/24 Mcg = 1000 Iu)] Atorvastatin [Lipitor] 80 mg PO HS 02/24/24 02/24/24 Clopidogrel [Plavix] 75 mg PO DAILY 02/24/24 02/24/24 Empagliflozin [Jardiance] 10 mg PO DIRECTED 02/24/24 02/24/24 Losartan Potassium 100 mg PO DAILY 02/24/24 02/24/24 Magnesium Oxide [Magnesium] 500 mg PO BID 02/24/24 02/24/24 Omeprazole 20 mg PO DAILY 02/24/24 02/24/24 Ondansetron [Zofran] 4 mg PO Q8H PRN 02/24/24 02/24/24 Allergies Allergy/AdvReac Type Severity Reaction Status Date / Time doxycycline Allergy Anaphylaxis Verified 05/29/24 09:29 feathers Allergy Dyspnea Verified 05/29/24 09:29 Fish Containing Products Allergy Anaphylaxis Verified 05/29/24 09:29 Iodinated Contrast Media Allergy Anaphylaxis Verified 05/29/24 09:29 kiwi Allergy Anaphylaxis Verified 05/29/24 09:29 latex Allergy Anaphylaxis Verified 05/29/24 09:29 rosuvastatin [From Crestor] Allergy LEG CRAMPS Verified 05/29/24 09:29 shellfish derived [Shellfish] Allergy Anaphylaxis Verified 05/29/24 09:29 Sulfa (Sulfonamide Allergy Anaphylaxis Verified 05/29/24 09:29 Antibiotics) aspartame AdvReac MIGRAINES Verified 05/29/24 09:29 [From Konsyl Sugar-Free (aspartame)] codeine AdvReac Nausea & Verified 05/29/24 09:29 Vomiting & Diarrhea milk AdvReac MAKES PT Verified 05/29/24 09:29 SCHIZOPHRENIC psyllium AdvReac Unknown Verified 05/29/24 09:29 [From Konsyl Sugar-Free (aspartame)] tetracycline [Tetracycline] AdvReac Nausea & Verified 05/29/24 09:29 Vomiting & Diarrhea Tetracyclines AdvReac Anaphylaxis Verified 05/29/24 09:29 all artificial sweetners Allergy Anaphylaxis Uncoded 05/29/24 09:29 occitan peanuts Allergy Anaphylaxis Uncoded 05/29/24 09:29 Review of Systems ROS Statement: Those systems with pertinent positive or pertinent negative responses have been documented in the HPI. ROS Other: All systems not noted in ROS Statement are negative. Past Medical History Past Medical History: Asthma, Coronary Artery Disease (CAD), COPD, CVA/TIA, Diabetes Mellitus, GERD/Reflux, Hyperlipidemia, Hypertension, Osteoarthritis (OA), Pneumonia, Seizure Disorder, Skin Disorder, Sleep Apnea/CPAP/BIPAP Additional Past Medical History / Comment(s): states had 2 strokes between age [age], 3rd stroke age 38, 4th stroke/TIA Feb. 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, heart murmur, kidney stones, nodules on thyroid, Degenerative disc disease, hiatal hernia, past hx of seizure while sleeping last one age 10, eczema, pneumonia September 2023, no CPAP History of Any Multi-Drug Resistant Organisms: MRSA Date of last positivie culture/infection: 2015 MDRO Source:: R foot Past Surgical History: Section, Cholecystectomy, Heart Catheterization, Orthopedic Surgery Additional Past Surgical History / Comment(s): R hand sx, EGD, colonoscopy Past Anesthesia/Blood Transfusion Reactions: No Reported Reaction, Family History of Problems w/ Anesthesia Additional Past Anesthesia/Blood Transfusion Reaction / Comment(s): mom- PONV Past Psychological History: Depression Smoking Status: Former smoker - Past Family History Mother Family Medical History: Coronary Artery Disease (CAD), Diabetes Mellitus, Renal Disease Brother(s) Family Medical History: Diabetes Mellitus Father Family Medical History: Cancer General Exam - General Exam Comments Initial Comments: PHYSICAL EXAM: General Impression: Alert and oriented x3, not in acute distress HEENT: Normocephalic atraumatic, extra-ocular movements intact, pupils equal and reactive to light bilaterally, mucous membranes moist. Cardiovascular: Heart regular rate and rhythm Chest: Able to complete full sentences, no retractions, no tachypnea Abdomen: abdomen soft, non-tender, non-distended, no organomegaly Musculoskeletal: Pulses present and equal in all extremities, no peripheral edema Motor: no focal deficits noted Neurological: CN II-XII grossly intact, no focal motor or sensory deficits noted Skin: Intact with no visualized rashes Psych: Normal affect and mood Limitations: no limitations Course Vital Signs 05/29/24 09:20 Temperature 98.3 F Pulse Rate 87 Respiratory 16 Rate Blood Pressure 141/91 O2 Sat by Pulse 99 Oximetry EKG Findings - EKG Comments: EKG Findings:: My EKG interpretation: Ventricular rate 82, sinus rhythm,. 108, QRS 101, QTc 447. No IN prolongation, no QTC prolongation, no ST or T-wave changes noted. Overall, this EKG is unremarkable Medical Decision Making - Medical Decision Making Was pt. sent in by a medical professional or institution (, PA, MEDICAL GENETICS DIRECTOR, urgent care, hospital, or prison...) When possible be specific @ -No Did you speak to anyone other than the patient for history (EMS, parent, family, police, friend...)? What history was obtained from this source @ -No Did you review nursing and triage notes (agree or disagree)? Why? @ -I reviewed and agree with nursing and triage notes Were old charts reviewed (outside hosp., previous admission, EMS record, old EKG, old radiological studies, urgent care reports/EKG's, prison records)? Report findings @ -No old charts were reviewed Differential Diagnosis (chest pain, altered mental status, abdominal pain women, abdominal pain men, vaginal bleeding, musculoskeletal, weakness, fever, dyspnea, syncope, headache, dizziness, GI bleed, back pain, seizure, CVA, palpatations, mental health)? @ -Differential Chest Pain: Stable Angina, Unstable Angina, STEMI, NSTEMI Aortic Dissection, Pneumothorax, Musculoskeletal, Esophageal Spasm GERD, Cholecystitis, Pancreatitis, Zoster, this is not meant to be an all-inclusive list. EKG interpreted by me (3pts min.). @ -See above X-rays interpreted by me (1pt min.). @ -Chest x-ray shows no acute processes CT interpreted by me (1pt min.). @ -None done U/S interpreted by me (1pt. min.). @ -None done What testing was considered but not performed or refused? (CT, X-rays, U/S, labs)? Why? @ -None What meds were considered but not given or refused? Why? @ -None Was smoking cessation discussed for >3mins.? @ -No Were there social determinants of health that impacted care today? How? (Homelessness, low income, unemployed, alcoholism, drug addiction, transportation, low edu. Level, literacy, decrease access to med. care, custodial, rehab)? @ -No Was there de-escalation of care discussed even if they declined (Discuss DNR or withdrawal of care, Hospice)? DNR status @ -No What co-morbidities impacted this encounter? (DM, HTN, Smoking, COPD, CAD, Cancer, CVA, ARF, Chemo, Hep., AIDS, mental health diagnosis, sleep apnea, morbid obesity)? @ -Family history of early coronary artery disease Was patient admitted / discharged? Hospital course, mention meds given and route, prescriptions, significant lab abnormalities, going to OR and other pertinent info. @ -64-year-old female presents to the emergency department atypical chest pain typical features. Vital signs upon arrival are within acceptable limits. EKG shows no signs of ischemia infarction. Patient has family history of heart at tacks. Mother had a CABG in her 50s. Laboratory evaluation obtained. Labs unremarkable. D-dimer is age-adjusted appropriate. Patient been aspirin will be admitted observation for cardiology consultation. Case discussed with hospitalist for admission Did you discuss the management of the patient with other professionals (professionals i.e. , PA, MEDICAL GENETICS DIRECTOR, lab, RT, psych nurse, social media marketing specialist, fence post cutter, teacher, military source operations officer, bilingual case manager)? Give summary @ -See above Was critical care preformed (if so, how long)? @ -No Undiagnosed new problem with uncertain prognosis? @ -No Drug Therapy requiring intensive monitoring for toxicity (Heparin, Nitro, Insulin, Cardizem)? @ -No Were any procedures done? @ -No Diagnosis/symptom? Acute, or Chronic, or Acute on Chronic? Uncomplicated (without systemic symptoms) or Complicated (systemic symptoms)? @ -Chest pain Side effects of treatment? @ -No Exacerbation, Progression, or Severe Exacerbation? @ -No Poses a threat to life or bodily function? How? (Chest pain, [place], [place], pneumonia, PE, COPD, DKA, ARF, appy, cholecystitis, CVA, Diverticulitis, Homicidal, Suicidal, threat to staff... and all critical care pts) @ -Yes - Lab Data Result diagrams: 05/29/24 09:54 05/29/24 09:54 Lab Results 05/29/24 05/29/24 05/29/24 Range/Units 09:54 09:54 09:54 WBC 9.1 (3.8-10.6) k/uL RBC 5.39 (3.80-5.40) m/uL Hgb 14.5 (11.4-16.0) gm/dL Hct 44.3 (34.0-46.0) % MCV 82.2 (80.0-100.0) fL MCH 26.9 (25.0-35.0) pg MCHC 32.7 (31.0-37.0) g/dL RDW 13.5 (11.5-15.5) % Plt Count 201 (150-450) k/uL MPV 8.4 Neutrophils % 75 % Lymphocytes % 19 % Monocytes % 4 % Eosinophils % 1 % Basophils % 1 % Neutrophils # 6.8 (1.3-7.7) k/uL Lymphocytes # 1.7 (1.0-4.8) k/uL Monocytes # 0.4 (0-1.0) k/uL Eosinophils # 0.1 (0-0.7) k/uL Basophils # 0.1 (0-0.2) k/uL PT (10.0-12.5) sec INR (<1.2) APTT (22.0-30.0) sec D-Dimer (<0.60) mg/L FEU Sodium 137 (137-145) mmol/L Potassium 4.0 (3.5-5.1) mmol/L Chloride 99 (98-107) mmol/L Carbon Dioxide 29 (22-30) mmol/L Anion Gap 9 mmol/L BUN 34 H (7-17) mg/dL Creatinine 1.27 H (0.52-1.04) mg/dL Est GFR (CKD-EPI)AfAm 52 (>60 ml/min/1.73 sqM) Est GFR (CKD-EPI)NonAf 45 (>60 ml/min/1.73 sqM) Glucose 272 H (74-99) mg/dL Calcium 9.0 (8.4-10.2) mg/dL Magnesium 1.8 (1.6-2.3) mg/dL Total Bilirubin 1.2 (0.2-1.3) mg/dL AST 27 (14-36) U/L ALT 28 (4-34) U/L Alkaline Phosphatase 82 (38-126) U/L Troponin I <0.012 (0.000-0.034) ng/mL Total Protein 6.4 (6.3-8.2) g/dL Albumin 3.8 (3.5-5.0) g/dL 05/29/24 Range/Units 09:56 WBC (3.8-10.6) k/uL RBC (3.80-5.40) m/uL Hgb (11.4-16.0) gm/dL Hct (34.0-46.0) % MCV (80.0-100.0) fL MCH (25.0-35.0) pg MCHC (31.0-37.0) g/dL RDW (11.5-15.5) % Plt Count (150-450) k/uL MPV Neutrophils % % Lymphocytes % % Monocytes % % Eosinophils % % Basophils % % Neutrophils # (1.3-7.7) k/uL Lymphocytes # (1.0-4.8) k/uL Monocytes # (0-1.0) k/uL Eosinophils # (0-0.7) k/uL Basophils # (0-0.2) k/uL PT 11.3 (10.0-12.5) sec INR 1.0 (<1.2) APTT 25.2 (22.0-30.0) sec D-Dimer 0.57 (<0.60) mg/L FEU Sodium (137-145) mmol/L Potassium (3.5-5.1) mmol/L Chloride (98-107) mmol/L Carbon Dioxide (22-30) mmol/L Anion Gap mmol/L BUN (7-17) mg/dL Creatinine (0.52-1.04) mg/dL Est GFR (CKD-EPI)AfAm (>60 ml/min/1.73 sqM) Est GFR (CKD-EPI)NonAf (>60 ml/min/1.73 sqM) Glucose (74-99) mg/dL Calcium (8.4-10.2) mg/dL Magnesium (1.6-2.3) mg/dL Total Bilirubin (0.2-1.3) mg/dL AST (14-36) U/L ALT (4-34) U/L Alkaline Phosphatase (38-126) U/L Troponin I (0.000-0.034) ng/mL Total Protein (6.3-8.2) g/dL Albumin (3.5-5.0) g/dL Disposition Clinical Impression: Chest pain Disposition: ADMITTED IP TO THIS [facility] Condition: Fair Referrals: Radu Mckeon MD [Primary Care Provider] - 1-2 days Decision Time: 10:59
[2024-05-29 10:08] LABS: Basophils # (A) 0.1 k/uL (0-0.2); Basophils % (A) 1 %; Eosinophils # (A) 0.1 k/uL (0-0.7); Eosinophils % (A) 1 %; HCT 44.3 % (34.0-46.0); HGB 14.5 gm/dL (11.4-16.0); Lymphocytes # (A) 1.7 k/uL (1.0-4.8); Lymphocytes % (A) 19 %; MCH 26.9 pg (25.0-35.0); MCHC 32.7 g/dL (31.0-37.0); MCV 82.2 fL (80.0-100.0); Mean Platelet Volume 8.4; Monocytes # (A) 0.4 k/uL (0-1.0); Monocytes % (A) 4 %; Neutrophils # (A) 6.8 k/uL (1.3-7.7); Neutrophils % (A) 75 %; Platelet Count 201 k/uL (150-450); RBC 5.39 m/uL (3.80-5.40); RDW 13.5 % (11.5-15.5); WBC 9.1 k/uL (3.8-10.6)
--- NOTE | 2024-05-29 10:08 | XR ---
EXAMINATION TYPE: XR chest 2V DATE OF EXAM: 05/29/2024 10:04 AM COMPARISON: Chest radiographs from of 10/22/2023 TECHNIQUE: XR chest 2V Frontal and lateral views of the chest. CLINICAL INDICATION:Female, 64 years old with history of Chest Pain; FINDINGS: Lungs/Pleura: There is no evidence of pleural effusion, focal consolidation, or pneumothorax. Pulmonary vascularity: Unremarkable. Heart/mediastinum: Cardiomediastinal silhouette is unremarkable. Musculoskeletal: No acute osseous pathology. Mild multilevel degenerative disc disease. Other: Cholecystectomy clips in the right upper quadrant. IMPRESSION: No acute cardiopulmonary disease/process. [facility], , 05/29/2024 10:06 AM
[2024-05-29 10:18] LABS: ALT 28 U/L (4-34); AST 27 U/L (14-36); African American GFR (CKD) 52 (>60 ml/min/1.73 sqM); Albumin 3.8 g/dL (3.5-5.0); Alkaline Phosphatase 82 U/L (38-126); Anion Gap 9 mmol/L; Blood Urea Nitrogen 34 mg/dL (7-17); Carbon Dioxide 29 mmol/L (22-30); Chloride 99 mmol/L (98-107); Glucose 272 mg/dL (74-99); Magnesium 1.8 mg/dL (1.6-2.3); Non-African American GFR(CKD) 45 (>60 ml/min/1.73 sqM); Sodium 137 mmol/L (137-145); Total Bilirubin 1.2 mg/dL (0.2-1.3); Total Protein 6.4 g/dL (6.3-8.2)
[2024-05-29 10:23] LABS: Partial Thromboplastin Time 25.2 sec (22.0-30.0); Prothrombin Time 11.3 sec (10.0-12.5)
[2024-05-29] MEDS ORDERED: NITROGLYCERIN SL TABS 0.4 MG TAB SUBLINGUAL PRN (10:51)
[2024-05-29] MEDS: ASPIRIN 81 MG PO STA (11:10)
[2024-05-29] MEDS ORDERED: ALBUTEROL NEBULIZED 2.5 MG/3 ML INHALATION PRN (11:57)
[2024-05-29] MEDS: ENOXAPARIN 40 MG/0.4 ML SYRINGE SQ SCH (11:59)
[2024-05-29] MEDS ORDERED: DEXTROSE 50% SYRINGE 50 ML IVP PRN ×2 (12:13)
[2024-05-29 13:11] LABS: Glucose,Whole Blood 171 mg/dL (70-110)
[2024-05-29] MEDS: INSULIN DETEMIR (LEVEMIR) 100 UNIT/ML SYR SQ SCH (13:59)
[2024-05-29] MEDS: INSULIN ASPART (NovoLOG) 100 UNIT/ML VIAL SQ SCH (14:05)
[2024-05-29 17:10] LABS: Glucose,Whole Blood 152 mg/dL (70-110)
--- NOTE | 2024-05-29 17:31 | CA ---
Transthoracic Echo Report Name: Melody Erickson Age: 64 Gender: F : 1960 Exam Date: 05/29/2024 13:13 Exam Location: [facility] Ht (in): 59 Wt (lb): 145 Ordering Physician: Antelmo Terry MD Attending/Referring Phys: Tool Grinding Machine Operator Jordana Carreon RDCS Procedure CPT: Indications: Chest Pain Cardiac Hx: Technical Quality: Fair Contrast 1: Total Dose (mL): Contrast 2: Total Dose (mL): MEASUREMENTS (Male / Female) Normal Values 2D ECHO LV Diastolic Diameter PLAX 3.6 cm 4.2 - 5.9 / 3.9 - 5.3 cm LV Systolic Diameter PLAX 2.9 cm IVS Diastolic Thickness 1.4 cm 0.6 - 1.0 / 0.6 - 0.9 cm LVPW Diastolic Thickness 1.3 cm 0.6 - 1.0 / 0.6 - 0.9 cm LV Relative Wall Thickness 0.8 LVOT Diameter 2.1 cm LV Diastolic Volume MOD BP 52.1 cm??? 67 - 155 / 56 - 104 cm??? LV Systolic Volume MOD BP 22.6 cm??? 22 - 58 / 19 - 49 cm??? LV Ejection Fraction MOD BP 56.6 % >= 55 % LV Cardiac Index MOD BP 1440.4 cm???/min???m??? LV Diastolic Volume MOD 4C 57.1 cm??? LV Systolic Volume MOD 4C 25.9 cm??? LV Ejection Fraction MOD 4C 54.6 % LV Cardiac Index MOD 4C 1522.5 cm???/min???m??? LV Diastolic Length 4C 7.3 cm LV Systolic Length 4C 6.8 cm LV Diastolic Volume MOD 2C 47.7 cm??? LV Systolic Volume MOD 2C 19.0 cm??? LV Ejection Fraction MOD 2C 60.1 % LV Cardiac Index MOD 2C 1398.3 cm???/min???m??? LV Diastolic Length 2C 7.3 cm LV Systolic Length 2C 6.5 cm LA Volume 45.8 cm??? 18 - 58 / 22 - 52 cm??? LA Volume Index 27.3 cm???/m??? 16 - 28 cm???/m??? DOPPLER AV Peak Velocity 295.7 cm/s AV Peak Gradient 35.0 mmHg AV Mean Velocity 206.4 cm/s AV Mean Gradient 19.4 mmHg AV Velocity Time Integral 53.0 cm LVOT Peak Velocity 129.6 cm/s LVOT Peak Gradient 6.7 mmHg LVOT Velocity Time Integral 21.2 cm LVOT Stroke Volume 72.5 cm??? LVOT Stroke Volume Index 45.1 ml/m??? LVOT Cardiac Index 3540.8 cm???/min???m??? AV Area Cont Eq vti 1.4 cm??? AV Area Cont Eq pk 1.5 cm??? MV Peak Velocity 125.5 cm/s MV Peak Gradient 6.3 mmHg MV Mean Velocity 77.5 cm/s MV Mean Gradient 2.7 mmHg MV Velocity Time Integral 26.0 cm MV Area PHT 2.8 cm??? Mitral E Point Velocity 77.3 cm/s Mitral A Point Velocity 109.1 cm/s Mitral E to A Ratio 0.7 MV Deceleration Time 273.1 ms PV Peak Velocity 104.8 cm/s PV Peak Gradient 4.4 mmHg FINDINGS Left Ventricle Left ventricular ejection fraction is estimated at 55-60 %. Moderately increased septal wall thickness. Moderately increased posterior wall thickness. Left ventricular cavity size normal. No obvious regional wall motion abnormalities. Right Ventricle Normal right ventricular size and function. Unable to estimate the right ventricular systolic pressure. Right Atrium Normal right atrial size. Left Atrium Normal left atrial size. Mitral Valve Mitral valve thickened. Mitral annular calcification. No evidence for mitral valve prolapse. Mild mitral stenosis. No mitral regurgitation. Aortic Valve Trileaflet aortic valve. Diffuse thickening of the aortic valve cusps with reduced excursion. Mild aortic stenosis. No aortic regurgitation. Tricuspid Valve Structurally normal tricuspid valve. Trace tricuspid regurgitation. No tricuspid stenosis. Pulmonic Valve Pulmonic valve not well visualized. No pulmonic stenosis. No pulmonic regurgitation. Pericardium No pericardial effusion. Aorta Aortic annulus normal. CONCLUSIONS Normal LV size and systolic function with concentric LVH. Mitral annular calcification with mild mitral stenosis and trace mitral regurgitation. No pericardial effusion. Right-sided pressures are not well quantified Previewed by: Dr. Ruben Dominguez MD (Electronically Signed) Final Date: 29 May 2024 17:30
--- NOTE | 2024-05-29 18:08 | P.HPIM ---
History of Present Illness H&P Date: 05/29/24 Chief Complaint: Chest pressure This is a pleasant [address] Mckeon. Chronic medical conditions include COPD, hypertension, depression, peripheral neuropathy. Stroke June 2023-no residual. September 2023: cardiac catheterization showed nonobstructive disease. Patient previously has had chronic esophageal stricture with some dysphagia. Patient in July 2023 underwent EGD colonoscopy by Dr. Krista Rubio. Upper endoscopy: Showed small hiatal hernia. LA grade B reflux esophagitis and mild antral gastritis. Colonoscopy: 7 mm rectal risk of Tanisha sigmoid polyp was re moved. Patient now follows up at [facility]. And is due for hiatal hernia surgery awaiting clearance by local team from cardiology. Patient present increasing nausea for last 3 days. Not able to keep anything down. No fever no chills. Had a BM yesterday. Now presents with chest tig htness going across the chest. Around 530 this morning. Accompanied by dizziness lightheadedness Patient does feel her food gets stuck at the upper chest level. She has had a barium swallow at outside hospital. Results were reviewed at by physician at [facility]. Review of systems: GEN.: Tired EYES: None HEENT: None NECK: None RESPIRATORY: As above CARDIOVASCULAR: As above GASTROINTESTINAL: As above GENITOURINARY: None MUSCULOSKELETAL: Joint pains LYMPHATICS: None HEMATOLOGICAL: None PSYCHIATRY: None NEUROLOGICAL: As above Social history: Lives alone. Prior alcoholism. Non-smoker. Physical examination: VITAL SIGNS: 98.3, 87, 16, 141 x 91, 99% room air GENERAL: Reclining in bed, bit tired EYES: Pupils equal. Conjunctiva normal. HEENT: External appearance of nose and ears normal, oral cavity grossly normal. NECK: JVD not raised; masses not palpable. HEART: First and second heart sounds are normal; no edema. Systolic murmur in the aortic area LUNGS:[ Respiratory rate normal decreased breath sounds, ABDOMEN: Soft, nontender, liver spleen not palpable, no masses palpable. PSYCH: Alert and oriented x3; mood and affect slightly anxiousl. NEUROLOGICAL: Cranial nerves grossly intact; no facial asymmetry, power and sensation grossly intact. LYMPHATICS: No lymph nodes palpable in the axilla and neck INVESTIGATIONS, reviewed in the clinical context: May 29: White count 9.1 hemoglobin 14.5 platelets 201 sodium 137 potassium 4 BUN 34 creatinine 1.27 Troponin I: Less than 0.012 x 3 EKG tracing personally reviewed by me-normal sinus rhythm. Poor R wave progression anterior leads. Some T wave changes to 1 aVL V6. Chest x-ray film personally reviewed by me-some hyperinflation Prior labs: February 2024: Creatinine 1.01 Assessment and plan: -Anterior chest wall pain in a patient with known nonobstructive coronary artery disease. September 2023: Cardiac cath showed 40-50% proximal RCA stenosis,Mid LAD 40-50%, diagonal 1 50-60%, mid circumflex 50-60%, OM1 50% stenosis. Troponins negative. Telemetry. Cardiology consulted. 2D echocardiogram. Aspirin. Lipitor. -COPD Ventolin as needed. Symbicort -Essential hypertension Hydrochlorothiazide. Losartan. .-Nonobstructive CAD from prior cardiac catheterization -Diabetes mellitus type 2 chronically on insulin: Uncontrolled with hyperglycemia secondary to steroids Trulicity. Levemir follow Accu-Cheks with sliding scale. Jardiance -Hyperlipidemia Lipitor -History of chronic esophageal stricture -Hiatal hernia. Patient is pending surgical intervention at [facility]. Symptomatic. -Full code Discussed with patient. Cardiology consulted. 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, heart murmur, kidney stones, nodules on thyroid, Degenerative disc disease, hiatal hernia, past hx of seizure while sleeping last one age 10, eczema, pneumonia September 2023, no CPAP History of Any Multi-Drug Resistant Organisms: MRSA Date of last positivie culture/infection: 2015 MDRO Source:: R foot Past Surgical History: Section, Cholecystectomy, Heart Catheterization, Orthopedic Surgery Additional Past Surgical History / Comment(s): R hand sx, EGD, colonoscopy Past Anesthesia/Blood Transfusion Reactions: No Reported Reaction, Family History of Problems w/ Anesthesia Additional Past Anesthesia/Blood Transfusion Reaction / Comment(s): mom- PONV Past Psychological History: Depression Smoking Status: Former smoker - Past Family History Mother Family Medical History: Coronary Artery Disease (CAD), Diabetes Mellitus, Renal Disease Brother(s) Family Medical History: Diabetes Mellitus Father Family Medical History: Cancer Medications and Allergies Home Medications Medication Instructions Recorded Confirmed Type Albuterol Inhaler [Ventolin Hfa 2 puff INHALATION RT-QID PRN 08/27/15 05/29/24 History Inhaler] Budesonide/Formoterol Fumarate 2 puff INHALATION RT-BID 06/28/23 05/29/24 History [Symbicort 160-4.5 Mcg Inhaler] Dulaglutide [Trulicity] 3 mg SQ TH 06/28/23 05/29/24 History Insulin Glargine,Hum.rec.anlog 30 units SQ DAILY 06/28/23 05/29/24 History [Lantus Solostar Pen] Cholecalciferol [Vitamin D3 (25 25 mcg PO DAILY 09/11/23 05/29/24 History Mcg = 1000 Iu)] Atorvastatin [Lipitor] 80 mg PO HS 02/24/24 05/29/24 History Clopidogrel [Plavix] 75 mg PO DAILY 02/24/24 05/29/24 History Empagliflozin [Jardiance] 10 mg PO DAILY 02/24/24 05/29/24 History Losartan Potassium 100 mg PO DAILY 02/24/24 05/29/24 History Ondansetron [Zofran] 4 mg PO Q12H PRN 02/24/24 05/29/24 History DULoxetine HCL [Cymbalta] 30 mg PO DAILY 05/29/24 05/29/24 History hydroCHLOROthiazide [Hydrodiuril] 12.5 mg PO DAILY 05/29/24 05/29/24 History Allergies Allergy/AdvReac Type Severity Reaction Status Date / Time doxycycline Allergy Anaphylaxis Verified 05/29/24 11:44 feathers Allergy Dyspnea Verified 05/29/24 11:44 Fish Containing Products Allergy Anaphylaxis Verified 05/29/24 11:44 Iodinated Contrast Media Allergy Anaphylaxis Verified 05/29/24 11:44 kiwi Allergy Anaphylaxis Verified 05/29/24 11:44 latex Allergy Anaphylaxis Verified 05/29/24 11:44 rosuvastatin [From Crestor] Allergy LEG CRAMPS Verified 05/29/24 11:44 shellfish derived [Shellfish] Allergy Anaphylaxis Verified 05/29/24 11:44 Sulfa (Sulfonamide Allergy Anaphylaxis Verified 05/29/24 11:44 Antibiotics) aspartame AdvReac MIGRAINES Verified 05/29/24 11:44 [From Konsyl Sugar-Free (aspartame)] codeine AdvReac Nausea & Verified 05/29/24 11:44 Vomiting & Diarrhea milk AdvReac MAKES PT Verified 05/29/24 11:44 SCHIZOPHRENIC psyllium AdvReac Unknown Verified 05/29/24 11:44 [From Konsyl Sugar-Free (aspartame)] tetracycline [Tetracycline] AdvReac Nausea & Verified 05/29/24 11:44 Vomiting & Diarrhea Tetracyclines AdvReac Anaphylaxis Verified 05/29/24 11:44 all artificial sweetners Allergy Anaphylaxis Uncoded 05/29/24 11:44 cymraes peanuts Allergy Anaphylaxis Uncoded 05/29/24 11:44 Physical Exam Vitals: Vital Signs Temp Pulse Resp BP Pulse Ox 05/29/24 17:19 80 18 150/86 96 05/29/24 11:16 98 F 86 18 144/91 99 05/29/24 09:20 98.3 F 87 16 141/91 99 Intake and Output 05/29/24 05/29/24 05/29/24 06:59 14:59 22:59 Other: Weight 65.771 kg Results CBC & Chem 7: 05/29/24 09:54 05/29/24 09:54 Labs: Abnormal Lab Results - Last 24 Hours (Table) 05/29/24 05/29/24 05/29/24 Range/Units 09:54 13:10 17:09 BUN 34 H (7-17) mg/dL Creatinine 1.27 H (0.52-1.04) mg/dL Glucose 272 H (74-99) mg/dL POC Glucose (mg/dL) 171 H 152 H (70-110) mg/dL
[2024-05-29] MEDS: ONDANSETRON 4 MG TAB PO PRN (19:55)
[2024-05-29] MEDS: SYMBICORT 160-4.5 MCG INHALER INHALATION SCH (20:09)
[2024-05-29] MEDS: ATORVASTATIN 80 MG TAB PO SCH (20:14)
[2024-05-29 21:01] LABS: Glucose,Whole Blood 202 mg/dL (70-110)
[2024-05-29] MEDS ORDERED: METOCLOPRAMIDE 5 MG/ML 2 ML VIAL IVP PRN (22:00)
[2024-05-29] MEDS: METOCLOPRAMIDE 10 MG TAB PO PRN (22:21)
[2024-05-30 05:35] LABS: Glucose,Whole Blood 178 mg/dL (70-110)
[2024-05-30] MEDS ORDERED: INSULIN DETEMIR (LEVEMIR) 100 UNIT/ML SYR SQ SCH (07:00)
[2024-05-30 07:58] VITALS: BP 130/72; PULSE 78; RESP 16; TEMP 98.2
[2024-05-30] MEDS ORDERED: ASPIRIN 325 MG TAB PO SCH (09:00)
[2024-05-30 09:01] LABS: Chol/HDL Ratio 8.39 Ratio; LDL Cholesterol,Calculated 141.9 mg/dL (0.0-131.0)
[2024-05-30] MEDS: CLOPIDOGREL 75 MG TAB PO SCH (09:36)
[2024-05-30] MEDS: ASPIRIN 81 MG PO SCH (09:36)
[2024-05-30] MEDS: LOSARTAN 50 MG TAB PO SCH (09:36)
[2024-05-30] MEDS: CHOLECALCIFEROL 25 MCG (1000 IU) TABLET PO SCH (09:36)
[2024-05-30] MEDS: hydroCHLOROthiazide 12.5 MG CAP PO SCH (09:36)
[2024-05-30] MEDS: DULoxetine HCL 30 MG CAPSULE.DR PO SCH (09:36)
[2024-05-30 10:51] VITALS: BMI 29.2
--- NOTE | 2024-05-30 12:30 | P.CRDCN ---
History of Present Illness History of present illness: HISTORY OF PRESENT ILLNESS: This is a 64-year-old female with a past medical history significant for diabetes, hyperlipidemia, hypertension, COPD, coronary artery disease, CVA, and hiatal hernia. Patient follows in the office with Dr. Cohen. We have been asked to see the patient in consultation for chest pain. Patient examined at the bedside. Patient states starting on she was feeling really nauseated. She also reports vomiting for the past 2 days. She states on Wednesday morning she began to have chest discomfort. She states the pain is worse with deep inspiration. She denied any radiation of the pain. She denies any shortness of breath. She states that for the past 3 to 4 days she has not been eating much and states that she feels like food is getting stuck in her throat. She thinks this may be due to her hiatal hernia. She states she follows with a physician at the [facility] and is in the process of having surgery scheduled. At the time of examination she denies any chest pain or shortness of breath. DIAGNOSTICS: - EKG reveals sinus mechanism with no signs of acute ischemia. - Chest xray negative for acute process. - Laboratory data: WBC 9.1. Hemoglobin 14.5. Platelet count 201. D-dimer 0.57. Sodium 137. Potassium 4.0. BUN 34. Creatinine 1.27. Troponin negative x 3. - Current home cardiac medications include aspirin 81 mg daily, Lipitor 80 mg at night, Jardiance 10 mg daily, losartan 100 mg daily, Plavix 75 mg daily. - Echocardiogram obtained this admission reveals ejection fraction 55 to 60%, with mild mitral stenosis and trace MR. Mild concentric LVH. Mild aortic stenosis. - Cardiac catheterization history: September 2023 revealing 40 to 50% proximal RCA stenosis, mid LAD 40 to 50% stenosis, diagonal 150 to 60% stenosis, mid circumflex 50 to 60%, OM1 50% stenosis. iFR of the LAD and circumflex normal. Mildly elevated left-sided filling pressures. Mild aortic stenosis. -Patient underwent CHAVEZ in November 2023 revealing tricuspid aortic valve with moderate to severe aortic stenosis with aortic valve area 0.8 cm by planimetry however maximum velocity 2.6 m/s by Doppler. Atrial valve appears to be normal with mild regurgitation. Tricuspid valve appears to be normal. Positive bubble study with small mount of bubbles crossing appears consistent with PFO. Some light shunting after 3 beats however mostly shunting with Valsalva. Left atrial appendage is free of clot. Ejection fraction 55%. REVIEW OF SYSTEMS: At the time of my exam: CONSTITUTIONAL: Denies fever or chills. HEENT: Denies blurred vision, vision changes, or eye pain. Denies hemoptysis CARDIOVASCULAR: Denies chest pain. Denies orthopnea. Denies PND. Denies palpitations RESPIRATORY: Denies shortness of breath. GASTROINTESTINAL: Denies abdominal pain. Denies nausea or vomiting. HEMATOLOGIC: Denies bleeding disorders. GENITOURINARY: Denies any blood in urine. SKIN: Denies pruitis. Denies rash. PHYSICAL EXAM: VITAL SIGNS: Reviewed. GENERAL: Well-developed in no acute distress. HEENT: Head is normocephalic. Pupils are equal, round. Sclerae anicteric. Mucous membranes of the mouth are moist. Neck supple. No JVD or thyromegaly LUNGS: Respirations even and unlabored. Lungs essentially clear to auscultation bilaterally. HEART: Regular rate and rhythm. S1 and S2 heard. Systolic murmur noted. ABDOMEN: Soft. Nondistended. Nontender. EXTREMITIES: Normal range of motion. No clubbing or cyanosis. Peripheral pulses intact. No lower extremity edema NEUROLOGIC: Awake and alert. Oriented x 3. ASSESSMENT: Chest pain, atypical, troponin negative x 3 Nausea and vomiting History of hiatal hernia, following at [facility] for surgical repair Mild to moderate coronary artery disease, per cath 09/2023 Moderate to severe aortic stenosis, per CHAVEZ in 11/2023 Hypertension Hyperlipidemia Diabetes COPD History of CVA PLAN: An acute coronary event has been ruled out Resume home cardiac medications 2D echo obtained and reviewed No plans for stress testing or cardiac catheterization Patient may be discharged home today from a cardiac standpoint Patient to follow-up postdischarge with Dr. Cohen Nurse practitioner note has been reviewed by physician. Signing provider agrees with the documented findings, assessment, and plan of care documented by CHARCOAL KILN BURNER as a scribe. 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, heart murmur, kidney stones, nodules on thyroid, Degenerat bin disc disease, hiatal hernia, past hx of seizure while sleeping last one age 10, eczema, pneumonia September 2023, no CPAP History of Any Multi-Drug Resistant Organisms: MRSA Date of last positivie culture/infection: 2015 MDRO Source:: R foot Past Surgical History: Section, Cholecystectomy, Heart Catheterization, Orthopedic Surgery Additional Past Surgical History / Comment(s): R hand sx, EGD, colonoscopy Past Anesthesia/Blood Transfusion Reactions: No Reported Reaction, Family History of Problems w/ Anesthesia Additional Past Anesthesia/Blood Transfusion Reaction / Comment(s): mom- PONV Past Psychological History: Depression Smoking Status: Former smoker Past Alcohol Use History: Rare Additional Past Alcohol Use History / Comment(s): QUIT SMOKING AGE 19-ONLY SMOKED FOR 1 YEAR. RECOVERED ALCOHOLIC Past Drug Use History: None Reported - Past Family History Mother Family Medical History: Coronary Artery Disease (CAD), Diabetes Mellitus, Renal Disease Brother(s) Family Medical History: Diabetes Mellitus Father Family Medical History: Cancer Medications and Allergies Home Medications Medication Instructions Recorded Confirmed Type Albuterol Inhaler [Ventolin Hfa 2 puff INHALATION RT-QID PRN 08/27/15 05/29/24 History Inhaler] Budesonide/Formoterol Fumarate 2 puff INHALATION RT-BID 06/28/23 05/29/24 Hi story [Symbicort 160-4.5 Mcg Inhaler] Dulaglutide [Trulicity] 3 mg SQ TH 06/28/23 05/29/24 History Insulin Glargine,Hum.rec.anlog 30 units SQ DAILY 06/28/23 05/29/24 History [Lantus Solostar Pen] Cholecalciferol [Vitamin D3 (25 25 mcg PO DAILY 09/11/23 05/29/24 History Mcg = 1000 Iu)] Atorvastatin [Lipitor] 80 mg PO HS 02/24/24 05/29/24 History Clopidogrel [Plavix] 75 mg PO DAILY 02/24/24 05/29/24 History Empagliflozin [Jardiance] 10 mg PO DAILY 02/24/24 05/29/24 History Losartan Potassium 100 mg PO DAILY 02/24/24 05/29/24 History Ondansetron [Zofran] 4 mg PO Q12H PRN 02/24/24 05/29/24 History DULoxetine HCL [Cymbalta] 30 mg PO DAILY 05/29/24 05/29/24 History Aspirin 81 mg PO DAILY tab 05/30/24 Rx Prochlorperazine [Compazine] 5 mg PO Q8HR PRN #30 tab 05/30/24 Rx Allergies Allergy/AdvReac Type Severity Reaction Status Date / Time doxycycline Allergy Anaphylaxis Verified 05/29/24 11:44 feathers Allergy Dyspnea Verified 05/29/24 11:44 Fish Containing Products Allergy Anaphylaxis Verified 05/29/24 11:44 Iodinated Contrast Media Allergy Anaphylaxis Verified 05/29/24 11:44 kiwi Allergy Anaphylaxis Verified 05/29/24 11:44 latex Allergy Anaphylaxis Verified 05/29/24 11:44 rosuvastatin [From Crestor] Allergy LEG CRAMPS Verified 05/29/24 11:44 shellfish derived [Shellfish] Allergy Anaphylaxis Verified 05/29/24 11:44 Sulfa (Sulfonamide Allergy Anaphylaxis Verified 05/29/24 11:44 Antibiotics) aspartame AdvReac MIGRAINES Verified 05/29/24 11:44 [From Konsyl Sugar-Free (aspartame)] codeine AdvReac Nausea & Verified 05/29/24 11:44 Vomiting & Diarrhea milk AdvReac MAKES PT Verified 05/29/24 11:44 SCHIZOPHRENIC psyllium AdvReac Unknown Verified 05/29/24 11:44 [From Konsyl Sugar-Free (aspartame)] tetracycline [Tetracycline] AdvReac Nausea & Verified 05/29/24 11:44 Vomiting & Diarrhea Tetracyclines AdvReac Anaphylaxis Verified 05/29/24 11:44 all artificial sweetners Allergy Anaphylaxis Uncoded 05/29/24 11:44 kyrgyz peanuts Allergy Anaphylaxis Uncoded 05/29/24 11:44 Physical Exam Vitals: Vital Signs Temp Pulse Pulse Resp BP BP BP 05/30/24 08:00 16 05/30/24 07:00 98.2 F 78 16 130/72 05/30/24 02:00 97.8 F 90 18 135/73 05/29/24 21:09 97.9 F 87 17 162/94 05/29/24 20:18 83 18 167/116 05/29/24 18:38 86 16 176/108 05/29/24 17:19 80 18 150/86 Pulse Ox 05/30/24 08:00 05/30/24 07:00 97 05/30/24 02:00 97 05/29/24 21:09 93 L 05/29/24 20:18 98 05/29/24 18:38 98 05/29/24 17:19 96 Intake and Output 05/29/24 05/30/24 05/30/24 22:59 06:59 14:59 Other: Voiding Method Toilet Toilet # Voids 1 3 Weight 65.771 kg 65.771 kg Results 05/29/24 09:54 05/29/24 09:54 Cardiac Enzymes 05/29/24 05/29/24 Range/Units 12:51 16:14 Troponin I <0.012 <0.012 (0.000-0.034) ng/mL Lipids 05/29/24 Range/Units 09:54 Triglycerides 255.00 H (0.00-149.00) mg/dL Cholesterol 219.00 H (0.00-200.00) mg/dL HDL Cholesterol 26.10 L (40.00-60.00) mg/dL Cholesterol/HDL Ratio 8.39 Ratio Current Medications Generic Name Dose Route Start Last Admin Trade Name Freq PRN Reason Stop Dose Admin Albuterol Sulfate 2.5 mg 05/29/24 11:57 Albuterol Nebulized 2.5 Mg/3 Ml INHALATION RT-QID PRN Shortness Of Breath Aspirin 81 mg 05/30/24 09:00 05/30/24 09:36 Aspirin 81 Mg PO 81 mg DAILY BUTCH Administration Atorvastatin Calcium 80 mg 05/29/24 21:00 05/29/24 20:14 Atorvastatin 80 Mg Tab PO 80 mg HS BUTCH Administration Budesonide/Formoterol Fumarate 2 puff 05/29/24 20:00 05/30/24 08:31 Symbicort 160-4.5 Mcg Inhaler INHALATION 2 puff RT-BID BUTCH Administration Cholecalciferol 25 mcg 05/30/24 09:00 05/30/24 09:36 Cholecalciferol 25 Mcg (1000 Iu) Tablet PO 25 mcg DAILY BUTCH Administration Clopidogrel Bisulfate 75 mg 05/30/24 09:00 05/30/24 09:36 Clopidogrel 75 Mg Tab PO 75 mg DAILY BUTCH Administration Dapagliflozin 5 mg 05/30/24 09:00 Dapagliflozin Propanediol 5 Mg Tablet PO DAILY [facility] Dextrose/Water 25 ml 05/29/24 12:13 Dextrose 50% Syringe 50 Ml IVP PER PROTOCOL PRN Hypoglycemia Protocol Dextrose/Water 50 ml 05/29/24 12:13 Dextrose 50% Syringe 50 Ml IVP PER PROTOCOL PRN Hypoglycemia Protocol Duloxetine HCl 30 mg 05/30/24 09:00 05/30/24 09:36 Duloxetine Hcl 30 Mg Capsule.Dr PO 30 mg DAILY BUTCH Administration Enoxaparin Sodium 40 mg 05/29/24 11:45 05/30/24 09:36 Enoxaparin 40 Mg/0.4 Ml Syringe SQ 40 mg DAILY BUTCH Administration Hydrochlorothiazide 12.5 mg 05/30/24 09:00 05/30/24 09:36 Hydrochlorothiazide 12.5 Mg Cap PO 12.5 mg DAILY BUTCH Administration Insulin Aspart 0 unit 05/29/24 12:30 05/30/24 05:45 Insulin Aspart (Novolog) 100 Unit/Ml Vial SQ 1 unit AC-TID BUTCH Administration Protocol Insulin Detemir 30 unit 05/29/24 13:00 05/29/24 13:59 Insulin Detemir (Levemir) 100 Unit/Ml Syr SQ Not Given DAILY@0700 [facility] Losartan Potassium 100 mg 05/30/24 09:00 05/30/24 09:36 Losartan 50 Mg Tab PO 100 mg DAILY BUTCH Administration Metoclopramide HCl 10 mg 05/29/24 21:55 05/29/24 22:21 Metoclopramide 10 Mg Tab PO 10 mg AC-TID PRN Administration Nausea/Vomiting Metoclopramide HCl 10 mg 05/29/24 22:00 Metoclopramide 5 Mg/Ml 2 Ml Vial IVP Q8HR PRN Nausea/Vomiting Nitroglycerin 0.4 mg 05/29/24 10:51 Nitroglycerin Sl Tabs 0.4 Mg Tab SUBLINGUAL Q5M PRN Chest Pain Non-Formulary Medication 3 mg 06/01/24 09:00 Dulaglutide [Trulicity] SQ Th@0900 [facility] Ondansetron HCl 4 mg 05/29/24 11:57 05/29/24 19:55 Ondansetron 4 Mg Tab PO 4 mg Q12H PRN Administration Nausea And Vomiting Intake and Output 05/29/24 05/30/24 05/30/24 22:59 06:59 14:59 Other: Voiding Method Toilet Toilet # Voids 1 3 Weight 65.771 kg 65.771 kg Patient Weight 05/31/24 06:59 Weight 65.771 kg 05/29/24 09:54 05/29/24 09:54
[2024-05-30 12:33] LABS: Glucose,Whole Blood 294 mg/dL (70-110)
[2024-05-30] MEDS: DAPAGLIFLOZIN PROPANEDIOL 5 MG TABLET PO SCH (12:48)
--- NOTE | 2024-05-30 23:16 | P.DS ---
Providers Date of admission: 05/29/24 10:51 Expected date of discharge: 05/30/24 Attending physician: Antelmo Terry Consults: 05/29/24 10:51 Consult Physician Urgent Consulting Provider: Samuel Rubio Consult Reason/Comments: chest pain Do you want consulting provider notified?: Yes Primary care physician: [facility] Course: Chief Complaint: Chest pressure This is a pleasant [address] Mckeon. Chronic medical conditions include COPD, hypertension, depression, peripheral neuropathy. Stroke June 2023-no residual. September 2023: cardiac catheterization showed nonobstructive disease. Patient previously has had chronic esophageal stricture with some dysphagia. Patient in July 2023 underwent EGD colonoscopy by Dr. Krista Rubio. Upper endoscopy: Showed small hiatal hernia. LA grade B reflux esophagitis and mild antral gastritis. Colonoscopy: 7 mm rectal risk of Tanisha sigmoid polyp was removed. Patient now follows up at [facility]. And is due for hiatal hernia surgery awaiting clearance by local team from cardiology. Patient present increasing nausea for last 3 days. Not able to keep anything down. No fever no chills. Had a BM yesterday. Now presents with chest tightness going across the chest. Around 530 this morning. Accompanied by dizziness lightheadedness Patient does feel her food gets stuck at the upper chest level. She has had a barium swallow at outside hospital. Results were reviewed at by physician at [facility]. May 30: Patient was cleared by cardiology for discharge Dr. SERGEI Dominguez. 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 Patient is also due to follow-up with her surgeon at [facility]. Patient to remain on a full liquid diet/ground diet. 2D echocardiogram results noted. Social history: Lives alone. Prior alcoholism. Non-smoker. Physical examination: VITAL SIGNS: 98.2, 78, 16, 130 x 72, 97% room air GENERAL: Up in a chair, comfortable EYES: Pupils equal. Conjunctiva normal. HEENT: External appearance of nose and ears normal, oral cavity grossly normal. NECK: JVD not raised; masses not palpable. HEART: First and second heart sounds are normal; no edema. Systolic murmur in the aortic area LUNGS:[ Respiratory rate normal decreased breath sounds, ABDOMEN: Soft, nontender, liver spleen not palpable, no masses palpable. PSYCH: Alert and oriented x3; mood and affect slightly anxiousl. NEUROLOGICAL: Cranial nerves grossly intact; no facial asymmetry, power and sensation grossly intact. LYMPHATICS: No lymph nodes palpable in the axilla and neck INVESTIGATIONS, reviewed in the clinical context: 2D echocardiogram: EF 50-50 5 to 60%. Moderately increased septal wall thickness. Moderately increased posterior wall thickness. Trileaflet aortic valve. May 29: White count 9.1 hemoglobin 14.5 platelets 201 sodium 137 potassium 4 BUN 34 creatinine 1.27 Troponin I: Less than 0.012 x 3 EKG tracing personally reviewed by me-normal sinus rhythm. Poor R wave progression anterior leads. Some T wave changes to 1 aVL V6. Chest x-ray film personally reviewed by me-some hyperinflation Prior labs: February 2024: Creatinine 1.01 Assessment and plan: -Anterior chest wall pain in a patient with known nonobstructive coronary artery disease. September 2023: Cardiac cath showed 40-50% proximal RCA stenosis,Mid LAD 40-50%, diagonal 1 50-60%, mid circumflex 50-60%, OM1 50% stenosis.: Possible angina Troponins negative. Telemetry. Seen by Dr. SERGEI Dominguez from cardiology. Patient to follow-up with Dr. Carlin for wet char conveyor tender. Aspirin. Lipitor. -COPD Ventolin as needed. Symbicort -Essential hypertension Hydrochlorothiazide. Losartan. .-Nonobstructive CAD from prior cardiac catheterization -Diabetes mellitus type 2 chronically on insulin: Uncontrolled with hyperglycemia secondary to steroids Trulicity. Levemir follow Accu-Cheks with sliding scale. Jardiance -Hyperlipidemia Lipitor -History of chronic esophageal stricture -Hiatal hernia. Patient is pending surgical intervention at [facility]. Symptomatic. 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, heart murmur, kidney stones, nodules on thyroid, Degenerative disc disease, hiatal hernia, past hx of seizure while sleeping last one age 10, eczema, pneumonia September 2023, no CPAP History of Any Multi-Drug Resistant Organisms: MRSA Date of last positivie culture/infection: 2015 MDRO Source:: R foot Past Surgical History: Section, Cholecystectomy, Heart Catheterization, Orthopedic Surgery Additional Past Surgical History / Comment(s): R hand sx, EGD, colonoscopy Past Anesthesia/Blood Transfusion Reactions: No Reported Reaction, Family History of Problems w/ Anesthesia Additional Past Anesthesia/Blood Transfusion Reaction / Comment(s): mom- PONV Past Psychological History: Depression Smoking Status: Former smoker Plan - Discharge Summary Discharge Rx Participant: No New Discharge Prescriptions: New Prochlorperazine [Compazine] 5 mg PO Q8HR PRN #30 tab PRN Reason: Nausea Aspirin 81 mg PO DAILY tab Continue Albuterol Inhaler [Ventolin Hfa Inhaler] 2 puff INHALATION RT-QID PRN PRN Reason: Shortness Of Breath Insulin Glargine,Hum.rec.anlog [Lantus Solostar Pen] 30 units SQ DAILY Budesonide/Formoterol Fumarate [Symbicort 160-4.5 Mcg Inhaler] 2 puff INHALATION RT-BID Atorvastatin [Lipitor] 80 mg PO HS Clopidogrel [Plavix] 75 mg PO DAILY DULoxetine HCL [Cymbalta] 30 mg PO DAILY Dulaglutide [Trulicity] 3 mg SQ TH Cholecalciferol [Vitamin D3 (25 Mcg = 1000 Iu)] 25 mcg PO DAILY Empagliflozin [Jardiance] 10 mg PO DAILY Ondansetron [Zofran] 4 mg PO Q12H PRN PRN Reason: Nausea And Vomiting Losartan Potassium 100 mg PO DAILY Discontinued hydroCHLOROthiazide [Hydrodiuril] 12.5 mg PO DAILY Discharge Medication List Albuterol Inhaler [Ventolin Hfa Inhaler] 2 puff INHALATION RT-QID PRN 08/27/15 [History] Budesonide/Formoterol Fumarate [Symbicort 160-4.5 Mcg Inhaler] 2 puff INHALATION RT-BID 06/28/23 [History] Dulaglutide [Trulicity] 3 mg SQ TH 06/28/23 [History] Insulin Glargine,Hum.rec.anlog [Lantus Solostar Pen] 30 units SQ DAILY 06/28/23 [History] Cholecalciferol [Vitamin D3 (25 Mcg = 1000 Iu)] 25 mcg PO DAILY 09/11/23 [History] Atorvastatin [Lipitor] 80 mg PO HS 02/24/24 [History] Clopidogrel [Plavix] 75 mg PO DAILY 02/24/24 [History] Empagliflozin [Jardiance] 10 mg PO DAILY 02/24/24 [History] Losartan Potassium 100 mg PO DAILY 02/24/24 [History] Ondansetron [Zofran] 4 mg PO Q12H PRN 02/24/24 [History] DULoxetine HCL [Cymbalta] 30 mg PO DAILY 05/29/24 [History] Aspirin 81 mg PO DAILY tab 05/30/24 [Rx] Prochlorperazine [Compazine] 5 mg PO Q8HR PRN #30 tab 05/30/24 [Rx] Follow up Appointment(s)/Referral(s): Eric Cohen DO [STAFF PHYSICIAN] - 06/06/24 2:45 pm Radu Mckeon MD [Primary Care Provider] - 1-2 days Patient Instructions/Handouts: Hiatal Hernia (DC), Hiatal Hernia (GEN), Full Liquid Diet (DC), Full Liquid Diet (GEN) Activity/Diet/Wound Care/Special Instructions: full liuids/ground diet - diabetic STICK WITH MOSTLY FULL LIQUIDS MAY HAVE A SMALL BITE OF GROUND HERE AND THERE Discharge Disposition: HOME SELF-CARE
[2024-06-01] MEDS ORDERED: NON FORMULARY DRUG (Dulaglutide [Trulicity] 3 MG/0.5 ML Each) SQ SCH (09:00)
== END 2024-05-30 14:31 | disposition home or self-care (01) ==
LOC: EC 09:06 → 6NMEDSUR 10:51
PROVIDERS: ADMIT Hospitalist; ATTEND Hospitalist
DX: R07.89 Other chest pain (principal); I25.10 Atherosclerotic heart disease of native coronary artery without angina pectoris; K22.2 Esophageal obstruction; I08.0 Rheumatic disorders of both mitral and aortic valves; I10 Essential (primary) hypertension; J44.89 Other specified chronic obstructive pulmonary disease; E11.65 Type 2 diabetes mellitus with hyperglycemia; E11.40 Type 2 diabetes mellitus with diabetic neuropathy, unspecified; K44.9 Diaphragmatic hernia without obstruction or gangrene; E78.5 Hyperlipidemia, unspecified; F32.A Depression, unspecified; R07.2 Precordial pain; R11.2 Nausea with vomiting, unspecified; Z79.51 Long term (current) use of inhaled steroids; Z79.02 Long term (current) use of antithrombotics/antiplatelets; Z79.84 Long term (current) use of oral hypoglycemic drugs; Z79.85 Long-term (current) use of injectable non-insulin antidiabetic drugs; Z79.899 Other long term (current) drug therapy; Z79.4 Long term (current) use of insulin; Z88.1 Allergy status to other antibiotic agents; Z91.041 Radiographic dye allergy status; Z91.040 Latex allergy status; Z91.011 Allergy to milk products; Z91.010 Allergy to peanuts; Z91.013 Allergy to seafood; Z88.2 Allergy status to sulfonamides; Z91.018 Allergy to other foods; Z91.048 Other nonmedicinal substance allergy status; Z87.891 Personal history of nicotine dependence; Z86.73 Personal history of transient ischemic attack (TIA), and cerebral infarction without residual deficits; Z86.0100 Personal history of colon polyps, unspecified; Z87.19 Personal history of other diseases of the digestive system; F10.21 Alcohol dependence, in remission
CPT/HCPCS: 96372 ×2; 99285; 36415; 94640 ×2; 93005 ×2; 93306; 85379; 80061; 80053; 83735; 84484; 85025; 85610; 85730; 71046; G0378 ×2; J1650 ×2